=== PATIENT | female | born 1980 | race Caucasian/White ===

== ENCOUNTER → 2020-07-07 15:32 | Outpatient (BNVA) | payer OTHER, SELFPAY | PROVIDERS: PCP Internal Medicine; Referring Provider Internal Medicine; Visit Provider Internal Medicine Gastroenterology | DX: K21.9 Gastro-esophageal reflux disease without esophagitis (principal); K59.09 Other constipation; R11.2 Nausea with vomiting, unspecified; R10.32 Left lower quadrant pain | CPT/HCPCS: 99213 ==

== ENCOUNTER 2020-09-14 15:01 | Emergency (ER) | payer OTHER, SELFPAY ==
[2020-09-14 16:33] VITALS: BP 153/94; PULSE 99; RESP 16; O2SAT 99; BMI 37.8
--- NOTE | 2020-09-14 16:58 | ED.GENADULT ---
HPI - General Adult General Chief complaint: Extremity Injury, Lower Stated complaint: Bilateral leg pain Time Seen by Provider: 09/14/20 16:44 Source: patient Mode of arrival: ambulatory Limitations: no limitations History of Present Illness HPI narrative: 40-year-old female with a past medical history of allergic rhinitis, chronic constipation, diabetes, GERD, high cholesterol, diabetes here with bilateral lower extremity pain. The patient only for the last 2 days she has had lower extremity pain with no swelling, redness, fevers, chills. Denies any injury or trauma. She tells me she works on her feet for long hours. She is very active. She normally wears a flat slip-on shoe at work. Sometime she wears sneakers. Pain is worsened with walking. Onset (ago): day(s) Location: lower extremity Radiation: non-radiation Severity: mild Quality: aching Pain Consistency: intermittent Relieving factors: none Exacerbating factors: none Associated symptoms: denies other symptoms Treatments prior to arrival: none Related Data Home Medications Medication Instructions Recorded Confirmed dicyclomine 20 mg tablet 20 mg PO BID 07/07/20 07/07/20 metformin 500 mg tablet 500 mg PO BID 07/07/20 07/07/20 ondansetron 4 mg disintegrating 4 mg PO Q8H 07/07/20 07/07/20 tablet polyethylene glycol 3350 17 17 g PO DAILY 07/07/20 07/07/20 gram/dose oral powder Previous Rx's Medication Instructions Recorded alogliptin 25 mg tablet 25 mg PO DAILY 90 Days #90 tab 07/05/20 Allergies Allergy/AdvReac Type Severity Reaction Status Date / Time No Known Allergies Allergy Verified 09/02/20 13:31 [No Known Allergies*] Review of Systems Review of Systems: Yes all other systems are reviewed and are negative Constitutional: Constitutional: Reports no additional constitutional complaints, Denies body ache(s), Denies chills, Denies fever(s), Denies headache(s) and Denies weakness Eyes: Eyes: Reports no additional eye complaints and Denies change in vision ENT: Reports system reviewed and no additional complaints, except as documented, Denies dizziness, Denies headache(s), Denies nasal congestion, Denies nasal discharge and Denies neck pain Cardiovascular: Cardiovascular: Reports no additional cardiovascular complaints, Denies chest pain, Denies leg edema and Denies dyspnea Respiratory: Respiratory: Reports no additional respiratory complaints, Denies cough and Denies dyspnea Gastrointestinal: Gastrointestinal: Reports no additional gastrointestinal complaints, Denies abdominal pain, Denies diarrhea, Denies nausea and Denies vomiting Genitourinary: Genitourinary: Reports no additional female genitourinary complaints and Denies urinary incontinence Musculoskeletal: Musculoskeletal: Reports no additional musculoskeletal complaints, Denies back pain, Denies arthralgias, Denies joint swelling, Denies neck pain, Denies numbness and Denies tingling Comments: +LE pain Integumentary/Breasts: Skin/Breast: Reports system reviewed and no additional complaints, except as docu and Denies rash Neurologic: Reports system reviewed and no additional complaints, except as documented, Denies Abnormal speech present, Denies dizziness, Denies headache(s), Denies numbness, Denies tingling and Denies weakness PMFSH Past Medical History Attestation statement: The following information was validated with the patient. Source: old records reviewed and nursing notes reviewed Medical History Allergic rhinitis Calcaneal spur of left foot Chest pain, atypical Chronic constipation Diabetes GERD (gastroesophageal reflux disease) Hirsutism Hypercholesterolemia Left lower quadrant abdominal pain Nausea and vomiting Obesity (BMI 35.0-39.9 without comorbidity) Plantar fasciitis of left foot Type 2 diabetes mellitus Surgical History H/O section H/O endoscopy History of esophagogastroduodenoscopy (EGD) (~10/2019) [place] teeth removed Family History Family History Father No problems noted. Mother Hypertension Sister No problems noted. 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 [employer] Physical Exam Vital Signs: Vital Signs: Last Vital Signs Pulse 99 09/14/20 16:33 Resp 16 09/14/20 16:33 BP 153/94 H 09/14/20 16:33 Pulse Ox 99 09/14/20 16:33 Body Mass Index 37.8 Const: General: cooperative, healthy appearing, comfortable and no acute distress Orientation/consciousness: patient oriented x3 Limitations: no limitations HENMT: Head: Yes normal to inspection Ears: hearing grossly normal bilaterally General nose exam: Normal external nose present Face and sinus: Yes normal facial exam Mouth: Normal oral and palatal mucosa present Throat: Yes posterior oropharynx normal Eyes: General: appearance normal, both eyes and all related structures Pupils: Equal, round and reactive pupils present Neck: Neck: Yes normal visual inspection Chest: Chest palpation & inspection: normal inspection of the chest Resp: Effort & Inspection: normal respiratory effort Auscultation: clear to auscultation bilaterally Cardio: Rate: regular rate Rhythm: regular rhythm Peripheral pulses: Peripheral pulses 2+ throughout GI: Inspection: Yes normal to inspection Palpation (GI): Soft to palpation and nontender Auscultation: normal bowel sounds Back/Spine/Pelvis: Thoracic/Lumbar Spine: thoracic and lumbar spine normal to inspection Skin: General skin exam: no rashes or lesions noted Neuro: General: patient oriented x3, no focal motor deficits and normal sensation to monofilament Cranial nerves: Yes Equal, round and reactive pupils present Cognition (Neuro): normal cognition Speech: No Abnormal speech present Gait exam (Neuro): Normal gait present Motor exam (neuro): 5/5 motor strength present throughout Extrem: Other: Bilateral lower extremity tenderness more over the anterior shins with no swelling, ecchymosis, erythema, warmth. There is some mild posterior right and left calf pain. Neurovascular intact distally. Normal cap refill and pulses. General: Yes normal to inspection Course Course Course Narrative: 40 yo female here with bilateral LE pain x several days with no injury or trauma. No erythema, swelling, warmth or fevers or chills. Will check US, provide analgesia and re-assess. 1829-US negative for DVT. Exam more c/w with sprague splints. Reviewed supportive care at home. Reviewed worrisome signs and symptoms of when to return to the emergency department. Comfortable discharge home. Medical Decision Making Imaging Data Venous US: Attestation: I personally reviewed and interpreted this imaging study as follows: Radiologist's impression: EXAMINATION: US VENOUS ULTRASOUND WITH DOPPLER LOWER EXTREMITY, BILATERAL CLINICAL INFORMATION: Lower extremity pain. Calf tenderness. COMPARISON: None TECHNIQUE: Ultrasound of the deep veins is performed from the hip to the calf with compression sonography and color and pulse Doppler assessment. Spectral analysis with color-flow imaging is performed. FINDINGS: RIGHT: There is normal venous compression and respiratory variation and augmented flow. The visualized common femoral vein, superficial femoral vein, profunda femoral vein, popliteal vein, and the trifurcation region shows no evidence of deep venous thrombosis. There is no significant popliteal fossa cyst. LEFT: There is normal venous compression and respiratory variation and augmented flow. The visualized common femoral vein, superficial femoral vein, profunda femoral vein, popliteal vein, and the trifurcation region shows no evidence of deep venous thrombosis. There is no significant popliteal fossa cyst. If the patient's symptoms persist, followup ultrasound in 5 days 7 days might be of value to exclude proximal propagation from a non-visualized calf vein. US/US venous duplex LE BI IMPRESSION: No DVT demonstrated in the bilateral lower extremity. Discharge Plan Discharge Clinical Impression: Anterior sprague splints Patient Disposition: Home, Self-Care Instructions: Sprague Splints (ED) Additional Instructions: Ice your legs, elevate the legs Take motrin or tylenol for pain as needed Consider buying new sneakers as sometimes when sneakers get old the support wears out and you need new ones Prescriptions: No Action alogliptin 25 mg tablet 25 mg PO DAILY 90 Days Qty: 90 RF: 0 metformin 500 mg tablet 500 mg PO BID RF: 0 dicyclomine 20 mg tablet 20 mg PO BID RF: 0 ondansetron 4 mg tablet,disintegrating 4 mg PO Q8H RF: 0 polyethylene glycol 3350 [Miralax] 17 gram/dose powder 17 g PO DAILY RF: 0 Referrals: Tate Daniel MD [Primary Care Provider] - 2 days Stand Alone Forms: Work/School Release Interventions: ED Discharge Assessment Last Done: 09/14/20 19:07 Discharge Date/Time: 09/14/20 19:10
[2020-09-14] MEDS: Ibuprofen 600 MG TABLET PO (17:23)
== END 2020-09-14 19:10 | disposition home or self-care (01) ==
PROVIDERS: Emergency Provider Emergency Medicine Emergency Medical Services; PCP Internal Medicine
DX: S86.892A Other injury of other muscle(s) and tendon(s) at lower leg level, left leg, initial encounter (principal); S86.891A Other injury of other muscle(s) and tendon(s) at lower leg level, right leg, initial encounter; X50.1XXA Overexertion from prolonged static or awkward postures, initial encounter; M79.662 Pain in left lower leg; M79.661 Pain in right lower leg; E11.9 Type 2 diabetes mellitus without complications; Y93.9 Activity, unspecified; Y92.9 Unspecified place or not applicable; Y99.0 Civilian activity done for income or pay; Z79.84 Long term (current) use of oral hypoglycemic drugs; Z79.899 Other long term (current) drug therapy
CPT/HCPCS: 93970; 99283; 99284

== ENCOUNTER 2020-09-20 14:34 | Outpatient (REF) | payer OTHER, SELFPAY | END 2020-09-20 14:35 | disposition home or self-care (01) | LOC: HO.LAB 14:34 | PROVIDERS: PCP Internal Medicine; Visit Provider Internal Medicine | DX: Z20.828 Contact with and (suspected) exposure to other viral communicable diseases (principal) | CPT/HCPCS: 36415; C9803; U0003 ==

== ENCOUNTER 2020-09-20 15:03 | Outpatient (REF) | payer OTHER, SELFPAY ==
[2020-09-20 16:12] LABS: Estimated Average Glucose 206 mg/dL; Hemoglobin A1c % 8.8 %
[2020-09-20 16:21] LABS: Glucose Urine UA 500 MG/DL (NEG); Leukocyte Esterase Urine NEG (NEG); Nitrite Urine NEG (NEG); Specific Gravity - Urine >= 1.030 (1.005-1.025); Urine Blood NEG (NEG); Urine Ketones 40 MG/DL (NEG); Urine Protein NEG (NEG-TRACE)
[2020-09-20 16:24] LABS: Appearance Urine CLEAR; Color Urine YELLOW
[2020-09-20 16:27] LABS: Alanine Aminotransferase 22 U/L (0-31); Alkaline Phosphatase 43 U/L (39-117); Anion Gap 17 (12-20); Aspartate Amino Transferase 22 U/L (5-31); Bilirubin Total 0.3 mg/dL (0.0-1.0); Blood Urea Nitrogen 17 mg/dL (9-16); Calcium 8.6 mg/dL (8.4-10.2); Carbon Dioxide 22 mmol/L (22-29); Chloride 103 mmol/L (96-108); Cholesterol 200 mg/dL; Estimated Glomerular Filt Rate > 60; Glucose Random 239 mg/dL (60-115); HDL Cholesterol 62 mg/dL; LDL Cholesterol Calculated 99 mg/dl; Potassium 4.3 mmol/l (3.3-5.1); Sodium 138 mmol/L (135-145); Total Protein 6.9 g/dL (6.5-8.0); Triglycerides 195 mg/dL
[2020-09-20 16:30] LABS: Bacteria Urine 1+ /LPF; Mucus Urine 2+ /LPF; Squamous Epithelial Cell Urine 2+ /LPF
[2020-09-20 16:42] LABS: Creatinine Urine 278.66 mg/dL; Microalbum/Creatinine Ratio Ur 7.5 ug/mg cr
== END 2020-09-20 15:04 | disposition home or self-care (01) ==
LOC: HO.LAB 15:03
PROVIDERS: PCP Internal Medicine; Visit Provider Internal Medicine
DX: E11.9 Type 2 diabetes mellitus without complications (principal); E78.00 Pure hypercholesterolemia, unspecified
CPT/HCPCS: 36415; 80053; 80061; 81001; 82043; 83036

== ENCOUNTER 2020-10-13 15:28 | Outpatient (REF) | payer OTHER, SELFPAY ==
[2020-10-19 06:02] LABS: HPV mRNA E6/E7 rflx Not Detected (Not Detected)
== END 2020-10-13 15:29 | disposition home or self-care (01) ==
LOC: HO.LAB 15:28
PROVIDERS: PCP Internal Medicine; Visit Provider Obstetrics & Gynecology
DX: Z01.419 Encounter for gynecological examination (general) (routine) without abnormal findings (principal); Z11.51 Encounter for screening for human papillomavirus (HPV)
CPT/HCPCS: 36415; 87624; 88142

== ENCOUNTER → 2020-11-10 14:11 | Outpatient (BNVA) | payer OTHER, SELFPAY | PROVIDERS: PCP Internal Medicine; Visit Provider Internal Medicine Gastroenterology | DX: K21.9 Gastro-esophageal reflux disease without esophagitis (principal); K59.09 Other constipation; R07.89 Other chest pain | CPT/HCPCS: 99212 ==

== ENCOUNTER 2021-01-02 14:39 | Outpatient (REF) | payer OTHER, SELFPAY ==
[2021-01-02 15:15] LABS: COVID-19 Test Negative (Negative)
== END 2021-01-02 14:40 | disposition home or self-care (01) ==
LOC: HO.LAB 14:39
PROVIDERS: Visit Provider Internal Medicine
DX: Z20.822 Contact with and (suspected) exposure to COVID-19 (principal)
CPT/HCPCS: 36415; 87635; C9803

== ENCOUNTER → 2021-01-06 08:01 | Outpatient (REF) | payer OTHER, SELFPAY ==
--- NOTE | ~2021-01-06 | NM_ITS ---
EXAMINATION: RADIONUCLIDE SOLID FOOD GASTRIC EMPTYING 4-HOUR STUDY CLINICAL INFORMATION: Nausea with vomiting. COMPARISON: No previous gastric emptying study is available for comparison. TECHNIQUE: A standard meal consisting of 4 oz of Egg Beaters brand tagged with 1 mCi Tc-99m Sulfur Colloid, 8 oz water and 2 slices of toast with jelly was administered orally to the patient. Images were obtained using a dual head gamma camera in the anterior and posterior projections over of the stomach immediately post ingestion and at hourly intervals up to 3 hours post ingestion. Images were not obtained at 4 hours due to the minimal retention at 3 hours. The anterior and posterior counts at each time interval were averaged using the geometric mean and expressed as percentage of the immediate post ingestion counts. FINDINGS: There is good visualization of activity in the stomach immediately post ingestion. As the study progresses, there is good clearance of activity from the stomach and visualization of progressively increasing small bowel activity. By the end of the study, there is almost no retention noted in the stomach. Retention in the stomach at each time interval was: 1 hour 91% (normal 37%-90%) 2 hours 34% (normal 30%-60%) 3 hours 5% 4 hours (Not Obtained) (normal 0%-10%) NM/NM gastric emptying study IMPRESSION: Normal solid food gastric emptying study.
== END ==
LOC: HO.NUCMED 08:01
PROVIDERS: PCP Internal Medicine; Visit Provider Internal Medicine Gastroenterology
DX: R11.2 Nausea with vomiting, unspecified (principal); R68.81 Early satiety
CPT/HCPCS: 78264; A9541

== ENCOUNTER → 2021-01-12 08:26 | Outpatient (BNVA) | payer OTHER, SELFPAY | PROVIDERS: PCP Internal Medicine; Visit Provider Internal Medicine Gastroenterology ==

== ENCOUNTER 2021-01-31 09:59 | Outpatient (REF) | payer OTHER, SELFPAY ==
--- NOTE | ~2021-01-31 | MM_ITS ---
EXAMINATION: MM SCREENING DIGITAL BREAST TOMOSYNTHESIS, BILATERAL CLINICAL INFORMATION: Screening. Asymptomatic. The lifetime risk of breast cancer based on the Tyrer-Cuzick Model is 9%. COMPARISON: Mammography: 11/17/2019 (baseline). TECHNIQUE: Digital breast tomosynthesis is performed in both the craniocaudal and mediolateral oblique views along with computer-aided detection (CAD). Synthesized 2D images are generated from the tomosynthesis. FINDINGS: There are scattered areas of fibroglandular density (ACR BI-RADS breast composition Category b). There are no significant masses, abnormal calcifications, or other abnormalities. Parenchymal pattern is similar to baseline exam. Low right axillary tail node stable. Skin contours are smooth. MM/MM tomosynthesis screening BI IMPRESSION: No mammographic evidence of malignancy. ASSESSMENT: BI-RADS 2: Benign RECOMMENDATION: Routine annual mammography screening. This patient's information was entered into a reminder system with a target due date for their next mammogram.
== END 2021-01-31 10:00 | disposition home or self-care (01) ==
LOC: HO.MAMMO 09:59
PROVIDERS: Visit Provider Obstetrics & Gynecology
DX: Z12.31 Encounter for screening mammogram for malignant neoplasm of breast (principal)
CPT/HCPCS: 77063; 77067

== ENCOUNTER 2021-04-01 12:06 | Emergency (ER) | payer OTHER, SELFPAY ==
[2021-04-01] VITALS (8 sets, daily range): BP systolic 140–152; BP diastolic 88–99; PULSE 92–110; RESP 16; TEMP 36.5; O2SAT 99–100; BMI 30.6
--- NOTE | 2021-04-01 13:00 | ED.GENADULT ---
HPI - General Adult General Chief complaint: General Medical Stated complaint: Glucose level over 200/General Medical Time Seen by Provider: 04/01/21 12:18 Source: patient Mode of arrival: ambulatory History of Present Illness HPI narrative: 40-year-old female with a past medical history of DM, GERD, hyperlipidemia, presenting to the ED complaining of nausea, vomiting, chills, abdominal discomfort x today. Admits checked POC at work and was 274. Denies missing any doses of her Metformin or Trulicity. Denies fever, CP/SOB, diarrhea/constipation, recent travel, suspicious food intake Related Data Home Medications Medication Instructions Recorded Confirmed ondansetron 4 mg disintegrating 4 mg PO Q8H 07/07/20 01/12/21 tablet polyethylene glycol 3350 17 17 g PO DAILY 07/07/20 01/12/21 gram/dose oral powder famotidine 20 mg tablet 40 mg PO BEDTIME 09/27/20 01/12/21 Previous Rx's Medication Instructions Recorded omeprazole 40 mg capsule,delayed 40 mg PO DAILY #30 cap 09/17/20 release desogestrel 0.15 mg-ethinyl 1 tab PO DAILY 84 Days #84 cap 11/08/20 estradiol 0.03 mg tablet dulaglutide 0.75 mg/0.5 mL 0.75 mg SUBCUT QWEEK 28 Days #2 ml 01/03/21 subcutaneous pen injector ibuprofen 600 mg tablet 600 mg PO TID PRN 30 Days #90 tab 01/03/21 metformin 500 mg tablet 500 mg PO BID 30 Days #60 cap 01/03/21 tizanidine 4 mg tablet 4 mg PO TID PRN 30 Days #90 tab 01/03/21 dicyclomine 20 mg tablet 20 mg PO TID #90 tab 03/24/21 Allergies Allergy/AdvReac Type Severity Reaction Status Date / Time Seasonal Allergies Allergy Mild runny nose Verified 04/01/21 12:14 Review of Systems Review of Systems: Constitutional: No Fever, + Chills, No Fatigue, No Malaise ENT/Mouth: No Ear Pain, No Nasal Congestion, No sore throat, No Rhinorrhea Eyes: No Eye Pain, No Swelling, No Redness, No Vision Changes Cardiovascular: No Chest Pain, No SOB, No Edema Respiratory: No Cough, No Dyspnea Gastrointestinal: + Nausea, + Vomiting, No Diarrhea, No Constipation, + Abdominal pain Genitourinary: No Dysuria, No Urinary Frequency, No Hematuria Musculoskeletal: No joint pain, No Joint Swelling Skin: No Skin Lesions, No rash Neuro: No Weakness, No Numbness Endocrine: No Polyuria, No Polydipsia Yes all other systems are reviewed and are negative [facility] Past Medical History Attestation statement: The following information was validated with the patient. Medical History Allergic rhinitis Calcaneal spur of left foot Chest pain, atypical Chronic constipation Diabetes Elevated blood pressure reading GERD (gastroesophageal reflux disease) GERD without esophagitis Hirsutism HPV (human papilloma virus) infection Hypercholesterolemia Knee pain, bilateral Left lower quadrant abdominal pain Nausea and vomiting Obesity (BMI 30-39.9) Obesity (BMI 35.0-39.9 without comorbidity) Plantar fasciitis of left foot Pure hypercholesterolemia Type 2 diabetes mellitus Type 2 diabetes mellitus without complications Surgical History H/O section H/O endoscopy History of esophagogastroduodenoscopy (EGD) (~10/2019) [place] teeth removed Family History Family History Father No problems noted. 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 Physical Exam Vital Signs: Vital Signs: Last Vital Signs Temp 97.7 F 04/01/21 12:14 Pulse 96 04/01/21 14:14 Resp 16 04/01/21 14:00 BP 146/91 H 04/01/21 15:58 Pulse Ox 100 04/01/21 14:00 Body Mass Index 30.6 Const: General: cooperative, healthy appearing, no acute distress, well developed, alert, awake and anxious Orientation/consciousness: patient oriented x3 Limitations: no limitations HENMT: Head: Yes normal to inspection Ears: hearing grossly normal bilaterally General nose exam: Normal external nose present Face and sinus: Yes normal facial exam Throat: Yes posterior oropharynx normal Eyes: General: appearance normal, both eyes and all related structures EOM: EOMs intact bilaterally Neck: Neck: Yes normal visual inspection and Yes no meningeal signs Resp: Effort & Inspection: normal respiratory effort Auscultation: clear to auscultation bilaterally, no rales, no rhonchi and no wheezes Cardio: Rate: regular rate Heart sounds: S1 normal heart sound present and S2 normal heart sound present GI: Inspection: Yes normal to inspection Palpation (GI): Soft to palpation, nontender, no guarding and not rigid Skin: Rashes: no rashes Wounds: no wounds Neuro: General: patient oriented x3 and no meningeal signs Gait exam (Neuro): Normal gait present Extrem: General: Yes normal to inspection Course Course Course Narrative: -no leukocytosis, H&H stable, lactic acid elevated at 6 >patient is currently on Metformin likely also element of dehydration will give IVF. Low concern for severe sepsis -1437--VBG WNL, bicarb low at 19 likely from nausea/decreased PO intake, anion gap elevated at 23 likely from lactic acidosis. Glucose 291, acetone negative. Magnesium 1.3 > will give 2 g IV repletion -1622- BMP normalized after IVF. Glucose improved to 181, lactic improved to 2.7. UA not infected Medical Decision Making MDM Narrative Medical decision making narrative: 40-year-old female with a past medical history of DM, GERD, hyperlipidemia, presenting to the ED complaining of nausea, vomiting, chills, abdominal discomfort x today. On exam tachycardic, anxious, nontoxic appearing, lungs CTA, abdomen soft/nontender. Concern for hyperglycemia vs DKA vs gastroenteritis vs food poisoning. Rule out metabolic/infectious etiology. Low concern for ACS/UTI Plan: EKG, labs, UA, IVF, reassess Lab Data Result diagrams: 04/01/21 13:10 04/01/21 15:40 Labs: Lab Results 04/01/21 04/01/21 04/01/21 Range/Units 13:05 13:05 13:10 WBC 7.3 (4.8-10.8) X10*3/uL RBC 4.11 L (4.20-5.50) X10*6/uL Hgb 13.0 (12.0-16.0) g/dl Hct 37.5 (37-47) % MCV 91.2 (80-98) fL MCH 31.6 (27.0-33.0) pg MCHC 34.7 (31.0-35.0) g/dl RDW 12.6 (11.0-16.0) % Plt Count 184 (160-400) X10*3/uL MPV 10.4 (9.4-12.3) fL Immature Gran % (Auto) 0.3 (0.0-0.4) % Neut % (Auto) 58.2 (45-73) % Lymph % (Auto) 31.4 (20-40) % [place] % (Auto) 8.6 (2-11) % Eos % (Auto) 1.0 (0-4) % Baso % (Auto) 0.5 (0-2) % Lymph # (Auto) 2.3 (1.2-4.9) X10*3/uL [place] # (Auto) 0.6 (0.1-1.2) X10*3/uL Eos # (Auto) 0.1 (0.0-0.4) X10*3/uL Baso # (Auto) 0.0 (0.0-0.2) X10*3/uL Abs Immat Gran (auto) 0.02 (0.00-0.03) X10*3/uL Absolute Neuts (auto) 4.3 (2.0-8.3) X10*3/uL Absolute Nucleated RBC 0.000 (0.0-0.012) X10*3/uL Nucleated RBC % (auto) 0.0 (0.0-0.2) /100WBC VBG pH (7.32-7.43) VBG pCO2 mmHg VBG pO2 mmHg VBG HCO3 (22-26) mmol/L VBG O2 Saturation % VBG Base Excess mmol/L Sodium 139 (135-145) mmol/L Potassium 4.1 (3.3-5.1) mmol/L Chloride 101 (96-108) mmol/L Carbon Dioxide 19 L (22-29) mmol/L Anion Gap 23 H (12-20) BUN 19 H (9-16) mg/dL Creatinine 1.02 (0.5-1.4) mg/dL Estim Creat Clear Calc 66.5 Estimated GFR 60 POC Glucose (60-115) mg/dL Random Glucose 291 H (60-115) mg/dL Lactic Acid (0.5-2.0) mmol/L Lactic Acid Fup @ 2Hr (0.5-2.0) mmol/L Calcium 9.7 D (8.4-10.2) mg/dL Magnesium 1.3 L* (1.6-2.6) mg/dL Total Bilirubin 0.4 (0.0-1.0) mg/dL Direct Bilirubin 0.2 (0.0-0.5) mg/dL AST 24 (5-31) U/L ALT 19 (0-31) U/L Alkaline Phosphatase 46 (39-117) U/L Total Protein 6.7 (6.5-8.0) g/dL Albumin 3.7 (3.5-5.0) g/dL Lipase 28 Cancelled (8-78) U/L Urine Color Urine Appearance Urine pH (5.0-8.0) Ur Specific [place] (1.005-1.025) Urine Protein (NEG-TRACE) MG/DL Urine Glucose (UA) (NEG) MG/DL Urine Ketones (NEG) MG/DL Urine Blood (NEG) Urine Nitrite (NEG) Ur Leukocyte Esterase (NEG) Urine RBC (0) /HPF Urine WBC (0-4) /HPF Ur Squamous Epith Cells /LPF Urine Bacteria /LPF Hyaline Casts /LPF Urine Mucus /LPF Acetone, Qual Negative (Negative) 04/01/21 04/01/21 04/01/21 Range/Units 13:10 14:06 14:21 WBC (4.8-10.8) X10*3/uL RBC (4.20-5.50) X10*6/uL Hgb (12.0-16.0) g/dl Hct (37-47) % MCV (80-98) fL MCH (27.0-33.0) pg MCHC (31.0-35.0) g/dl RDW (11.0-16.0) % Plt Count (160-400) X10*3/uL MPV (9.4-12.3) fL Immature Gran % (Auto) (0.0-0.4) % Neut % (Auto) (45-73) % Lymph % (Auto) (20-40) % [place] % (Auto) (2-11) % Eos % (Auto) (0-4) % Baso % (Auto) (0-2) % Lymph # (Auto) (1.2-4.9) X10*3/uL [place] # (Auto) (0.1-1.2) X10*3/uL Eos # (Auto) (0.0-0.4) X10*3/uL Baso # (Auto) (0.0-0.2) X10*3/uL Abs Immat Gran (auto) (0.00-0.03) X10*3/uL Absolute Neuts (auto) (2.0-8.3) X10*3/uL Absolute Nucleated RBC (0.0-0.012) X10*3/uL Nucleated RBC % (auto) (0.0-0.2) /100WBC VBG pH 7.41 (7.32-7.43) VBG pCO2 36 mmHg VBG pO2 70 mmHg VBG HCO3 23 (22-26) mmol/L VBG O2 Saturation 91.0 % VBG Base Excess -0.6 mmol/L Sodium (135-145) mmol/L Potassium (3.3-5.1) mmol/L Chloride (96-108) mmol/L Carbon Dioxide (22-29) mmol/L Anion Gap (12-20) BUN (9-16) mg/dL Creatinine (0.5-1.4) mg/dL Estim Creat Clear Calc Estimated GFR POC Glucose (60-115) mg/dL Random Glucose (60-115) mg/dL Lactic Acid 6.0 H* (0.5-2.0) mmol/L Lactic Acid Fup @ 2Hr (0.5-2.0) mmol/L Calcium (8.4-10.2) mg/dL Magnesium (1.6-2.6) mg/dL Total Bilirubin (0.0-1.0) mg/dL Direct Bilirubin (0.0-0.5) mg/dL AST (5-31) U/L ALT (0-31) U/L Alkaline Phosphatase (39-117) U/L Total Protein (6.5-8.0) g/dL Albumin (3.5-5.0) g/dL Lipase (8-78) U/L Urine Color YELLOW Urine Appearance HAZY Urine pH 6.0 (5.0-8.0) Ur Specific [place] >= 1.030 H (1.005-1.025) Urine Protein NEG (NEG-TRACE) MG/DL Urine Glucose (UA) >=1000 H (NEG) MG/DL Urine Ketones >=80 (NEG) MG/DL Urine Blood NEG (NEG) Urine Nitrite NEG (NEG) Ur Leukocyte Esterase NEG (NEG) Urine RBC 0 (0) /HPF Urine WBC 1-4 (0-4) /HPF Ur Squamous Epith Cells 2+ /LPF Urine Bacteria NONE /LPF Hyaline Casts 0-2 /LPF Urine Mucus 1+ /LPF Acetone, Qual (Negative) 04/01/21 04/01/21 04/01/21 Range/Units 15:40 15:40 16:02 WBC (4.8-10.8) X10*3/uL RBC (4.20-5.50) X10*6/uL Hgb (12.0-16.0) g/dl Hct (37-47) % MCV (80-98) fL MCH (27.0-33.0) pg MCHC (31.0-35.0) g/dl RDW (11.0-16.0) % Plt Count (160-400) X10*3/uL MPV (9.4-12.3) fL Immature Gran % (Auto) (0.0-0.4) % Neut % (Auto) (45-73) % Lymph % (Auto) (20-40) % [place] % (Auto) (2-11) % Eos % (Auto) (0-4) % Baso % (Auto) (0-2) % Lymph # (Auto) (1.2-4.9) X10*3/uL [place] # (Auto) (0.1-1.2) X10*3/uL Eos # (Auto) (0.0-0.4) X10*3/uL Baso # (Auto) (0.0-0.2) X10*3/uL Abs Immat Gran (auto) (0.00-0.03) X10*3/uL Absolute Neuts (auto) (2.0-8.3) X10*3/uL Absolute Nucleated RBC (0.0-0.012) X10*3/uL Nucleated RBC % (auto) (0.0-0.2) /100WBC VBG pH (7.32-7.43) VBG pCO2 mmHg VBG pO2 mmHg VBG HCO3 (22-26) mmol/L VBG O2 Saturation % VBG Base Excess mmol/L Sodium 139 (135-145) mmol/L Potassium 3.5 (3.3-5.1) mmol/L Chloride 107 (96-108) mmol/L Carbon Dioxide 22 (22-29) mmol/L Anion Gap 14 (12-20) BUN 15 (9-16) mg/dL Creatinine 0.79 (0.5-1.4) mg/dL Estim Creat Clear Calc 85.9 Estimated GFR > 60 POC Glucose 181 H (60-115) mg/dL Random Glucose 207 H (60-115) mg/dL Lactic Acid (0.5-2.0) mmol/L Lactic Acid Fup @ 2Hr 2.7 H* (0.5-2.0) mmol/L Calcium 8.4 D (8.4-10.2) mg/dL Magnesium (1.6-2.6) mg/dL Total Bilirubin (0.0-1.0) mg/dL Direct Bilirubin (0.0-0.5) mg/dL AST (5-31) U/L ALT (0-31) U/L Alkaline Phosphatase (39-117) U/L Total Protein (6.5-8.0) g/dL Albumin (3.5-5.0) g/dL Lipase (8-78) U/L Urine Color Urine Appearance Urine pH (5.0-8.0) Ur Specific [place] (1.005-1.025) Urine Protein (NEG-TRACE) MG/DL Urine Glucose (UA) (NEG) MG/DL Urine Ketones (NEG) MG/DL Urine Blood (NEG) Urine Nitrite (NEG) Ur Leukocyte Esterase (NEG) Urine RBC (0) /HPF Urine WBC (0-4) /HPF Ur Squamous Epith Cells /LPF Urine Bacteria /LPF Hyaline Casts /LPF Urine Mucus /LPF Acetone, Qual (Negative) Discharge Plan Discharge Clinical Impression: Acute hyperglycemia Patient Disposition: Home, Self-Care Instructions: Diabetic Hyperglycemia (ED) Additional Instructions: Make sure you are staying hydrated at home, monitor your blood glucose Do not miss any doses of her metformin or you Trulicity Please drink plenty of fluids Follow-up with her primary care doctor If her symptoms persist or worsen, you are unable to eat or drink, your blood glucose is continuously high, or lobe please return to the ED Prescriptions: No Action omeprazole 40 mg capsule,delayed release(DR/EC) 40 mg PO DAILY Qty: 30 RF: 5 desogestrel-ethinyl estradiol [Apri] 0.15-0.03 mg tablet 1 tab PO DAILY 84 Days Qty: 84 RF: 2 dicyclomine 20 mg tablet 20 mg PO TID Qty: 90 RF: 1 famotidine 20 mg tablet 40 mg PO BEDTIME RF: 0 metformin 500 mg tablet 500 mg PO BID 30 Days Qty: 60 RF: 3 Trulicity 0.75 mg/0.5 mL pen injector 0.75 mg subcut QWEEK 28 Days Qty: 2 RF: 3 tizanidine 4 mg tablet 4 mg PO TID PRN (Reason: muscle spasticity) 30 Days Qty: 90 RF: 2 ibuprofen 600 mg tablet 600 mg PO TID PRN (Reason: pain) 30 Days Qty: 90 RF: 3 ondansetron 4 mg tablet,disintegrating 4 mg PO Q8H RF: 0 polyethylene glycol 3350 [Miralax] 17 gram/dose powder 17 g PO DAILY RF: 0 Referrals: Tate Daniel MD [Primary Care Provider] - 2 days
--- NOTE | 2021-04-01 13:06 | ECG_ITS ---
Test Reason : WEAKNESS Blood Pressure : / mmHG Vent. Rate : 092 BPM Atrial Rate : 092 BPM P-R Int : 136 ms QRS Dur : 072 ms QT Int : 368 ms P-R-T Axes : 045 018 -03 degrees QTc Int : 455 ms Normal sinus rhythm Septal infarct , age undetermined Abnormal ECG When compared with ECG of 13-JUN-2019 23:41, Septal infarct is now Present Referred By: Eunice Arora Electronically Signed By:Wilmer Mcghee
[2021-04-01] MEDS: 0.9 % Sodium Chloride 1,000 ML 999 ML IVCONT ×2 (13:13→14:17)
[2021-04-01] MEDS: ondansetron HCL 4 MG/2 ML VIAL IVPUSH (13:15)
[2021-04-01 13:16] LABS: Basophils Percent Auto 0.5 % (0-2); Eosinophils Absolute Auto 0.1 X10*3/uL (0.0-0.4); Hematocrit 37.5 % (37-47); Imm Gran Abs Auto 0.02 X10*3/uL (0.00-0.03); Imm Gran Pct Auto 0.3 % (0.0-0.4); Lymphocytes Absolute Auto 2.3 X10*3/uL (1.2-4.9); Lymphocytes Percent Auto 31.4 % (20-40); Mean Corpuscular HGB Conc 34.7 g/dl (31.0-35.0); Mean Corpuscular Hemoglobin 31.6 pg (27.0-33.0); Mean Corpuscular Volume 91.2 fL (80-98); Mean Platelet Volume 10.4 fL (9.4-12.3); Monocytes Absolute Auto 0.6 X10*3/uL (0.1-1.2); Monocytes Percent Auto 8.6 % (2-11); Neutrophils Absolute Auto 4.3 X10*3/uL (2.0-8.3); Neutrophils Percent Auto 58.2 % (45-73); Platelet Count 184 X10*3/uL (160-400); Red Blood Count 4.11 X10*6/uL (4.20-5.50); Red Cell Distribution Width 12.6 % (11.0-16.0); White Blood Count 7.3 X10*3/uL (4.8-10.8)
[2021-04-01 13:17] LABS: MANUAL DIFF FLAG NO
[2021-04-01 14:14] LABS: VBG Base Excess -0.6 mmol/L; VBG HCO3 23 mmol/L (22-26); VBG pCO2 36 mmHg; VBG pH 7.41 (7.32-7.43); VBG pO2 70 mmHg
[2021-04-01 14:15] LABS: Venous Blood Gas Refer to POC result
[2021-04-01 14:22] LABS: Acetone, serum QL Negative (Negative)
[2021-04-01 14:30] LABS: Alanine Aminotransferase 19 U/L (0-31); Albumin Level 3.7 g/dL (3.5-5.0); Alkaline Phosphatase 46 U/L (39-117); Anion Gap 23 (12-20); Aspartate Amino Transferase 24 U/L (5-31); Bilirubin Direct 0.2 mg/dL (0.0-0.5); Bilirubin Total 0.4 mg/dL (0.0-1.0); Blood Urea Nitrogen 19 mg/dL (9-16); Calcium 9.7 mg/dL (8.4-10.2); Carbon Dioxide 19 mmol/L (22-29); Chloride 101 mmol/L (96-108); Creatinine Clr Calc Pharmacy 66.5; Estimated Glomerular Filt Rate 60; Glucose Random 291 mg/dL (60-115); Lipase 28 U/L (8-78); Magnesium 1.3 mg/dL (1.6-2.6); Potassium 4.1 mmol/L (3.3-5.1); Sodium 139 mmol/L (135-145); Total Protein 6.7 g/dL (6.5-8.0)
[2021-04-01 14:32] LABS: Glucose Urine UA >=1000 MG/DL (NEG); Leukocyte Esterase Urine NEG (NEG); Nitrite Urine NEG (NEG); Specific Gravity - Urine >= 1.030 (1.005-1.025); Urine Blood NEG (NEG); Urine Ketones >=80 MG/DL (NEG); Urine Protein NEG (NEG-TRACE)
[2021-04-01 14:47] LABS: Appearance Urine HAZY; Color Urine YELLOW; Mucus Urine 1+ /LPF; RBC Urine 0 /HPF (0)
[2021-04-01 14:48] LABS: Hyaline Casts Urine 0-2 /LPF; Squamous Epithelial Cell Urine 2+ /LPF
[2021-04-01] MEDS: Insulin Regular, Human 100 UNIT/ML 3 ML VIAL SUBCUT (14:58)
[2021-04-01] MEDS: Magnesium Sulfate/H2O 2 GM/50 ML PIGGYBACK IV (14:58)
[2021-04-01 15:15] LABS: Reflex Lactate? Lactic Acid Added
[2021-04-01 16:06] LABS: Glucose, Whole Blood 181 mg/dL (60-115)
[2021-04-01 16:12] LABS: ~Lactic Acid-LAB USE ONLY 2.7 mmol/L (0.5-2.0)
[2021-04-01 16:17] LABS: Anion Gap 14 (12-20); Blood Urea Nitrogen 15 mg/dL (9-16); Calcium 8.4 mg/dL (8.4-10.2); Carbon Dioxide 22 mmol/L (22-29); Chloride 107 mmol/L (96-108); Creatinine Clr Calc Pharmacy 85.9; Estimated Glomerular Filt Rate > 60; Glucose Random 207 mg/dL (60-115); Potassium 3.5 mmol/L (3.3-5.1); Sodium 139 mmol/L (135-145)
--- NOTE | 2021-04-01 16:25 | PC.NURSE ---
Pt A&Ox3. she is resting comfortably in bed, reports her pain is tolerable at a 5/10 in the LLQ. Initial lactic high at 6.0 she was given 2L of fluids repeat lactic was 2.7.
[2021-04-01 17:44] LABS: Reflex Lactate? 2 Y
== END 2021-04-01 17:03 | disposition home or self-care (01) ==
PROVIDERS: Physician Assistant; Emergency Provider Emergency Medicine; PCP Internal Medicine
DX: E11.65 Type 2 diabetes mellitus with hyperglycemia (principal); Z79.84 Long term (current) use of oral hypoglycemic drugs
CPT/HCPCS: 36415; 80048; 80076; 81001; 82009; 82803; 82947; 83605; 83690; 83735; 85025; 93005; 96361; 96365; 96366; 96375; 99284; J2405; J3475

== ENCOUNTER 2021-08-21 16:47 | Emergency (ER) | payer OTHER, SELFPAY ==
[2021-08-21 17:56] VITALS: BP 155/105; PULSE 110; RESP 20; TEMP 36.1; O2SAT 98; BMI 30.2
[2021-08-21 18:56] LABS: COVID-19 Test Negative (Negative)
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
== END 2021-08-21 20:29 | disposition home or self-care (01) ==
PROVIDERS: Emergency Provider Emergency Medicine Emergency Medical Services; PCP Internal Medicine
DX: S39.012A Strain of muscle, fascia and tendon of lower back, initial encounter (principal); V47.5XXA Car driver injured in collision with fixed or stationary object in traffic accident, initial encounter; Y93.89 Activity, other specified; Y92.415 Exit ramp or entrance ramp of street or highway as the place of occurrence of the external cause; Y99.9 Unspecified external cause status; Z20.822 Contact with and (suspected) exposure to COVID-19
CPT/HCPCS: 36415; 87635; 99283

== ENCOUNTER 2021-11-29 09:05 | Outpatient (REF) | payer OTHER, SELFPAY ==
[2021-11-29 10:33] LABS: MANUAL DIFF FLAG NO
[2021-11-29 10:43] LABS: Basophils Absolute Auto 0.1 X10*3/uL (0.0-0.2); Basophils Percent Auto 0.7 % (0-2); Eosinophils Absolute Auto 0.4 X10*3/uL (0.0-0.4); Eosinophils Percent Auto 3.3 % (0-4); Hematocrit 41.3 % (37.0-47.0); Hemoglobin 13.7 g/dl (12.0-16.0); Imm Gran Abs Auto 0.07 X10*3/uL (0.00-0.03); Imm Gran Pct Auto 0.6 % (0.0-0.4); Lymphocytes Absolute Auto 3.6 X10*3/uL (1.2-4.9); Lymphocytes Percent Auto 32.9 % (20-40); Mean Corpuscular HGB Conc 33.2 g/dl (31.0-35.0); Mean Corpuscular Volume 93.4 fL (80.0-98.0); Mean Platelet Volume 10.2 fL (9.4-12.3); Monocytes Absolute Auto 0.6 X10*3/uL (0.1-1.2); Monocytes Percent Auto 5.7 % (2-11); Neutrophils Absolute Auto 6.2 x10*3/uL (2.0-8.3); Neutrophils Percent Auto 56.8 % (45-73); Platelet Count 271 X10*3/uL (160-400); Red Blood Count 4.42 X10*6/uL (4.20-5.50); Red Cell Distribution Width 12.5 % (11.0-16.0); White Blood Count 10.9 X10*3/uL (4.8-10.8)
[2021-11-29 11:22] LABS: Erythrocyte Sedimentation Rate 4 MM/HR (0-20)
[2021-11-29 11:24] LABS: TSH reflex Free T4 0.53 uIU/mL (0.32-4.0)
[2021-11-29 11:51] LABS: Alanine Aminotransferase 19 U/L (0-31); Alkaline Phosphatase 61 U/L (39-117); Anion Gap 14 (12-20); Aspartate Amino Transferase 15 U/L (5-31); Bilirubin Total 0.4 mg/dL (0.0-1.0); Blood Urea Nitrogen 14 mg/dL (9-16); Carbon Dioxide 28 mmol/L (22-29); Chloride 102 mmol/L (96-108); Cholesterol 205 mg/dL; Estimated Glomerular Filt Rate > 60; Glucose Fasting 195 mg/dL (60-99); HDL Cholesterol 64 mg/dL; LDL Cholesterol Calculated 116 mg/dl; Magnesium 1.3 mg/dL (1.6-2.6); Potassium 4.2 mmol/L (3.3-5.1); Sodium 140 mmol/L (135-145); Total Protein 7.1 g/dL (6.5-8.0); Triglycerides 125 mg/dL
[2021-11-29 12:03] LABS: Appearance Urine HAZY; Color Urine YELLOW; Glucose Urine UA NEG (NEG); Leukocyte Esterase Urine NEG (NEG); Nitrite Urine NEG (NEG); Specific Gravity - Urine >= 1.030 (1.005-1.025); Urine Blood NEG (NEG); Urine Ketones 5 MG/DL (NEG); Urine Protein TRACE MG/DL (NEG-TRACE)
[2021-11-29 12:07] LABS: Estimated Average Glucose 200 mg/dL; Hemoglobin A1c % 8.6 %
== END 2021-11-29 09:06 | disposition home or self-care (01) ==
LOC: HO.LAB 09:05
PROVIDERS: Absent Provider Internal Medicine; PCP Internal Medicine; Visit Provider Obstetrics & Gynecology
DX: Z30.9 Encounter for contraceptive management, unspecified (principal); E83.42 Hypomagnesemia; I10 Essential (primary) hypertension; K21.9 Gastro-esophageal reflux disease without esophagitis; E66.9 Obesity, unspecified; E78.00 Pure hypercholesterolemia, unspecified; M25.561 Pain in right knee; M25.562 Pain in left knee; E11.9 Type 2 diabetes mellitus without complications
CPT/HCPCS: 36415; 80053; 80061; 81003; 83036; 83735; 84443; 85025; 85652

== ENCOUNTER 2021-12-25 16:32 | Emergency (ER) | payer OTHER, SELFPAY ==
[2021-12-25 18:00] VITALS: BP 145/93; PULSE 102; RESP 16; TEMP 36.8; O2SAT 99; BMI 29.5
--- NOTE | 2021-12-25 18:51 | ED_ITS ---
HPI - Back Pain/Injury General Chief Complaint: Neck Pain/Injury Stated Complaint: neck and back pain Time Seen by Provider: 12/25/21 18:32 Source: patient Mode of arrival: ambulatory Limitations: no limitations History of Present Illness HPI Narrative: Patient presents emergency department for evaluation left upper back pain with onset 2 days ago, without obvious injury or fall. 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 She states that the pain radiates down the left side of her back and into her left buttock and leg. Pain is progressively worsening. Is made worse with prolonged standing or movement. He does report feeling similar pain like this in the past when her magnesium levels were low. Denies headache, neck pain, dizziness or lightheadedness, chest pain, palpitations, shortness of breath, dyspnea on exertion, nausea vomiting, abdominal pain, generalized weakness. Denies , fevers, chills, burning with micturition, urinary frequency, urgency, hesitancy, bladder or bowel dysfunction, numbness or tingling of the perineum or bilateral legs. Denies any recent surgical procedures, personal history of cancer, or IV drug usage. Related Data Home Medications Medication Instructions Recorded Confirmed ondansetron 4 mg disintegrating 4 mg PO Q8H 07/07/20 12/13/21 tablet polyethylene glycol 3350 17 17 g PO DAILY 07/07/20 12/13/21 gram/dose oral powder (Miralax) albuterol sulfate 2.5 mg INHALATION QID PRN ml 10/23/21 12/13/21 Previous Rx's Medication Instructions Recorded ibuprofen 600 mg tablet 600 mg PO TID PRN 30 Days #90 tab 01/03/21 blood sugar diagnostic (FreeStyle #100 ea 04/18/21 Lite Strips) lancets 28 gauge (FreeStyle #100 ea 04/18/21 Lancets) famotidine 20 mg tablet 40 mg PO BEDTIME #60 tab 06/23/21 dulaglutide 1.5 mg/0.5 mL 1.5 mg (0.5 mL) SUBCUT QWEEK 28 08/22/21 subcutaneous pen injector Days #2 ml omeprazole 40 mg capsule,delayed 40 mg PO DAILY #30 cap 10/02/21 release dicyclomine 20 mg tablet 20 mg PO TID #90 tab 10/10/21 albuterol sulfate 90 mcg/actuation 2 puff INHALATION Q6H PRN 30 Days 10/23/21 aerosol inhaler (ProAir HFA) #18 g desogestrel 0.15 mg-ethinyl 1 tab PO DAILY 84 Days #84 cap 11/29/21 estradiol 0.03 mg tablet (Apri) magnesium oxide 400 mg PO BID 90 Days #180 tab 12/13/21 metformin 1,000 mg tablet 1,000 mg PO BID 30 Days #60 cap 12/13/21 diclofenac sodium 1 % topical gel 2 g TOPICAL QID #100 g 12/25/21 Allergies Allergy/AdvReac Type Severity Reaction Status Date / Time Seasonal Allergies Allergy Mild runny nose Verified 12/13/21 09:38 Review of Systems Review of Systems: Constitutional: No weight loss, fever, chills, weakness or fatigue. HEENT: No visual loss, blurred vision, double vision. No hearing loss, sneezing, congestion, runny nose or sore throat. Skin: No rash or itching. Cardiovascular: No chest pain, chest pressure or chest discomfort. No palpitations or pedal edema. Respiratory: No shortness of breath, cough or sputum production. Gastrointestinal: No anorexia, nausea, vomiting or diarrhea. No abdominal pain or blood in stool. Genitourinary: No burning micturition. No urinary frequency or incontinence. Neurologic: No headache, dizziness, syncope, unilateral weakness, ataxia, numbness or tingling in the extremities. No change in bowel or bladder control. Musculoskeletal: + Back pain as noted in HPI. No joint pain or stiffness. Hematologic: No bleeding or bruising. Lymphatics: No enlarged lymph nodes. Psychiatric:No depression or anxiety. Endocrine: No polyuria or polydipsia. Yes all other systems are reviewed and are negative PMFSH Past Medical History Attestation statement: The following information was validated with the patient. 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 Blood pressure mildly elevated 145/93. Heart rate mildly elevated.? Respiration rate normal. Tem perature normal.? Oxygen saturation normal. Appearance: Alert.?Oriented to person, place and time. No acute distress.?Normal affect. Eyes: Pupils equal, round and reactive to light.? ENT: Pharynx normal.?? Neck: Normal inspection.? Neck supple.?? CVS: Heart sounds normal. Normal heart rate and rhythm.? Pulses normal; bilateral radial pulses 2+, bilateral posterior tibial/dorsalis pedis pulses 2+.? Respiratory: No respiratory distress.? Lung sounds clear to auscultation bilaterally?? Abdomen: Soft and non-tender. Normoactive bowel sounds. No pulsatile mass.?? Skin: Skin warm and dry.? Normal skin color.? Normal skin turgor.?? Extremities: No lower extremity edema.? No calf ttp? Back: + paraspinal muscular tenderness from scapular region to lumbar region.. No midline spinal tenderness, step-off's, or deformity. Full ROM intact in bilateral lower extremities. Straight leg test negative on right; Straight leg test positive on left. No rashes, lesions, areas of induration or fluctuance, or signs of infection noted., Neuro: Moves all extremities spontaneously. 5/5 strength in hip extension/flexion, abduction, adduction. Sensation to light touch intact bilaterally. Patellar and Achilles reflex 2+ bilaterally. No ataxia, gait normal and steady.. No focal neuro deficits. Course Course Course Narrative: Patient is a 41-year-old female with a past medical history of obesity, GERD, hyperlipidemia, hypomagnesemia, type 2 diabetes. Obtain basic labs including CBC, CMP done, magnesium, and urinalysis to exclude infection. Toradol IM for pain image his driving and therefore we will avoid any sedating medications. On neurological exam there are no deficits. Not consistent with spinal fracture, spinal infection, epidural abscess, AAA, epidural abscess, or dissection. No high risk past medical history including incontinence, fever, immunosuppression, recent surgery or lumbar puncture, coagulopathy, significant trauma, recent unintentional weight loss, pulsatile mass, history of cancer, history of TB, history of IV drug use that would warrant MRI or CT. Reevaluation(s) Reevaluation #1: Patient with hypo magnesemia, 1.4 patient received Mag 1 g IV, she reports recent increase to oral supplement dose from primary care provider. Urinalysis without sign of infection, positive blood but she is currently menstruating. Pain has significantly improved with Toradol. Pain is most consistent with muscular pain, although cannot completely exclude herniated disc. Not consistent with ectopic , pyelonephritis, urinary tract infection, renal calculi, pelvic infection, appendicitis, diverticulitis. On exam no con cern for cauda equina syndrome. No imaging is currently indicated at this time. Plan for discharge home with diclofenac cream to, and follow-up with primary care provider, discussed reasons to return back to the emergency department, and patient agreed with plan. Time: 21:49 MDM - Back Pain/Injury Lab Data Result diagrams: 12/25/21 19:20 12/25/21 19:20 Labs: Lab Results 12/25/21 12/25/21 12/25/21 Range/Units 19:13 19:20 19:20 WBC 10.0 (4.8-10.8) X10*3/uL RBC 4.23 (4.20-5.50) X10*6/uL Hgb 13.2 (12.0-16.0) g/dl Hct 39.0 (37.0-47.0) % MCV 92.2 (80.0-98.0) fL MCH 31.2 (27.0-33.0) pg MCHC 33.8 (31.0-35.0) g/dl RDW 12.5 (11.0-16.0) % Plt Count 265 (160-400) X10*3/uL MPV 10.4 (9.4-12.3) fL Immature Gran % (Auto) 0.3 (0.0-0.4) % Neut % (Auto) 49.8 (45-73) % Lymph % (Auto) 41.3 H (20-40) % [place] % (Auto) 4.8 (2-11) % Eos % (Auto) 3.1 (0-4) % Baso % (Auto) 0.7 (0-2) % Lymph # (Auto) 4.1 (1.2-4.9) X10*3/uL [place] # (Auto) 0.5 (0.1-1.2) X10*3/uL Eos # (Auto) 0.3 (0.0-0.4) X10*3/uL Baso # (Auto) 0.1 (0.0-0.2) X10*3/uL Abs Immat Gran (auto) 0.03 (0.00-0.03) X10*3/uL Absolute Neuts (auto) 5.0 (2.0-8.3) x10*3/uL Absolute Nucleated RBC 0.000 (0.0-0.012) X10*3/uL Nucleated RBC % (auto) 0.0 (0.0-0.2) /100WBC Sodium 139 (135-145) mmol/L Potassium 4.5 (3.3-5.1) mmol/L Chloride 103 (96-108) mmol/L Carbon Dioxide 24 (22-29) mmol/L Anion Gap 17 (12-20) BUN 22 H D (9-16) mg/dL Creatinine 0.85 (0.5-1.4) mg/dL Estim Creat Clear Calc 77.5 Estimated GFR > 60 Random Glucose 134 H (60-115) mg/dL Calcium 9.7 (8.4-10.2) mg/dL Magnesium 1.4 L* (1.6-2.6) mg/dL Total Bilirubin 0.2 (0.0-1.0) mg/dL AST 14 (5-31) U/L ALT 13 (0-31) U/L Alkaline Phosphatase 47 D (39-117) U/L Total Protein 7.1 (6.5-8.0) g/dL Albumin 4.0 (3.5-5.0) g/dL Urine Color YELLOW Urine Appearance HAZY Urine pH 5.5 (5.0-8.0) Ur Specific [place] >= 1.030 H (1.005-1.025) Urine Protein TRACE (NEG-TRACE) MG/DL Urine Glucose (UA) 250 H (NEG) MG/DL Urine Ketones 15 (NEG) MG/DL Urine Blood 3+ H (NEG) Urine Nitrite NEG (NEG) Ur Leukocyte Esterase NEG (NEG) Urine RBC 1-4 (0) /HPF Urine WBC 0 (0-4) /HPF Ur Squamous Epith Cells 1+ /LPF Urine Bacteria 1+ /LPF Discharge Plan Discharge Clinical Impression: Acute lumbar radiculopathy, Hypomagnesemia, Back pain Patient Disposition: Home, Self-Care Instructions: Acute Low Back Pain (ED), Hypomagnesemia (ED), Lower Back Exercises (ED) Additional Instructions: Continue taking your magnesium supplement as prescribed by your primary care provider, please contact them to schedule a follow-up visit within 1-3 days. For your back pain, rest use heating pads, topical diclofenac cream, and ibuprofen as prescribed. Return to the emergency department and a worsening symptoms concerns. Prescriptions: New diclofenac sodium 1 % gel 2 g topical QID Qty: 100 0RF Rx Instructions: apply to single elbow, wrist or hand; for hand includes palm/fingers/back of hand No Action famotidine 20 mg tablet 40 mg PO BEDTIME Qty: 60 3RF omeprazole 40 mg capsule,delayed release(DR/EC) 40 mg PO DAILY Qty: 30 5RF dicyclomine 20 mg tablet 20 mg PO TID Qty: 90 3RF albuterol sulfate 2.5 mg /3 mL (0.083 %) solution for nebulization 2.5 mg inhalation QID PRN0RF Rx Instructions: 3 ml Inhalation four times a day as needed albuterol sulfate [ProAir HFA] 90 mcg/actuation HFA aerosol inhaler 2 puff inhalation Q6H PRN (Reason: shortness of breath or wheezing) 30 Days Qty: 18 1RF ibuprofen 600 mg tablet 600 mg PO TID PRN (Reason: pain) 30 Days Qty: 90 3RF Rx Instructions: take with food (DME) FreeStyle Lite Strips Strip See Rx Instructions .Route Qty: 100 3RF Rx Instructions: As directed (DME) lancets [FreeStyle Lancets] 28 gauge misc See Rx Instructions .Route Qty: 100 3RF Rx Instructions: As directed Trulicity 1.5 mg/0.5 mL pen injector 1.5 mg subcut QWEEK 28 Days Qty: 2 3RF magnesium oxide 400 mg magnesium tablet 400 mg PO BID 90 Days Qty: 180 3RF metformin 1,000 mg tablet 1,000 mg PO BID 30 Days Qty: 60 3RF ondansetron 4 mg tablet,disintegrating 4 mg PO Q8H 0RF polyethylene glycol 3350 [Miralax] 17 gram/dose powder 17 g PO DAILY 0RF desogestrel-ethinyl estradiol [Apri] 0.15-0.03 mg tablet 1 tab PO DAILY 84 Days Qty: 84 2RF
[2021-12-25] MEDS: Ketorolac Tromethamine 60 MG/2 ML VIAL IM (19:03)
[2021-12-25 19:26] LABS: Appearance Urine HAZY; Color Urine YELLOW; Glucose Urine UA 250 MG/DL (NEG); Leukocyte Esterase Urine NEG (NEG); Nitrite Urine NEG (NEG); PH 5.5 (5.0-8.0); Specific Gravity - Urine >= 1.030 (1.005-1.025); UACC Culture Trigger NO; Urine Blood 3+ (NEG); Urine Ketones 15 MG/DL (NEG); Urine Protein TRACE MG/DL (NEG-TRACE)
[2021-12-25 19:26] LABS: Basophils Absolute Auto 0.1 X10*3/uL (0.0-0.2); Basophils Percent Auto 0.7 % (0-2); Eosinophils Absolute Auto 0.3 X10*3/uL (0.0-0.4); Eosinophils Percent Auto 3.1 % (0-4); Hemoglobin 13.2 g/dl (12.0-16.0); Imm Gran Abs Auto 0.03 X10*3/uL (0.00-0.03); Imm Gran Pct Auto 0.3 % (0.0-0.4); Lymphocytes Absolute Auto 4.1 X10*3/uL (1.2-4.9); Lymphocytes Percent Auto 41.3 % (20-40); MANUAL DIFF FLAG NO; Mean Corpuscular HGB Conc 33.8 g/dl (31.0-35.0); Mean Corpuscular Hemoglobin 31.2 pg (27.0-33.0); Mean Corpuscular Volume 92.2 fL (80.0-98.0); Mean Platelet Volume 10.4 fL (9.4-12.3); Monocytes Absolute Auto 0.5 X10*3/uL (0.1-1.2); Monocytes Percent Auto 4.8 % (2-11); Neutrophils Percent Auto 49.8 % (45-73); Platelet Count 265 X10*3/uL (160-400); Red Blood Count 4.23 X10*6/uL (4.20-5.50); Red Cell Distribution Width 12.5 % (11.0-16.0)
[2021-12-25 19:32] LABS: Bacteria Urine 1+ /LPF; Squamous Epithelial Cell Urine 1+ /LPF; WBC Urine 0 /HPF (0-4)
[2021-12-25 19:55] LABS: Alanine Aminotransferase 13 U/L (0-31); Alkaline Phosphatase 47 U/L (39-117); Anion Gap 17 (12-20); Aspartate Amino Transferase 14 U/L (5-31); Bilirubin Total 0.2 mg/dL (0.0-1.0); Blood Urea Nitrogen 22 mg/dL (9-16); Calcium 9.7 mg/dL (8.4-10.2); Carbon Dioxide 24 mmol/L (22-29); Chloride 103 mmol/L (96-108); Creatinine Clr Calc Pharmacy 77.5; Estimated Glomerular Filt Rate > 60; Glucose Random 134 mg/dL (60-115); Magnesium 1.4 mg/dL (1.6-2.6); Potassium 4.5 mmol/L (3.3-5.1); Sodium 139 mmol/L (135-145); Total Protein 7.1 g/dL (6.5-8.0)
[2021-12-25 20:02] VITALS: BP 156/87; PULSE 89; RESP 14; O2SAT 100
[2021-12-25] MEDS: Magnesium Sulfate/D5W 1 GM/100 ML PIGGYBACK IV (21:00)
[2021-12-25 22:08] VITALS: BP 156/90; PULSE 89; RESP 20; O2SAT 99
== END 2021-12-25 22:17 | disposition home or self-care (01) ==
PROVIDERS: Nurse Practitioner Family; Emergency Provider Emergency Medicine; PCP Internal Medicine
DX: M54.16 Radiculopathy, lumbar region (principal); E83.42 Hypomagnesemia; M54.9 Dorsalgia, unspecified; E78.5 Hyperlipidemia, unspecified; E11.9 Type 2 diabetes mellitus without complications; Z79.899 Other long term (current) drug therapy
CPT/HCPCS: 36415; 80053; 81001; 83735; 85025; 96365; 96372; 99283; 99284; J1885; J3475

== ENCOUNTER → 2022-04-26 12:16 | Outpatient (BNVA) | payer OTHER, SELFPAY | PROVIDERS: PCP Internal Medicine; Referring Provider Internal Medicine; Visit Provider Internal Medicine Gastroenterology | DX: R68.81 Early satiety (principal); K21.9 Gastro-esophageal reflux disease without esophagitis; R07.89 Other chest pain; R11.2 Nausea with vomiting, unspecified; R10.32 Left lower quadrant pain; K59.09 Other constipation | CPT/HCPCS: 99212 ==

== ENCOUNTER → 2022-05-16 13:01 | Outpatient (BNVA) | payer OTHER, SELFPAY | PROVIDERS: PCP Internal Medicine; Visit Provider Obstetrics & Gynecology | DX: Z30.9 Encounter for contraceptive management, unspecified (principal); N92.0 Excessive and frequent menstruation with regular cycle | CPT/HCPCS: 99212 ==

== ENCOUNTER 2022-06-04 09:38 | Day surgery (SDC) | payer OTHER, SELFPAY ==
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
--- NOTE | 2022-06-04 10:01 | P.HPSUR_ITS ---
Pre-Procedural Eval Section A Date of Service: 06/04/22 The patient is an INPATIENT: No The History & Physical has been completed within 30 days and I have reviewed it.: No Section B Chief Complaint: Left lower quadrant pain, Other constipation Details of Present Illness: Left lower quadrant pain, Other constipation Relevant Family History (Specify if Yes): Yes Relevant Social History: None Present Medications: see Short Stay Collaborative assessment Medical History: Significant History (OBESITY, ALLERGIC RHINITIS, CALCANEAL SPUR OF LEFT FOOT, PLANTAR FACIITIS OF LEFT FOOT, HIRSUTISM, PURE HYPERCHOLESTEROLEMIA, TYPE 2 DIABETES, GERD) History of Previous Operations: Relevant previous surgery/procedure and date(s) (H/O section H/O endoscopy History of esophagogastroduodenoscopy (EGD) (~10/2019) [place] teeth removed) Allergies: Allergies Allergy/AdvReac Type Severity Reaction Status Date / Time Seasonal Allergies Allergy Mild runny nose Verified 05/16/22 13:13 Review of Systems Sugical H&P ROS: Negative: Constitution, Cardiovascular and Respiratory and Yes, Specify: Gastrointestinal (abdominal pain, constipation) Exam Surgical H&P Exam: Normal: Heart, Normal: Lungs, Normal: Extremities and Normal: Abdomen Plan Diagnosis/Plan: Change (proceed with colonoscopy) I have reviewed the history and physical and performed a pertinent physical examination on my patient. No changes have occurred unless specified.
[2022-06-04 10:28] LABS: UPreg QC Valid YES; Urine Pregnancy NEGATIVE (NEGATIVE)
[2022-06-04 10:30] VITALS: BMI 28.3
[2022-06-04 10:36] VITALS: BP 124/82; PULSE 92; RESP 18; TEMP 36.8; O2SAT 96
[2022-06-04 10:41] VITALS: BMI 28.3
[2022-06-04] MEDS: Lactated Ringers 1,000 ML 100 ML IVCONT (10:53)
[2022-06-04] MEDS: Sodium Phosphate,Mono-Dibasic 133 ML ENEMA PR (11:01)
--- NOTE | 2022-06-04 11:03 | W.PM.OPN ---
Operative Note Operative Note Date of Service: 06/04/22 Narrative: Pre-op diagnosis: colon cancer screen, left lower quadrant pain, chronic constipation Post-op diagnosis:?other ( diverticulosis, hemorrhoids) Procedure: COLONOSCOPY TILL CECUM WITH BIOPSIES Consent: Indications for the procedure and potential complications of bleeding, perforation, reaction to medications and missed diagnosis were discussed with the patient and informed consent was obtained. Instrument: Olympus PCF H 190 L variable stiffness pediatric colonoscope Monitoring: Vital signs and clinical assessment, intermittent blood pressure monitoring, continuous EKG monitoring, Pulse oximetry and Carbon Dioxide monitoring were done throughout the procedure. Colon withdrawl time was 22 minutes. Procedure: The patient was placed in the left lateral decubitis position and pre-procedure medications were administered. After a digital rectal examination of the ano-rectum, the video colonoscope was inserted into the rectum and advanced through the colon to the cecum. The colonoscope was slowly withdrawn in a retrograde panoramic fashion and the colon mucosa was carefully examined including a retroflexed view of the rectum. Findings and interventions are described below. Procedure Difficulty: Without difficulty. ? Colon was long and tortuous and there was some spasm and loop formation.? No maneuvers were required Findings: Terminal Ileum: Distal 10 cms was examined and scattered 2-3 mm benign appearing nodules (likely normal lymphoid tissue) - biopsied Cecum:? Normal Ascending Colon:? Normal Transverse Colon:? Normal Descending Colon:? Normal Sigmoid Colon:? Moderate diverticulosis Rectum:? Normal Ano-rectum:? Small internal hemorrhoids Colon preparation:? Good after some irrigation Impression and Post Procedure Diagnosis: Colonoscopy Findings: No polyps were detected. Scattered 2-3 mm benign appearing nodules in the TI (likely normal lymphoid tissue) - biopsied Random biopsies were obtained from the right and left colon. Moderate diverticulosis seen in the sigmoid colon Small hemorrhoids on retroflexed exam. LLQ pain possibly IBS versus painful diverticular disease (pt denies any change in abdominal pain after taking bowel prep) Plan: A letter will be sent with pathology results Patient has an appointment on 10/08/22 in the GI [facility] with Sindi Bull M.D. Repeat Colonoscopy interval based on path results - in 8 years if colon biopsies are normal. Above findings were reviewed with the patient and diverticulosis handouts was given in the discharge area Surgeon: Sindi Bull MD Anesthesia:?MAC (Dr Subramanian) Was an Felt Hat Mellowing Machine Operator used for this Procedure?:?Yes Felt Hat Mellowing Machine Operator:?Arminda Miranda Estimated blood loss (mL):?0 Pathology:?other (A. T I bxs, R/O Crohn's disease? B. right colon bxs, R/O IBD? C. left colon bxs, R/O IBD) Condition:?stable Disposition:?PACU
[2022-06-04 11:09] LABS: Glucose, Whole Blood 127 mg/dL (60-115)
[2022-06-04 11:43] VITALS: BP 121/79; PULSE 92; RESP 16; TEMP 36.8; O2SAT 97
[2022-06-04 11:58] VITALS: BP 120/78; PULSE 82; RESP 16; TEMP 36.8; O2SAT 98
== END 2022-06-04 12:54 | disposition home or self-care (01) ==
PROVIDERS: Nurse Practitioner; PCP Internal Medicine; Visit Provider Internal Medicine Gastroenterology
PROC: 0DJD8ZZ Inspection of Lower Intestinal Tract, Via Natural or Artificial Opening Endoscopic (ICD-10-PCS; CPT 45378; principal; 2022-06-04 11:00)
DX: R10.32 Left lower quadrant pain (principal); K59.09 Other constipation; K57.30 Diverticulosis of large intestine without perforation or abscess without bleeding; K64.8 Other hemorrhoids; K21.9 Gastro-esophageal reflux disease without esophagitis; J30.9 Allergic rhinitis, unspecified; L68.0 Hirsutism; R07.89 Other chest pain; R68.81 Early satiety; R11.2 Nausea with vomiting, unspecified; E78.00 Pure hypercholesterolemia, unspecified; E11.9 Type 2 diabetes mellitus without complications; Z79.84 Long term (current) use of oral hypoglycemic drugs; Z79.899 Other long term (current) drug therapy
CPT/HCPCS: 45380; 81025; 82947; 88305

== ENCOUNTER 2022-07-02 10:34 | Outpatient (REF) | payer OTHER, SELFPAY ==
--- NOTE | ~2022-07-02 | MM_ITS ---
EXAMINATION: MM SCREENING DIGITAL BREAST TOMOSYNTHESIS, BILATERAL CLINICAL INFORMATION: Screening. Asymptomatic. The lifetime risk of breast cancer based on the Tyrer-Cuzick Model is 10%. COMPARISON: Mammography: 01/31/2021, 11/17/2019 (baseline) TECHNIQUE: Digital breast tomosynthesis is performed in both the craniocaudal and mediolateral oblique views along with computer-aided detection (CAD). Synthesized 2D images are generated from the tomosynthesis. FINDINGS: There are scattered areas of fibroglandular density (ACR BI-RADS breast composition Category b). There are no significant masses, abnormal calcifications, or other abnormalities. There are scattered shifting fibroglandular parenchymal densities from prior studies related to variation in positioning. No developing density or architectural abnormality. The axilla are unremarkable. No posterior upper outer right breast is stable. The skin contours are smooth. MM/MM tomosynthesis screening BI IMPRESSION: No mammographic evidence of malignancy. ASSESSMENT: BI-RADS 2: Benign RECOMMENDATION: Routine annual mammography screening. This patient's information was entered into a reminder system with a target due date for their next mammogram.
== END 2022-07-02 10:35 | disposition home or self-care (01) ==
LOC: HO.MAMMO 10:34
PROVIDERS: PCP Internal Medicine; Visit Provider Obstetrics & Gynecology
DX: Z12.31 Encounter for screening mammogram for malignant neoplasm of breast (principal)
CPT/HCPCS: 77063; 77067

== ENCOUNTER 2022-12-31 09:04 | Outpatient (REF) | payer OTHER, SELFPAY ==
[2022-12-31 09:17] LABS: MANUAL DIFF FLAG NO
[2022-12-31 10:37] LABS: Basophils Absolute Auto 0.1 X10*3/uL (0.0-0.2); Basophils Percent Auto 0.7 % (0-2); Eosinophils Absolute Auto 0.2 X10*3/uL (0.0-0.4); Eosinophils Percent Auto 2.1 % (0-4); Hematocrit 40.6 % (37.0-47.0); Hemoglobin 13.6 g/dl (12.0-16.0); Imm Gran Abs Auto 0.03 X10*3/uL (0.00-0.03); Imm Gran Pct Auto 0.3 % (0.0-0.4); Lymphocytes Absolute Auto 3.1 X10*3/uL (1.2-4.9); Lymphocytes Percent Auto 32.4 % (20-40); Mean Corpuscular HGB Conc 33.5 g/dl (31.0-35.0); Mean Corpuscular Hemoglobin 30.7 pg (27.0-33.0); Mean Corpuscular Volume 91.6 fL (80.0-98.0); Mean Platelet Volume 10.5 fL (9.4-12.3); Monocytes Absolute Auto 0.6 X10*3/uL (0.1-1.2); Monocytes Percent Auto 6.1 % (2-11); Neutrophils Absolute Auto 5.6 x10*3/uL (2.0-8.3); Neutrophils Percent Auto 58.4 % (45-73); Platelet Count 336 X10*3/uL (160-400); Red Blood Count 4.43 X10*6/uL (4.20-5.50); Red Cell Distribution Width 12.9 % (11.0-16.0); White Blood Count 9.6 X10*3/uL (4.8-10.8)
[2022-12-31 10:44] LABS: Appearance Urine Cloudy; Color Urine Dark Yellow; Glucose Urine UA Negative (Negative); Leukocyte Esterase Urine Trace (Negative); Nitrite Urine Negative (Negative); PH 5.5 (5.0-9.0); Specific Gravity - Urine >= 1.030 (1.005-1.025); UMIC TRIGGER UACC YES; Urine Blood Large (3+) (Negative); Urine Ketones 15 mg/dL (Negative); Urine Protein 100 (2+) mg/dL (Neg-Trace)
[2022-12-31 10:46] LABS: Estimated Average Glucose 143 mg/dL; Hemoglobin A1c % 6.6 %
[2022-12-31 10:47] LABS: Bacteria Urine 1+ (None Seen); Hyaline Casts Urine 0-2 /LPF (0-2); RBC Urine >20 /HPF (0-2); Squamous Epithelial Cell Urine 0-2 /HPF (0-2); UACC Culture Trigger YES
[2022-12-31 11:10] LABS: Alanine Aminotransferase 12 U/L (0-31); Albumin Level 4.4 g/dL (3.5-5.0); Alkaline Phosphatase 74 U/L (39-117); Anion Gap 15 (12-20); Aspartate Amino Transferase 12 U/L (5-31); Bilirubin Total 0.5 mg/dL (0.0-1.0); Blood Urea Nitrogen 22 mg/dL (9-16); Calcium 9.3 mg/dL (8.4-10.2); Carbon Dioxide 24 mmol/L (22-29); Chloride 104 mmol/L (96-108); Cholesterol 227 mg/dL; Estimated Glomerular Filt Rate 58; Glucose Fasting 138 mg/dL (60-99); HDL Cholesterol 56 mg/dL; LDL Cholesterol Calculated 144 mg/dl; Magnesium 1.6 mg/dL (1.6-2.6); Potassium 4.4 mmol/L (3.3-5.1); Sodium 139 mmol/L (135-145); Total Protein 7.1 g/dL (6.5-8.0); Triglycerides 137 mg/dL
[2022-12-31 11:27] LABS: TSH reflex Free T4 0.77 uIU/mL (0.32-4.0); Vitamin D 25-OH Total 14.9 ng/mL (>30)
[2022-12-31 11:32] LABS: Microalbum/Creatinine Ratio Ur 22.2 ug/mg cr
== END 2022-12-31 09:05 | disposition home or self-care (01) ==
LOC: HO.LAB 09:04
PROVIDERS: PCP Internal Medicine; Visit Provider Internal Medicine
DX: I10 Essential (primary) hypertension (principal); E78.00 Pure hypercholesterolemia, unspecified; E11.9 Type 2 diabetes mellitus without complications; E83.42 Hypomagnesemia; E55.9 Vitamin D deficiency, unspecified; R30.0 Dysuria
CPT/HCPCS: 36415; 80053; 80061; 81001; 82043; 82306; 83036; 83735; 84443; 85025; 87086

== ENCOUNTER → 2023-02-08 09:19 | Outpatient (BNVA) | payer OTHER, SELFPAY | PROVIDERS: PCP Internal Medicine; Visit Provider Obstetrics & Gynecology ==

== ENCOUNTER 2023-04-04 12:58 | Outpatient (AMB) | payer OTHER, SELFPAY ==
--- NOTE | 2023-04-04 13:01 | A.OFFVIS_ITS ---
Intake Vital Signs 04/04/23 13:02 Height 5 ft 1 in Weight 158 lb 11.725 oz BMI 30.0 BP 141/80 H Blood Pressure Location Lt brachial Position Sitting Pulse 92 Intake Visit Reasons: follow up Intake Note: aRe presents in the office as a follow up. CC: A few months ago she was having severe pains in the left side of her abdomen. Ibuprofen was not doing anything for her. She did not go to the ER. She has a BM every 2 days but states that she has issues trying to have the bowel movement. Denies blood. 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 Allergies Seasonal Allergies Allergy (Mild, Verified 02/08/23 09:33) runny nose Medication List - Last Reconciled 04/04/23 by Sindi Bull MD albuterol sulfate 90 mcg/actuation (ProAir HFA) 2 puffs inhalation Q6H PRN 30 days albuterol sulfate 2.5 mg inhalation QID PRN blood sugar diagnostic (FreeStyle Lite Strips) As directed cholecalciferol (vitamin D3) 50 mcg PO DAILY 90 days dicyclomine 20 mg PO TID 30 days dulaglutide (Trulicity) 1.5 mg (0.5 mL) subcut QWEEK famotidine 40 mg (2 x 20 mg) PO BEDTIME ibuprofen 600 mg PO TID PRN 30 days lancets (FreeStyle Lancets) As directed magnesium oxide 400 mg PO BID metformin 1,000 mg PO BID 30 days omeprazole 40 mg PO DAILY polyethylene glycol 3350 (Miralax) 17 grams PO DAILY HPI follow up HPI Details GI CLINIC VISIT FOR THIS 42-YEAR-OLD FEMALE FOR FOLLOW-UP OF ATYPICAL CHEST PAIN AND GERD: CHRONIC ILLNESSES:?GESTATIONAL DIABETES MELITUS, OBESITY, ALLERGIC RHINITIS, CALCANEAL SPUR OF LEFT FOOT, PLANTAR FACIITIS OF LEFT FOOT, HIRSUTISM, PURE HYPERCHOLESTEROLEMIA, TYPE 2 DIABETES, GERD ? LABS IN [facility]: 11/17/19 NORMAL CBC, CHEM PANEL AND LFTS. ?IMAGING STUDIES: 01/06/21 GASTRIC EMPTYING STUDY SHOWED: ? FINDINGS: There is good visualization of activity in the stomach immediately post ingestion. As the study progresses, there is good clearance of activity from the stomach and visualization of progressively increasing small bowel activity. By the end of the study, there is almost no retention noted in the stomach. ? Retention in the stomach at each time interval was: 1 hour 91% (normal 37%-90%) 2 hours 34% (normal 30%-60%) 3 hours 5% 4 hours (Not Obtained) (normal 0%-10%) ?02/16/[address] SCAN SHOWED: ? Mild fatty infiltration of the liver. Stool throughout the colon ? questionable for constipation. ?03/27/19 UGI SHOWED:?Moderate gastroesophageal reflux without hiatal hernia. ?06/04/22 COLONOSCOPY SHOWED: No polyps were detected. Scattered 2-3 mm benign appearing nodules in the TI (likely normal lymphoid tissue) - biopsied Random biopsies were obtained from the right and left colon. Moderate diverticulosis seen in the sigmoid colon Small hemorrhoids on retroflexed exam. LLQ pain possibly IBS versus painful diverticular disease (pt denies any change in abdominal pain after taking bowel prep) Plan: Repeat Colonoscopy interval based on path results - in 8 years if colon biopsies are normal. 09/22/19 EGD SHOWED: ? LARYNX: Changes suggestive of LPRD ? ESOPHAGUS: Minimal esophagitis. Dysphagia likey due to esophageal motility ? disorder versus EOE. ? STOMACH: Diffuse gastritis ? DUODENUM: Normal ? Plan: ? Patient has an appointment on 10/05/18 in the GI Clinic with Sindi Bull M.D ? Above findings were reviewed with the patient and handout on GERD was provided ? in the discharge area. ? Biopsies showed: ? A. Small bowel, biopsy: Small intestinal mucosa within normal limits. ? B. Stomach, antrum, biopsy: Antral-type mucosa with moderate chronic inactive ? inflammation and regenerative changes; no Helicobacter organisms seen. ? C. Stomach, body, biopsy: Oxyntic mucosa with moderate chronic inactive ? inflammation; no Helicobacter organisms seen. ?? ? D. Esophagus, proximal, biopsy: Squamous epithelium within normal limits; no inflammation seen. ? TODAY'S VISIT: A few months ago she had bad LLQ pain - lasted 2-3 days Had to call out from work for 1 day. Had trouble sleeping on the left side. Pain was initially constant and was worse than cramping. Took ibuprofen and tylenol without change. Thinks she was constipated before the pain started. Pain slowly improved and then resolved. Has a BM every 3 days with passage of hard stools associated with straining, Last BM was watery. PAST VISITS: Has lost 35 lbs over the past 2-3 yrs. Still throwing up from time to time [place] [facility] [place] to nausea, v and 05/26 constant, cramping LLQ abdominal pain Pain became sharp later Had a CT scan and treated with IV medications She was told everything was OK and advised rest and prescribed anti nausea medications. Pain comes and goes. Unable to sleep on the left side due to pressure - has to move to the back or right side. Denies fever, chills or sweating. She was not able to go and GF suggested an enema Tried drinking coffee and greasy cheese burger and nothing was working. Ate chedder with a hot dog and was able to go - had a watery dark brown diarrhea. Has not had a solid BM yet. Usually has a BM every other day. Just diarrhea for the past month. Pt states I just started the trulicity and after i did the injection it was making me sick, maybe i just have to get used to it. I was taking something to settle my stomach and I was taking antacid and I got my stomach to settle down. I have never had the trulicity injection before and it might just be because I need to get used to getting it. Takes a stomach relaxer medication (EMETROL to calm stomach muscles) with Miralax and symptoms have started to improve. Takes Miralax daily and has a BM every other days - stools are intermittently hard. Intermittent regurgitation of food associated with excessive coughing. Takes Ibuprofen 1-2 times a week for muscular ?? ? Chest pains come and go and are less consistent ? ? ? Starts coughing and gagging. ? ? ? Tries to throw up and there is nothing in her system to throw up. ? ? ? Usually starts in the morning after she has woken up AND before eating. ?? ? Also notes early satiety. ?? ? Diagnosed with DM during her and on diabetic medications since . PAST VISIT: Chest pains once every few weeks (instead of every few days) ?Having less nausea and chest pains than before. Notes heartburn with certain foods. ? Still has some LLQ pain. ? Had a minor chest pain the other day which resolved. ? Takes Pedialyte when she feels she needs to. ? Has been taking water, iced tea and crystal light. ? Takes Miralax every other day and has a BM the day after she takes it. ? Abd CT scan results were reviewed. ? Had nausea a few days ago associated with chest pain. ? Took S/L nausea medication and it came back out. ? She was able to keep the Pedialyte down. ? Intermittent episodes of nausea and vomiting - every 2-3 days ? Continues to have intermittent chest pains which improved with dicyclomine. ? Patient advised to avoid drinking very hot or ice cold liquids. ? woke up yesterday and threw up liquids. ? Had some noodles, spaghetti sauce with a little bit of Hamburger. ? Took anti-nausea medications and was able to eat a banana and fruit after she got to work ? Was feeling hot and sweaty which improved after she ate. ? Chest pains come and go - last episode was 3 days ago - takes Dicyclomine three times a day and Omeprazole twice a day. ? Notes 25% improvement since she started taking the above medications. ? Intermittent LLQ pain without clear precipitating factors. ? Has a BM daily - stools are loose - attributes to Metformin (taking for the past 2-3 yrs). ? Denies change in abd pain with BM or after passing gas. ? Denies abdominal bloating or gas, black stools or rectal bleeding. ? Status post C sections x 2. ? Is taking Omeprazole for 4-5 months and denies heartburn. ? Increased Omeprazole to twice daily without improvement in abd pain. ? Complains of intermittent dysphagia, nausea and vomiting for the past year. ? Feels solids going down - some of it goes down and some just sits there. ? Intermittent hoarseness. ? Denies nocturnal regurgitation or choking. Denies change in appetite. ? Pt denies major heart or lung problems, past issues with anesthesia or loud snoring or sleep apnea. ? Family History - severe Crohn's disease in an older sister. ? Sister has asthma and gallstones ? 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 Cognitive needs: No Hearing needs: No Vision needs: Yes Female Reproductive History Menstrual Age of Menarche: 9 Review of Systems Const All systems reviewed & are unremarkable except as noted in HPI and below Physical Exam Vital Signs: Last Vital Signs Pulse 92 04/04/23 13:02 BP 141/80 H 04/04/23 13:02 BMI result Body Mass Index 30.0 Const General: healthy appearing and no acute distress Nutritional Appearance: obese Orientation/consciousness: patient oriented x3 Limitations: no limitations HEENT Head: Yes normal to inspection Ears: hearing grossly normal bilaterally Eyes Sclerae: sclerae normal Pupils: Equal, round and reactive pupils present Neck Neck: Yes normal visual inspection Chest Chest palpation & inspection: normal inspection of the chest Resp Effort & Inspection: normal respiratory effort Auscultation: clear to auscultation bilaterally Cardio Palpation: normal PMI Rate: regular rate Rhythm: regular rhythm Heart sounds: S1 normal heart sound present, S2 normal heart sound present and no murmurs GI Palpation (GI): Soft to palpation, nontender and No hepatosplenomegaly present Auscultation: normal bowel sounds Rectal Exam - Female: deferred Skin General skin exam: no rashes or lesions noted Neuro General: patient oriented x3, gait normal and moves all extremities Cranial nerves: Yes Equal, round and reactive pupils present Psych Appearance: grossly normal Mental Status: mental status grossly normal Assessment & Plan Assessment & Plan (1) Early satiety: Code(s): R68.81 - Early satiety (2) GERD without esophagitis: Code(s): K21.9 - Gastro-esophageal reflux disease without esophagitis (3) Chronic constipation: Code(s): K59.09 - Other constipation (4) Left lower quadrant abdominal pain: Code(s): R10.32 - Left lower quadrant pain (5) Nausea and vomiting: Code(s): R11.2 - Nausea with vomiting, unspecified (6) GERD (gastroesophageal reflux disease): Code(s): K21.9 - Gastro-esophageal reflux disease without esophagitis (7) Chest pain, atypical: Code(s): R07.89 - Other chest pain Plan 42 YF with ? Obesity, allergic rhinitis, calcaneal spur of left foot, plantar fasciitis of left foot, hirsutism, hypercholesterolemia and type 2 diabetes mellitus? followed in GI for? GERD, atypical chest pain and intermittent d ysphagia. EGD showed Minimal esophagitis and esophageal biopsies were negative for EOE. Dysphagia is likely related to esophageal spasm due to GERD. No evidence of achalasia on UGI in 03/2019. Symptoms have improved with the omeprazole, dicyclomine, ondansetron and famotidine at bedtime and patient was advised to continue taking these medications 02/[address] scan for workup of her left lower quadrant pain showed? mild fatty infiltration of the liver and stool throughout the colon questionable constipation Pt denies recurrent chest pain and is having less nausea and chest pains than b marta. Patient complains heartburn with certain foods and early satiety.? A gastric emptying study was normal. Patient was advised to increase MiraLax to twice daily for a week to see if nausea improves (to decrease to once a day after review if no change in symptoms). Pt was advised to schedule a colonoscopy in 2-4 weeks for evaluation of left- sided abdominal pain.? [place] [facility] [place] - reviewed 04/04/23 Pt was advised to start Senna 1-2 cap at bedtime for constipation ?Follow-up clinic appointment in 4 weeks Medications: New sennosides-docusate sodium 8.6-50 mg (Senna Plus) 2 tab-caps (2 x 8.6-50 mg) PO BEDTIME 120 caps 1RF 60 days K59.09 - Other constipation Coding Level of Care Code Est Pt Level 4 (65478) Diagnoses Early satiety R68.81 GERD without esophagitis K21.9 Chronic constipation K59.09 Left lower quadrant abdominal pain R10.32 Nausea and vomiting R11.2 GERD (gastroesophageal reflux disease) K21.9 Chest pain, atypical R07.89 Time Spent (min) 23
[2023-04-04 13:02] VITALS: BP 141/80; PULSE 92
== END 2023-04-04 14:31 | disposition home or self-care (01) ==
PROVIDERS: PCP Internal Medicine; Visit Provider Internal Medicine Gastroenterology
DX: R68.81 Early satiety (principal); K21.9 Gastro-esophageal reflux disease without esophagitis; K59.09 Other constipation; R10.32 Left lower quadrant pain; R11.2 Nausea with vomiting, unspecified; R07.89 Other chest pain
CPT/HCPCS: 99214

== ENCOUNTER → 2023-04-04 12:58 | Outpatient (BNVA) | payer OTHER, SELFPAY | PROVIDERS: PCP Internal Medicine; Visit Provider Internal Medicine Gastroenterology | DX: R68.81 Early satiety (principal); K21.9 Gastro-esophageal reflux disease without esophagitis; K59.09 Other constipation; R10.32 Left lower quadrant pain; R11.2 Nausea with vomiting, unspecified; R07.89 Other chest pain | CPT/HCPCS: 99212 ==

== ENCOUNTER 2023-05-09 09:16 | Outpatient (REF) | payer OTHER, SELFPAY ==
[2023-05-09 10:11] LABS: MANUAL DIFF FLAG NO
[2023-05-09 10:46] LABS: Basophils Absolute Auto 0.1 X10*3/uL (0.0-0.2); Basophils Percent Auto 0.6 % (0-2); Eosinophils Absolute Auto 0.2 X10*3/uL (0.0-0.4); Eosinophils Percent Auto 2.2 % (0-4); Hematocrit 38.3 % (37.0-47.0); Hemoglobin 12.5 g/dl (12.0-16.0); Imm Gran Abs Auto 0.03 X10*3/uL (0.00-0.03); Imm Gran Pct Auto 0.3 % (0.0-0.4); Lymphocytes Absolute Auto 2.6 X10*3/uL (1.2-4.9); Lymphocytes Percent Auto 29.3 % (20-40); Mean Corpuscular HGB Conc 32.6 g/dl (31.0-35.0); Mean Corpuscular Hemoglobin 28.3 pg (27.0-33.0); Mean Corpuscular Volume 86.8 fL (80.0-98.0); Mean Platelet Volume 10.2 fL (9.4-12.3); Monocytes Absolute Auto 0.4 X10*3/uL (0.1-1.2); Monocytes Percent Auto 4.7 % (2-11); Neutrophils Absolute Auto 5.6 x10*3/uL (2.0-8.3); Neutrophils Percent Auto 62.9 % (45-73); Platelet Count 264 X10*3/uL (160-400); Red Blood Count 4.41 X10*6/uL (4.20-5.50); Red Cell Distribution Width 13.1 % (11.0-16.0)
[2023-05-09 10:58] LABS: Estimated Average Glucose 160 mg/dL; Hemoglobin A1c % 7.2 % (<6.0)
[2023-05-09 11:39] LABS: Alanine Aminotransferase 11 U/L (0-31); Alkaline Phosphatase 66 U/L (39-117); Anion Gap 13 (12-20); Aspartate Amino Transferase 14 U/L (5-31); Bilirubin Total 0.3 mg/dL (0.0-1.0); Blood Urea Nitrogen 16 mg/dL (9-16); Calcium 9.6 mg/dL (8.4-10.2); Carbon Dioxide 22 mmol/L (22-29); Chloride 106 mmol/L (96-108); Cholesterol 233 mg/dL (<200); Estimated Glomerular Filt Rate > 60; Glucose Fasting 135 mg/dL (60-99); HDL Cholesterol 60 mg/dL (>40); LDL Cholesterol Calculated 133 mg/dL (<100); Potassium 4.6 mmol/L (3.3-5.1); Sodium 136 mmol/L (135-145); Total Protein 7.1 g/dL (6.5-8.0); Triglycerides 201 mg/dL (<150)
[2023-05-09 11:56] LABS: TSH reflex Free T4 1.26 uIU/mL (0.32-4.0); Vitamin D 25-OH Total 30.7 ng/mL (>30)
[2023-05-09 13:06] LABS: Creatinine Urine 172.94 mg/dL; Microalbum/Creatinine Ratio Ur 5.2 ug/mg cr (<30)
[2023-05-09 13:39] LABS: Appearance Urine Clear; Color Urine Yellow; Glucose Urine UA Negative (Negative); Leukocyte Esterase Urine Small (1+) (Negative); Nitrite Urine Negative (Negative); PH 5.5 (5.0-9.0); UMIC TRIGGER UACC YES; Urine Blood Negative (Negative); Urine Ketones Trace mg/dL (Negative); Urine Protein Negative (Neg-Trace)
[2023-05-09 14:06] LABS: Bacteria Urine 1+ (None Seen); Hyaline Casts Urine 0-2 /LPF (0-2); RBC Urine 0-2 /HPF (0-2); UACC Culture Trigger YES; WBC Urine 0-5 /HPF (0-5)
== END 2023-05-09 09:17 | disposition home or self-care (01) ==
LOC: HO.LAB 09:16
PROVIDERS: Absent Provider Internal Medicine; PCP Internal Medicine; Visit Provider Internal Medicine Gastroenterology
DX: R68.81 Early satiety (principal); K21.9 Gastro-esophageal reflux disease without esophagitis; K59.09 Other constipation; R10.32 Left lower quadrant pain; R07.89 Other chest pain; R11.2 Nausea with vomiting, unspecified; E55.9 Vitamin D deficiency, unspecified; I10 Essential (primary) hypertension; E11.9 Type 2 diabetes mellitus without complications; E78.00 Pure hypercholesterolemia, unspecified
CPT/HCPCS: 36415; 80053; 80061; 81001; 81003; 82043; 82306; 83036; 84443; 85025; 87086; 99212

== ENCOUNTER 2023-05-09 09:16 | Outpatient (AMB) | payer OTHER, SELFPAY ==
--- NOTE | 2023-05-09 09:22 | A.OFFVIS_ITS ---
Intake Vital Signs 05/09/23 09:29 05/09/23 09:53 Height 5 ft 1 in Weight 161 lb BMI 30.4 BP 163/94 H 142/82 H Blood Pressure Location Lt brachial Lt brachial Position Sitting Sitting Pulse 92 88 Intake Visit Reasons: follow up Intake Note: Patient follow up for abdominal pain ad GERD. Patient denies any GI issues for today. 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 Accompanied by: Self / Same As Patient Allergies Seasonal Allergies Allergy (Mild, Verified 05/09/23 09:21) runny nose Medication List - Last Reconciled 05/09/23 by Sindi Bull MD albuterol sulfate 90 mcg/actuation (ProAir HFA) 2 puffs inhalation Q6H PRN 30 days albuterol sulfate 2.5 mg inhalation QID PRN blood sugar diagnostic (FreeStyle Lite Strips) As directed cholecalciferol (vitamin D3) 50 mcg PO DAILY 90 days dicyclomine 20 mg PO TID 30 days dulaglutide (Trulicity) 1.5 mg (0.5 mL) subcut QWEEK famotidine 40 mg (2 x 20 mg) PO BEDTIME ibuprofen 600 mg PO TID PRN 30 days lancets (FreeStyle Lancets) As directed magnesium oxide 400 mg PO BID metformin 1,000 mg PO BID 30 days omeprazole 40 mg PO DAILY polyethylene glycol 3350 (Miralax) 17 grams PO DAILY sennosides-docusate sodium 8.6-50 mg (Senna Plus) 2 tab-caps (2 x 8.6-50 mg) PO BEDTIME 60 days HPI follow up HPI Details GI CLINIC VISIT FOR THIS 42-YEAR-OLD FEMALE FOR FOLLOW-UP OF ATYPICAL CHEST PAIN AND GERD: CHRONIC ILLNESSES:?GESTATIONAL DIABETES MELITUS, OBESITY, ALLERGIC RHINITIS, CALCANEAL SPUR OF LEFT FOOT, PLANTAR FACIITIS OF LEFT FOOT, HIRSUTISM, PURE HYPERCHOLESTEROLEMIA, TYPE 2 DIABETES, GERD ? LABS IN [facility]: 11/17/19 NORMAL CBC, CHEM PANEL AND LFTS. ?IMAGING STUDIES: 01/06/21 GASTRIC EMPTYING STUDY SHOWED: ? FINDINGS: There is good visualization of activity in the stomach immediately post ingestion. As the study progresses, there is good clearance of activity from the stomach and visualization of progressively increasing small bowel activity. By the end of the study, there is almost no retention noted in the stomach. ? Retention in the stomach at each time interval was: 1 hour 91% (normal 37%-90%) 2 hours 34% (normal 30%-60%) 3 hours 5% 4 hours (Not Obtained) (normal 0%-10%) ?02/16/[address] SCAN SHOWED: ? Mild fatty infiltration of the liver. Stool throughout the colon ? questionable for constipation. ?03/27/19 UGI SHOWED:?Moderate gastroesophageal reflux without hiatal hernia. ?06/04/22 COLONOSCOPY SHOWED: No polyps were detected. Scattered 2-3 mm benign appearing nodules in the TI (likely normal lymphoid tissue) - biopsied Random biopsies were obtained from the right and left colon. Moderate diverticulosis seen in the sigmoid colon Small hemorrhoids on retroflexed exam. LLQ pain possibly IBS versus painful diverticular disease (pt denies any change in abdominal pain after taking bowel prep) Plan:? Repeat Colonoscopy interval based on path results - in 8 years if colon biopsies are normal. 09/22/19 EGD SHOWED: ? LARYNX: Changes suggestive of LPRD ? ESOPHAGUS: Minimal esophagitis. Dysphagia likey due to esophageal motility ? disorder versus EOE. ? STOMACH: Diffuse gastritis ? DUODENUM: Normal ? Plan: ? Patient has an appointment on 10/05/18 in the GI Clinic with Sindi Bull M.D ? Above findings were reviewed with the patient and handout on GERD was provided ? in the discharge area. ? Biopsies showed: ? A. Small bowel, biopsy: Small intestinal mucosa within normal limits. ? B. Stomach, antrum, biopsy: Antral-type mucosa with moderate chronic inactive ? inflammation and regenerative changes; no Helicobacter organisms seen. ? C. Stomach, body, biopsy: Oxyntic mucosa with moderate chronic inactive ? inflammation; no Helicobacter organisms seen. ?? ? D. ? Esophagus, proximal, biopsy: Squamous epithelium within normal limits; no inflammation seen. ? TODAY'S VISIT: Took Senna 1 tab daily - stopped working after a few days Taking 2 tab of Senna and having a BM at least once a day with incomplete evacuation and has to go a 2nd time. Tries not to push too hard. Abd pain has improved from 10/10 to 2-3/10 in intensity and notes pain when she lies down on the left side. Turns to her back or right side when she feels the pain. PAST VISITS: A few months ago she had bad LLQ pain - lasted 2-3 days Had to call out from work for 1 day. Had trouble sleeping on the left side. Pain was initially constant and was worse than cramping. Took ibuprofen and tylenol without change. Thinks she was constipated before the pain started. Pain slowly improved and then resolved. Has a BM every 3 days with passage of hard stools associated with straining, Last BM was watery. Has lost 35 lbs over the past 2-3 yrs. Still throwing up from time to time Seen at [facility] [place] on 04/20/22 due to nausea, v and 9/10 constant, cramping LLQ abdominal pain Pain became sharp later Had a CT scan and treated with IV medications She was told everything was OK and advised rest and prescribed anti nausea medications. Pain comes and goes. Unable to sleep on the left side due to pressure - has to move to the back or right side. Denies fever, chills or sweating. She was not able to go and GF suggested an enema Tried drinking coffee and greasy cheese burger and nothing was working. Ate chedder with a hot dog and was able to go - had a watery dark brown diarrhea. Has not had a solid BM yet. Usually has a BM every other day. Just diarrhea for the past month. Pt states I just started the trulicity and after i did the injection it was making me sick, maybe i just have to get used to it. I was taking something to settle my stomach and I was taking antacid and I got my stomach to settle down. I have never had the trulicity injection before and it might just be because I need to get used to getting it. Takes a stomach relaxer medication (EMETROL to calm stomach muscles) with Young alax and symptoms have started to improve. Takes Miralax daily and has a BM every other days - stools are intermittently hard. Intermittent regurgitation of food associated with excessive coughing. Takes Ibuprofen 1-2 times a week for muscular ?? ? Chest pains come and go and are less consistent ? ? ? Starts coughing and gagging. ? ? ? Tries to throw up and there is nothing in her system to throw up. ? ? ? Usually starts in the morning after she has woken up AND before eating. ?? ? Also notes early satiety. ?? ? Diagnosed with DM during her and on diabetic medications since . PAST VISIT: Chest pains once every few weeks (instead of every few days) ?Having less nausea and chest pains than before. Notes heartburn with certain foods. ? Still has some LLQ pain. ? Had a minor chest pain the other day which resolved. ? Takes Pedialyte when she feels she needs to. ? Has been taking water, iced tea and crystal light. ? Takes Miralax every other day and has a BM the day after she takes it. ? Abd CT scan results were reviewed. ? Had nausea a few days ago associated with chest pain. ? Took S/L nausea medication and it came back out. ? She was able to keep the Pedialyte down. ? Intermittent episodes of nausea and vomiting - every 2-3 days ? Continues to have intermittent chest pains which improved with dicyclomine. ? Patient advised to avoid drinking very hot or ice cold liquids. ? woke up yesterday and threw up liquids. ? Had some noodles, spaghetti sauce with a little bit of Hamburger. ? Took anti-nausea medications and was able to eat a banana and fruit after she got to work ? Was feeling hot and sweaty which improved after she ate. ? Chest pains come and go - last episode was 3 days ago - takes Dicyclomine three times a day and Omeprazole twice a day. ? Notes 25% improvement since she started taking the above medications. ? Intermittent LLQ pain without clear precipitating factors. ? Has a BM daily - stools are loose - attributes to Metformin (taking for the past 2-3 yrs). ? Denies change in abd pain with BM or after passing gas. ? Denies abdominal bloating or gas, black stools or rectal bleeding. ? Status post C sections x 2. ? Is taking Omeprazole for 4-5 months and denies heartburn. ? Increased Omeprazole to twice daily without improvement in abd pain. ? Complains of intermittent dysphagia, nausea and vomiting for the past year. ? Feels solids going down - some of it goes down and some just sits there. ? Intermittent hoarseness. ? Denies nocturnal regurgitation or choking. Denies change in appetite. ? Pt denies major heart or lung problems, past issues with anesthesia or loud snoring or sleep apnea. ? Family History - severe Crohn's disease in an older sister. ? Sister has asthma and gallstones ? 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 Mother Hypertension Edema Lymphedema Sister Crohn's disease Maternal Grandfather Alzheimers disease Parkinson disease Social History Household Members: Family and Children Both parents involved: Yes Housing: House Alcohol intake: current Alcohol intake frequency: holidays/special occasions only Patient Tobacco Use Status: Never used Tobacco e-Cigarette/Vaping Use: Never Used Second Hand Smoke Exposure: Yes service: No Current occupational status: employed Current occupation: [employer] Cognitive needs: No Hearing needs: No Vision needs: Yes Female Reproductive History Menstrual Age of Menarche: 9 Review of Systems Const All systems reviewed & are unremarkable except as noted in HPI and below Physical Exam Vital Signs: Last Vital Signs Pulse 88 05/09/23 09:53 BP 142/82 H 05/09/23 09:53 BMI result Body Mass Index 30.4 Const General: healthy appearing and no acute distress Nutritional Appearance: obese Orientation/consciousness: patient oriented x3 Limitations: no limitations HEENT Head: Yes normal to inspection Ears: hearing grossly normal bilaterally Eyes Sclerae: sclerae normal Pupils: Equal, round and reactive pupils present Neck Neck: Yes normal visual inspection Chest Chest palpation & inspection: normal inspection of the chest Resp Effort & Inspection: normal respiratory effort Auscultation: clear to auscultation bilaterally Cardio Palpation: normal PMI Rate: regular rate Rhythm: regular rhythm Heart sounds: S1 normal heart sound present, S2 normal heart sound present and no murmurs GI Palpation (GI): Soft to palpation, nontender and No hepatosplenomegaly present Auscultation: normal bowel sounds Rectal Exam - Female: deferred Skin General skin exam: no rashes or lesions noted Neuro General: patient oriented x3, gait normal and moves all extremities Cranial nerves: Yes Equal, round and reactive pupils present Psych Appearance: grossly normal Mental Status: mental status grossly normal Assessment & Plan Assessment & Plan (1) Early satiety: Code(s): R68.81 - Early satiety (2) GERD without esophagitis: Code(s): K21.9 - Gastro-esophageal reflux disease without esophagitis (3) Chronic constipation: Code(s): K59.09 - Other constipation (4) Left lower quadrant abdominal pain: Code(s): R10.32 - Left lower quadrant pain (5) Chest pain, atypical: Code(s): R07.89 - Other chest pain (6) Nausea and vomiting: Code(s): R11.2 - Nausea with vomiting, unspecified (7) GERD (gastroesophageal reflux disease): Code(s): K21.9 - Gastro-esophageal reflux disease without esophagitis Plan 42 YF with ? Obesity, allergic rhinitis, calcaneal spur of left foot, plantar fasciitis of left foot, hirsutism, hypercholesterolemia and type 2 diabetes mellitus? followed in GI for? GERD, atypical chest pain and intermittent dysphagia. EGD showed Minimal esophagitis and esophageal biopsies were negative for EOE. Dysphagia is likely related to esophageal spasm due to GERD. No evidence of achalasia on UGI in 03/2019. Symptoms have improved with the omeprazole, dicyclomine, ondansetron and famotidine at bedtime and patient was advised to continue taking these medications 02/[address] scan for workup of her left lower quadrant pain showed? mild fatty infiltration of the liver and stool throughout the colon questionable constipation Pt denies recurrent chest pain and is having less nausea and chest pains than before. Patient complains heartburn with certain foods and early satiety.? A gastric emptying study was normal. Patient was advised to increase MiraLax to twice daily for a week to see if nausea improves (to decrease to once a day after review if no change in symptoms). Pt was advised to schedule a colonoscopy in 2-4 weeks for evaluation of left- sided abdominal pain.? Records were requested from [facility] [place] regarding recent ED visit - reviewed 04/04/23 Pt was advised to start Senna 1-2 cap at bedtime for constipation 05/09/23 Taking 2 tab of Senna and having a BM at least once a day with incomplete evacuation and has to go a 2nd time. Tries not to push too hard. Abd pain has improved from 10/10 to 2-3/10 in intensity and notes pain when she lies down on the left side. Patient advised to continue with senna 2 tablets daily and use dicyclomine p.r.n. for abdominal pain ?Follow-up in 4 months Coding Level of Care Code Est Pt Level 4 (03665) Diagnoses Early satiety R68.81 GERD without esophagitis K21.9 Chronic constipation K59.09 Left lower quadrant abdominal pain R10.32 Chest pain, atypical R07.89 Nausea and vomiting R11.2 GERD (gastroesophageal reflux disease) K21.9 Time Spent (min) 24
[2023-05-09 09:29] VITALS: BP 163/94; PULSE 92; BMI 30.4
[2023-05-09 09:53] VITALS: BP 142/82; PULSE 88
== END 2023-05-09 10:19 | disposition home or self-care (01) ==
PROVIDERS: PCP Internal Medicine; Visit Provider Internal Medicine Gastroenterology
DX: R68.81 Early satiety (principal); K21.9 Gastro-esophageal reflux disease without esophagitis; K59.09 Other constipation; R10.32 Left lower quadrant pain; R07.89 Other chest pain; R11.2 Nausea with vomiting, unspecified
CPT/HCPCS: 99214

== ENCOUNTER 2023-06-10 12:53 | Outpatient (AMB) | payer OTHER, SELFPAY ==
[2023-06-10 12:53] VITALS: BP 142/82; PULSE 92; O2SAT 99; BMI 31.1
--- NOTE | 2023-06-10 12:53 | MHC.PC.OV ---
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: No Accompanied by: Self / Same As Patient Allergies Seasonal Allergies Allergy (Mild, Verified 06/10/23 13:32) runny nose Medication List - Last Reconciled 06/10/23 by Tate Daniel MD albuterol sulfate 90 mcg/actuation (ProAir HFA) 2 puffs inhalation Q6H PRN 30 days albuterol sulfate 2.5 mg inhalation QID PRN blood sugar diagnostic (FreeStyle Lite Strips) As directed blood-glucose meter (FreeStyle Lite Meter kit) test once daily cholecalciferol (vitamin D3) 50 mcg PO DAILY 90 days dicyclomine 20 mg PO TID 30 days dulaglutide (Trulicity) 1.5 mg (0.5 mL) subcut QWEEK famotidine 40 mg (2 x 20 mg) PO BEDTIME ibuprofen 600 mg PO TID PRN 30 days lancets (FreeStyle Lancets) As directed magnesium oxide 400 mg PO BID metformin 1,000 mg PO BID 30 days omeprazole 40 mg PO DAILY polyethylene glycol 3350 (Miralax) 17 grams PO DAILY sennosides-docusate sodium 8.6-50 mg (Senna Plus) 2 tab-caps (2 x 8.6-50 mg) PO BEDTIME 60 days Tobacco use date assessed: 06/10/23 Dental Screening Dental Screen Date: 06/10/23 Did you have a dental visit in the last 12 months?: Yes Did you have a dental problem in the last 6 months where you did not have access to dental care?: No Was dental information given to patient?: Patient has dentist HPI DM, hyperlipidemia, IBS HPI Details Patient comes in today for her follow up visit States that she feels okay She denies any headaches or dizziness Denies any chest pains, no SOB No nausea/vomiting, no abdominal pain - states that her epigastric and left lower quadrant abdominal pains seem to have both resolved/improved on her current Rx States that she is now moving her bowels more regularly with her Senna Rx and this has helped a lot with her previous recurrent left lower abdominal pain Had her follow up labs done last month - to discuss her results [facility] Medical History HPV in female Hypomagnesemia HPV (human papilloma virus) infection Knee pain, bilateral Elevated blood pressure reading Obesity (BMI 30-39.9) GERD without esophagitis Pure hypercholesterolemia Type 2 diabetes mellitus without complications Diabetes Obesity (BMI 35.0-39.9 without comorbidity) Allergic rhinitis Calcaneal spur of left foot Hirsutism Plantar fasciitis of left foot Hypercholesterolemia Type 2 diabetes mellitus Chronic constipation Left lower quadrant abdominal pain Nausea and vomiting Chest pain, atypical GERD (gastroesophageal reflux disease) Surgical History Hx of colonoscopy H/O endoscopy [place] teeth removed History of esophagogastroduodenoscopy (EGD) (~10/2019) H/O section Family History Father No problems noted. 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 1. Little interest or pleasure in doing things: not at all 2. Feeling down, depressed, or hopeless: not at all 3. Trouble falling or staying asleep, or sleeping too much: not at all 4. Feeling tired or having little energy: not at all 5. Poor appetite or overeating: not at all 6. Feeling bad about yourself - or that you are a failure or have let yourself or your family down: not at all 7. Trouble concentrating on things, such as reading the newspaper or watching television: not at all 8. Moving or speaking so slowly that other people could have noticed. Or the opposite - being so fidgety or restless that you have been moving around a lot more than usual: not at all 9. Thoughts that you would be better off or of hurting yourself in some way: not at all Total score: 0 Depression Screening Interpretation: Negative 93938 - PHQ-9 Billing: Yes Source: Developed by Drs. Armaan Bloom, Hodan Mercado, Walter Mantilla and colleagues, with an educational papa from [employer]. Thrive Questionnaire Date Thrive assessed: 06/10/23 I am a: Patient What is your living situation today?: I have a steady place to live Within the past 12 months, did the food you bought not last and you didn't have the money to get more?: Never true Within the past 12 months, did you worry whether your food would run out before you got money to buy more?: Never true Do you have trouble paying for medicines?: No Do you have trouble getting transportation to medical appointments?: No Do you have trouble paying your heating and electricity bill?: No Do you have trouble taking care of your child, family member or friend?: No Do you have trouble with day-to-day activities such as bathing, preparing meals, shopping, managing finances, etc.?: No Are you currently unemployed and looking for a job?: No Are you interested in more education?: No Please select the resources that you would like help with: None Currently or been in a relationship where the following occur: no concerns reported AUDIT C Alcohol Use Questionnaire (AUDIT-C) 1. How often do you have a drink containing alcohol?: Monthly or less 2. How many drinks containing alcohol do you have on a typical day when you are drinking?: 1 or 2 3. How often do you have six or more drinks on one occasion?: Never Total Score: 1 Score Reviewed/Action Taken: Yes ELADIO-7 AMB Questionnaire ELADIO-7 Date ELADIO - 7 assessed: 06/10/23 Feeling nervous, anxious, or on edge: 0 = Not at all Not being able to stop or control worryin = Not at all Worrying too much about different things: 0 = Not at all Trouble relaxin = Not at all Being so restless that it is hard to sit still: 0 = Not at all Becoming easily annoyed or irritable: 0 = Not at all Feeling afraid as if something awful might happen: 0 = Not at all Total ELADIO-7 score (0-4 normal; 5-9 mild; 10-14 moderate; 15-21 severe): 0 Source: Developed by Drs. Armaan Bloom, Hodan Mercado, Walter Mantilla and colleagues, with an educational papa from [employer]. Review of Systems Const Denies chills, Reports fatigue, Denies fever(s) and Denies headache(s) ENT Denies dysphagia, Denies dizziness, Denies otalgia, Denies headache(s), Denies neck pain, Denies odynophagia and Denies sore throat Card Denies chest pain, Denies palpitations and Denies dyspnea Resp Denies cough and Denies dyspnea GI Denies abdominal pain, Denies hematochezia, Denies constipation (bowel movements have improved a lot with Senna), Denies dysphagia, Denies heartburn, Denies diarrhea, Denies nausea, Denies odynophagia and Denies vomiting Denies difficulty voiding, Denies nocturia and Denies dysuria Musc Denies back pain, Denies arthralgias and Denies neck pain Neuro Denies dizziness and Denies headache(s) Endo Reports fatigue and Denies palpitations Physical exam (Primary Care) Vital Signs: Last Vital Signs Pulse 92 06/10/23 12:53 BP 142/82 H 06/10/23 12:53 Pulse Ox 99 06/10/23 12:53 Oxygen Delivery Method Room Air 06/10/23 12:53 BMI result Body Mass Index 31.1 Tobacco/Smoking Status: Tobacco use Status Tobacco use date assessed 06/10/23 06/10/23 13:00 Patient Tobacco Use Status Never used Tobacco 06/10/23 13:00 e-Cigarette/Vaping Use Never Used 06/10/23 13:00 PHQ-9: PHQ-9 Score PHQ-9: Total score 0 06/10/23 13:00 Depression Screening Interpretation: Negative Thrive Assessment: Date of Thrive Assessment Date Thrive assessed 06/10/23 06/10/23 13:00 Currently or been in a relationship where the following occur: no concerns reported Const General: no acute distress and alert HENMT Ears: TM's normal bilaterally and EAC's normal Throat: Yes posterior oropharynx normal and Yes tonsils normal Neck Neck: Yes no lymphadenopathy and Yes supple Resp Auscultation: clear to auscultation bilaterally, no rales and no wheezes Cardio Rate: regular rate Rhythm: regular rhythm Heart sounds: no murmurs GI Palpation (GI): Soft to palpation and nontender Auscultation: normal bowel sounds Skin Rashes: no rashes Extrem General: Yes no clubbing, cyanosis or edema Results Reviewed Results Reviewed: Laboratory Tests 05/09/23 10:10 WBC 9.0 Hgb 12.5 Hct 38.3 Plt Count 264 Sodium 136 Potassium 4.6 Chloride 106 Creatinine 0.90 Estimated GFR > 60 Fasting Glucose 135 H Hemoglobin A1c % 7.2 H Calcium 9.6 AST 14 ALT 11 Triglycerides 201 H Cholesterol 233 H LDL Cholesterol, Calc 133 H HDL Cholesterol 60 25-OH Vitamin D Total 30.7 TSH 1.26 Urine pH 5.5 Ur Specific [place] 1.020 Urine Protein Negative Urine Glucose (UA) Negative Urine Blood Negative Assessment and Plan Assessment & Plan (1) Type 2 diabetes mellitus without complications: Code(s): E11.9 - Type 2 diabetes mellitus without complications Qualifiers: 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 insulin use: without longterm use Qualified Code(s): E11.9 - Type 2 diabetes mellitus without complications Plan: Patient is cautioned that her HgbA1c has increased to 7.2% on her labs done last month (was at 6.6% a few months ago) - goal is < 7.0% Reinforced diabetic diet Continue Trulicity 1.5 mg SQ once a week and Metformin 1000 mg BID for now (2) Pure hypercholesterolemia: Code(s): E78.00 - Pure hypercholesterolemia, unspecified Plan: Results of her labs done last month reviewed and discussed with patient - cautioned that her cholesterol levels have increased again from previous Reinforced low cholesterol diet Patient still declines offer to start her on cholesterol-lowering Rx at this time; would like to continue with diet modification for now Will recheck her labs and fasting lipids in 4 months for follow-up (3) Hypomagnesemia: Code(s): E83.42 - Hypomagnesemia Plan: Corrected - continue MagOx 400 mg BID (4) Chronic constipation: Code(s): K59.09 - Other constipation Plan: Improved - reinforced increased oral fluids and dietary fiber Continue Polyethylene Glycol 17 gm QD Colonoscopy done by Dr. Bull last year came normal - (+) diverticulosis and small hemorrhoids States that her recurrent left lower abdominal pains have improved with Senna and when she started moving her bowels more regularly Follow up with GI as scheduled (5) Left lower quadrant abdominal pain: Code(s): R10.32 - Left lower quadrant pain Plan: Most likely due to IBS but her recurrent left lower abdominal pains have improved with Senna and when she started moving her bowels more regularly Colonoscopy done in April 2022 came out okay - (+) diverticulosis and small hemorrhoids; random biopsies done came out negative Continue Dicyclomine 20 mg TID PRN Follow up with GI as scheduled (6) GERD without esophagitis: Code(s): K21.9 - Gastro-esophageal reflux disease without esophagitis Plan: Reinforced dietary restrictions Continue Omeprazole 40 mg QD Follow up with GI as scheduled (7) Elevated blood pressure reading: Code(s): R03.0 - Elevated blood-pressure reading, without diagnosis of hypertension Plan: Reinforced low sodium diet - BP has improved significantly lately Instructed to continue monitoring her BP regularly (8) Obesity (BMI 30-39.9): Code(s): E66.9 - Obesity, unspecified Plan: Reinforced diet/exercise as tolerated/lose weight Plan Follow up in 4 months Orders: Orders Complete Blood Count Auto Diff 4 Months I10 - Essential (primary) hypertension Comprehensive [place]. Panel Fast 4 Months E78.00 - Pure hypercholesterolemia, unspecified TSH reflex Free T4 4 Months E78.00 - Pure hypercholesterolemia, unspecified Lipid Panel 4 Months E78.00 - Pure hypercholesterolemia, unspecified Microalbumin, Random (w Creat) 4 Months E11.9 - Type 2 diabetes mellitus without complications Hemoglobin A1c 4 Months E11.9 - Type 2 diabetes mellitus without complications UA CC w/rflx Micro + Cult 4 Months R30.0 - Dysuria Vitamin D 25-OH Total 4 Months E55.9 - Vitamin D deficiency, unspecified Coding Level of Care Code Est Pt Level 4 (39482) Diagnoses Type 2 diabetes mellitus without complication, without long-term current use of insulin E11.9 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
== END 2023-06-10 13:40 | disposition home or self-care (01) ==
PROVIDERS: Visit Provider Internal Medicine
DX: E11.9 Type 2 diabetes mellitus without complications (principal); E83.42 Hypomagnesemia; K21.9 Gastro-esophageal reflux disease without esophagitis; E78.00 Pure hypercholesterolemia, unspecified; K59.09 Other constipation; R10.32 Left lower quadrant pain; R03.0 Elevated blood-pressure reading, without diagnosis of hypertension; E66.9 Obesity, unspecified
CPT/HCPCS: 99214

== ENCOUNTER → 2023-07-29 09:00 | Outpatient (BNV) | payer OTHER, SELFPAY | PROVIDERS: PCP Internal Medicine; Visit Provider Radiology Diagnostic Radiology | DX: Z12.31 Encounter for screening mammogram for malignant neoplasm of breast (principal) | CPT/HCPCS: 77063; 77067 ==

== ENCOUNTER 2023-07-29 09:01 | Outpatient (REF) | payer OTHER, SELFPAY | END 2023-07-29 09:02 | disposition home or self-care (01) | LOC: HO.MAMMO 09:01 | PROVIDERS: PCP Internal Medicine; Visit Provider Internal Medicine | DX: Z12.31 Encounter for screening mammogram for malignant neoplasm of breast (principal) | CPT/HCPCS: 77063; 77067 ==

== ENCOUNTER 2024-01-17 10:52 | Outpatient (REF) | payer OTHER, SELFPAY ==
[2024-01-17 11:02] LABS: MANUAL DIFF FLAG NO
[2024-01-17 11:49] LABS: Basophils Absolute Auto 0.1 X10*3/uL (0.0-0.2); Basophils Percent Auto 0.8 % (0-2); Eosinophils Absolute Auto 0.2 X10*3/uL (0.0-0.4); Hematocrit 37.3 % (37.0-47.0); Hemoglobin 11.9 g/dl (12.0-16.0); Imm Gran Abs Auto 0.03 X10*3/uL (0.00-0.03); Imm Gran Pct Auto 0.3 % (0.0-0.4); Lymphocytes Absolute Auto 2.9 X10*3/uL (1.2-4.9); Mean Corpuscular HGB Conc 31.9 g/dl (31.0-35.0); Mean Corpuscular Hemoglobin 26.1 pg (27.0-33.0); Mean Corpuscular Volume 81.8 fL (80.0-98.0); Mean Platelet Volume 10.7 fL (9.4-12.3); Monocytes Absolute Auto 0.5 X10*3/uL (0.1-1.2); Monocytes Percent Auto 5.8 % (2-11); Neutrophils Absolute Auto 5.3 x10*3/uL (2.0-8.3); Neutrophils Percent Auto 59.1 % (45-73); Platelet Count 297 X10*3/uL (160-400); Red Blood Count 4.56 X10*6/uL (4.20-5.50); Red Cell Distribution Width 14.9 % (11.0-16.0); White Blood Count 8.9 X10*3/uL (4.8-10.8)
[2024-01-17 11:57] LABS: Estimated Average Glucose 229 mg/dL; Hemoglobin A1c % 9.6 % (<6.0)
[2024-01-17 12:53] LABS: Alanine Aminotransferase 16 U/L (0-31); Alkaline Phosphatase 78 U/L (39-117); Anion Gap 16 (12-20); Aspartate Amino Transferase 14 U/L (5-31); Bilirubin Total 0.3 mg/dL (0.0-1.0); Blood Urea Nitrogen 12 mg/dL (9-16); Calcium 9.1 mg/dL (8.4-10.2); Carbon Dioxide 22 mmol/L (22-29); Chloride 102 mmol/L (96-108); Cholesterol 212 mg/dL (<200); Estimated Glomerular Filt Rate > 60; Glucose Fasting 234 mg/dL (60-99); HDL Cholesterol 66 mg/dL (>40); LDL Cholesterol Calculated 116 mg/dL (<100); Potassium 3.9 mmol/L (3.3-5.1); Sodium 136 mmol/L (135-145); TSH reflex Free T4 1.12 uIU/mL (0.32-4.0); Total Protein 7.3 g/dL (6.5-8.0); Triglycerides 150 mg/dL (<150); Vitamin D 25-OH Total 34.5 ng/mL (>30)
[2024-01-17 13:43] LABS: Appearance Urine Cloudy; Color Urine Yellow; Glucose Urine UA >=1000 mg/dL (Negative); Leukocyte Esterase Urine Negative (Negative); Nitrite Urine Negative (Negative); PH 5.5 (5.0-9.0); Specific Gravity - Urine >= 1.030 (1.005-1.025); UMIC TRIGGER UACC YES; Urine Blood Negative (Negative); Urine Ketones 15 mg/dL (Negative); Urine Protein Trace mg/dL (Neg-Trace)
[2024-01-17 14:09] LABS: Bacteria Urine 2+ (None Seen); Hyaline Casts Urine 0-2 /LPF (0-2); RBC Urine 0-2 /HPF (0-2); WBC Urine 0-5 /HPF (0-5)
[2024-01-17 14:26] LABS: Creatinine Urine 195.13 mg/dL; Microalbum/Creatinine Ratio Ur 7.6 ug/mg cr (<30)
== END 2024-01-17 10:53 | disposition home or self-care (01) ==
LOC: HO.LAB 10:52
PROVIDERS: PCP Internal Medicine; Visit Provider Internal Medicine
DX: E11.9 Type 2 diabetes mellitus without complications (principal); R30.0 Dysuria; I10 Essential (primary) hypertension; E78.00 Pure hypercholesterolemia, unspecified; E55.9 Vitamin D deficiency, unspecified
CPT/HCPCS: 36415; 80053; 80061; 81001; 82043; 82306; 82570; 83036; 84443; 85025

== ENCOUNTER 2024-01-20 12:54 | Outpatient (AMB) | payer OTHER, SELFPAY ==
--- NOTE | 2024-01-20 12:58 | MHC.PC.OV ---
Vital Signs 01/20/24 13:03 Height 5 ft 1 in Weight 174 lb 6 oz BMI 32.9 BP 120/76 Blood Pressure Location Lt brachial Position Sitting Pulse 93 Pulse Source Pulse Oximeter Pulse Oximetry (%) 99 Oxygen Delivery Method Room Air Intake Visit Reasons: 4 month f/u Intake Note: Patient is here to follow up on DM, GERD, Hypercholesterolemia. Denier Control Operator Required: No General Doc: Not Required per policy Accompanied by: Self / Same As Patient Allergies Seasonal Allergies Allergy (Mild, Verified 06/09/24 11:13) runny nose Medication List - Last Reconciled 01/20/24 by Tate Daniel MD albuterol sulfate 90 mcg/actuation (ProAir HFA) 2 puffs inhalation Q6H PRN 30 days albuterol sulfate 2.5 mg inhalation QID PRN blood sugar diagnostic (FreeStyle Lite Strips) As directed blood-glucose meter (FreeStyle Lite Meter kit) test once daily cholecalciferol (vitamin D3) 50 mcg PO DAILY 90 days dicyclomine 20 mg PO TID 30 days dulaglutide (Trulicity) 1.5 mg (0.5 mL) subcut QWEEK exenatide microspheres ER 2 mg (0.85 mL) subcut QWEEK 4 weeks famotidine 40 mg (2 x 20 mg) PO BEDTIME ibuprofen 600 mg PO TID PRN 30 days lancets (FreeStyle Lancets) As directed magnesium oxide 400 mg PO BID metformin 1,000 mg PO BID 30 days omeprazole 40 mg PO DAILY polyethylene glycol 3350 (Miralax) 17 grams PO DAILY semaglutide (Ozempic) 1 mg (0.75 mL) subcut QWEEK 4 weeks sennosides-docusate sodium 8.6-50 mg (Senna Plus) 2 tab-caps (2 x 8.6-50 mg) PO BEDTIME 60 days Tobacco use date assessed: 01/20/24 Dental Screening Dental Screen Date: 01/20/24 Did you have a dental visit in the last 12 months?: Yes Did you have a dental problem in the last 6 months where you did not have access to dental care?: No Was dental information given to patient?: Patient has dentist HPI 4 month f/u HPI Details Patient comes in today for her follow up visit - was last seen in May 2023 States that she has been experiencing increased right knee pain for the past couple of days Notes that her knee pain feels worse when she is kneeling down on her knee States that she's had no problems with her knee in the past and she's had no recent injury to her knee but she does a lot of kneeling down at work often Notes that her right knee would now also hurt and bother her when she is going up and down stairs States that she feels okay otherwise She denies any headaches or dizziness Denies any chest pains, no SOB No nausea/vomiting, no abdominal pain but she still has occasional cramping pains related to her IBS No change in bowel habits noted She had her follow up labs done a few days ago - to discuss her results [facility] Medical History HPV in female Hypomagnesemia HPV (human papilloma virus) infection Knee pain, bilateral Elevated blood pressure reading Obesity (BMI 30-39.9) GERD without esophagitis Pure hypercholesterolemia Type 2 diabetes mellitus without complications Diabetes Obesity (BMI 35.0-39.9 without comorbidity) Allergic rhinitis Calcaneal spur of left foot Hirsutism Plantar fasciitis of left foot Hypercholesterolemia Type 2 diabetes mellitus Chronic constipation Left lower quadrant abdominal pain Nausea and vomiting Chest pain, atypical GERD (gastroesophageal reflux disease) Surgical History Hx of colonoscopy H/O endoscopy [place] teeth removed History of esophagogastroduodenoscopy (EGD) (~10/2019) H/O section Family History Father No problems noted. 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 1. Little interest or pleasure in doing things: not at all 2. Feeling down, depressed, or hopeless: more than half the days 3. Trouble falling or staying asleep, or sleeping too much: not at all 4. Feeling tired or having little energy: not at all 5. Poor appetite or overeating: more than half the days 6. Feeling bad about yourself - or that you are a failure or have let yourself or your family down: not at all 7. Trouble concentrating on things, such as reading the newspaper or watching television: not at all 8. Moving or speaking so slowly that other people could have noticed. Or the opposite - being so fidgety or restless that you have been moving around a lot more than usual: not at all 9. Thoughts that you would be better off or of hurting yourself in some way: not at all Total score: 4 Depression Screening Interpretation: Positive Depression Screening Follow-up: Existing condition and Follow-up Visit Requested Depression Screening Done: Yes 34429 - PHQ-9 Billing: Yes Source: Developed by Drs. Armaan Bloom, Hodan Mercado, Walter Mantilla and colleagues, with an educational papa from [employer] Thrive Questionnaire Date Thrive assessed: 01/20/24 I am a: Patient What is your living situation today?: I have a steady place to live Within the past 12 months, did the food you bought not last and you didn't have the money to get more?: Never true Within the past 12 months, did you worry whether your food would run out before you got money to buy more?: Never true Do you have trouble paying for medicines?: No Do you have trouble getting transportation to medical appointments?: No Do you have trouble paying your heating and electricity bill?: No Do you have trouble taking care of your child, family member or friend?: No Do you have trouble with day-to-day activities such as bathing, preparing meals, shopping, managing finances, etc.?: No Are you currently unemployed and looking for a job?: No Are you interested in more education?: No Currently or been in a relationship where the following occur: no concerns reported THRIVE Score: 0 AUDIT C Alcohol Use Questionnaire (AUDIT-C) 1. How often do you have a drink containing alcohol?: Monthly or less 2. How many drinks containing alcohol do you have on a typical day when you are drinking?: 1 or 2 Total Score: 1 Score Reviewed/Action Taken: Yes ELADIO-7 AMB Questionnaire ELADIO-7 Date ELADIO - 7 assessed: 01/20/24 Feeling nervous, anxious, or on edge: 0 = Not at all Not being able to stop or control worryin = Not at all Worrying too much about different things: 0 = Not at all Trouble relaxin = Not at all Being so restless that it is hard to sit still: 0 = Not at all Becoming easily annoyed or irritable: 0 = Not at all Feeling afraid as if something awful might happen: 0 = Not at all Total ELADIO-7 score (0-4 normal; 5-9 mild; 10-14 moderate; 15-21 severe): 0 Source: Developed by Drs. Armaan Bloom, Hodan Mercado, Walter Mantilla and colleagues, with an educational papa from [employer]. Review of Systems Const Denies chills, Denies fatigue, Denies fever(s) and Denies headache(s) ENT Denies dysphagia, Denies dizziness, Denies otalgia, Denies headache(s), Denies neck pain, Denies odynophagia and Denies sore throat Card Denies chest pain, Denies palpitations and Denies dyspnea Resp Denies cough and Denies dyspnea GI Denies abdominal pain, Denies hematochezia, Denies constipation (bowel movements have improved a lot with Senna), Denies dysphagia, Denies heartburn, Denies diarrhea, Denies nausea, Denies odynophagia and Denies vomiting Denies difficulty voiding, Denies nocturia, Denies dysuria and Denies urinary urgency Musc Denies back pain, Reports arthralgias (right knee - see HPI), Denies joint swelling and Denies neck pain Skin/Breast Denies rash Neuro Denies dizziness and Denies headache(s) Psych Reports anxiety Endo Denies fatigue and Denies palpitations Physical exam (Primary Care) Vital Signs: Last Vital Signs Pulse 93 01/20/24 13:03 BP 120/76 05/06/24 13:03 Pulse Ox 99 01/20/24 13:03 Oxygen Delivery Method Room Air 01/20/24 13:03 BMI result Body Mass Index 32.9 Tobacco/Smoking Status: Tobacco use Status Tobacco use date assessed 01/20/24 01/20/24 13:10 Patient Tobacco Use Status Never used Tobacco 01/20/24 13:00 e-Cigarette/Vaping Use Never Used 01/20/24 13:00 PHQ-9: PHQ-9 Score PHQ-9: Total score 4 06/09/24 12:40 Depression Screening Interpretation: Positive Depression Screening Follow-up: Existing condition and Follow-up Visit Requested Thrive Assessment: Date of Thrive Assessment Date Thrive assessed 01/20/24 01/20/24 13:00 Currently or been in a relationship where the following occur: no concerns reported Const General: no acute distress and alert HENMT Ears: TM's normal bilaterally and EAC's normal Throat: Yes posterior oropharynx normal and Yes tonsils normal Neck Neck: Yes no lymphadenopathy and Yes supple Thyroid: Thyroid normal Resp Auscultation: clear to auscultation bilaterally, no rales and no wheezes Cardio Rate: regular rate Rhythm: regular rhythm Heart sounds: no murmurs GI Palpation (GI): Soft to palpation and nontender Auscultation: normal bowel sounds General: Yes no CVA tenderness Back/Spine/Pelvis Back: no CVA tenderness Thoracic/Lumbar Spine: No lumbar spinal tenderness Skin Rashes: no rashes Extrem General: Yes no clubbing, cyanosis or edema Right lower extremity: knee Details: tenderness Results Reviewed Results Reviewed: Laboratory Tests 01/17/24 01/17/24 11:00 11:01 WBC 8.9 Hgb 11.9 L Hct 37.3 Plt Count 297 Sodium 136 Potassium 3.9 Estimated GFR > 60 Fasting Glucose 234 H Hemoglobin A1c % 9.6 H Calcium 9.1 AST 14 ALT 16 Triglycerides 150 H Cholesterol 212 H LDL Cholesterol, Calc 116 H HDL Cholesterol 66 25-OH Vitamin D Total 34.5 TSH 1.12 Urine pH 5.5 Ur Specific [place] >= 1.030 H Urine Protein Trace Urine Glucose (UA) >=1000 H Urine Blood Negative Urine Nitrite Negative Ur Leukocyte Esterase Negative Microalb/Creat Ratio 7.6 Assessment and Plan Assessment & Plan (1) Type 2 diabetes mellitus without complications: Code(s): E11.9 - Type 2 diabetes mellitus without complications Qualifiers: Diabetes mellitus half-way insulin use: without extermination supervisor use Qualified Code(s): E11.9 - Type 2 diabetes mellitus without complications Plan: Patient is cautioned that her HgbA1c has now increased to 9.6% on her labs done a few days ago (was at 7.2% when previously checked in April 2023) - goal is < 7.0% Reinforced diabetic diet Continue Metformin 1000 mg BID; she was also on Trulicity 1.5 mg SQ once a week previously but states that she has been out of her Trulicity for a couple of weeks now as she could not get it from her pharmacy due to its unavailability anywhere recently Her insurance recommended Byetta (will not cover Ozempic) and she is now on [place] 2 mg SQ once a week (2) Pure hypercholesterolemia: Code(s): E78.00 - Pure hypercholesterolemia, unspecified Plan: Results of her labs done a few days ago reviewed and discussed with patient - her cholesterol levels have improved slightly from previous Reinforced low cholesterol diet Patient still declines offer to start her on cholesterol-lowering Rx at this time; would like to continue with diet modification for now Will recheck her labs and fasting lipids in 4 months for follow-up (3) Hypomagnesemia: Code(s): E83.42 - Hypomagnesemia Plan: Corrected - continue MagOx 400 mg BID (4) Chronic constipation: Code(s): K59.09 - Other constipation Plan: Improved - reinforced increased oral fluids and dietary fiber Continue Polyethylene Glycol 17 gm QD Colonoscopy done by Dr. Bull last year came normal - (+) diverticulosis and small hemorrhoids States that her recurrent left lower abdominal pains have improved with Senna and when she started moving her bowels more regularly Follow up with GI as scheduled (5) Left lower quadrant abdominal pain: Code(s): R10.32 - Left lower quadrant pain Plan: Most likely due to IBS but her recurrent left lower abdominal pains have improved with Senna and when she started moving her bowels more regularly Colonoscopy done in April 2022 came out okay - (+) diverticulosis and small hemorrhoids; random biopsies done came out negative Continue Dicyclomine 20 mg TID PRN Follow up with GI as scheduled (6) Right knee pain: Code(s): M25.561 - Pain in right knee Qualifiers: Chronicity: acute Qualified Code(s): M25.561 - Pain in right knee Plan: She is advised that she most likely has bursitis or OA of the knee Will send her for right knee x-rays for further evaluation (7) GERD without esophagitis: Code(s): K21.9 - Gastro-esophageal reflux disease without esophagitis Plan: Reinforced dietary restrictions Continue Omeprazole 40 mg QD Follow up with GI as scheduled (8) Elevated blood pressure reading: Code(s): R03.0 - Elevated blood-pressure reading, without diagnosis of hypertension Plan: Reinforced low sodium diet - BP has improved significantly lately Instructed to continue monitoring her BP regularly (9) Obesity (BMI 30-39.9): Code(s): E66.9 - Obesity, unspecified Plan: Reinforced diet/exercise as tolerated/lose weight Plan Follow up in 4 months Orders: Orders Hemoglobin A1c 4 Months E11.9 - Type 2 diabetes mellitus without complications Complete Blood Count Auto Diff 4 Months D64.9 - Anemia, unspecified Lipid Panel 4 Months E78.00 - Pure hypercholesterolemia, unspecified Microalbumin, Random (w Creat) 4 Months E11.9 - Type 2 diabetes mellitus without complications TSH reflex Free T4 4 Months E78.00 - Pure hypercholesterolemia, unspecified Vitamin D 25-OH Total 4 Months E55.9 - Vitamin D deficiency, unspecified XR knee RT 4V 24 M25.561 - Pain in right knee Comprehensive [place]. Panel Fast 4 Months E78.00 - Pure hypercholesterolemia, unspecified UA CC w/rflx Micro + Cult 4 Months R30.0 - Dysuria Coding Level of Care Code Est Pt Level 4 (27318) Diagnoses Type 2 diabetes mellitus without complication, without long-term current use of insulin E11.9 Diabetes mellitus extermination supervisor insulin use: without half-way use Pure hypercholesterolemia E78.00 Hypomagnesemia E83.42 Chronic constipation K59.09 Left lower quadrant abdominal pain R10.32 Acute pain of right knee M25.561 Chronicity: acute GERD without esophagitis K21.9 Elevated blood pressure reading R03.0 Obesity (BMI 30-39.9) E66.9
[2024-01-20 13:03] VITALS: BP 120/76; PULSE 93; O2SAT 99; BMI 32.9
== END 2024-01-20 14:15 | disposition home or self-care (01) ==
PROVIDERS: PCP Internal Medicine; Visit Provider Internal Medicine
DX: E11.9 Type 2 diabetes mellitus without complications (principal); E78.00 Pure hypercholesterolemia, unspecified; E66.9 Obesity, unspecified; Z68.33 Body mass index [BMI] 33.0-33.9, adult; E83.42 Hypomagnesemia; K59.09 Other constipation; R10.32 Left lower quadrant pain; M25.561 Pain in right knee; K21.9 Gastro-esophageal reflux disease without esophagitis; R03.0 Elevated blood-pressure reading, without diagnosis of hypertension
CPT/HCPCS: 99214

== ENCOUNTER 2024-01-24 13:42 | Outpatient (REF) | payer OTHER, SELFPAY ==
--- NOTE | ~2024-01-24 | XR_ITS ---
EXAMINATION: XR KNEE, RIGHT CLINICAL INFORMATION: Pain in right knee. COMPARISON: 08/17/2016. TECHNIQUE: Four views of the right knee. FINDINGS: Trace joint effusion. Tiny tricompartmental osteophytes. Joint spaces are preserved. Alignment maintained. XR/XR knee RT 4V IMPRESSION: Mild degenerative changes.
== END 2024-01-24 13:43 | disposition home or self-care (01) ==
LOC: HO.XRAY 13:42
PROVIDERS: PCP Internal Medicine; Visit Provider Internal Medicine
DX: M25.561 Pain in right knee (principal)
CPT/HCPCS: 73564

== ENCOUNTER 2024-02-12 08:59 | Outpatient (AMB) | payer OTHER, SELFPAY ==
--- NOTE | 2024-02-12 09:20 | A.OFFVIS_ITS ---
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 No complaints. Last Pap/HPV was negative in 10/06 Last Mammogram was BI-RADS 1 in 08/08 [facility] Medical History HPV in female Hypomagnesemia HPV (human papilloma virus) infection Knee pain, bilateral Elevated blood pressure reading Obesity (BMI 30-39.9) GERD without esophagitis Pure hypercholesterolemia Type 2 diabetes mellitus without complications Diabetes Obesity (BMI 35.0-39.9 without comorbidity) Allergic rhinitis Calcaneal spur of left foot Hirsutism Plantar fasciitis of left foot Hypercholesterolemia Type 2 diabetes mellitus Chronic constipation Left lower quadrant abdominal pain Nausea and vomiting Chest pain, atypical GERD (gastroesophageal reflux disease) Surgical History Hx of colonoscopy H/O endoscopy [place] teeth removed History of esophagogastroduodenoscopy (EGD) (~10/2019) H/O section Family History Father No problems noted. 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 Cognitive needs: No Hearing needs: No Vision needs: Yes Female Reproductive History Menstrual Age of Menarche: 9 Date of last menstrual period: 01/26/24 control method: none Total pregnancies: 2 Full term: 2 Number of Living Children: 2 Date of last pap smear: 10/14/20 Date of Mammogram: 08/08/23 Review of Systems Const All systems reviewed & are unremarkable except as noted in HPI and below Card Reports as per HPI Resp Reports as per HPI GI Reports as per HPI and Reports no additional complaints Reports as per HPI Physical Exam Vital Signs: Last Vital Signs BP 122/74 02/12/24 09:28 BMI result Body Mass Index 32.9 Const General: cooperative, healthy appearing and comfortable Chest Chest palpation & inspection: normal inspection of the chest and normal palpation of entire chest wall Breast/axilla inspection: normal inspection of the breasts and normal inspection of the axillae Breast/axilla palpation: normal palpation of the breasts, normal palpation of the axillae and no axillary lymphadenopathy Resp Effort & Inspection: normal respiratory effort Auscultation: clear to auscultation bilaterally Percussion: percussion normal Cardio Palpation: normal PMI Rate: regular rate Rhythm: regular rhythm Heart sounds: no murmurs and no rubs Peripheral pulses: Peripheral pulses 2+ throughout GI Inspection: Yes normal to inspection Palpation (GI): Soft to palpation, nontender, no guarding, not rigid and No hepatosplenomegaly present Percussion: Yes normal to percussion Auscultation: normal bowel sounds Rectal Exam - Female: deferred General: Yes bladder normal to palpation External Female Exam: No lesion Speculum Exam - Vagina: normal appearance of the vagina, normal palpation, normal vaginal discharge and not erythematous Speculum Exam - Cervix: normal appearance of the cervix and normal palpation Bimanual exam- vagina & uterus: normal bimanual exam, normal palpation, uterine size normal, bladder normal to palpation, consistency normal and normal palpation Bimanual Exam- Adnexa, other: normal adnexae, no masses and no tenderness Assessment & Plan Assessment & Plan (1) Well woman exam: Code(s): Z01.419 - Encounter for gynecological examination (general) (routine) without abnormal findings Category: Medical Plan: Cotesting not indicated this year. Instructions given the patient to schedule next screening Mammogram in 08/08. Counseled the patient about the recommended dietary allowance of 1000 mg of Calcium & 600 IU of vitamin D. The patient was instructed to perform monthly self-breast exams and to schedule an annual exam in a year; All questions answered and the patient verbalized understanding. Instructed the patient to schedule annual exam in a year Coding Level of Care Code Est Pt Prev Care 40-64y(27845) Diagnoses Well woman exam Z01.419
[2024-02-12 09:28] VITALS: BP 122/74; BMI 32.9
== END 2024-02-12 09:59 | disposition home or self-care (01) ==
PROVIDERS: PCP Internal Medicine; Visit Provider Obstetrics & Gynecology
DX: Z01.419 Encounter for gynecological examination (general) (routine) without abnormal findings (principal)
CPT/HCPCS: 99396

== ENCOUNTER → 2024-02-12 08:59 | Outpatient (BNVA) | payer OTHER, SELFPAY | PROVIDERS: Visit Provider Obstetrics & Gynecology | DX: Z01.419 Encounter for gynecological examination (general) (routine) without abnormal findings (principal) | CPT/HCPCS: 99396 ==

== ENCOUNTER 2024-05-12 15:46 | Emergency (ER) | payer OTHER, SELFPAY ==
--- NOTE | ~2024-05-12 | XR_ITS ---
EXAMINATION: XR KNEE, RIGHT CLINICAL INFORMATION: Knee pain COMPARISON: X-ray 01/24/2024 TECHNIQUE: Four views of the right knee. FINDINGS: Small joint effusion. Bony alignment is anatomic. Tiny tricompartment osteoarthritis. No visible acute fracture or dislocation. No abnormal soft tissue calcification. XR/XR knee RT 4V IMPRESSION: Small joint effusion. Mild degenerative changes. Electronically signed by: Anirudh Fitzgerald MD 05/12/2024 06:33 PM EDT
--- NOTE | 2024-05-12 16:07 | ED.GENADULT ---
HPI - General Adult General Chief complaint: Extremity Injury, Lower Stated complaint: R knee pain Time Seen by Provider: 05/12/24 16:53 Source: patient Limitations: no limitations History of Present Illness ED Provider: Umesh Hinojosa PA-C HPI narrative: 43 yo female with history of diabetes, GERD, HLD who presents to the ER for evaluation of right knee pain for the last 6 weeks. Patient reports a mechanical fall 6 weeks ago and has had intermittent knee pain since. She has been wearing a knee brace which has been helping. 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 She reports there was some swelling in the right knee as well. No new injury since the initial fall. She reports the pain is along the inside and the outside of the knee. Pain is worse with going up and down stairs. No sensation of the knee giving out. No calf pain. She has not taken any medications for the pain MD complaint: Right knee pain Onset (ago): week(s) (6) Location: right and lower extremity Radiation: non-radiation Severity: severe Quality: aching Pain Consistency: intermittent Relieving factors: rest Exacerbating factors: movement Associated symptoms: denies other symptoms Treatments prior to arrival: none Related Data Home Medications ?Medication ?Instructions ?Recorded ?Confirmed polyethylene glycol 3350 17 17 g PO DAILY 07/07/20 01/20/24 gram/dose oral powder (Miralax) albuterol sulfate 2.5 mg/3 mL 2.5 mg inhalation QID PRN 10/23/21 01/20/24 (0.083 %) solution for nebulization magnesium oxide 400 mg (241.3 mg 400 mg PO BID 04/04/23 01/20/24 magnesium) tablet Previous Rx's ?Medication ?Instructions ?Recorded famotidine 20 mg tablet 40 mg (2 x 20 mg) PO BEDTIME #60 06/23/21 tabs omeprazole 40 mg capsule,delayed 40 mg PO DAILY #30 caps 10/02/21 release albuterol sulfate 90 mcg/actuation 2 puff inhalation Q6H PRN 10/23/21 aerosol inhaler (ProAir HFA) shortness of breath or wheezing 30 days #18 grams ibuprofen 600 mg tablet 600 mg PO TID PRN pain 30 days #90 06/19/22 tabs blood sugar diagnostic (FreeStyle #100 ea 02/04/23 Lite Strips) lancets 28 gauge (FreeStyle #100 ea 02/04/23 Lancets) sennosides 8.6 mg-docusate sodium 2 tab-cap (2 x 8.6-50 mg) PO 04/04/23 50 mg capsule (Senna Plus) BEDTIME 60 days #120 caps blood-glucose meter (FreeStyle #1 ea 05/13/23 Lite Meter kit) metformin 1,000 mg tablet 1,000 mg PO BID 30 days #60 caps 07/12/23 dicyclomine 20 mg tablet 20 mg PO TID 30 days #90 tabs 01/31/24 exenatide microspheres 2 mg/0.85 2 mg (0.85 mL) subcut QWEEK 4 03/01/24 mL subcutaneous auto-injector weeks #3.4 mL cholecalciferol (vitamin D3) 50 50 mcg PO DAILY 90 days #90 caps 03/18/24 mcg (2,000 unit) capsule ibuprofen 600 mg tablet 600 mg PO Q8H PRN pain #14 tabs 05/12/24 Allergies Allergy/AdvReac Type Severity Reaction Status Date / Time Seasonal Allergies Allergy Mild runny nose Verified 05/12/24 16:09 Review of Systems Review of Systems: Yes all other systems are reviewed and are negative [facility] Past Medical History Medical History HPV in female Hypomagnesemia HPV (human papilloma virus) infection Knee pain, bilateral Elevated blood pressure reading Obesity (BMI 30-39.9) GERD without esophagitis Pure hypercholesterolemia Type 2 diabetes mellitus without complications Diabetes Obesity (BMI 35.0-39.9 without comorbidity) Allergic rhinitis Calcaneal spur of left foot Hirsutism Plantar fasciitis of left foot Hypercholesterolemia Type 2 diabetes mellitus Chronic constipation Left lower quadrant abdominal pain Nausea and vomiting Chest pain, atypical GERD (gastroesophageal reflux disease) Surgical History Hx of colonoscopy H/O endoscopy [place] teeth removed History of esophagogastroduodenoscopy (EGD) (~10/2019) H/O section Family History Family History Father No problems noted. 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 Oriented X3. No acute distress. HEENT: normal inspection CVS: Normal heart rate and rhythm. Pulses normal. Respiratory: No respiratory distress. Skin: Skin warm and dry. Normal skin color. Normal skin turgor. No rashes. Extremities: Mild generalized swelling of the right knee. Tenderness along the medial joint line in the lateral joint line. Full passive range of motion. No pain with varus or valgus stress. Negative anterior drawer test Neuro: Oriented X 3. No motor deficit. No sensory deficit. Steady gait Course Course Course Narrative: This is an RME done by OLIVER Choudhary: Additional HPI, ROS, PE not included below will be deferred to primary provider. 43 year old female with concerns of R knee pain (610) following a fall 6 weeks ago after tripping on an object at home. Pt states she has difficulty getting up from a kneeled position and walking up stairs. Plan - imaging Appearance: Alert.? Oriented X3.? No acute cardiopulmonary distress distress.? Head: Normocephalic, atraumatic, no step-offs or deformities Neck: Normal inspection.? Neck supple.? CVS: Pulses normal.? Respiratory: No respiratory distress.? Abdomen: Soft and nontender.? Skin: ? Normal skin color. Extremities: 5/5 strength to bilateral upper and lower extremities; full ROM R. knee Neuro: Oriented X 3.? No motor deficit.? No sensory deficit. Medical Decision Making Medical Decision Making MDM Narrative: 43-year-old female presents to the ER for evaluation of intermittent knee pain for the last 6 weeks after she tripped and fell. Pain was worse today so she came to the ER. Exam today did not show any obvious ligamentous laxity. X-ray was unremarkable. Will start NSAIDs, rest, ice, compression and refer to orthopedics for further evaluation treatment. Differential Diagnosis Differential Diagnoses: The differential diagnosis associated with the presentation includes Knee sprain, knee strain, knee effusion, meniscus or ligamentous injury Independent Interpretation I performed an independent interpretation of an: Plain X-Ray Interpretation: No acute fracture, no large effusion, agree with radiology read Radiology Impression Discussion of test interpretation with radiology: I have reviewed the radiologist's reading. Radiologist Impression: EXAMINATION: XR KNEE, RIGHT CLINICAL INFORMATION: Knee pain COMPARISON: X-ray 01/24/2024 TECHNIQUE: Four views of the right knee. FINDINGS: Small joint effusion. Bony alignment is anatomic. Tiny tricompartment osteoarthritis. No visible acute fracture or dislocation. No abnormal soft tissue calcification. XR/XR knee RT 4V IMPRESSION: Small joint effusion. Mild degenerative changes. External Record Review External record reviewed: Prior outpatient labs Prescription Management I considered prescription management with: Pain Medication Critical Care Time Critical Care Time Critical Care Time: No Discharge Plan Discharge Clinical Impression: Knee pain Qualifiers: Chronicity: chronic Laterality: right Qualified Code(s): M25.561 - Pain in right knee Effusion of knee Qualifiers: Laterality: right Qualified Code(s): M25.461 - Effusion, right knee Patient Disposition: Home, Self-Care Instructions: Swollen Knee Joint (ED), Knee Pain (ED) Additional Instructions: Your x-ray today showed a small amount of fluid in the joint. Recommend wearing an Blu wrap for compression, this will help your body reabsorbed the fluid. Recommend following up with orthopedics for further evaluation and treatment. Call for an appointment, name and number for Orthopedics as below. Recommend rest, ice, compression with Blu wrap and elevation when possible. Take the prescribed anti-inflammatory as needed for pain and swelling. EXAMINATION: XR KNEE, RIGHT CLINICAL INFORMATION: Knee pain COMPARISON: X-ray 01/24/2024 TECHNIQUE: Four views of the right knee. FINDINGS: Small joint effusion. Bony alignment is anatomic. Tiny tricompartment osteoarthritis. No visible acute fracture or dislocation. No abnormal soft tissue calcification. XR/XR knee RT 4V IMPRESSION: Small joint effusion. Mild degenerative changes. Prescriptions: New ibuprofen 600 mg tablet 600 mg PO Q8H PRN (Reason: pain) Qty: 14 0RF No Action famotidine 20 mg tablet 40 mg PO BEDTIME Qty: 60 3RF omeprazole 40 mg capsule,delayed release(DR/EC) 40 mg PO DAILY Qty: 30 5RF albuterol sulfate 2.5 mg /3 mL (0.083 %) solution for nebulization 2.5 mg inhalation QID PRN Rx Instructions: 3 ml Inhalation four times a day as needed albuterol sulfate [ProAir HFA] 90 mcg/actuation HFA aerosol inhaler 2 puff inhalation Q6H PRN (Reason: shortness of breath or wheezing) 30 Days Qty: 18 1RF ibuprofen 600 mg tablet 600 mg PO TID PRN (Reason: pain) 30 Days Qty: 90 3RF Rx Instructions: take with food (DME) blood-glucose meter [FreeStyle Lite Meter] Kit See Rx Instructions .Route Qty: 1 0RF Rx Instructions: test once daily metformin 1,000 mg tablet 1,000 mg PO BID 30 Days Qty: 60 3RF dicyclomine 20 mg tablet 20 mg PO TID 30 Days Qty: 90 2RF exenatide microspheres 2 mg/0.85 mL auto-injector 2 mg subcut QWEEK 28 Days Qty: 3.4 2RF cholecalciferol (vitamin D3) 50 mcg (2,000 unit) capsule 50 mcg PO DAILY 90 Days Qty: 90 3RF (DME) FreeStyle Lite Strips Strip See Rx Instructions .Route Qty: 100 5RF Rx Instructions: As directed (DME) lancets [FreeStyle Lancets] [facility] See Rx Instructions .Route Qty: 100 5RF Rx Instructions: As directed polyethylene glycol 3350 [Miralax] 17 gram/dose powder 17 g PO DAILY magnesium oxide 400 mg (241.3 mg magnesium) tablet 400 mg PO BID Senna Plus 8.6-50 mg capsule 2 tab-cap PO BEDTIME 60 Days Qty: 120 1RF Referrals: [facility] [place] [facility] [Provider Group] Tate Daniel MD [Primary Care Provider] - Stand Alone Forms: Work/School Release Print Language: [place]
[2024-05-12 16:08] VITALS: BP 167/95; PULSE 88; RESP 18; TEMP 36.5; O2SAT 98; BMI 35.3
[2024-05-12 18:59] VITALS: BP 167/95; PULSE 88; RESP 18; TEMP 36.5; O2SAT 98
== END 2024-05-12 19:00 | disposition home or self-care (01) ==
PROVIDERS: Emergency Provider Emergency Medicine; PCP Internal Medicine
DX: M25.561 Pain in right knee (principal); M25.461 Effusion, right knee
CPT/HCPCS: 73564; 99282; 99283

== ENCOUNTER 2024-06-02 11:38 | Outpatient (AMB) | payer OTHER, SELFPAY ==
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
[2024-06-02 11:42] VITALS: BP 136/84; PULSE 100; BMI 34.6
== END 2024-06-02 13:12 | disposition home or self-care (01) ==
PROVIDERS: PCP Internal Medicine; Visit Provider Internal Medicine Gastroenterology
DX: K21.9 Gastro-esophageal reflux disease without esophagitis (principal); R07.89 Other chest pain; R11.2 Nausea with vomiting, unspecified; R10.32 Left lower quadrant pain; K59.09 Other constipation; R68.81 Early satiety
CPT/HCPCS: 99214

== ENCOUNTER → 2024-06-02 11:38 | Outpatient (BNVA) | payer OTHER, SELFPAY | PROVIDERS: PCP Internal Medicine; Visit Provider Internal Medicine Gastroenterology | DX: K21.9 Gastro-esophageal reflux disease without esophagitis (principal); K59.09 Other constipation; R07.89 Other chest pain; R11.2 Nausea with vomiting, unspecified; R10.32 Left lower quadrant pain; R68.81 Early satiety | CPT/HCPCS: 99212 ==

== ENCOUNTER 2024-06-03 08:27 | Outpatient (REF) | payer OTHER, SELFPAY ==
[2024-06-03 10:00] LABS: MANUAL DIFF FLAG NO
[2024-06-03 11:12] LABS: Basophils Absolute Auto 0.1 X10*3/uL (0.0-0.2); Basophils Percent Auto 0.9 % (0-2); Eosinophils Absolute Auto 0.2 X10*3/uL (0.0-0.4); Eosinophils Percent Auto 2.2 % (0-4); Hematocrit 42.6 % (37.0-47.0); Hemoglobin 13.9 g/dl (12.0-16.0); Imm Gran Abs Auto 0.04 X10*3/uL (0.00-0.03); Imm Gran Pct Auto 0.4 % (0.0-0.4); Lymphocytes Absolute Auto 2.2 X10*3/uL (1.2-4.9); Lymphocytes Percent Auto 24.9 % (20-40); Mean Corpuscular HGB Conc 32.6 g/dl (31.0-35.0); Mean Corpuscular Hemoglobin 29.2 pg (27.0-33.0); Mean Corpuscular Volume 89.5 fL (80.0-98.0); Mean Platelet Volume 11.6 fL (9.4-12.3); Monocytes Absolute Auto 0.5 X10*3/uL (0.1-1.2); Monocytes Percent Auto 5.5 % (2-11); Neutrophils Absolute Auto 5.9 x10*3/uL (2.0-8.3); Neutrophils Percent Auto 66.1 % (45-73); Platelet Count 237 X10*3/uL (160-400); Red Blood Count 4.76 X10*6/uL (4.20-5.50); Red Cell Distribution Width 13.8 % (11.0-16.0); White Blood Count 8.9 X10*3/uL (4.8-10.8)
[2024-06-03 11:24] LABS: Estimated Average Glucose 240 mg/dL; Total Hemoglobin (HGBA1C) 3467.3088 umol/L
[2024-06-03 12:08] LABS: Appearance Urine Clear; Color Urine Yellow; Glucose Urine UA >=1000 mg/dL (Negative); Leukocyte Esterase Urine Negative (Negative); Nitrite Urine Negative (Negative); PH 5.5 (5.0-9.0); Specific Gravity - Urine >= 1.030 (1.005-1.025); UMIC TRIGGER UACC YES; Urine Blood Small (1+) (Negative); Urine Ketones 40 mg/dL (Negative); Urine Protein 30 (1+) mg/dL (Neg-Trace)
[2024-06-03 12:12] LABS: Bacteria Urine None Seen (None Seen); Hyaline Casts Urine 0-2 /LPF (0-2); Squamous Epithelial Cell Urine 0-2 /HPF (0-2); WBC Urine 0-5 /HPF (0-5)
[2024-06-03 12:13] LABS: Alanine Aminotransferase 17 U/L (0-31); Albumin Level 3.7 g/dL (3.5-5.0); Alkaline Phosphatase 75 U/L (39-117); Anion Gap 12 (12-20); Aspartate Amino Transferase 22 U/L (5-31); Bilirubin Total 0.4 mg/dL (0.0-1.0); Blood Urea Nitrogen 21 mg/dL (9-16); Calcium 8.8 mg/dL (8.4-10.2); Carbon Dioxide 20 mmol/L (22-29); Chloride 108 mmol/L (96-108); Cholesterol 214 mg/dL (<200); Estimated Glomerular Filt Rate > 60; Glucose Fasting 271 mg/dL (60-99); HDL Cholesterol 55 mg/dL (>40); LDL Cholesterol Calculated 125 mg/dL (<100); Potassium 4.4 mmol/L (3.3-5.1); Sodium 136 mmol/L (135-145); Total Protein 7.2 g/dL (6.5-8.0); Triglycerides 170 mg/dL (<150)
[2024-06-03 12:25] LABS: TSH reflex Free T4 0.78 uIU/mL (0.32-4.0); Vitamin D 25-OH Total 36.3 ng/mL (>30)
[2024-06-03 12:47] LABS: Creatinine Urine 140.98 mg/dL; Microalbum/Creatinine Ratio Ur 55.3 ug/mg cr (<30)
== END 2024-06-03 08:28 | disposition home or self-care (01) ==
LOC: HO.LAB 08:27
PROVIDERS: Absent Provider Internal Medicine; PCP Internal Medicine; Visit Provider Physician Assistant
DX: M17.11 Unilateral primary osteoarthritis, right knee (principal); M23.91 Unspecified internal derangement of right knee; E11.9 Type 2 diabetes mellitus without complications; E78.00 Pure hypercholesterolemia, unspecified; E55.9 Vitamin D deficiency, unspecified; D64.9 Anemia, unspecified
CPT/HCPCS: 36415; 80053; 80061; 81001; 82043; 82306; 82570; 83036; 84443; 85025; 99202

== ENCOUNTER 2024-06-03 08:27 | Outpatient (AMB) | payer OTHER, SELFPAY ==
--- NOTE | 2024-06-03 08:33 | MHC.OFFVIS ---
Vital Signs 06/03/24 08:34 Height 5 ft Weight 177 lb BMI 34.6 Intake Visit Reasons: [employer]S, R Knee effusion Intake Note: Rae is a 43 year old female who presents today as a new patient for an ED follow up of her right knee effusion. Patient reports that she was carrying a laundry basket when she fell forward about a 1 month ago. She felt a sharp pain while at work which prompted her to go to the ER. She presented to [facility] [place] where x-rays were taken and referred to orthopedics. Her pain is located at the medial aspect of knee. She has difficulty with stair use and kneeling. No previous tx. Denies numbness or tingling. Finds little relief with ibuprofen. Allergies Seasonal Allergies Allergy (Mild, Verified 06/03/24 08:35) runny nose Medication List - Last Reconciled 06/03/24 by Willa Soto PA-C albuterol sulfate 90 mcg/actuation (ProAir HFA) 2 puffs inhalation Q6H PRN 30 days albuterol sulfate 2.5 mg inhalation QID PRN blood sugar diagnostic (FreeStyle Lite Strips) As directed blood-glucose meter (FreeStyle Lite Meter kit) test once daily cholecalciferol (vitamin D3) 50 mcg PO DAILY 90 days dicyclomine 20 mg PO TID 30 days exenatide microspheres ER 2 mg (0.85 mL) subcut QWEEK 4 weeks famotidine 40 mg (2 x 20 mg) PO BEDTIME ibuprofen 600 mg PO Q8H PRN lancets (FreeStyle Lancets) As directed magnesium oxide 400 mg PO BID metformin 1,000 mg PO BID 30 days omeprazole 40 mg PO DAILY polyethylene glycol 3350 (Miralax) 17 grams PO DAILY sennosides-docusate sodium 8.6-50 mg (Senna Plus) 2 tab-caps (2 x 8.6-50 mg) PO BEDTIME 60 days HPI HPI [employer], R Knee effusion: Details: The patient is a 43-year-old female who presents to the office today as a new patient for an ED follow up of her right knee effusion. She reports while loading a laundry basket, she fell forward on the gravel and injured the knee. She now has difficulty getting up from a kneeling position and has issues going up and down the stairs. She gets a sharp pain in the middle of the knee, which has got severe while at work. She went to the emergency room because of the pain severity. She is currently taking ibuprofen once a day, which was given to her in the emergency room. She is using Blu wrap around the knee. [facility] Medical History HPV in female Hypomagnesemia HPV (human papilloma virus) infection Knee pain, bilateral Elevated blood pressure reading Obesity (BMI 30-39.9) GERD without esophagitis Pure hypercholesterolemia Type 2 diabetes mellitus without complications Diabetes Obesity (BMI 35.0-39.9 without comorbidity) Allergic rhinitis Calcaneal spur of left foot Hirsutism Plantar fasciitis of left foot Hypercholesterolemia Type 2 diabetes mellitus Chronic constipation Left lower quadrant abdominal pain Nausea and vomiting Chest pain, atypical GERD (gastroesophageal reflux disease) Surgical History Hx of colonoscopy H/O endoscopy [place] teeth removed History of esophagogastroduodenoscopy (EGD) (~10/2019) H/O section Family History Father No problems noted. 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 Cognitive needs: No Hearing needs: No Vision needs: Yes Female Reproductive History Menstrual Age of Menarche: 9 Review of Systems Const All systems reviewed & are unremarkable except as noted in HPI and below Physical Exam Vital Signs: BMI result Body Mass Index 34.6 Const General: cooperative and no acute distress Orientation/consciousness: patient oriented x3 Resp Effort & Inspection: normal respiratory effort and able to speak in complete sentences Cardio Peripheral pulses: Peripheral pulses 2+ throughout Neuro General: patient oriented x3 Extrem Other: Right knee skin intact, no erythema or joint effusion. Tenderness along the medial joint line. ROM full with crepitus. Positive steinmans. No ligamentous laxity. NVI. Results Reviewed Results Reviewed: xrays of the right knee obtained on 05/12/24 are negative for acute fracture or dislocations. Mild PF OA Assessment & Plan Assessment & Plan (1) Internal derangement of right knee: Code(s): M23.91 - Unspecified internal derangement of right knee Category: Medical (2) Patellofemoral arthritis of right knee: Code(s): M17.11 - Unilateral primary osteoarthritis, right knee Category: Medical Plan An MRI of the right knee has been ordered to further evaluate the extent of her injury. I also recommend a course of physical therapy to work on range of motion and strengthening. She was fit for a Genumedi knee brace to help with stability. She will remain out of work until I see her back to discuss the results. She was also given a prescription for Celebrex to take twice a day for two weeks. She is content with this plan. All questions answered. Scribed for Willa Soto PA-C, by Tigre Cheney biomedical service engineer, on 06/03/2024 at 8:30 AM EST. I, Willa Soto PA-C, have personally reviewed and agree with the information entered by the scribe. Orders: Orders MR knee RT wo con Today M17.11 - Unilateral primary osteoarthritis, right knee, M23.91 - Unspecified internal derangement of right knee PT Evaluation and Treatment Today M17.11 - Unilateral primary osteoarthritis, right knee, M23.91 - Unspecified internal derangement of right knee Medications: New celecoxib (Celebrex) 200 mg PO BID 60 caps 3RF 30 days Coding Level of Care Code New Pt Level 3 (98675) Complex EM visit Add On G2211 Diagnoses Internal derangement of right knee M23.91 Patellofemoral arthritis of right knee M17.11
[2024-06-03 08:34] VITALS: BMI 34.6
== END 2024-06-03 09:14 | disposition home or self-care (01) ==
PROVIDERS: PCP Internal Medicine; Visit Provider Physician Assistant
DX: M23.91 Unspecified internal derangement of right knee (principal); M17.11 Unilateral primary osteoarthritis, right knee
CPT/HCPCS: 99204; G2211

== ENCOUNTER 2024-06-09 10:44 | Outpatient (AMB) | payer OTHER, SELFPAY ==
[2024-06-09 10:51] VITALS: BP 128/70; PULSE 88; O2SAT 98; BMI 35.4
--- NOTE | 2024-06-09 10:51 | MHC.PC.OV ---
Vital Signs 06/09/24 10:51 Height 5 ft Weight 181 lb 0.8 oz BMI 35.4 BP 128/70 Blood Pressure Location Lt brachial Position Sitting Pulse 88 Pulse Source Pulse Oximeter Pulse Oximetry (%) 98 Oxygen Delivery Method Room Air Intake Visit Reasons: DM, IBS- REPEAT PHQ9 + A1C Implementation Services Analyst Required: No Accompanied by: Self / Same As Patient Allergies Seasonal Allergies Allergy (Mild, Verified 06/09/24 11:13) runny nose Medication List - Last Reconciled 06/09/24 by Tate Daniel MD albuterol sulfate 90 mcg/actuation (ProAir HFA) 2 puffs inhalation Q6H PRN 30 days albuterol sulfate 2.5 mg inhalation QID PRN blood sugar diagnostic (FreeStyle Lite Strips) As directed blood-glucose meter (FreeStyle Lite Meter kit) test once daily celecoxib (Celebrex) 200 mg PO BID 30 days cholecalciferol (vitamin D3) 50 mcg PO DAILY 90 days dicyclomine 20 mg PO TID 30 days exenatide microspheres ER 2 mg (0.85 mL) subcut QWEEK 4 weeks famotidine 40 mg (2 x 20 mg) PO BEDTIME ibuprofen 600 mg PO Q8H PRN lancets (FreeStyle Lancets) As directed magnesium oxide 400 mg PO BID metformin 1,000 mg PO BID 30 days omeprazole 40 mg PO DAILY polyethylene glycol 3350 (Miralax) 17 grams PO DAILY sennosides-docusate sodium 8.6-50 mg (Senna Plus) 2 tab-caps (2 x 8.6-50 mg) PO BEDTIME 60 days Tobacco use date assessed: 06/09/24 Dental Screening Dental Screen Date: 06/09/24 HPI DM, IBS- REPEAT PHQ9 + A1C HPI Details Patient comes in today for her follow up visit States that she fell and hurt her right knee about a month ago and her right knee is currently still hurting and swollen She was seen by orthopedics last week and is currently awaiting scheduling for an MRI of the knee for further evaluation She has also been referred to PT and is also awaiting appointment for this States that she feels okay otherwise She denies any headaches or dizziness Denies any chest pains, no SOB No nausea/vomiting, no abdominal pain No change in bowel habits noted She had her follow up labs done last week - to discuss her results She has an appointment scheduled with endocrinology later this afternoon for consultation regarding her diabetes [facility] Medical History HPV in female Hypomagnesemia HPV (human papilloma virus) infection Knee pain, bilateral Elevated blood pressure reading Obesity (BMI 30-39.9) GERD without esophagitis Pure hypercholesterolemia Type 2 diabetes mellitus without complications Diabetes Obesity (BMI 35.0-39.9 without comorbidity) Allergic rhinitis Calcaneal spur of left foot Hirsutism Plantar fasciitis of left foot Hypercholesterolemia Type 2 diabetes mellitus Chronic constipation Left lower quadrant abdominal pain Nausea and vomiting Chest pain, atypical GERD (gastroesophageal reflux disease) Surgical History Hx of colonoscopy H/O endoscopy [place] teeth removed History of esophagogastroduodenoscopy (EGD) (~10/2019) H/O section Family History Father No problems noted. 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 1. Little interest or pleasure in doing things: not at all 2. Feeling down, depressed, or hopeless: more than half the days 3. Trouble falling or staying asleep, or sleeping too much: not at all 4. Feeling tired or having little energy: not at all 5. Poor appetite or overeating: more than half the days 6. Feeling bad about yourself - or that you are a failure or have let yourself or your family down: not at all 7. Trouble concentrating on things, such as reading the newspaper or watching television: not at all 8. Moving or speaking so slowly that other people could have noticed. Or the opposite - being so fidgety or restless that you have been moving around a lot more than usual: not at all 9. Thoughts that you would be better off or of hurting yourself in some way: not at all Total score: 4 Depression Screening Interpretation: Positive Depression Screening Follow-up: Existing condition and Community Mental Health Worker F/U Depression Screening Done: Yes 62441 - PHQ-9 Billing: Yes Source: Developed by Drs. Armaan Bloom, Hodan Mercado, Walter Mantilla and colleagues, with an educational papa from [employer].. Thrive Questionnaire Date Thrive assessed: 06/09/24 I am a: Patient What is your living situation today?: I have a steady place to live Within the past 12 months, did the food you bought not last and you didn't have the money to get more?: Never true Within the past 12 months, did you worry whether your food would run out before you got money to buy more?: Never true Do you have trouble paying for medicines?: No Do you have trouble getting transportation to medical appointments?: No Do you have trouble paying your heating and electricity bill?: No Do you have trouble taking care of your child, family member or friend?: No Do you have trouble with day-to-day activities such as bathing, preparing meals, shopping, managing finances, etc.?: No Are you currently unemployed and looking for a job?: No Are you interested in more education?: No Please select the resources that you would like help with: None Currently or been in a relationship where the following occur: No concerns reported THRIVE Score: 0 AUDIT C Alcohol Use Questionnaire (AUDIT-C) 1. How often do you have a drink containing alcohol?: Monthly or less 2. How many drinks containing alcohol do you have on a typical day when you are drinking?: 1 or 2 Total Score: 1 Score Reviewed/Action Taken: Yes ELADIO-7 AMB Questionnaire ELADIO-7 Date ELADIO - 7 assessed: 06/09/24 Feeling nervous, anxious, or on edge: 0 = Not at all Not being able to stop or control worryin = Not at all Worrying too much about different things: 0 = Not at all Trouble relaxin = Not at all Being so restless that it is hard to sit still: 0 = Not at all Becoming easily annoyed or irritable: 0 = Not at all Feeling afraid as if something awful might happen: 0 = Not at all Total ELADIO-7 score (0-4 normal; 5-9 mild; 10-14 moderate; 15-21 severe): 0 Source: Developed by Drs. Armaan Bloom, Hodan Mercado, Walter Mantilla and colleagues, with an educational papa from [employer].. Review of Systems Const Denies chills, Denies fatigue, Denies fever(s) and Denies headache(s) ENT Denies dysphagia, Denies dizziness, Denies otalgia, Denies headache(s), Denies neck pain, Denies odynophagia and Denies sore throat Card Denies chest pain, Denies palpitations and Denies dyspnea Resp Denies cough and Denies dyspnea GI Denies abdominal pain, Denies hematochezia, Denies constipation (bowel movements have improved a lot with Senna), Denies dysphagia, Denies heartburn, Denies diarrhea, Denies nausea, Denies odynophagia and Denies vomiting Denies difficulty voiding, Denies nocturia, Denies dysuria and Denies urinary urgency Musc Denies back pain, Reports arthralgias (right knee), Reports joint swelling (right knee) and Denies neck pain Skin/Breast Denies rash Neuro Denies dizziness and Denies headache(s) Psych Reports anxiety Endo Denies fatigue and Denies palpitations Physical exam (Primary Care) Vital Signs: Last Vital Signs Pulse 88 06/09/24 10:51 BP 128/70 06/09/24 10:51 Pulse Ox 98 06/09/24 10:51 Oxygen Delivery Method Room Air 06/09/24 10:51 BMI result Body Mass Index 35.4 Tobacco/Smoking Status: Tobacco use Status Tobacco use date assessed 06/09/24 06/09/24 10:54 Patient Tobacco Use Status Never used Tobacco 06/09/24 10:54 e-Cigarette/Vaping Use Never Used 06/09/24 10:54 PHQ-9: PHQ-9 Score PHQ-9: Total score 4 06/09/24 10:54 Depression Screening Interpretation: Positive Depression Screening Follow-up: Existing condition and Community Mental Health Worker F/U Thrive Assessment: Date of Thrive Assessment Date Thrive assessed 06/09/24 06/09/24 10:54 Currently or been in a relationship where the following occur: No concerns reported Const General: no acute distress and alert HENMT Ears: TM's normal bilaterally and EAC's normal Throat: Yes posterior oropharynx normal and Yes tonsils normal Neck Neck: Yes no lymphadenopathy and Yes supple Thyroid: Thyroid normal Resp Auscultation: clear to auscultation bilaterally, no rales and no wheezes Cardio Rate: regular rate Rhythm: regular rhythm Heart sounds: no murmurs GI Palpation (GI): Soft to palpation and nontender Auscultation: normal bowel sounds General: Yes no CVA tenderness Back/Spine/Pelvis Back: no CVA tenderness Thoracic/Lumbar Spine: No lumbar spinal tenderness Skin Rashes: no rashes Extrem Other: patient currently has a knee brace on her right knee/leg General: Yes no clubbing, cyanosis or edema Right lower extremity: knee Details: tenderness Results Reviewed Results Reviewed: Laboratory Tests 06/03/24 06/03/24 09:58 10:00 WBC 8.9 Hgb 13.9 Hct 42.6 Plt Count 237 Sodium 136 Potassium 4.4 Creatinine 0.94 Estimated GFR > 60 Fasting Glucose 271 H Hemoglobin A1c % 10.0 H Calcium 8.8 AST 22 ALT 17 Triglycerides 170 H Cholesterol 214 H LDL Cholesterol, Calc 125 H HDL Cholesterol 55 25-OH Vitamin D Total 36.3 TSH 0.78 Ur Specific [place] >= 1.030 H Urine Protein 30 (1+) H Urine Glucose (UA) >=1000 H Urine Nitrite Negative Ur Leukocyte Esterase Negative Microalb/Creat Ratio 55.3 H Assessment and Plan Assessment & Plan (1) Type 2 diabetes mellitus without complications: Code(s): E11.9 - Type 2 diabetes mellitus without complications Qualifiers: Diabetes mellitus superintendent marine oil terminal insulin use: without superintendent marine oil terminal use Qualified Code(s): E11.9 - Type 2 diabetes mellitus without complications Plan: Patient's HgbA1c is now at 10.0% on her labs done last week (was at 9.6% back in January 2024) - goal is < 7.0% Reinforced diabetic diet Continue Metformin 1000 mg BID She was on weekly Trulicity 1.5 mg in the past but could not get her Rx for a while earlier this year due to unavailability of the Rx Her insurance then recommended switching to Byetta 2 mg SQ weekly and patient has been on this for the past 5 to 6 months now She admits to poor compliance with her diet over the past few months - states that she has been under a lot of stress lately As she is scheduled to see endocrinology later this afternoon, I will hold off on making any changes to her meds and discussed that I will leave it up to endocrinology now to manage her diabetes for better continuity of care (2) Pure hypercholesterolemia: Code(s): E78.00 - Pure hypercholesterolemia, unspecified Plan: Results of her labs done last week reviewed and discussed with patient - have cautioned her that her cholesterol levels have increased again from previous Reinforced low cholesterol diet Patient has declined offer to start her on cholesterol-lowering Rx in the past but now agrees to taking Rx to help lower her cholesterol Will start her on Atorvastatin 10 mg QD Will recheck her labs and fasting lipids in 4 months for follow-up (3) Hypomagnesemia: Code(s): E83.42 - Hypomagnesemia Plan: Corrected - continue MagOx 400 mg BID (4) Chronic constipation: Code(s): K59.09 - Other constipation Plan: Improved - reinforced increased oral fluids and dietary fiber Continue Polyethylene Glycol 17 gm QD Colonoscopy done by Dr. Bull last year came normal - (+) diverticulosis and small hemorrhoids States that her recurrent left lower abdominal pains have improved with Senna and when she started moving her bowels more regularly Follow up with GI as scheduled (5) Left lower quadrant abdominal pain: Code(s): R10.32 - Left lower quadrant pain Plan: This was most likely due to IBS - states that her symptoms improved with Dicyclomine Continue Dicyclomine 20 mg TID PRN Colonoscopy done in April 2022 came out okay - (+) diverticulosis and small hemorrhoids; random biopsies done came out negative Follow up with GI as scheduled (6) GERD without esophagitis: Code(s): K21.9 - Gastro-esophageal reflux disease without esophagitis Plan: Dietary restrictions reinforced Continue Omeprazole 40 mg QD Follow up with GI as scheduled (7) Obesity (BMI 30-39.9): Code(s): E66.9 - Obesity, unspecified Plan: Reinforced diet; patient is currently unable to do any physical activity due to her knee injury Plan Follow up in 4 months Orders: Orders Lipid Panel 4 Months E78.00 - Pure hypercholesterolemia, unspecified Hemoglobin A1c 4 Months E11.9 - Type 2 diabetes mellitus without complications UA CC w/rflx Micro + Cult 4 Months R30.0 - Dysuria Complete Blood Count Auto Diff 4 Months D64.9 - Anemia, unspecified Comprehensive [place]. Panel Fast 4 Months E78.00 - Pure hypercholesterolemia, unspecified Microalbumin, Random (w Creat) 4 Months E11.9 - Type 2 diabetes mellitus without complications TSH reflex Free T4 4 Months E78.00 - Pure hypercholesterolemia, unspecified Vitamin D 25-OH Total 4 Months E55.9 - Vitamin D deficiency, unspecified Medications: New atorvastatin 10 mg PO BEDTIME 90 days 90 tabs 1RF Coding Level of Care Code Est Pt Level 4 (89080) Complex EM visit Add On G2211 Diagnoses Type 2 diabetes mellitus without complication, without long-term current use of insulin E11.9 Diabetes mellitus correction insulin use: without superintendent marine oil terminal use Pure hypercholesterolemia E78.00 Hypomagnesemia E83.42 Chronic constipation K59.09 Left lower quadrant abdominal pain R10.32 GERD without esophagitis K21.9 Obesity (BMI 30-39.9) E66.9
== END 2024-06-09 11:22 | disposition home or self-care (01) ==
PROVIDERS: PCP Internal Medicine; Visit Provider Internal Medicine
DX: E11.9 Type 2 diabetes mellitus without complications (principal); E78.00 Pure hypercholesterolemia, unspecified; E66.9 Obesity, unspecified; Z68.35 Body mass index [BMI] 35.0-35.9, adult; E83.42 Hypomagnesemia; K59.09 Other constipation; R10.32 Left lower quadrant pain; K21.9 Gastro-esophageal reflux disease without esophagitis

== ENCOUNTER → 2024-06-09 10:44 | Outpatient (BNVA) | payer OTHER, SELFPAY | PROVIDERS: PCP Internal Medicine; Visit Provider Internal Medicine | DX: E11.9 Type 2 diabetes mellitus without complications (principal); E78.00 Pure hypercholesterolemia, unspecified; E83.42 Hypomagnesemia; K59.09 Other constipation; R10.32 Left lower quadrant pain; K21.9 Gastro-esophageal reflux disease without esophagitis; E66.9 Obesity, unspecified; Z71.3 Dietary counseling and surveillance | CPT/HCPCS: 82947; 99202; 99212 ==

== ENCOUNTER 2024-06-09 13:53 | Outpatient (AMB) | payer OTHER, SELFPAY ==
--- NOTE | 2024-06-09 13:59 | MHC.OFFVIS ---
Vital Signs 06/09/24 14:06 06/09/24 14:48 Height 5 ft Weight 182 lb 15.739 oz BMI 35.7 BP 130/84 130/80 Blood Pressure Location Rt brachial Position Sitting Pulse 86 Pulse Source Pulse Oximeter Intake Visit Reasons: DM/LVM Intake Note: New patient present today for Diabetes Management. Last Diabetic Eye exam: Due, 2 years ago Last Podiatry Visit: Does not see a Clin Nurse Spec Random Glucose: 261 mg/dl HgA1C: 10.0% 06/03/24 Furnace Erector Required: No Furnace Erector Services: Furnace Erector Offered & Declined Accompanied by: Self / Same As Patient Allergies Seasonal Allergies Allergy (Mild, Verified 06/09/24 14:07) runny nose HPI Comments Details: This is a 43-year-old female with a past medical history of hyperlipidemia, type 2 diabetes, GERD and obesity presenting for an initial endocrine consult for diabetic management. She was diagnosed with gestational diabetes in 2011. She then developed prediabetes and says she was diagnosed with Type II DM about 4 years ago. Hemoglobin a1c 10% 06/03/24. POC 261. Current medication regimen: Metformin 1000 mg twice daily, Bydureon 2 mg once weekly. Patient was previously on Trulicity 1.5 mg. It was discontinued because it was unavailable. This was about 5 months ago. Prior A1cs were near goal. Compliance issues: Insurance says she has to use a special pharmacy near [place] for her Metformin now. She doesn't think this is feasible. She has 2 doses left. She does not check her blood sugars. Her glucometer is at home. Diet: Breakfast-hard boiled eggs, banana, drinks diet flavored water or diet juice, water, occasional coffee with cream and splenda but coffee might be flavored Lunch-salad, grilled chicken Dinner-fish like salmon or chicken, rice or potato (small portion), vegetables like asparagus Snacks/desserts: grapes, strawberries, eats candy or chips if she has PMS Rarely alcohol. Nonsmoker. Hypoglycemia symptoms: none Hyperglycemia symptoms: none Eye exam: [address] Microvascular complications: The patient has mild microalbuminuria x1 on recent labs. Prior urine studies did not demonstrate this. Macrovascular complications: none Hyperlipidemia: treated with atorvastatin 10 mg. This was prescribed today by her PCP. ROS: Constitutional: No unexplained weight loss, fever, chills. Eyes: No vision changes Cardiovascular: No chest pain, chest pressure or chest discomfort. No palpitations or pedal edema. Gastrointestinal: No anorexia, nausea, vomiting or diarrhea. No abdominal pain or blood in stool. Neurologic: No headache, dizziness, syncope Skin: No rash or open wounds. Endocrine: No cold or heat intolerance. No polyuria or polydipsia. Physical exam: Constitutional: Alert, in no distress. Eyes: Pupils are equal, round and reactive to light. Extraocular muscles intact. Neck: Supple, Full range of motion. No lymphadenopathy. No palpable thyroid masses. Respiratory: Clear to auscultation. Cardiovascular: S1 S2 regular. No murmurs. Right foot: Warm and well perfused. No clubbing, cyanosis or edema. DP pulse 3+. Intact vibratory sensation. Intact sensation to monofilament. Left foot: Warm and well perfused. No clubbing, cyanosis or edema. DP pulse 3+. Intact vibratory sensation. Intact sensation to monofilament. [facility] Medical History HPV in female Hypomagnesemia HPV (human papilloma virus) infection Knee pain, bilateral Elevated blood pressure reading Obesity (BMI 30-39.9) GERD without esophagitis Pure hypercholesterolemia Type 2 diabetes mellitus without complications Diabetes Obesity (BMI 35.0-39.9 without comorbidity) Allergic rhinitis Calcaneal spur of left foot Hirsutism Plantar fasciitis of left foot Hypercholesterolemia Type 2 diabetes mellitus Chronic constipation Left lower quadrant abdominal pain Nausea and vomiting Chest pain, atypical GERD (gastroesophageal reflux disease) Surgical History Hx of colonoscopy H/O endoscopy [place] teeth removed History of esophagogastroduodenoscopy (EGD) (~10/2019) H/O section Family History Father No problems noted. 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 Cognitive needs: No Hearing needs: No Vision needs: Yes Female Reproductive History Menstrual Age of Menarche: 9 Physical Exam Vital Signs: BMI result Body Mass Index 35.7 Results Reviewed Results Reviewed: Laboratory Tests 06/03/24 06/03/24 09:58 10:00 Creatinine 0.94 Estimated GFR > 60 Hemoglobin A1c % 10.0 H AST 22 ALT 17 Alkaline Phosphatase 75 Triglycerides 170 H Cholesterol 214 H LDL Cholesterol, Calc 125 H HDL Cholesterol 55 TSH 0.78 Urine Creatinine 140.98 Urine Microalbumin 78.0 Microalb/Creat Ratio 55.3 H Assessment & Plan Assessment & Plan (1) Type 2 diabetes mellitus without complications: Code(s): E11.9 - Type 2 diabetes mellitus without complications Category: Medical Qualifiers: Diabetes mellitus remote sensing surveyor insulin use: without remote sensing surveyor use Qualified Code(s): E11.9 - Type 2 diabetes mellitus without complications Plan In summary this is a 43-year-old female with uncontrolled type 2 diabetes with no known complications. Discussed pathophysiology of Type II Diabetes Mellitus with the patient in detail.? I explained the correction risks and complications associated with uncontrolled diabetes including nephropathy, neuropathy, peripheral vascular disease, retinopathy, increased risk of heart disease and stroke.? Discussed lifestyle modification with the patient. Recommended 30 minutes of moderately vigorous exercise 5 days per week to promote weight loss. We will repeat testing for microalbuminuria in 3 months' time. If this persists despite improved glycemic control I would recommend starting an Blu or an Arb for renal protection. Stop Bydureon and start Trulicity 1.5 mg a week after last dose. She had much better glycemic control on Trulicity. If it is unavailable I we will prescribe Ozempic or Mounjaro. We will re-evaluate glucose readings in 4-6 weeks. Discussed need for dose titration based on tolerability and efficacy. Change metformin formula to extended release 500 mg tablets 2 pills twice daily. This should be available at her local pharmacy and covered by insurance. Reviewed treatment of hypo/hyperglycemia. Glucose tablets sent to pharmacy. Refer to dietitian. Follow up in 4-6 weeks for type 2 diabetes. Orders: Referrals Operations Support Coordinator Nutrition Referral E11.9 - Type 2 diabetes mellitus without complications Medications: New metformin ER 1,000 mg (2 x 500 mg) PO BID 90 days 360 tabs 1RF dulaglutide (Trulicity) 1.5 mg (0.5 mL) subcut QWEEK 2 mL 3RF glucose (Dex4 Glucose Quick Dissolve) until symptoms of low blood sugar are controlled 16 grams (4 x 4 gram) PO Q15M PRN 30 tabs 3RF hypoglycemia Discontinued metformin Discontinued Reason: Doctor's Order 1,000 mg PO BID 30 days 60 caps 3RF E11.9 - Type 2 diabetes mellitus without complications exenatide microspheres ER Discontinued Reason: Doctor's Order 2 mg (0.85 mL) subcut QWEEK 4 weeks 3.4 mL 2RF Patient Instructions: If you experience low blood sugar, treat this by eating a chewable fruit candy like skittles or jelly beans (about 8 pieces), 4 ounces (1/2 cup) of fruit juice (not diet), 1 tablespoon of honey or 4 glucose tablets. If your blood sugar is under 50, take double the amount of one of the above. Recheck your blood sugar in 15 minutes. Start Trulicity 1 week after your last injection of exenatide. They will contact you to schedule the appointment the assisted living home director. Continue Metformin, but I sent a new prescription for Metformin extended release 500 mg tablet, take 2 pills twice daily. Coding Level of Care Code New Pt Level 5 (24448) Complex EM visit Add On G2211 Diagnoses Type 2 diabetes mellitus without complication, without long-term current use of insulin E11.9 Diabetes mellitus correction insulin use: without correction use Time Spent (min) 62 Comment Reviewing the chart, direct patient care, completing documentation
[2024-06-09 14:06] VITALS: BP 130/84; PULSE 86; BMI 35.7
[2024-06-09 14:21] LABS: Glucose, Whole Blood 261 mg/dL (60-115)
[2024-06-09 14:48] VITALS: BP 130/80
== END 2024-06-09 14:54 | disposition home or self-care (01) ==
PROVIDERS: PCP Internal Medicine; Visit Provider Physician Assistant Medical
DX: E11.9 Type 2 diabetes mellitus without complications (principal)

== ENCOUNTER 2024-06-23 10:54 | Outpatient (AMB) | payer OTHER, SELFPAY ==
[2024-06-23 10:58] VITALS: BMI 35.8
--- NOTE | 2024-06-23 10:58 | MHC.AMNUTRGE ---
VS Expanded 06/23/24 10:58 06/23/24 11:03 Height 5 ft 5 ft Weight 183 lb 6.793 oz 183 lb BMI 35.8 35.7 Intake Visit Reasons: T2DM/LVM Allergies Seasonal Allergies Allergy (Mild, Verified 06/09/24 14:07) runny nose Nutrition Presentation Details: Pt presents for initial MNT for T2DM. Pt reports having a variety of foods fish weekly 0-1/wk vex/wk fruits: 2 /d starches > 20 servings milk: 2-3 x/d eoth: 2 smoking: denies BS Monitoring Most Recent Diabetes Results: Microalb/Creat Ratio 55.3 ug/mg cr (<30) H 06/03/24 Cholesterol 214 mg/dL (<200) H 06/03/24 HDL Cholesterol 55 mg/dL (>40) 06/03/24 Triglycerides 170 mg/dL (<150) H 06/03/24 Creatinine 0.94 mg/dL (0.5-1.4) 06/03/24 Blood Urea Nitrogen 21 mg/dL (9-16) H 06/03/24 Sodium 136 mmol/L (135-145) 06/03/24 Potassium 4.4 mmol/L (3.3-5.1) 06/03/24 Chloride 108 mmol/L (96-108) 06/03/24 Carbon Dioxide 20 mmol/L (22-29) L 06/03/24 Calcium 8.8 mg/dL (8.4-10.2) 06/03/24 AST 22 U/L (5-31) 06/03/24 ALT 17 U/L (0-31) 06/03/24 Total Protein 7.2 g/dL (6.5-8.0) 06/03/24 Albumin 3.7 g/dL (3.5-5.0) 06/03/24 RJP-Eorehqv-Jt.Jeor Equation Height: 5 ft Weight: 183 lb Resting Metabolic Rate: 1404.26 Calculated Activity Level: Sedentary Calories Needed to Maintain Weight: 1685.11 Diagnosis Nutrition problem #1: food nutri know defi As related to (etiology) #1: diagnosis As evidenced by (sign/symptom) #1: prior fail - chg behavior and knowledge deficit of diet [facility] Medical History HPV in female Hypomagnesemia HPV (human papilloma virus) infection Knee pain, bilateral Elevated blood pressure reading Obesity (BMI 30-39.9) GERD without esophagitis Pure hypercholesterolemia Type 2 diabetes mellitus without complications Diabetes Obesity (BMI 35.0-39.9 without comorbidity) Allergic rhinitis Calcaneal spur of left foot Hirsutism Plantar fasciitis of left foot Hypercholesterolemia Type 2 diabetes mellitus Chronic constipation Left lower quadrant abdominal pain Nausea and vomiting Chest pain, atypical GERD (gastroesophageal reflux disease) Surgical History Hx of colonoscopy H/O endoscopy [place] teeth removed History of esophagogastroduodenoscopy (EGD) (~10/2019) H/O section Family History Father No problems noted. 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 [employer] Cognitive needs: No Hearing needs: No Vision needs: Yes Female Reproductive History Menstrual Age of Menarche: 9 Assessment & Plan Assessment & Plan (1) Type 2 diabetes mellitus without complications: Code(s): E11.9 - Type 2 diabetes mellitus without complications Category: Medical Qualifiers: Diabetes mellitus terminal operations supervisor insulin use: without terminal operations supervisor use Qualified Code(s): E11.9 - Type 2 diabetes mellitus without complications Plan: Wt: 83 Kg ( 07/09 ) Est kcal needs as per MSJ: 1700 (40% carb, 30% protein/fat) Est fluid needs as per 25-30 ml/d: 2500 Est prot per day as per 1 g/kg bw: 83 Recommend fiber intake : 8-10 g per day and gradually increase to 25-28 g per day for women and 35-38 g for men or as tolerated Recommend sodium intake per day : less than 2000 mg Educated patient on: ( R = reviewed V = verbalizes understanding N/R = needs review N/A = not applicable Food sources of carbohydrate, adequate serving sizes and its role in various health conditions: R Differences between complex carbohydrates a simple carbohydrates, role of fiber in diet: R V N/R Lean protein sources of foods: R V NR Differences between types of fats and role in diet (mono on saturated fat fatty acids, saturated fatty acids, trans fats): R V N/R Food sources of sodium in salt and healthy modifications for heart health in kidney health: R V R/V Vitamins and minerals: R V N/R Healthy plate method concept: R Physical activity: Benefits a precaution: R V N/R Hypoglycemia protocol (rule of 15): R V N/R Dietary prevention of Hyperglycemia: R Patient Instructions: Reduce to toal carb to 60 g or less per meal following healthy plate method Work on having 3 scheduled meals/day, Coding Level of Care Code Nutr Indiv Intake (35756) Diagnoses Type 2 diabetes mellitus without complication, without long-term current use of insulin E11.9 Diabetes mellitus terminal operations supervisor insulin use: without alf use Time Spent (min) 30
[2024-06-25 22:53] VITALS: BMI 35.7
== END 2024-06-23 11:40 | disposition home or self-care (01) ==
PROVIDERS: PCP Internal Medicine; Visit Provider Dietitian, Registered
DX: E11.9 Type 2 diabetes mellitus without complications (principal)

== ENCOUNTER 2024-06-23 18:04 | Outpatient (REF) | payer OTHER, SELFPAY ==
--- NOTE | ~2024-06-23 | MR_ITS ---
EXAMINATION: MR KNEE WITHOUT CONTRAST, RIGHT CLINICAL INFORMATION: Primary osteoarthritis right knee. COMPARISON: X-ray of the right knee April 2024. TECHNIQUE: MRI of the knee without contrast was performed using routine sequences on a high-field scanner. FINDINGS: MENISCI: Medial Meniscus: Intact. Lateral Meniscus: Intact. LIGAMENTS: Cruciate: Intact. Collateral: Intact. EXTENSOR MECHANISM: Intact. ARTICULAR CARTILAGE/BONE: Patellofemoral Compartment: There is a 5 mm focus of cartilage heterogeneity and subchondral cystic change in the distal medial trochlea. Patellar cartilage is normal. Overall mild patellofemoral arthrosis. Medial Compartment: There is scattered cartilage heterogeneity throughout the weightbearing femoral articular cartilage. There is a concomitant focal area of high-grade cartilage loss in the central weightbearing femoral articular surface extending over 11 mm transverse and 12 mm AP. Tibial cartilage is intact. Small marginal osteophytes. Overall qiqx-dz-ikhvoisb medial compartment arthrosis. Lateral Compartment: Normal. JOINT FLUID AND BURSAE: Normal. MR/MR knee RT wo con IMPRESSION: Mild patellofemoral arthrosis. Dkcy-qz-mqpfvjgj medial compartment arthrosis. Electronically signed by: Dorian Kennedy MD 07/01/2024 10:48 AM EDT
== END 2024-06-23 18:05 | disposition home or self-care (01) ==
LOC: HO.MRI 18:04
PROVIDERS: PCP Internal Medicine; Visit Provider Physician Assistant
DX: M17.11 Unilateral primary osteoarthritis, right knee (principal); M23.91 Unspecified internal derangement of right knee
CPT/HCPCS: 73721; 97802

== ENCOUNTER 2024-07-06 14:06 | Outpatient (AMB) | payer OTHER, SELFPAY ==
--- NOTE | 2024-07-06 14:07 | MHC.OFFVIS ---
Intake Visit Reasons: Tel- MRI review of right knee Intake Note: Rae a 43 year old female who is scheduled for a telephone visit to review MRI of right knee. Patient reports ongoing pain that has not changed. Her pain comes applying pressure and stair use. Allergies Seasonal Allergies Allergy (Mild, Verified 07/06/24 14:10) runny nose HPI HPI Tel- MRI review of right knee: Details: MRi f/u right knee telehealth visit [facility], [facility] Medical History HPV in female Hypomagnesemia HPV (human papilloma virus) infection Knee pain, bilateral Elevated blood pressure reading Obesity (BMI 30-39.9) GERD without esophagitis Pure hypercholesterolemia Type 2 diabetes mellitus without complications Diabetes Obesity (BMI 35.0-39.9 without comorbidity) Allergic rhinitis Calcaneal spur of left foot Hirsutism Plantar fasciitis of left foot Hypercholesterolemia Type 2 diabetes mellitus Chronic constipation Left lower quadrant abdominal pain Nausea and vomiting Chest pain, atypical GERD (gastroesophageal reflux disease) Surgical History Hx of colonoscopy H/O endoscopy [place] teeth removed History of esophagogastroduodenoscopy (EGD) (~10/2019) H/O section Family History Father No problems noted. 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 Cognitive needs: No Hearing needs: No Vision needs: Yes Female Reproductive History Menstrual Age of Menarche: 9 Review of Systems Const All systems reviewed & are unremarkable except as noted in HPI and below Physical Exam Resp Effort & Inspection: normal respiratory effort and able to speak in complete sentences Telehealth Telehealth Telehealth Platform: Telephone Location of provider rendering services: practice address Location of patient: address on file Patient Identification confirmed using: Name, : Yes Telehealth method: voice only Patient verbally consented to treatment: Yes Patient verbally consented to billing insurance company: Yes Patient informed of any privacy concerns related to visit: Yes Results Reviewed Results Reviewed: /MR knee RT wo con IMPRESSION: Mild patellofemoral arthrosis. Wstk-ak-vozwxaik medial compartment arthrosis. Assessment & Plan Assessment & Plan (1) Patellofemoral arthritis of right knee: Code(s): M17.11 - Unilateral primary osteoarthritis, right knee Category: Medical Plan: We discussed options which include PT, NSAIDs and injections. She will defer on the injection today and proceed with PT and NSAIDs. If symptoms persist she will contact me for an injection, otherwise, prn. Coding Level of Care Code Tele Est Pt Level 3 (00329) Complex EM visit Add On G2211 Diagnoses Patellofemoral arthritis of right knee M17.11
== END 2024-07-06 15:30 | disposition home or self-care (01) ==
LOC: HO.HOS 14:06
PROVIDERS: PCP Internal Medicine; Visit Provider Physician Assistant
DX: M17.11 Unilateral primary osteoarthritis, right knee (principal)
CPT/HCPCS: 99213; G2211

== ENCOUNTER → 2024-07-06 14:06 | Outpatient (BNVA) | payer OTHER, SELFPAY | PROVIDERS: PCP Internal Medicine; Visit Provider Physician Assistant ==

== ENCOUNTER 2024-07-07 11:29 | Outpatient (AMB) | payer OTHER, SELFPAY ==
--- NOTE | 2024-07-07 11:34 | A.OFFVIS_ITS ---
Vital Signs 07/07/24 11:35 Height 5 ft Weight 174 lb 2.643 oz BMI 34.0 BP 122/78 Blood Pressure Location Rt brachial Position Sitting Pulse 105 H Pulse Source Pulse Oximeter Intake Visit Reasons: T2DM/LVM Intake Note: Patient present today for a follow-up on Diabetes Type 2 Last Diabetic Eye exam: Due, 2 years ago Last Podiatry Visit: Does not see a Electrical Tech/Project Manager Most recent HgA1C: 10.0% 06/03/24 Random Glucose: 241 mg/dL, Today Mat Machine Tender Required: No Accompanied by: Self / Same As Patient Allergies Seasonal Allergies Allergy (Mild, Verified 07/06/24 14:10) runny nose HPI Comments Details: This is a 43-year-old female with a past medical history of hyperlipidemia, type 2 diabetes, GERD and obesity presenting for diabetic management. She was diagnosed with gestational diabetes in 2011. She then developed prediabetes and says she was diagnosed with Type II DM about 4 years ago. She forgot her glucometer today. She restarted Trulicity and stopped Bydureon. She took her first dose of Trulicity 07/04/24. Patient says sugars are between 160-190 for the past 2 days. Hemoglobin a1c 10% 06/03/24. POC 241. Current medication regimen: Metformin ER 1000 mg twice daily, Trulicity 1.5 mg weekly. Compliance issues: none She met with the soaker meat since her last visit. Hypoglycemia symptoms: none Hyperglycemia symptoms: none Eye exam: [place] Microvascular complications: The patient has mild microalbuminuria x1 on recent labs. Prior urine studies did not demonstrate this. Macrovascular complications: none Hyperlipidemia: treated with atorvastatin 10 mg which she started in May. ROS: Constitutional: No unexplained weight loss, fever, chills. Eyes: No vision changes Cardiovascular: No chest pain, chest pressure or chest discomfort. No palpitations or pedal edema. Gastrointestinal: No anorexia, nausea, vomiting or diarrhea. No abdominal pain or blood in stool. Neurologic: No headache, dizziness, syncope Skin: No rash or open wounds. Endocrine: No cold or heat intolerance. No polyuria or polydipsia. Physical exam: Constitutional: Alert, in no distress. Eyes: Pupils are equal, round and reactive to light. Extraocular muscles intact. Neck: Supple, Full range of motion. No lymphadenopathy. No palpable thyroid masses. Respiratory: Clear to auscultation. Cardiovascular: S1 S2 regular. No murmurs. [facility] Medical History HPV in female Hypomagnesemia HPV (human papilloma virus) infection Knee pain, bilateral Elevated blood pressure reading Obesity (BMI 30-39.9) GERD without esophagitis Pure hypercholesterolemia Type 2 diabetes mellitus without complications Diabetes Obesity (BMI 35.0-39.9 without comorbidity) Allergic rhinitis Calcaneal spur of left foot Hirsutism Plantar fasciitis of left foot Hypercholesterolemia Type 2 diabetes mellitus Chronic constipation Left lower quadrant abdominal pain Nausea and vomiting Chest pain, atypical GERD (gastroesophageal reflux disease) Surgical History Hx of colonoscopy H/O endoscopy [place] teeth removed History of esophagogastroduodenoscopy (EGD) (~10/2019) H/O section Family History Father No problems noted. 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 Cognitive needs: No Hearing needs: No Vision needs: Yes Female Reproductive History Menstrual Age of Menarche: 9 Physical Exam Vital Signs: Last Vital Signs Pulse 105 H 07/07/24 11:35 BP 122/78 07/07/24 11:35 BMI result Body Mass Index 34.0 Assessment & Plan Assessment & Plan (1) Type 2 diabetes mellitus without complications: Code(s): E11.9 - Type 2 diabetes mellitus without complications Category: Medical Qualifiers: Diabetes mellitus extermination inspector insulin use: without senior care use Qualified Code(s): E11.9 - Type 2 diabetes mellitus without complications Plan In summary this is a 43-year-old female with uncontrolled type 2 diabetes with no known complications. Discussed pathophysiology of Type II Diabetes Mellitus with the patient in detail.? I explained the extermination inspector risks and complications associated with uncontrolled diabetes including nephropathy, neuropathy, peripheral vascular disease, retinopathy, increased risk of heart disease and stroke.? Discussed lifestyle modification with the patient. Recommended 30 minutes of moderately vigorous exercise 5 days per week to promote weight loss. We will repeat testing for microalbuminuria after 3 months. If this persists despite improved glycemic control I would recommend starting an Blu or an Arb for renal protection. Continue Trulicity 1.5 mg weekly. Conntinue metformin formula to extended release 500 mg tablets 2 pills twice daily. Reviewed treatment of hypo/hyperglycemia. She has glucose tablets. Meat And Poultry Inspector consult appreciated. Follow up in 3 weeks with glucometer. Tentative plan at that visit is to increase Trulicity to 3 mg once weekly. Coding Level of Care Code Est Pt Level 4 (57563) Complex EM visit Add On G2211 Diagnoses Type 2 diabetes mellitus without complication, without long-term current use of insulin E11.9 Diabetes mellitus senior care insulin use: without senior care use
[2024-07-07 11:35] VITALS: BP 122/78; PULSE 105; BMI 34.0
[2024-07-07 11:43] LABS: Glucose, Whole Blood 241 mg/dL (60-115)
== END 2024-07-07 12:10 | disposition home or self-care (01) ==
PROVIDERS: PCP Internal Medicine; Visit Provider Physician Assistant Medical
DX: E11.9 Type 2 diabetes mellitus without complications (principal)

== ENCOUNTER → 2024-07-07 11:29 | Outpatient (BNVA) | payer OTHER, SELFPAY | PROVIDERS: PCP Internal Medicine; Visit Provider Physician Assistant Medical | DX: E11.9 Type 2 diabetes mellitus without complications (principal); E66.9 Obesity, unspecified; E78.5 Hyperlipidemia, unspecified; Z68.34 Body mass index [BMI] 34.0-34.9, adult; Z79.4 Long term (current) use of insulin; Z79.85 Long-term (current) use of injectable non-insulin antidiabetic drugs | CPT/HCPCS: 82947; 99212 ==

== ENCOUNTER 2024-07-15 08:29 | Outpatient (AMB) | payer OTHER, SELFPAY ==
--- NOTE | 2024-07-15 08:37 | MHC.OFFVIS ---
Vital Signs 07/15/24 08:44 Height 5 ft Weight 174 lb BMI 34.0 Intake Visit Reasons: Inj-right knee injection Intake Note: Rae a 43 year old female who presents today for a right knee cortisone injection. Allergies Seasonal Allergies Allergy (Mild, Verified 07/15/24 08:43) runny nose Medication List - Last Reconciled 07/15/24 by Willa Soto PA-C albuterol sulfate 90 mcg/actuation (ProAir HFA) 2 puffs inhalation Q6H PRN 30 days albuterol sulfate 2.5 mg inhalation QID PRN atorvastatin 10 mg PO BEDTIME 90 days blood sugar diagnostic (FreeStyle Lite Strips) As directed blood-glucose meter (FreeStyle Lite Meter kit) test once daily celecoxib (Celebrex) 200 mg PO BID 30 days cholecalciferol (vitamin D3) 50 mcg PO DAILY 90 days dicyclomine 20 mg PO TID dulaglutide (Trulicity) 1.5 mg (0.5 mL) subcut QWEEK famotidine 40 mg (2 x 20 mg) PO BEDTIME glucose (Dex4 Glucose Quick Dissolve) 16 grams (4 x 4 gram) PO Q15M PRN ibuprofen 600 mg PO Q8H PRN lancets (FreeStyle Lancets) As directed magnesium oxide 400 mg PO BID metformin ER 1,000 mg (2 x 500 mg) PO BID 90 days omeprazole 40 mg PO DAILY polyethylene glycol 3350 (Miralax) 17 grams PO DAILY sennosides-docusate sodium 8.6-50 mg (Senna Plus) 2 tab-caps (2 x 8.6-50 mg) PO BEDTIME 60 days HPI HPI Inj-right knee injection: Details: 43-year-old female who returns to the office today for a follow-up of right knee pain. She presents today for a right knee injection. [facility] Medical History HPV in female Hypomagnesemia HPV (human papilloma virus) infection Knee pain, bilateral Elevated blood pressure reading Obesity (BMI 30-39.9) GERD without esophagitis Pure hypercholesterolemia Type 2 diabetes mellitus without complications Diabetes Obesity (BMI 35.0-39.9 without comorbidity) Allergic rhinitis Calcaneal spur of left foot Hirsutism Plantar fasciitis of left foot Hypercholesterolemia Type 2 diabetes mellitus Chronic constipation Left lower quadrant abdominal pain Nausea and vomiting Chest pain, atypical GERD (gastroesophageal reflux disease) Surgical History Hx of colonoscopy H/O endoscopy [place] teeth removed History of esophagogastroduodenoscopy (EGD) (~10/2019) H/O section Family History Father No problems noted. 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 Tenderness along the medial and lateral joint line. Full ROM with crepitus. Negative Terrie?s. No ligamentous laxity. NVI. Office Procedures Joint Injection/Aspiration Joint Injection/Aspiration Primary Site: right knee Prep: site was prepped using aseptic technique, ethochloride spray was applied and injection warnings given Injected: 40 mg of, DepoMedrol, with 8 mL of, 1% plain lidocaine and in the joint Approach Used: anterolateral Procedure: The patient tolerated the procedure well and there was some relief with the local anesthesia Coding 94298 - Glenohumeral/Tronchanteric Bursa/Intraarticular Procedure code (CPT) selection complete Assessment & Plan Assessment & Plan (1) Patellofemoral arthritis of right knee: Code(s): M17.11 - Unilateral primary osteoarthritis, right knee Category: Medical Plan We discussed options today, which include steroid injection. The patient did consent to move forward with the right knee injection, which was tolerated well. I recommended rest, ice, and elevation and OTC anti-inflammatories as needed for discomfort. We also discussed diabetes and the effect the steroid injection can have on their blood glucose levels; therefore, they will continue to monitor these very closely over the next 72 hours. If there are any concerns, they should report to the ED immediately. Patient Instructions: Scribed for Willa Soto PA-C, by Gigi Lovett medical office administrator, on 07/15/2024 at 8:30 AM EST.? I, Willa Soto PA-C, have personally reviewed and agree with the information entered by the scribe. Coding Level of Care Code Est Pt Level 3 (78777) Complex EM visit Add On G2211 Diagnoses Patellofemoral arthritis of right knee M17.11 CPT Codes Coding - Joint 7: 41429 - Glenohumeral/Tronchanteric Bursa/Intraarticular ([id number])
[2024-07-15 08:44] VITALS: BMI 34.0
== END 2024-07-15 09:14 | disposition home or self-care (01) ==
LOC: HO.HOS 08:29
PROVIDERS: PCP Internal Medicine; Visit Provider Physician Assistant
DX: M17.11 Unilateral primary osteoarthritis, right knee (principal)
CPT/HCPCS: 20610; 99213

== ENCOUNTER → 2024-07-15 08:29 | Outpatient (BNVA) | payer OTHER, SELFPAY | PROVIDERS: PCP Internal Medicine; Visit Provider Physician Assistant | DX: M17.11 Unilateral primary osteoarthritis, right knee (principal) | CPT/HCPCS: 20610; 99212; J1010; J2003 ==

== ENCOUNTER 2024-07-28 11:02 | Outpatient (AMB) | payer OTHER, SELFPAY ==
--- NOTE | 2024-07-28 11:04 | MHC.OFFVIS ---
Vital Signs 07/28/24 11:08 Height 5 ft Weight 172 lb 6.424 oz BMI 33.7 BP 124/72 Blood Pressure Location Rt brachial Position Sitting Pulse 94 Pulse Source Pulse Oximeter Intake Visit Reasons: Type II diabetes follow up Intake Note: Patient present today to follow up on Type 2 Diabetes Mellitus. Last Diabetic Eye exam: Due, has an appointment Sep or Oct 2024. Last Podiatry Visit: Does not see a Medical Collector Random Glucose: 194 mg/dl HgA1C: 10.0% 06/03/2024 Gut Dropper Required: No Accompanied by: Self / Same As Patient Allergies Seasonal Allergies Allergy (Mild, Verified 07/28/24 11:09) runny nose HPI Comments Details: This is a 43-year-old female with a past medical history of hyperlipidemia, type 2 diabetes, GERD and obesity presenting for diabetic management. The patient was last seen 07/07/2024. She was diagnosed with gestational diabetes in 2011. She then developed prediabetes and says she was diagnosed with Type II DM about 4 years ago. Reviewed glucometer download: 1.2 readings per day Highest to 62 Lowest 152 Average glucose 219 In range 6% Glucose 181-250 82% of the time Glucose greater than 250 12% of the time 0% hypoglycemia She had a cortisone injection for her right knee 07/15/24. She admits to dietary indiscretion within the past few weeks due to stress. She saw the dietitian recently. Hemoglobin a1c 10% 06/03/24. Current medication regimen: Metformin ER 1000 mg twice daily, Trulicity 1.5 mg weekly. Compliance issues: seeing therapist to help with goal setting. She's had a lot of stress. She's had to move back in with her children's father. The house she was living in is in a probate court. She can't afford to make the necessary updates to it. Her family is trying to sell it. She is in a new relationship. Hypoglycemia symptoms: none Hyperglycemia symptoms: none Eye exam: [address] [place] Microvascular complications: The patient has mild microalbuminuria x1 on recent labs. Prior urine studies did not demonstrate this. Macrovascular complications: none Hyperlipidemia: treated with atorvastatin 10 mg which she started in May. ROS: Constitutional: No unexplained weight loss, fever, chills. Eyes: No vision changes Cardiovascular: No chest pain, chest pressure or chest discomfort. No palpitations or pedal edema. Gastrointestinal: No anorexia, nausea, vomiting or diarrhea. No abdominal pain or blood in stool. Neurologic: No headache, dizziness, syncope Skin: No rash or open wounds. Endocrine: No cold or heat intolerance. No polyuria or polydipsia. Physical exam: Constitutional: Alert, in no distress. Eyes: Pupils are equal, round and reactive to light. Extraocular muscles intact. Neck: Supple, Full range of motion. No lymphadenopathy. No palpable thyroid masses. Respiratory: Clear to auscultation. Cardiovascular: S1 S2 regular. No murmurs. [facility] Medical History HPV in female Hypomagnesemia HPV (human papilloma virus) infection Knee pain, bilateral Elevated blood pressure reading Obesity (BMI 30-39.9) GERD without esophagitis Pure hypercholesterolemia Type 2 diabetes mellitus without complications Diabetes Obesity (BMI 35.0-39.9 without comorbidity) Allergic rhinitis Calcaneal spur of left foot Hirsutism Plantar fasciitis of left foot Hypercholesterolemia Type 2 diabetes mellitus Chronic constipation Left lower quadrant abdominal pain Nausea and vomiting Chest pain, atypical GERD (gastroesophageal reflux disease) Surgical History Hx of colonoscopy H/O endoscopy [place] teeth removed History of esophagogastroduodenoscopy (EGD) (~10/2019) H/O section Family History Father No problems noted. 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 Cognitive needs: No Hearing needs: No Vision needs: Yes Female Reproductive History Menstrual Age of Menarche: 9 Physical Exam Vital Signs: Last Vital Signs Pulse 94 07/28/24 11:08 BP 124/72 11/12/24 11:08 BMI result Body Mass Index 33.7 Results Reviewed Results Reviewed: Laboratory Last Values Glucose (Clinic) 194 mg/dL (60-115) H 07/28/24 11:14 Laboratory Tests 06/03/24 06/03/24 09:58 10:00 Creatinine 0.94 Estimated GFR > 60 Hemoglobin A1c % 10.0 H AST 22 ALT 17 Alkaline Phosphatase 75 Triglycerides 170 H Cholesterol 214 H LDL Cholesterol, Calc 125 H HDL Cholesterol 55 TSH 0.78 Urine Creatinine 140.98 Urine Microalbumin 78.0 Microalb/Creat Ratio 55.3 H Assessment & Plan Assessment & Plan (1) Type 2 diabetes mellitus without complications: Code(s): E11.9 - Type 2 diabetes mellitus without complications Category: Medical Qualifiers: Diabetes mellitus longterm insulin use: without longterm use Qualified Code(s): E11.9 - Type 2 diabetes mellitus without complications (2) Pure hypercholesterolemia: Code(s): E78.00 - Pure hypercholesterolemia, unspecified Category: Medical Plan In summary this is a 43-year-old female with uncontrolled type 2 diabetes with no known complications. Discussed pathophysiology of Type II Diabetes Mellitus with the patient in detail.? 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 Discussed lifestyle modification with the patient. Recommended 30 minutes of moderately vigorous exercise 5 days per week to promote weight loss. We will repeat testing for microalbuminuria prior to her next visit. If this persists I recommend starting Blu or an Arb for renal protection. Increase Trulicity to 3 mg weekly. Her blood sugars recently increased likely due to stress, dietary indiscretion and recent steroid injection for her knee. Conntinue metformin formula to extended release 500 mg tablets 2 pills twice daily. Reviewed treatment of hypo/hyperglycemia. She has glucose tablets. Matrix Supervisor consult appreciated. Follow up in 6 weeks with glucometer. Orders: Orders Lipid Panel 5 Weeks E11.9 - Type 2 diabetes mellitus without complications, E78.5 - Hyperlipidemia, unspecified Microalbumin, Random (w Creat) 5 Weeks E11.9 - Type 2 diabetes mellitus without complications Medications: New dulaglutide (Trulicity) 3 mg (0.5 mL) subcut QWEEK 2 mL 3RF Discontinued dulaglutide (Trulicity) Discontinued Reason: Doctor's Order 1.5 mg (0.5 mL) subcut QWEEK 2 mL 3RF Coding Level of Care Code Est Pt Level 4 (52720) Complex EM visit Add On G2211 Diagnoses Type 2 diabetes mellitus without complication, without long-term current use of insulin E11.9 Diabetes mellitus 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
[2024-07-28 11:08] VITALS: BP 124/72; PULSE 94; BMI 33.7
[2024-07-28 11:18] LABS: Glucose, Whole Blood 194 mg/dL (60-115)
== END 2024-07-28 11:44 | disposition home or self-care (01) ==
PROVIDERS: PCP Internal Medicine; Visit Provider Physician Assistant Medical
DX: E11.9 Type 2 diabetes mellitus without complications (principal); E78.00 Pure hypercholesterolemia, unspecified

== ENCOUNTER → 2024-07-28 11:02 | Outpatient (BNVA) | payer OTHER, SELFPAY | PROVIDERS: PCP Internal Medicine; Visit Provider Physician Assistant Medical | DX: E11.9 Type 2 diabetes mellitus without complications (principal); E78.00 Pure hypercholesterolemia, unspecified | CPT/HCPCS: 82947; 99212 ==

== ENCOUNTER 2024-08-04 10:55 | Outpatient (AMB) | payer OTHER, SELFPAY ==
--- NOTE | 2024-08-04 11:33 | A.OFFVIS_ITS ---
VS Expanded 08/04/24 11:44 Height 5 ft Weight 170 lb 6.677 oz BMI 33.3 Intake Visit Reasons: T2DM/LVM Allergies Seasonal Allergies Allergy (Mild, Verified 07/28/24 11:09) runny nose Nutrition Presentation Details: Pt presents for MNT f/u for T2DM Pt reports working on diet modifications BS Monitoring Most Recent Diabetes Results: No Data to Display PFSH Medical History HPV in female Hypomagnesemia HPV (human papilloma virus) infection Knee pain, bilateral Elevated blood pressure reading Obesity (BMI 30-39.9) GERD without esophagitis Pure hypercholesterolemia Type 2 diabetes mellitus without complications Diabetes Obesity (BMI 35.0-39.9 without comorbidity) Allergic rhinitis Calcaneal spur of left foot Hirsutism Plantar fasciitis of left foot Hypercholesterolemia Type 2 diabetes mellitus Chronic constipation Left lower quadrant abdominal pain Nausea and vomiting Chest pain, atypical GERD (gastroesophageal reflux disease) Surgical History Hx of colonoscopy H/O endoscopy [place] teeth removed History of esophagogastroduodenoscopy (EGD) (~10/2019) H/O section Family History Father No problems noted. 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 Cognitive needs: No Hearing needs: No Vision needs: Yes Female Reproductive History Menstrual Age of Menarche: 9 Assessment & Plan Assessment & Plan (1) Type 2 diabetes mellitus without complications: Code(s): E11.9 - Type 2 diabetes mellitus without complications Category: Medical Qualifiers: Diabetes mellitus halfway insulin use: without terminal gauger supervisor use Qualified Code(s): E11.9 - Type 2 diabetes mellitus without complications Plan: Wt: 83 Kg ( 07/09 ), 77 kg (08/09) Est kcal needs as per MSJ: 1700 (40% carb, 30% protein/fat) Est fluid needs as per 25-30 ml/d: 2500 Est prot per day as per 1 g/kg bw: 83 Recommend fiber intake : 8-10 g per day and gradually increase to 25-28 g per day for women and 35-38 g for men or as tolerated Recommend sodium intake per day : less than 2000 mg Educated patient on: ( R = reviewed V = verbalizes understanding N/R = needs review N/A = not applicable * Food sources of carbohydrate, adequate serving sizes and its role in various health conditions: R * Differences between complex carbohydrates a simple carbohydrates, role of fiber in diet: R V N/R * Lean protein sources of foods: R V NR * Differences between types of fats and role in diet (mono on saturated fat fatty acids, saturated fatty acids, trans fats): R * Food sources of sodium in salt and healthy modifications for heart health in [facility] [employer]: R V R/V * Vitamins and minerals: R V N/R * Healthy plate method concept: R * Physical activity: Benefits a precaution: R * Hypoglycemia protocol (rule of 15): R V N/R * Dietary prevention of Hyperglycemia: R Patient Instructions: Choose fiber rich foods (add carrots , green beans, legumes, fruit as snack) Coding Level of Care Code Nutr Indiv Subseq (44024) Diagnoses Type 2 diabetes mellitus without complication, without long-term current use of insulin E11.9 Diabetes mellitus terminal gauger supervisor insulin use: without terminal gauger supervisor use Time Spent (min) 30
[2024-08-04 11:44] VITALS: BMI 33.3
== END 2024-08-04 11:53 | disposition home or self-care (01) ==
PROVIDERS: PCP Internal Medicine; Visit Provider Dietitian, Registered
DX: E11.9 Type 2 diabetes mellitus without complications (principal)

== ENCOUNTER → 2024-08-04 10:55 | Outpatient (BNVA) | payer OTHER, SELFPAY | PROVIDERS: PCP Internal Medicine; Visit Provider Dietitian, Registered | DX: E11.9 Type 2 diabetes mellitus without complications (principal) | CPT/HCPCS: 97803 ==

== ENCOUNTER 2024-08-18 08:34 | Outpatient (AMB) | payer OTHER, SELFPAY ==
--- NOTE | 2024-08-18 08:37 | A.OFFVIS_ITS ---
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 She was seen in ED in April 2024 after mechanical fall in March with right knee pain and effusion. Patient reports she fell forward on the gravel while loading a laundry basket and injured her right knee. She was evaluated by [facility] and received cortisone injection on 07/15/24 with minimal pain relief. She has difficulty with walking, bending her knee, climbing stairs and cold weather. Pain is mainly localized to anterior aspects and medial joint line with crepitus with ROM but no swelling, redness, erythema, burning, numbness or tingling. Patient is currently active with [facility] and finds this partially helpful. 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 Denies any fever or chills, cough, swelling, rash, numbness or tingling, weakness, knee buckling or locking, foot drop, bladder or bowel dysfunction or saddle anesthesia. Location: Right knee medial joint line Duration: Pain since March 2024 s/p mechanical fall, h/o chronic bilateral knee pain Characteristics of symptom or complaint: Aching, sharp, shooting, jumping, pulsing, throbbing, sore, heavy Aggravating or associated factors: Movements, walking, climbing stairs, cold weather, bending Relieving factors: Knee brace, cyclobenzaprine, Ibuprofen, elevation, ice pack, hayden wrap Treatment: Ortho eval, xray, MRI, cortisone injection 07/15/24, PT [facility] Medical History HPV in female Hypomagnesemia HPV (human papilloma virus) infection Knee pain, bilateral Elevated blood pressure reading Obesity (BMI 30-39.9) GERD without esophagitis Pure hypercholesterolemia Type 2 diabetes mellitus without complications Diabetes Obesity (BMI 35.0-39.9 without comorbidity) Allergic rhinitis Calcaneal spur of left foot Hirsutism Plantar fasciitis of left foot Hypercholesterolemia Type 2 diabetes mellitus Chronic constipation Left lower quadrant abdominal pain Nausea and vomiting Chest pain, atypical GERD (gastroesophageal reflux disease) Surgical History Hx of colonoscopy H/O endoscopy [place] teeth removed History of esophagogastroduodenoscopy (EGD) (~10/2019) H/O section Family History Father No problems noted. 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 Alert and oriented. Mood and affect appropriate. Follows and participates in conversation appropriately. Respiratory effort is unlabored. No cough. Able to transition from sit to stand unassisted. Ambulates with bilaterally normal heel strike and toe off. Extrem General: Yes capillary refill normal, Yes no clubbing, cyanosis or edema and Yes no calf tenderness Right lower extremity: knee (Limited ROM due to pain.) Details: normal to inspection, tenderness Location: of the medial joint line and of the pre- patellar area and crepitus; no swelling, no ecchymosis, no deformity and no unusual warmth Results Reviewed Results Reviewed: MR KNEE WITHOUT CONTRAST, RIGHT 06/23/24 CLINICAL INFORMATION: Primary osteoarthritis right knee. COMPARISON: X-ray of the right knee April 2024. FINDINGS: MENISCI: Medial Meniscus: Intact. Lateral Meniscus: Intact. LIGAMENTS: Cruciate: Intact. Collateral: Intact. EXTENSOR MECHANISM: Intact. ARTICULAR CARTILAGE/BONE: Patellofemoral Compartment: There is a 5 mm focus of cartilage heterogeneity and subchondral cystic change in the distal medial trochlea. Patellar cartilage is normal. Overall mild patellofemoral arthrosis. Medial Compartment: There is scattered cartilage heterogeneity throughout the weightbearing femoral articular cartilage. There is a concomitant focal area of high-grade cartilage loss in the central weightbearing femoral articular surface extending over 11 mm transverse and 12 mm AP. Tibial cartilage is intact. Small marginal osteophytes. Overall [id number] medial compartment arthrosis. Lateral Compartment: Normal. JOINT FLUID AND BURSAE: Normal. IMPRESSION: Mild patellofemoral arthrosis. [id number] medial compartment arthrosis. XR KNEE, RIGHT 05/12/24 CLINICAL INFORMATION: Knee pain COMPARISON: X-ray 01/24/2024 FINDINGS: Small joint effusion. Bony alignment is anatomic. Tiny tricompartment osteoarthritis. No visible acute fracture or dislocation. No abnormal soft tissue calcification. IMPRESSION: Small joint effusion. Mild degenerative changes. Assessment & Plan Assessment & Plan (1) Right knee pain: Code(s): M25.561 - Pain in right knee Category: Medical Qualifiers: Chronicity: acute Qualified Code(s): M25.561 - Pain in right knee (2) Internal derangement of right knee: Code(s): M23.91 - Unspecified internal derangement of right knee Category: Medical (3) Patellofemoral arthritis of right knee: Code(s): M17.11 - Unilateral primary osteoarthritis, right knee Category: Medical (4) Right knee pain: Code(s): M25.561 - Pain in right knee Category: Medical Qualifiers: Chronicity: acute Qualified Code(s): M25.561 - Pain in right knee (5) Internal derangement of right knee: Code(s): M23.91 - Unspecified internal derangement of right knee Category: Medical (6) Patellofemoral arthritis of right knee: Code(s): M17.11 - Unilateral primary osteoarthritis, right knee Category: Medical Plan Discussed interventional treatments for right knee pain, including therapeutic vs diagnostic injections, PNS trial and genicular RFA. Unfortunately, due to uncontrolled DM with most recent A1C=10.0 on 06/03/24, patient is not candidate for therapeutic injections or Sprint PNS trial at this time. Recent cortisone injection done on 07/15/24 with minimal to no pain relief. She will continue with PT as tolerated and encouraged to continue home exercise program at home and weight optimization. Schedule right diagnostic GNB with local and fluoroscopy for potential genicular RFA. Expectations, risks and benefits were reviewed. Patient is aware she will be contacted to schedule this procedure. Scripts provided for gabapentin, lidocaine patch and short script for tramadol for right knee pain. Side effects and precautions were discussed with patient. Patient is aware tramadol and gabapentin can make her drowsy, advised not to drink alcohol or drive after taking it. All questions were answered and the patient is in agreement of plan. Follow-up after injections and sooner as needed. Medications: New gabapentin 300 mg PO BID 30 days 60 caps 0RF pain M17.11 - Unilateral primary osteoarthritis, right knee, M23.91 - Unspecified internal derangement of right knee, M25.561 - Pain in right knee lidocaine 5% leave on most painful area for up to 12 hrs topically daily; 30 days 30 ea 0RF pain M17.11 - Unilateral primary osteoarthritis, right knee, M23.91 - Unspecified internal derangement of right knee, M25.561 - Pain in right knee tramadol 50 mg PO BID 15 days PRN 30 tabs 0RF pain (scale score 7-10) M17.11 - Unilateral primary osteoarthritis, right knee, M23.91 - Unspecified internal derangement of right knee, M25.561 - Pain in right knee Coding Level of Care Code New Pt Level 4 (72036) Complex EM visit Add On G2211 Diagnoses Acute pain of right knee M25.561 Chronicity: acute Internal derangement of right knee M23.91 Patellofemoral arthritis of right knee M17.11
[2024-08-18 08:42] VITALS: BP 138/82; PULSE 96; O2SAT 99; BMI 34.2
== END 2024-08-18 09:09 | disposition home or self-care (01) ==
PROVIDERS: PCP Internal Medicine; Visit Provider Nurse Practitioner Family
DX: M25.561 Pain in right knee (principal); M23.91 Unspecified internal derangement of right knee; M17.11 Unilateral primary osteoarthritis, right knee
CPT/HCPCS: 99204; G2211

== ENCOUNTER → 2024-08-18 08:34 | Outpatient (BNVA) | payer OTHER, SELFPAY | PROVIDERS: PCP Internal Medicine; Visit Provider Nurse Practitioner Family | DX: M17.11 Unilateral primary osteoarthritis, right knee (principal); M23.91 Unspecified internal derangement of right knee; M54.50 Low back pain, unspecified; E66.9 Obesity, unspecified; Z68.34 Body mass index [BMI] 34.0-34.9, adult | CPT/HCPCS: 99202 ==

== ENCOUNTER 2024-08-27 10:30 | Outpatient (AMB) | payer OTHER, SELFPAY ==
--- NOTE | 2024-08-27 10:31 | AM.OFFWIN_ITS ---
Intake Vital Signs 08/27/24 10:33 Weight 170 lb BP 130/80 Blood Pressure Location Rt brachial Position Sitting Pulse 90 Pulse Source Pulse Oximeter Temp 97.4 F Temp Source Oral Pulse Oximetry (%) 98 Oxygen Delivery Method Room Air Intake Visit Reasons: EP cough, sore throat, trouble breathing Intake Note: Patient here for cough, throat hurts from coughing and difficulty breathing which started about 2 days ago. Patient Tobacco Use Status: Never used Tobacco Allergies Seasonal Allergies Allergy (Mild, Verified 08/27/24 10:34) runny nose Do you need a note to return to daycare/school/sports/work: Yes HPI EP cough, sore throat, trouble breathing HPI Details This note is constructed using voice recognition software. While every effort has been made to ensure accuracy, office correspondent errors may have been included. The patient is a 43 year old female who presents to the clinic today with cough, congestion, dyspnea on exertion for the past 2 days. She notes that she had a sick exposure at work with similar symptoms. She has tried mucus relief medication with some good rest relief. She is unable to locate her albuterol inhaler, and has a nebulizer which is not working. She is put in a request with her primary care provider for a new nebulizer and nebulizer solution, and is pending that. She notes that she is diabetic so she does avoid prednisone. [facility] Medical History HPV in female Hypomagnesemia HPV (human papilloma virus) infection Knee pain, bilateral Elevated blood pressure reading Obesity (BMI 30-39.9) GERD without esophagitis Pure hypercholesterolemia Type 2 diabetes mellitus without complications Diabetes Obesity (BMI 35.0-39.9 without comorbidity) Allergic rhinitis Calcaneal spur of left foot Hirsutism Plantar fasciitis of left foot Hypercholesterolemia Type 2 diabetes mellitus Chronic constipation Left lower quadrant abdominal pain Nausea and vomiting Chest pain, atypical GERD (gastroesophageal reflux disease) Surgical History Hx of colonoscopy H/O endoscopy [place] teeth removed History of esophagogastroduodenoscopy (EGD) (~10/2019) H/O section Family History Father No problems noted. 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 Cognitive needs: No Hearing needs: No Vision needs: Yes Female Reproductive History Menstrual Age of Menarche: 9 Review of Systems Const All systems reviewed & are unremarkable except as noted in HPI and below Physical Exam Vital Signs: Last Vital Signs Temp 97.4 F 08/27/24 10:33 Pulse 90 08/27/24 10:33 BP 130/80 08/27/24 10:33 Pulse Ox 98 08/27/24 10:33 Oxygen Delivery Method Room Air 08/27/24 10:33 Const General: cooperative, healthy appearing, comfortable and no acute distress Orientation/consciousness: patient oriented x3 Limitations: no limitations HEENT Head: Yes normal to inspection Ears: hearing grossly normal bilaterally, external ears normal and TM's normal bilaterally General nose exam: Normal external nose present, Normal nares present and No nasal discharge present Face and sinus: Yes normal facial exam and Yes sinuses nontender Mouth: Normal oral and palatal mucosa present and moist mucous membranes Throat: Yes tonsils normal, Yes uvula midline and Yes posterior oropharynx abnormal (Erythema) Eyes General: appearance normal, both eyes and all related structures Neck Neck: Yes normal visual inspection Resp Effort & Inspection: normal respiratory effort, able to speak in complete sentences, Actively coughing, no respiratory distress, not tachypneic, no tripod positioning and no use of accessory muscles Auscultation: clear to auscultation bilaterally (But tight sounding) Cardio Jugular venous distension: no JVD Rate: regular rate Rhythm: regular rhythm Heart sounds: S1 normal heart sound present, S2 normal heart sound present, no click, no gallops, no murmurs and no rubs Skin General skin exam: no rashes or lesions noted, elasticity normal and turgor normal Neuro General: patient oriented x3 Extrem General: Yes normal to inspection and Yes no clubbing, cyanosis or edema Assessment & Plan Assessment & Plan (1) Upper respiratory tract infection: Code(s): J06.9 - Acute upper respiratory infection, unspecified Qualifiers: URI type: unspecified URI Qualified Code(s): J06.9 - Acute upper respiratory infection, unspecified Plan: Viral swab obtained to rule out Covid, Influenza, and RSV based on symptoms. Advised mask wearing while symptomatic and quarantine per current CDC guidelines. Reviewed at home support methods including hydration, humidification, vix vapor rub, sinus rinse, and otc treatment options. Discussed treatment with antiviral therapy for covid with paxlovid and with Tamiflu for influenza, including appropriate use and side effects, and need to start medication within 5 day of symptom onset, preferably within 48 hours of symptom onset. Patient wishes to decline paxlovid. Viral etiology likely impacting her asthma, albuterol inhaler refill sent to requested pharmacy for symptomatic management. Advised follow up with worsening symptoms such as dyspnea at rest, which would require emergent evaluation. Plan See above for full details and plan. Orders: Orders SARS-CoV2/FLU/RSV Today J06.9 - Acute upper respiratory infection, unspecified Medications: Changed From albuterol sulfate 90 mcg/actuation (ProAir HFA) 2 puffs inhalation Q6H 30 days PRN 18 grams 1RF shortness of breath or wheezing To albuterol sulfate 90 mcg/actuation 2 puffs inhalation Q6H 30 days PRN 18 grams 0RF shortness of breath or wheezing Coding Level of Care Code Est Pt Level 3 (51170) Diagnoses Upper respiratory tract infection, unspecified type J06.9 URI type: unspecified URI
[2024-08-27 10:33] VITALS: BP 130/80; PULSE 90; TEMP 36.3; O2SAT 98
== END 2024-08-27 11:22 | disposition home or self-care (01) ==
PROVIDERS: PCP Internal Medicine; Visit Provider Registered Nurse
DX: J06.9 Acute upper respiratory infection, unspecified (principal)

== ENCOUNTER 2024-08-27 10:30 | Outpatient (REF) | payer OTHER, SELFPAY ==
[2024-08-27 15:06] LABS: Influenza A PCR NEGATIVE (Negative); Influenza B PCR NEGATIVE (Negative); Resp Syncy Virus RNA Qual PCR POSITIVE (Negative); SARS COV2 PCR INHOUSE NEGATIVE (Negative)
== END 2024-08-27 10:31 | disposition home or self-care (01) ==
LOC: HO.LAB 10:30
PROVIDERS: PCP Internal Medicine; Visit Provider Registered Nurse
DX: J06.9 Acute upper respiratory infection, unspecified (principal)
CPT/HCPCS: 0241U; 99212

== ENCOUNTER 2024-09-08 09:59 | Outpatient (AMB) | payer OTHER, SELFPAY ==
--- NOTE | 2024-09-08 10:03 | A.OFFVIS_ITS ---
Vital Signs 09/08/24 10:06 Height 4 ft 11 in Weight 161 lb 9.581 oz BMI 32.6 BP 114/74 Blood Pressure Location Rt brachial Position Sitting Pulse 100 Pulse Source Pulse Oximeter Intake Visit Reasons: T2DM Intake Note: Patient present today to follow up on Type 2 Diabetes Mellitus. Last Diabetic Eye exam: Due, has an appointment Sep or Oct 2024. 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 Required: No Accompanied by: Self / Same As Patient Allergies Seasonal Allergies Allergy (Mild, Verified 09/08/24 10:07) runny nose Medication List - Last Reconciled 09/08/24 by Armaan Choudhary MD albuterol sulfate 90 mcg/actuation 2 puffs inhalation Q6H PRN 30 days albuterol sulfate 2.5 mg continuous nebulization QID PRN atorvastatin 10 mg PO BEDTIME 90 days blood sugar diagnostic (FreeStyle Lite Strips) As directed blood-glucose meter (FreeStyle Lite Meter kit) test once daily celecoxib (Celebrex) 200 mg PO BID 30 days cholecalciferol (vitamin D3) 50 mcg PO DAILY 90 days dicyclomine 20 mg PO TID dulaglutide (Trulicity) 3 mg (0.5 mL) subcut QWEEK famotidine 40 mg (2 x 20 mg) PO BEDTIME gabapentin 300 mg PO BID 30 days glucose (Dex4 Glucose Quick Dissolve) 16 grams (4 x 4 gram) PO Q15M PRN ibuprofen 600 mg PO Q8H PRN lancets (FreeStyle Lancets) As directed lidocaine 5% leave on most painful area for up to 12 hrs topically daily; 30 days magnesium oxide 400 mg PO BID metformin ER 1,000 mg (2 x 500 mg) PO BID 90 days nebulizer and compressor As directed omeprazole 40 mg PO DAILY polyethylene glycol 3350 (Miralax) 17 grams PO DAILY sennosides-docusate sodium 8.6-50 mg (Senna Plus) 2 tab-caps (2 x 8.6-50 mg) PO BEDTIME 60 days tramadol 50 mg PO BID PRN 15 days HPI Comments Details: This is a 44-year-old female with a past medical history of hyperlipidemia, type 2 diabetes, GERD and obesity presenting for diabetic management. The patient was last seen by Alexandrea Rashad , PA on She was diagnosed with gestational diabetes in 2011. She then developed prediabetes and says she was diagnosed with Type II DM about 4 years ago. Reviewed glucometer download: 1.2 readings per day Highest to 213 Lowest 158 Average glucose 177 There are 2 blood sugars located in the glucometer She had a cortisone injection for her right knee 07/15/24. She admits to dietary indiscretion within the past few weeks due to stress. She saw the dietitian recently. Hemoglobin a1c 10% 06/03/24. Current medication regimen: Metformin ER 1000 mg twice daily, Trulicity 3 mg weekly. Compliance issues: seeing therapist to help with goal setting. She's had a lot of stress. She's had to move back in with her children's father. The house she was living in is in a probate court. She can't afford to make the necessary updates to it. Her family is trying to sell it. She is in a new relationship. Hypoglycemia symptoms: none Hyperglycemia symptoms: none Eye exam: [address] [place] Microvascular complications: The patient has mild microalbuminuria x1 on recent labs. Prior urine studies did not demonstrate this. Macrovascular complications: none Hyperlipidemia: treated with atorvastatin 10 mg which she started in May. Has optho appt in -10/2024 [facility] Medical History HPV in female Hypomagnesemia HPV (human papilloma virus) infection Knee pain, bilateral Elevated blood pressure reading Obesity (BMI 30-39.9) GERD without esophagitis Pure hypercholesterolemia Type 2 diabetes mellitus without complications Diabetes Obesity (BMI 35.0-39.9 without comorbidity) Allergic rhinitis Calcaneal spur of left foot Hirsutism Plantar fasciitis of left foot Hypercholesterolemia Type 2 diabetes mellitus Chronic constipation Left lower quadrant abdominal pain Nausea and vomiting Chest pain, atypical GERD (gastroesophageal reflux disease) Surgical History Hx of colonoscopy H/O endoscopy [place] teeth removed History of esophagogastroduodenoscopy (EGD) (~10/2019) H/O section Family History Father No problems noted. 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 Absence of acromegalic features. Neck exam reveals nl size thyroid about 15 gms. No thyroid nodules palpable. No carotid bruits present. Lungs CTA. Heart S1 S2, Reg R/R. No M/R/ G. Skin exam reveals absence of vitiligo or acanthosis nigricans. Abdominal exam reveals Soft NT/ND with NA BS. No organomegaly present. Neck Other: . Extrem Other: Visual exam of foot performed. No ulcerations or open lesions. No onchomycosis, no callouses.Pulses 2 + distally Sensation intact to monofilament exam. Vibratory sensation sensed is intact with 128 Hz tuning fork Results AMB Hemoglobin A1c AMB Hemoglobin A1c 8.8 % Last Edit by ANJANA Zacarias on 09/08/24 10:21 Results Reviewed Results Reviewed: Laboratory Last Values Glucose (Clinic) 161 mg/dL (60-115) H 09/08/24 10:12 Assessment & Plan Assessment & Plan (1) Type 2 diabetes mellitus without complications: Code(s): E11.9 - Type 2 diabetes mellitus without complications Category: Medical Qualifiers: Diabetes mellitus water meter mechanic insulin use: without correction use Qualified Code(s): E11.9 - Type 2 diabetes mellitus without complications Plan: This is a 44-year-old white female with a history of type 2 diabetes being treated metformin and Trulicity with poor glycemic control and known microvascular complications namely microalbuminuria. Plan is to have the patient check her point of cares pre and post meals. Although a sensor is not covered by her insurance company, could give her a sample of Dexcom G7 and will offer an appointment to the agricultural research engineer. Explained the correlation of poor glycemic control to development of progression of complications to the patient. We will recheck lipid profile microalbumin to creatinine ratio. Could consider switching from Trulicity to Mounjaro. We will start Mounjaro 2.5 mg Q weekly. Went over side effects of Mounjaro including but not limited to nausea, vomiting rare risk of pancreatitis Patient should follow up with OLIVER Jerry in 1 mos . Orders: Orders AMB Hemoglobin A1c Today E11.9 - Type 2 diabetes mellitus without complications Referrals Diabetes Education Referral E11.9 - Type 2 diabetes mellitus without complications Medications: New tirzepatide (Mounjaro) for 4 weeks 2.5 mg (0.5 mL) subcut QWEEK 2 mL 5RF Discontinued dulaglutide (Trulicity) Discontinued Reason: Doctor's Order 3 mg (0.5 mL) subcut QWEEK 2 mL 3RF Coding Level of Care Code Est Pt Level 4 (88101) Complex EM visit Add On G2211 Diagnoses Type 2 diabetes mellitus without complication, without long-term current use of insulin E11.9 Diabetes mellitus water meter mechanic insulin use: without water meter mechanic use
[2024-09-08 10:06] VITALS: BP 114/74; PULSE 100; BMI 32.6
[2024-09-08 10:17] LABS: Glucose, Whole Blood 161 mg/dL (60-115)
== END 2024-09-08 10:46 | disposition home or self-care (01) ==
PROVIDERS: PCP Internal Medicine; Visit Provider Internal Medicine Endocrinology, Diabetes & Metabolism
DX: E11.9 Type 2 diabetes mellitus without complications (principal)
CPT/HCPCS: 99214; G2211

== ENCOUNTER 2024-09-08 09:59 | Outpatient (REF) | payer OTHER, SELFPAY ==
[2024-09-08 13:46] LABS: Appearance Urine Cloudy; Color Urine Dark Yellow; Glucose Urine UA 250 mg/dL (Negative); Leukocyte Esterase Urine Trace (Negative); Nitrite Urine Negative (Negative); PH 5.5 (5.0-9.0); Specific Gravity - Urine >= 1.030 (1.005-1.025); UMIC TRIGGER UACC YES; Urine Blood Negative (Negative); Urine Ketones 40 mg/dL (Negative); Urine Protein 30 (1+) mg/dL (Neg-Trace)
[2024-09-08 13:51] LABS: Bacteria Urine 4+ (None Seen); RBC Urine 0-2 /HPF (0-2); Squamous Epithelial Cell Urine >20 /HPF (0-2); UACC Culture Trigger YES
[2024-09-08 14:18] LABS: Creatinine Urine 332.21 mg/dL; Microalbum/Creatinine Ratio Ur 21.6 ug/mg cr (<30)
== END 2024-09-08 10:00 | disposition home or self-care (01) ==
LOC: HO.LAB 09:59
PROVIDERS: Physician Assistant Medical; Absent Provider Internal Medicine; PCP Internal Medicine; Visit Provider Internal Medicine Endocrinology, Diabetes & Metabolism
DX: E11.9 Type 2 diabetes mellitus without complications (principal); Z79.84 Long term (current) use of oral hypoglycemic drugs
CPT/HCPCS: 81001; 82043; 82570; 82947; 83036; 87086; 99212

== ENCOUNTER 2024-09-15 08:59 | Outpatient (RCR) | payer OTHER, SELFPAY ==
--- NOTE | 2024-07-09 13:51 | MHC.PT.EP ---
[facility] [place] [facility] [place] [facility] [place] [facility] [address] Margarito Almaguer [address] [phone] F: [phone] F: [phone] F: [phone] F: [phone] Physical Therapy Plan of Care Date of Evaluation: 07/09/24 Date of Surgery: N/A Diagnosis: right knee osteoarthritis (RL) Assessment: pt is a 43 y/o female presenting to physical therapy w/ referring diagnosis of right knee osteoarthritis. Impairments include pain, decreased range of motion, decreased strength, impaired functional mobility, impaired postural awareness, and altered ambulation mechanics. pt is a good candidate for skilled PT due to age, potential remediation of impairments, typical disease/condition progression and prognosis, comorbidities, and motivation. pt would benefit from skilled PT intervention to provide a tailored strengthening and stretching exercise program, functional training, gait training, postural re-training, neuromuscular re-education, modalities as needed for pain, equipment safety demonstration. Frequency and Duration: The patient will be seen 2x/wk for 4 wks Short Term Goals: pt will be I w/ HEP to promote self-management of condition. pt will improve R knee flexion by 10 degrees to promote ease in sit<>stand transfers. Fci Goals: pt will ambulate x1000' w/o brace to promote ease in community navigation. pt will improve B knee flexion and extension strength to 5/5 to promote ease in stair navigation. Treatment Plan: Modalities to reduce pain, spasms and effusion. Manual therapy to restore motion and function. Therapeutic exercise to improve strength and flexibility. Neuromuscular re-education for posture and balance. Therapeutic activities to return to functional activities of daily living. Electronically signed by: Kaycee Lnidsey PT, DPT Please sign and return to therapist. Thank you for your referral.
--- NOTE | 2024-09-17 09:54 | MHC.PT.DC ---
[facility] [place] Office [place] [facility] [place] Office [address] Margarito Almaguer [address] [facility] [phone] F: [phone] F: [phone] F: [phone] F: [phone] Physical Therapy Discharge Report Diagnosis: right knee osteoarthritis (RL) Date of Surgery: N/A Date of Evaluation: 07/09/24 Date of Discharge: 09/17/24 Treatments to Date: 11 Cancellations to Date: 6 No Shows to Date: 0 Discharge Status: Recommend MD Follow-up Discharge Summary: The patient overall reported minimal to no change in her pain levels with physical therapy. Her function, strength, and range of motion have all improved as noted by short and chcf goals achieved. Unfortunately, these did not translate to improved knee pain. She is independent with her home exercise program and I encouraged her to continue with these going forward. At this time, I do not feel additional PT visits are indicated as she has achieved all goals established by this therapist at the initial evaluation, is independent with her program, and is not gaining additional benefit from the visits she has already used. She would benefit from follow-up with referring provider and pain management providers to determine next course of action for pain. Electronically signed by: Kaycee Lindsey PT, DPT Please sign and return to therapist. Thank you for your referral.
== END 2024-09-17 09:54 | disposition home or self-care (01) ==
LOC: HO.PT 08:59
PROVIDERS: PCP Internal Medicine; Visit Provider Physician Assistant
DX: M17.11 Unilateral primary osteoarthritis, right knee (principal); M23.91 Unspecified internal derangement of right knee
CPT/HCPCS: 97110; 97112; 97162; 97164

== ENCOUNTER 2024-09-29 10:02 | Outpatient (AMB) | payer OTHER, SELFPAY ==
--- NOTE | 2024-09-29 10:42 | A.OFFVIS_ITS ---
Intake Intake Visit Reasons: DM Glass Block Installer Required: No Accompanied by: Self / Same As Patient Allergies Seasonal Allergies Allergy (Mild, Verified 09/08/24 10:07) runny nose HPI Comprehensive Diabetes Asmnt Most Recent Diabetes Results: Microalb/Creat Ratio 21.6 ug/mg cr (<30) 09/08/24 Cholesterol 214 mg/dL (<200) H 06/03/24 HDL Cholesterol 55 mg/dL (>40) 06/03/24 Triglycerides 170 mg/dL (<150) H 06/03/24 Creatinine 0.94 mg/dL (0.5-1.4) 06/03/24 Blood Urea Nitrogen 21 mg/dL (9-16) H 06/03/24 Sodium 136 mmol/L (135-145) 06/03/24 Potassium 4.4 mmol/L (3.3-5.1) 06/03/24 Chloride 108 mmol/L (96-108) 06/03/24 Carbon Dioxide 20 mmol/L (22-29) L 06/03/24 Calcium 8.8 mg/dL (8.4-10.2) 06/03/24 AST 22 U/L (5-31) 06/03/24 ALT 17 U/L (0-31) 06/03/24 Total Protein 7.2 g/dL (6.5-8.0) 06/03/24 Albumin 3.7 g/dL (3.5-5.0) 06/03/24 [facility] Medical History HPV in female Hypomagnesemia HPV (human papilloma virus) infection Knee pain, bilateral Elevated blood pressure reading Obesity (BMI 30-39.9) GERD without esophagitis Pure hypercholesterolemia Type 2 diabetes mellitus without complications Diabetes Obesity (BMI 35.0-39.9 without comorbidity) Allergic rhinitis Calcaneal spur of left foot Hirsutism Plantar fasciitis of left foot Hypercholesterolemia Type 2 diabetes mellitus Chronic constipation Left lower quadrant abdominal pain Nausea and vomiting Chest pain, atypical GERD (gastroesophageal reflux disease) Surgical History Hx of colonoscopy H/O endoscopy [place] teeth removed History of esophagogastroduodenoscopy (EGD) (~10/2019) H/O section Family History Father No problems noted. 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 Cognitive needs: No Hearing needs: No Vision needs: Yes Female Reproductive History Menstrual Age of Menarche: 9 Assessment & Plan Assessment & Plan (1) Type 2 diabetes mellitus without complications: Code(s): E11.9 - Type 2 diabetes mellitus without complications Qualifiers: Diabetes mellitus mcc insulin use: without computer terminal operator use Qualified Code(s): E11.9 - Type 2 diabetes mellitus without complications Plan: Patient at visit to set up an insert Dexcom G7, with smartphone cathy Instructed patient sensors water proof you can shower, or swim do not submerge sensor in water for over 30 minutes Is sensor falls off cannot put back in you need to replace sensor, customer service number given to patient for sensor replacement Sensor placed on the back of right arm Patient left visit with sensor in warmup Reviewed how to interpret trend arrows Reminded patient that to check finger sticks if symptoms do not match sensor reading. Discussed lag time between finger stick and sensor data.? Instructed patient she should always keep blood glucometer for backup testing if needed Reviewed delay of CGM from fingersticks Reminded pt that if symptoms do not match sensor still needs to check fingersticks. Portions of this note were created using voice recognition software, please excuse any words or phrases that may have been misinterpreted. Patient Instructions: Patient instruction: CGM provides information on blood glucose control throughout the day, including hyperglycemia and hypoglycemia. ? Continue to monitor blood glucose as instructed. Follow nutrition guidelines provided. Repo rt any discomfort promptly to health care provider. ?Stay well-hydrated. You can bathe ,shower, swim and exercise while wearing the glucose sensor. Do not submerge glucose sensor in water for more than 30 minutes. Coding Level of Care Code Est Pt Level 1 (72487) Diagnoses Type 2 diabetes mellitus without complication, without long-term current use of insulin E11.9 Diabetes mellitus mcc insulin use: without computer terminal operator use
== END 2024-09-29 10:48 | disposition home or self-care (01) ==
PROVIDERS: PCP Internal Medicine; Visit Provider Registered Nurse Diabetes Educator
DX: E11.9 Type 2 diabetes mellitus without complications (principal)

== ENCOUNTER → 2024-09-29 10:02 | Outpatient (BNVA) | payer OTHER, SELFPAY | PROVIDERS: PCP Internal Medicine; Visit Provider Registered Nurse Diabetes Educator | DX: E11.9 Type 2 diabetes mellitus without complications (principal) | CPT/HCPCS: 99211 ==

== ENCOUNTER 2024-10-08 11:48 | Outpatient (REF) | payer OTHER, SELFPAY ==
[2024-10-08 12:27] LABS: MANUAL DIFF FLAG NO
[2024-10-08 12:43] LABS: Basophils Absolute Auto 0.1 X10*3/uL (0.0-0.2); Basophils Percent Auto 0.7 % (0-2); Eosinophils Absolute Auto 0.1 X10*3/uL (0.0-0.4); Eosinophils Percent Auto 1.1 % (0-4); Hematocrit 43.3 % (37.0-47.0); Hemoglobin 14.3 g/dl (12.0-16.0); Imm Gran Abs Auto 0.04 X10*3/uL (0.00-0.03); Imm Gran Pct Auto 0.4 % (0.0-0.4); Lymphocytes Absolute Auto 3.7 X10*3/uL (1.2-4.9); Lymphocytes Percent Auto 35.9 % (20-40); Mean Corpuscular Hemoglobin 30.5 pg (27.0-33.0); Mean Corpuscular Volume 92.3 fL (80.0-98.0); Mean Platelet Volume 10.2 fL (9.4-12.3); Monocytes Absolute Auto 0.6 X10*3/uL (0.1-1.2); Monocytes Percent Auto 5.4 % (2-11); Neutrophils Absolute Auto 5.8 x10*3/uL (2.0-8.3); Neutrophils Percent Auto 56.5 % (45-73); Platelet Count 266 X10*3/uL (160-400); Red Blood Count 4.69 X10*6/uL (4.20-5.50); Red Cell Distribution Width 12.9 % (11.0-16.0); White Blood Count 10.3 X10*3/uL (4.8-10.8)
[2024-10-08 12:51] LABS: Estimated Average Glucose 171 mg/dL; Hemoglobin A1C 212.2967 umol/L; Hemoglobin A1c % 7.6 % (<6.0); Total Hemoglobin (HGBA1C) 3568.0483 umol/L
[2024-10-08 13:14] LABS: Cholesterol 131 mg/dL (<200); HDL Cholesterol 48 mg/dL (>40); LDL Cholesterol Calculated 61 mg/dL (<100); Triglycerides 113 mg/dL (<150)
[2024-10-08 13:20] LABS: Alanine Aminotransferase 23 U/L (0-31); Albumin Level 4.3 g/dL (3.5-5.0); Alkaline Phosphatase 70 U/L (39-117); Anion Gap 12 (12-20); Aspartate Amino Transferase 23 U/L (5-31); Bilirubin Total 0.4 mg/dL (0.0-1.0); Blood Urea Nitrogen 14 mg/dL (9-16); Calcium 9.7 mg/dL (8.4-10.2); Carbon Dioxide 24 mmol/L (22-29); Chloride 109 mmol/L (96-108); Cholesterol 132 mg/dL (<200); Estimated Glomerular Filt Rate > 60; Glucose Fasting 152 mg/dL (60-99); HDL Cholesterol 49 mg/dL (>40); LDL Cholesterol Calculated 62 mg/dL (<100); Potassium 4.4 mmol/L (3.3-5.1); Sodium 141 mmol/L (135-145); Total Protein 7.7 g/dL (6.5-8.0); Triglycerides 109 mg/dL (<150)
[2024-10-08 13:39] LABS: TSH reflex Free T4 0.74 uIU/mL (0.32-4.0); Vitamin D 25-OH Total 39.4 ng/mL (>30)
== END 2024-10-08 11:49 | disposition home or self-care (01) ==
LOC: HO.LAB 11:48
PROVIDERS: Physician Assistant Medical; PCP Internal Medicine; Visit Provider Internal Medicine
DX: E78.00 Pure hypercholesterolemia, unspecified (principal); E11.9 Type 2 diabetes mellitus without complications; D64.9 Anemia, unspecified; E55.9 Vitamin D deficiency, unspecified
CPT/HCPCS: 36415; 80053; 80061; 82306; 83036; 84443; 85025

== ENCOUNTER 2024-10-09 09:29 | Outpatient (AMB) | payer OTHER, SELFPAY ==
[2024-10-09 09:51] VITALS: BP 120/72; PULSE 103; O2SAT 98; BMI 31.5
--- NOTE | 2024-10-09 09:51 | A.OFFPC_ITS ---
Vital Signs 10/09/24 09:51 Height 4 ft 11 in Weight 156 lb 2 oz BMI 31.5 BP 120/72 Blood Pressure Location Lt brachial Position Sitting Pulse 103 H Pulse Source Pulse Oximeter Pulse Oximetry (%) 98 Oxygen Delivery Method Room Air Intake Visit Reasons: hyperlipidemia, DM, IBS Community Assistant Required: No Accompanied by: Self / Same As Patient Allergies Seasonal Allergies Allergy (Mild, Verified 10/09/24 10:23) runny nose Medication List - Last Reconciled 10/09/24 by Tate Daniel MD albuterol sulfate 90 mcg/actuation 2 puffs inhalation Q6H PRN 30 days albuterol sulfate 2.5 mg continuous nebulization QID PRN atorvastatin 10 mg PO BEDTIME 90 days blood sugar diagnostic (FreeStyle Lite Strips) As directed blood-glucose meter (FreeStyle Lite Meter kit) test once daily celecoxib (Celebrex) 200 mg PO BID 30 days cholecalciferol (vitamin D3) 50 mcg PO DAILY 90 days dicyclomine 20 mg PO TID famotidine 40 mg (2 x 20 mg) PO BEDTIME gabapentin 300 mg PO BID 30 days glucose (Dex4 Glucose Quick Dissolve) 16 grams (4 x 4 gram) PO Q15M PRN ibuprofen 600 mg PO Q8H PRN lancets (FreeStyle Lancets) As directed lidocaine 5% leave on most painful area for up to 12 hrs topically daily; 30 days magnesium oxide 400 mg PO BID metformin ER 1,000 mg (2 x 500 mg) PO BID 90 days nebulizer and compressor As directed omeprazole 40 mg PO DAILY polyethylene glycol 3350 (Miralax) 17 grams PO DAILY sennosides-docusate sodium 8.6-50 mg (Senna Plus) 2 tab-caps (2 x 8.6-50 mg) PO BEDTIME 60 days tirzepatide (Mounjaro) 2.5 mg (0.5 mL) subcut QWEEK tramadol 50 mg PO BID PRN 15 days Tobacco use date assessed: 10/09/24 Dental Screening Dental Screen Date: 10/09/24 Did you have a dental visit in the last 12 months?: Yes Did you have a dental problem in the last 6 months where you did not have access to dental care?: No Was dental information given to patient?: Patient has dentist HPI hyperlipidemia, DM, IBS HPI0 Details Patient comes in today for her follow up visit States that she was sick last month and tested positive for RSV States that she currently still has some lingering cough but most of her other symptoms have all cleared up since She has been experiencing some on and off nausea, occasional vomiting and some loose stools over the past few days - thinks that she may have now contracted some stomach virus but feels that her symptoms are now starting to get better since this morning as she does not feel as nauseous as she did over the past couple of days She currently denies any headaches or dizziness Denies any chest pains, no increased shortness of breath She had her follow up labs done yesterday - to discuss her results [facility] Medical History (Updated 10/11/24 @ 20:47 by Tate Daniel MD) Irritable bowel syndrome (IBS) HPV in female Hypomagnesemia HPV (human papilloma virus) infection Knee pain, bilateral Elevated blood pressure reading Obesity (BMI 30-39.9) GERD without esophagitis Pure hypercholesterolemia Type 2 diabetes mellitus without complications Diabetes Obesity (BMI 35.0-39.9 without comorbidity) Allergic rhinitis Calcaneal spur of left foot Hirsutism Plantar fasciitis of left foot Hypercholesterolemia Type 2 diabetes mellitus Chronic constipation Left lower quadrant abdominal pain Nausea and vomiting Chest pain, atypical GERD (gastroesophageal reflux disease) Surgical History Hx of colonoscopy H/O endoscopy Diamond teeth removed History of esophagogastroduodenoscopy (EGD) (~10/2019) H/O section Family History Father No problems noted. 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 1. Little interest or pleasure in doing things: not at all 2. Feeling down, depressed, or hopeless: more than half the days 3. Trouble falling or staying asleep, or sleeping too much: not at all 4. Feeling tired or having little energy: not at all 5. Poor appetite or overeating: more than half the days 6. Feeling bad about yourself - or that you are a failure or have let yourself or your family down: not at all 7. Trouble concentrating on things, such as reading the newspaper or watching television: not at all 8. Moving or speaking so slowly that other people could have noticed. Or the opposite - being so fidgety or restless that you have been moving around a lot more than usual: not at all 9. Thoughts that you would be better off or of hurting yourself in some way: not at all Total score: 4 Depression Screening Interpretation: Positive Depression Screening Follow-up: Existing condition and Community Mental Health Worker F/U Depression Screening Done: Yes 93946 - PHQ-9 Billing: Yes Source: Developed by Drs. Armaan Bloom, Hodan Mercado, Walter Mantilla and colleagues, with an educational papa from [employer]. Thrive Questionnaire Date Thrive assessed: 10/09/24 I am a: Patient What is your living situation today?: I have a steady place to live Within the past 12 months, did the food you bought not last and you didn't have the money to get more?: Never true Within the past 12 months, did you worry whether your food would run out before you got money to buy more?: Never true Do you have trouble paying for medicines?: No Do you have trouble getting transportation to medical appointments?: No Do you have trouble paying your heating and electricity bill?: No Do you have trouble taking care of your child, family member or friend?: No Do you have trouble with day-to-day activities such as bathing, preparing meals, shopping, managing finances, etc.?: No Are you currently unemployed and looking for a job?: No Are you interested in more education?: No Please select the resources that you would like help with: None Currently or been in a relationship where the following occur: No concerns reported THRIVE Score: 0 AUDIT C Alcohol Use Questionnaire (AUDIT-C) 1. How often do you have a drink containing alcohol?: Monthly or less 2. How many drinks containing alcohol do you have on a typical day when you are drinking?: 1 or 2 Total Score: 1 Score Reviewed/Action Taken: Yes ELADIO-7 AMB Questionnaire ELADIO-7 Date ELADIO - 7 assessed: 10/09/24 Feeling nervous, anxious, or on edge: 0 = Not at all Not being able to stop or control worryin = Not at all Worrying too much about different things: 0 = Not at all Trouble relaxin = Not at all Being so restless that it is hard to sit still: 0 = Not at all Becoming easily annoyed or irritable: 0 = Not at all Feeling afraid as if something awful might happen: 0 = Not at all Total ELADIO-7 score (0-4 normal; 5-9 mild; 10-14 moderate; 15-21 severe): 0 Source: Developed by Drs. rAmaan Bloom, Hodan Mercado, Walter Mantilla and colleagues, with an educational papa from [employer]. Review of Systems Const Denies chills, Reports fatigue (mild), Denies fever(s) and Denies headache(s) ENT Denies dysphagia, Denies dizziness, Denies otalgia, Denies headache(s), Denies neck pain, Denies odynophagia and Denies sore throat Card Denies chest pain, Denies palpitations and Denies dyspnea Resp Denies chest congestion, Reports cough (on and off lingering cough from her bout with RSV last month), Denies dyspnea and Denies wheezing GI Denies abdominal pain, Denies hematochezia, Denies constipation (bowel movements have improved a lot with Senna), Denies dysphagia, Denies heartburn, Reports loose stools (x few days; appears to be slowing down now), Reports nausea, Denies odynophagia and Denies vomiting Denies difficulty voiding, Denies nocturia, Denies dysuria and Denies urinary urgency Musc Denies back pain, Reports arthralgias (right knee - mild), Denies joint swelling and Denies neck pain Skin/Breast Denies rash Neuro Denies dizziness and Denies headache(s) Psych Reports anxiety Endo Reports fatigue (mild) and Denies palpitations Aller/Immun Denies wheezing Physical exam (Primary Care) Vital Signs: Last Vital Signs Pulse 103 H 10/09/24 09:51 BP 120/72 10/09/24 09:51 Pulse Ox 98 10/09/24 09:51 Oxygen Delivery Method Room Air 10/09/24 09:51 BMI result Body Mass Index 31.5 Tobacco/Smoking Status: Tobacco use Status Tobacco use date assessed 10/09/24 10/09/24 09:58 Patient Tobacco Use Status Never used Tobacco 10/09/24 09:51 e-Cigarette/Vaping Use Never Used 10/09/24 09:51 PHQ-9: PHQ-9 Score PHQ-9: Total score 4 10/09/24 10:24 Depression Screening Interpretation: Positive Depression Screening Follow-up: Existing condition and Community Mental Health Worker F/U Thrive Assessment: Date of Thrive Assessment Date Thrive assessed 10/09/24 10/09/24 09:58 Currently or been in a relationship where the following occur: No concerns reported Const General: no acute distress and alert HENMT Ears: TM's normal bilaterally and EAC's normal Throat: Yes posterior oropharynx normal and Yes tonsils normal Neck Neck: Yes supple and No lymphadenopathy Thyroid: Thyroid normal Resp Auscultation: clear to auscultation bilaterally, no rales and no wheezes Cardio Rate: regular rate Rhythm: regular rhythm Heart sounds: no murmurs GI Palpation (GI): Soft to palpation and nontender Auscultation: normal bowel sounds General: Yes no CVA tenderness Back/Spine/Pelvis Back: no CVA tenderness Thoracic/Lumbar Spine: No lumbar spinal tenderness Skin Rashes: no rashes Extrem General: Yes no clubbing, cyanosis or edema Right lower extremity: knee Details: tenderness (mild); no swelling Results Reviewed Results Reviewed: Laboratory Tests 09/08/24 10/08/24 11:00 12:25 WBC 10.3 Hgb 14.3 Hct 43.3 Plt Count 266 Sodium 141 Potassium 4.4 Creatinine 0.90 Estimated GFR > 60 Fasting Glucose 152 H Hemoglobin A1c % 7.6 H Calcium 9.7 D AST 23 ALT 23 Triglycerides 109 Cholesterol 132 LDL Cholesterol, Calc 62 HDL Cholesterol 49 25-OH Vitamin D Total 39.4 TSH 0.74 Ur Specific [place] >= 1.030 H Urine Protein 30 (1+) H Urine Glucose (UA) 250 H Urine Blood Negative Urine Nitrite Negative Ur Leukocyte Esterase Trace H Microalb/Creat Ratio 21.6 Coding Level of Care Code Est Pt Level 4 (83593) Diagnoses Gastroenteritis K52.9 Type 2 diabetes mellitus without complication, without long-term current use of insulin E11.9 Diabetes mellitus nursing home insulin use: without intermediate accountant use Pure hypercholesterolemia E78.00 Hypomagnesemia E83.42 Chronic constipation K59.09 Irritable bowel syndrome with constipation K58.1 Irritable bowel syndrome type: with constipation GERD without esophagitis K21.9 Obesity (BMI 30-39.9) E66.9 Additional Codes PHQ-9 - 18353 - PHQ-9 Billing: Yes ([id number]) Assessment & Plan Assessment & Plan (1) Gastroenteritis: Code(s): K52.9 - Noninfective gastroenteritis and colitis, unspecified Category: Medical Plan: Likely viral Will start patient on symptomatic Tx with Ondansetron 4 mg Q 8 hours PRN for nausea/vomiting and Imodium A-D 2 mg Q 6 hours PRN for diarrhea/loose stools She is encouraged to continue to increase her oral fluids and to stay hydrated (2) Type 2 diabetes mellitus without complications: Code(s): E11.9 - Type 2 diabetes mellitus without complications Category: Medical Qualifiers: Diabetes mellitus intermediate accountant insulin use: without intermediate accountant use Qualified Code(s): E11.9 - Type 2 diabetes mellitus without complications Plan: Patient's HgbA1c was at 7.6% on her labs done yesterday (her HgbA1c was at 10% back in May 2024) - goal is at least < 7.0% Reinforced diabetic diet Continue Metformin ER 1000 mg BID and Mounjaro 2.5 mg SQ once a week She was on Trulicity 1.5 mg in the past but could not get her Rx refilled regularly due to the nationwide unavailability of the Rx She was then switched to Byetta 2 mg SQ weekly at the suggestion of her insurance company - patient was on Byetta for about 5 to 6 months but it did not help improve her diabetes control significantly and she was eventually switched over to Mounjaro by endocrinology Follow-up with endocrinology as scheduled (3) Pure hypercholesterolemia: Code(s): E78.00 - Pure hypercholesterolemia, unspecified Category: Medical Plan: Results of her labs done yesterday reviewed and discussed with patient Reinforced low-cholesterol diet Continue Atorvastatin 10 mg QD Will recheck her labs and fasting lipids in 4 months for follow-up (4) Hypomagnesemia: Code(s): E83.42 - Hypomagnesemia Category: Medical Plan: Corrected - continue MagOx 400 mg BID (5) Chronic constipation: Code(s): K59.09 - Other constipation Category: Medical Plan: Improved - reinforced increased oral fluids and dietary fiber Continue Polyethylene Glycol 17 gm QD Colonoscopy done by Dr. Bull a couple of years ago came out normal, with only (+) diverticulosis and small hemorrhoids Patient states that her recurrent left lower abdominal pains have improved with Senna and when she started moving her bowels more regularly Follow up with GI as scheduled (6) Irritable bowel syndrome (IBS): Code(s): K58.9 - Irritable bowel syndrome, unspecified Category: Medical Qualifiers: Irritable bowel syndrome type: with constipation Qualified Code(s): K58.1 - Irritable bowel syndrome with constipation Plan: This was most likely due to a combination of IBS and constipation - states that her symptoms have improved with Dicyclomine Continue Dicyclomine 20 mg TID PRN Colonoscopy done in April 2022 came out okay - (+) diverticulosis and small hemorrhoids; random biopsies done came out negative Follow up with GI as scheduled (7) GERD without esophagitis: Code(s): K21.9 - Gastro-esophageal reflux disease without esophagitis Category: Medical Plan: Dietary restrictions reinforced Continue Omeprazole 40 mg QD Follow up with GI as scheduled (8) Obesity (BMI 30-39.9): Code(s): E66.9 - Obesity, unspecified Category: Medical Plan: Reinforced diet/exercise as tolerated/lose weight Plan Follow up in 4 months Orders: Orders Magnesium 4 Months E83.42 - Hypomagnesemia Microalbumin, Random (w Creat) 4 Months E11.9 - Type 2 diabetes mellitus without complications TSH reflex Free T4 4 Months E78.00 - Pure hypercholesterolemia, unspecified UA CC w/rflx Micro + Cult 4 Months R30.0 - Dysuria Vitamin D 25-OH Total 4 Months E55.9 - Vitamin D deficiency, unspecified Vitamin B12 and Folate 4 Months E53.8 - Deficiency of other specified B group vitamins Hemoglobin A1c 4 Months E11.9 - Type 2 diabetes mellitus without complications Lipid Panel 4 Months E78.00 - Pure hypercholesterolemia, unspecified Complete Blood Count Auto Diff 4 Months D64.9 - Anemia, unspecified Comprehensive [place]. Panel Fast 4 Months E78.00 - Pure hypercholesterolemia, unspecified Medications: New ondansetron 4 mg PO Q8H 10 days PRN 30 tabs 1RF nausea and vomiting loperamide (Imodium A-D) 2 mg PO Q6H PRN 30 tabs 0RF loose stool/diarrhea
== END 2024-10-09 10:34 | disposition home or self-care (01) ==
PROVIDERS: PCP Internal Medicine; Visit Provider Internal Medicine
DX: K52.9 Noninfective gastroenteritis and colitis, unspecified (principal); E11.9 Type 2 diabetes mellitus without complications; E78.00 Pure hypercholesterolemia, unspecified; E83.42 Hypomagnesemia; K59.09 Other constipation; K58.1 Irritable bowel syndrome with constipation; K21.9 Gastro-esophageal reflux disease without esophagitis; E66.9 Obesity, unspecified

== ENCOUNTER → 2024-10-09 09:29 | Outpatient (BNVA) | payer OTHER, SELFPAY | PROVIDERS: PCP Internal Medicine; Visit Provider Internal Medicine | DX: K52.9 Noninfective gastroenteritis and colitis, unspecified (principal); E11.9 Type 2 diabetes mellitus without complications; E78.00 Pure hypercholesterolemia, unspecified; E83.42 Hypomagnesemia; K59.09 Other constipation; K21.9 Gastro-esophageal reflux disease without esophagitis; E66.9 Obesity, unspecified | CPT/HCPCS: 96127; 99212 ==

== ENCOUNTER 2024-10-13 11:35 | Outpatient (AMB) | payer OTHER, SELFPAY ==
--- NOTE | 2024-10-13 11:36 | A.OFFVIS_ITS ---
Vital Signs 10/13/24 11:39 Height 4 ft 11 in Weight 157 lb 10.088 oz BMI 31.8 BP 110/68 Blood Pressure Location Lt brachial Position Sitting Pulse 96 Pulse Source Pulse Oximeter Intake Visit Reasons: Type 2 DM Intake Note: Patient present today to follow up on Type 2 Diabetes Mellitus. Last Diabetic Eye exam: Due 2 years ago, has an appointment in Oct 2024 Last Podiatry Visit: Does not see a Mess Cook Random Glucose: 152 mg/dl HgA1C: 7.6% 10/08/2024 Tack Driller Required: No Accompanied by: Self / Same As Patient Allergies Seasonal Allergies Allergy (Mild, Verified 10/13/24 11:40) runny nose HPI Comments Details: This is a 44-year-old female with a past medical history of hyperlipidemia, type 2 diabetes, GERD and obesity presenting for diabetic management. She was diagnosed with gestational diabetes in 2011. She then developed prediabetes and says she was diagnosed with Type II DM about 4 years ago. Reviewed CGM download September 30 to 10/13/2024: [place] 7.4% Glucose variability 22.1% 3% very high 31% high 66% in range 0% hypoglycemia. There is a pattern of hyperglycemia postprandially. She saw the hematology nurse educator, and she is doing well using her CGM. She is also followed by the dietitian. Hemoglobin a1c 7.6% 10/08/2024 down from 10% 06/03/24. Current medication regimen: Metformin ER 1000 mg twice daily, Mounjaro 2.5 mg weekly. Trulicity discontinued due to it being unavailable and GI side effects on the increased dosage. Compliance issues: seeing therapist to help with goal setting. History of PTSD. She was able to move into her own apartment after connecting with way Finders. Hypoglycemia symptoms: none Hyperglycemia symptoms: none Eye exam: [address] [place] Microvascular complications: The patient has mild microalbuminuria x1 on recent labs. Prior urine studies did not demonstrate this. Macrovascular complications: none Hyperlipidemia: treated with atorvastatin 10 mg. ROS: Constitutional: No unexplained weight loss, fever, chills, fatigue or night sweats. Eyes: No vision changes Respiratory: No shortness of breath Cardiovascular: No chest pain Neurologic: No numbness, tingling, dizziness, headache or weakness Endocrine: No cold or heat intolerance. No polyuria or polydipsia. Physical exam: Constitutional: Alert, in no distress. Neck: Supple, Full range of motion. No lymphadenopathy. No palpable thyroid masses. Respiratory: Clear to auscultation. Cardiovascular: S1 S2 regular. No murmurs Psychiatric: Normal mood and affect [facility] Medical History (Updated 10/11/24 @ 20:47 by Tate Daniel MD) Irritable bowel syndrome (IBS) HPV in female Hypomagnesemia HPV (human papilloma virus) infection Knee pain, bilateral Elevated blood pressure reading Obesity (BMI 30-39.9) GERD without esophagitis Pure hypercholesterolemia Type 2 diabetes mellitus without complications Diabetes Obesity (BMI 35.0-39.9 without comorbidity) Allergic rhinitis Calcaneal spur of left foot Hirsutism Plantar fasciitis of left foot Hypercholesterolemia Type 2 diabetes mellitus Chronic constipation Left lower quadrant abdominal pain Nausea and vomiting Chest pain, atypical GERD (gastroesophageal reflux disease) Surgical History Hx of colonoscopy H/O endoscopy [place] teeth removed History of esophagogastroduodenoscopy (EGD) (~10/2019) H/O section Family History Father No problems noted. 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 Cognitive needs: No Hearing needs: No Vision needs: Yes Female Reproductive History Menstrual Age of Menarche: 9 Physical Exam Vital Signs: Last Vital Signs Pulse 96 10/13/24 11:39 BP 110/68 10/13/24 11:39 BMI result Body Mass Index 31.8 Office Procedures Glucose Monitoring Details Details: see HPI 71152 - Glucose monitoring, continuous-physician I&R Procedure code (CPT) selection complete Results Reviewed Results Reviewed: Laboratory Tests 09/08/24 10/08/24 11:00 12:25 WBC 10.3 Hgb 14.3 Hct 43.3 Plt Count 266 Sodium 141 Potassium 4.4 Creatinine 0.90 Estimated GFR > 60 Fasting Glucose 152 H Hemoglobin A1c % 7.6 H Calcium 9.7 D AST 23 ALT 23 Triglycerides 109 Cholesterol 132 LDL Cholesterol, Calc 62 HDL Cholesterol 49 25-OH Vitamin D Total 39.4 TSH 0.74 Ur Specific [place] >= 1.030 H Urine Protein 30 (1+) H Urine Glucose (UA) 250 H Urine Blood Negative Urine Nitrite Negative Ur Leukocyte Esterase Trace H Microalb/Creat Ratio 21.6 Assessment & Plan Assessment & Plan (1) Type 2 diabetes mellitus without complications: Code(s): E11.9 - Type 2 diabetes mellitus without complications Category: Medical Qualifiers: Diabetes mellitus director long term care insulin use: without director long term care use Qualified Code(s): E11.9 - Type 2 diabetes mellitus without complications Plan: In summary this is a 44-year-old female with suboptimally controlled type 2 diabetes on metformin and Mounjaro. The patient and I discussed increasing Mounjaro to 5 mg. She had some GI upset with the 2nd to last injection. She thinks it is because she took her pain pill the same day. She took her Mounjaro injection yesterday, and so far she feels okay. She has had a little bit of nausea today. We discussed trying to separate meals from liquids by 30 minutes for a day or 2 after injection to decrease GI irritation. We ultimately decided to keep her on this dosage for another 4 weeks and then re-evaluate. Continue Metformin ER 1000 mg BID. If you experience low blood sugar, treat this by eating a chewable fruit candy like skittles or jelly beans (about 8 pieces), 4 ounces (1/2 cup) of fruit juice (not diet), 1 tablespoon of honey or 4 glucose tablets. If your blood sugar is under 50, take double the amount of one of the above. Recheck your blood sugar in 15 minutes. Follow up in 4 weeks for type 2 diabetes. Orders: Orders AMB Glucose Monitoring Today E11.9 - Type 2 diabetes mellitus without complications Coding Level of Care Code Est Pt Level 4 (05847) Diagnoses Type 2 diabetes mellitus without complication, without long-term current use of insulin E11.9 Diabetes mellitus director long term care insulin use: without director long term care use CPT Codes Details - CPT: 52626 - Glucose monitoring, continuous-physician I&R ([id number])
[2024-10-13 11:39] VITALS: BP 110/68; PULSE 96; BMI 31.8
[2024-10-13 11:50] LABS: Glucose, Whole Blood 152 mg/dL (60-115)
== END 2024-10-13 12:22 | disposition home or self-care (01) ==
PROVIDERS: PCP Internal Medicine; Visit Provider Physician Assistant Medical
DX: E11.9 Type 2 diabetes mellitus without complications (principal)

== ENCOUNTER → 2024-10-13 11:35 | Outpatient (BNVA) | payer OTHER, SELFPAY | PROVIDERS: PCP Internal Medicine; Visit Provider Registered Nurse Diabetes Educator | DX: E11.9 Type 2 diabetes mellitus without complications (principal) | CPT/HCPCS: 82947; 99211; 99212 ==

== ENCOUNTER 2024-10-29 15:49 | Outpatient (AMB) | payer OTHER, SELFPAY ==
[2024-10-29 15:50] VITALS: BP 110/74; PULSE 90; TEMP 36.6; O2SAT 97; BMI 31.7
--- NOTE | 2024-10-29 15:50 | MHC.OFFWIV ---
Intake Vital Signs 10/29/24 15:50 Height 4 ft 11 in Weight 157 lb BMI 31.7 BP 110/74 Blood Pressure Location Rt brachial Position Sitting Pulse 90 Pulse Source Pulse Oximeter Temp 97.9 F Temp Source Oral Pulse Oximetry (%) 97 Intake Visit Reasons: EP rt arm pain from dexcom? Patient Tobacco Use Status: Never used Tobacco Allergies Seasonal Allergies Allergy (Mild, Verified 10/29/24 15:55) runny nose Do you need a note to return to daycare/school/sports/work: No HPI HPI Comments History of Present Illness Details 44 y/o female patient who presents to the [facility] in clinic with c/o right elbow pain with ROM. Pt wears Dexcom sensor on that Arm, believes maybe that is the cause of her pain. She has been wearing Sensor for over a month now. She also has h/o OA on her joints. [facility] Medical History (Updated 10/29/24 @ 16:42 by Nicolasa Ohara NP) Right elbow tendonitis Irritable bowel syndrome (IBS) HPV in female Hypomagnesemia HPV (human papilloma virus) infection Knee pain, bilateral Elevated blood pressure reading Obesity (BMI 30-39.9) GERD without esophagitis Pure hypercholesterolemia Type 2 diabetes mellitus without complications Diabetes Obesity (BMI 35.0-39.9 without comorbidity) Allergic rhinitis Calcaneal spur of left foot Hirsutism Plantar fasciitis of left foot Hypercholesterolemia Type 2 diabetes mellitus Chronic constipation Left lower quadrant abdominal pain Nausea and vomiting Chest pain, atypical GERD (gastroesophageal reflux disease) Surgical History Hx of colonoscopy H/O endoscopy [place] teeth removed History of esophagogastroduodenoscopy (EGD) (~10/2019) H/O section Family History Father No problems noted. 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 [employer] Cognitive needs: No Hearing needs: No Vision needs: Yes Female Reproductive History Menstrual Age of Menarche: 9 Review of Systems Const All systems reviewed & are unremarkable except as noted in HPI and below Physical Exam Vital Signs: Last Vital Signs Temp 97.9 F 10/29/24 15:50 Pulse 90 10/29/24 15:50 BP 110/74 10/29/24 15:50 Pulse Ox 97 10/29/24 15:50 BMI result Body Mass Index 31.7 Const General: cooperative and no acute distress Nutritional Appearance: obese Orientation/consciousness: patient oriented x3 Neuro General: patient oriented x3, gait normal and moves all extremities Extrem Right upper extremity: elbow/forearm Details: tenderness Location: of the distal humerus and of the medial epicondyle and normal ROM; no swelling, no crepitus and no deformity Left upper extremity: normal to inspection and full ROM Shoulder/upper arm images: 1. Right Elbow normal ROM, TTP distal humerus. Dexcom Sensor intact, clean no skin irritation, no redness. Normal ROM with fingers and normal skin color. Psych Speech and movement: Normal speech and movement present Assessment & Plan Assessment & Plan (1) Right elbow tendonitis: Code(s): M77.8 - Other enthesopathies, not elsewhere classified Plan: Ordered NSAIDs for pain relief Advised patient that her Dexcom sensor was intact and no signs skin irritation. Etiology probably OA. Medications: New diclofenac sodium 1% (Voltaren Arthritis Pain) Apply to the affected Joint as directed. 2 grams topical BID 100 grams 0RF M77.8 - Other enthesopathies, not elsewhere classified Refilled ibuprofen 600 mg PO Q8H PRN 30 tabs 0RF pain M77.8 - Other enthesopathies, not elsewhere classified Discontinued celecoxib (Celebrex) Discontinued Reason: Patient Completed Course 200 mg PO BID 30 days 60 caps 3RF Coding Level of Care Code Est Pt Level 4 (26536) Diagnoses Right elbow tendonitis M77.8 Time Spent (min) 20
== END 2024-10-29 16:19 | disposition home or self-care (01) ==
PROVIDERS: PCP Internal Medicine; Visit Provider Nurse Practitioner Family
DX: M77.8 Other enthesopathies, not elsewhere classified (principal)

== ENCOUNTER → 2024-10-29 15:49 | Outpatient (BNVA) | payer OTHER, SELFPAY | PROVIDERS: PCP Internal Medicine | DX: M77.8 Other enthesopathies, not elsewhere classified (principal) | CPT/HCPCS: 99212 ==

== ENCOUNTER 2024-11-12 12:59 | Outpatient (AMB) | payer OTHER, SELFPAY ==
[2024-11-12 13:08] VITALS: BP 110/78; PULSE 114; O2SAT 98; BMI 30.2
--- NOTE | 2024-11-12 13:08 | A.OFFPC_ITS ---
Vital Signs 11/12/24 13:08 Height 4 ft 11 in Weight 149 lb 8 oz BMI 30.2 BP 110/78 Blood Pressure Location Lt brachial Position Sitting Pulse 114 H Pulse Source Pulse Oximeter Pulse Oximetry (%) 98 Oxygen Delivery Method Room Air Intake Visit Reasons: follow up Crime Laboratory Analyst Required: No Accompanied by: Self / Same As Patient Allergies Seasonal Allergies Allergy (Mild, Verified 11/12/24 14:19) runny nose Medication List - Last Reconciled 11/12/24 by EZE Villatoro albuterol sulfate 90 mcg/actuation 2 puffs inhalation Q6H PRN 30 days albuterol sulfate 2.5 mg continuous nebulization QID PRN atorvastatin 10 mg PO BEDTIME 90 days blood sugar diagnostic (FreeStyle Lite Strips) As directed blood-glucose meter (FreeStyle Lite Meter kit) test once daily cholecalciferol (vitamin D3) 50 mcg PO DAILY 90 days diclofenac sodium 1% (Voltaren Arthritis Pain) 2 grams topical BID dicyclomine 20 mg PO TID famotidine 40 mg (2 x 20 mg) PO BEDTIME gabapentin 300 mg PO BID 30 days glucose (Dex4 Glucose Quick Dissolve) 16 grams (4 x 4 gram) PO Q15M PRN ibuprofen 600 mg PO Q8H PRN lancets (FreeStyle Lancets) As directed lidocaine 5% leave on most painful area for up to 12 hrs topically daily; 30 days loperamide (Imodium A-D) 2 mg PO Q6H PRN magnesium oxide 400 mg PO BID metformin ER 1,000 mg (2 x 500 mg) PO BID 90 days nebulizer and compressor As directed omeprazole 40 mg PO DAILY ondansetron 4 mg PO Q8H PRN 10 days polyethylene glycol 3350 (Miralax) 17 grams PO DAILY sennosides-docusate sodium 8.6-50 mg (Senna Plus) 2 tab-caps (2 x 8.6-50 mg) PO BEDTIME 60 days tirzepatide (Mounjaro) 2.5 mg (0.5 mL) subcut QWEEK tramadol 50 mg PO BID PRN 15 days Tobacco use date assessed: 11/12/24 Dental Screening Dental Screen Date: 11/12/24 Did you have a dental visit in the last 12 months?: No Did you have a dental problem in the last 6 months where you did not have access to dental care?: No Was dental information given to patient?: Patient has dentist HPI follow up HPI Details Patient is a 44-year-old female was significant past medical history of GERD, obesity, diverticulitis, constipation, type 2 diabetes mellitus The patient is presenting today due to abdominal pain Patient reports that since Saturday she has been having severe left lower abdominal pain The patient denies fever or chills Reports nausea and vomiting x2 on Saturday of clear liquid Patient reports that she has not have a bowel movement in 6 days Reports that she took 2 senna tabs on Saturday Reports that she did not take her MiraLax On exam: Pain to light palpation in left lower quadrant and mild epigastric pain. Abdomen was soft to palpation Patient reports that she is moving a small amount of gas The patient is currently on Mounjaro 2.5 mg Q weekly Discussed with patient about the concerns of her having a blockage Reports that she needs to go to emergency room. The patient reports that she could walk over to the [facility] ER She declines going be ambulance. Emergency room staff was called and updated on concerns and the patient pending arrival [facility] Medical History Right elbow tendonitis Irritable bowel syndrome (IBS) HPV in female Hypomagnesemia HPV (human papilloma virus) infection Knee pain, bilateral Elevated blood pressure reading Obesity (BMI 30-39.9) GERD without esophagitis Pure hypercholesterolemia Type 2 diabetes mellitus without complications Diabetes Obesity (BMI 35.0-39.9 without comorbidity) Allergic rhinitis Calcaneal spur of left foot Hirsutism Plantar fasciitis of left foot Hypercholesterolemia Type 2 diabetes mellitus Chronic constipation Left lower quadrant abdominal pain Nausea and vomiting Chest pain, atypical GERD (gastroesophageal reflux disease) Surgical History Hx of colonoscopy H/O endoscopy [place] teeth removed History of esophagogastroduodenoscopy (EGD) (~10/2019) H/O section Family History Father No problems noted. 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 1. Little interest or pleasure in doing things: not at all 2. Feeling down, depressed, or hopeless: more than half the days 3. Trouble falling or staying asleep, or sleeping too much: not at all 4. Feeling tired or having little energy: not at all 5. Poor appetite or overeating: more than half the days 6. Feeling bad about yourself - or that you are a failure or have let yourself or your family down: not at all 7. Trouble concentrating on things, such as reading the newspaper or watching television: not at all 8. Moving or speaking so slowly that other people could have noticed. Or the opposite - being so fidgety or restless that you have been moving around a lot more than usual: not at all 9. Thoughts that you would be better off or of hurting yourself in some way: not at all Total score: 4 Depression Screening Interpretation: Positive Depression Screening Follow-up: Existing condition and Community Mental Health Worker F/U Depression Screening Done: Yes 73960 - PHQ-9 Billing: Yes Source: Developed by Drs. Armaan Bloom, Hodan Mercado, Walter Mantilla and colleagues, with an educational papa from [employer]. Thrive Questionnaire Date Thrive assessed: 11/12/24 I am a: Patient What is your living situation today?: I have a steady place to live Within the past 12 months, did the food you bought not last and you didn't have the money to get more?: Never true Within the past 12 months, did you worry whether your food would run out before you got money to buy more?: Never true Do you have trouble paying for medicines?: No Do you have trouble getting transportation to medical appointments?: No Do you have trouble paying your heating and electricity bill?: No Do you have trouble taking care of your child, family member or friend?: No Do you have trouble with day-to-day activities such as bathing, preparing meals, shopping, managing finances, etc.?: No Are you currently unemployed and looking for a job?: No Are you interested in more education?: No Please select the resources that you would like help with: None Currently or been in a relationship where the following occur: No concerns reported THRIVE Score: 0 AUDIT C Alcohol Use Questionnaire (AUDIT-C) 1. How often do you have a drink containing alcohol?: Monthly or less 2. How many drinks containing alcohol do you have on a typical day when you are drinking?: 1 or 2 Total Score: 1 Score Reviewed/Action Taken: Yes ELADIO-7 AMB Questionnaire ELADIO-7 Date ELADIO - 7 assessed: 11/12/24 Feeling nervous, anxious, or on edge: 0 = Not at all Not being able to stop or control worryin = Not at all Worrying too much about different things: 0 = Not at all Trouble relaxin = Not at all Being so restless that it is hard to sit still: 0 = Not at all Becoming easily annoyed or irritable: 0 = Not at all Feeling afraid as if something awful might happen: 0 = Not at all Total ELADIO-7 score (0-4 normal; 5-9 mild; 10-14 moderate; 15-21 severe): 0 Source: Developed by Drs. Armaan Bloom, Hodan Mercado, Walter Mantilla and colleagues, with an educational papa from [employer]. ELADIO-7 Assessment Billing ELADIO-7 Assessment Tool: ELADIO-7 Assessment 56984 Review of Systems Const Details: Denies chills, Denies fatigue, Denies fever(s), Denies headache(s) and Denies weakness HEENT Denies change in vision, Denies dizziness, Denies headache(s), Denies hearing loss, Denies nasal congestion, Denies sinus pain, Denies sinus pressure and Denies sore throat Card Denies chest pain, Denies lightheadedness, Denies dyspnea and Denies other (palpitations) Resp Denies cough, Denies dyspnea and Denies wheezing GI +abdominal pain, Denies melena, Denies hematochezia, +change in bowel habits, + dyspepsia and + nausea Denies hematuria and Denies dysuria Physical exam (Primary Care) Vital Signs: Last Vital Signs Pulse 114 H 11/12/24 13:08 BP 110/78 11/12/24 13:08 Pulse Ox 98 11/12/24 13:08 Oxygen Delivery Method Room Air 11/12/24 13:08 BMI result Body Mass Index 30.2 Tobacco/Smoking Status: Tobacco use Status Tobacco use date assessed 11/12/24 11/12/24 13:10 Patient Tobacco Use Status Never used Tobacco 11/12/24 13:10 e-Cigarette/Vaping Use Never Used 11/12/24 13:10 PHQ-9: PHQ-9 Score PHQ-9: Total score 4 11/12/24 13:52 Depression Screening Interpretation: Positive Depression Screening Follow-up: Existing condition and Community Mental Health Worker F/U Thrive Assessment: Date of Thrive Assessment Date Thrive assessed 11/12/24 11/12/24 13:10 Currently or been in a relationship where the following occur: No concerns reported Const Other: General: no acute distress, well developed, alert and awake Nutritional Appearance: well nourished Orientation/consciousness: patient oriented x3 HENMT Head: Yes normocephalic and Yes atraumatic Eyes Pupils: Equal, round and reactive pupils present and Pupil accommodation reflex normal EOM: EOMs intact bilaterally Neck Neck: Yes normal visual inspection, Yes no lymphadenopathy Thyroid: Thyroid normal Resp Effort & Inspection: normal respiratory effort Auscultation: clear to auscultation bilaterally Cardio Rate: regular rate Rhythm: regular rhythm Heart sounds: S1 normal heart sound present, S2 normal heart sound present, no gallops, no murmurs and no rubs GI Palpation (GI): No Abdominal aortic bruit present, Soft to palpation, +tender LLE and epigastric areas, No Rebound tenderness present Auscultation: normal bowel sounds General: Yes no CVA tenderness Back/Spine/Pelvis Back: no CVA tenderness Extrem General: Yes normal to inspection, No edema and No calf tenderness Psych Appearance: grossly normal Affect: normal affect Attitude: cooperative Thought process: Normal thought process present Results AMB Hemoglobin A1c AMB Hemoglobin A1c 7 % Last Edit by ANJANA Grossman on 11/12/24 13:5 2 Results Reviewed Results Reviewed: Laboratory Last Values Hgb A1c (Clinic) 7 % (4.0-6.0) H 11/12/24 13:31 Coding Level of Care Code Est Pt Level 4 (24115) Diagnoses Left lower quadrant abdominal pain R10.32 Abdominal location: left lower quadrant Constipation, unspecified constipation type K59.00 Constipation type: unspecified constipation type Nausea and vomiting, unspecified vomiting type R11.2 Vomiting type: unspecified Additional Codes ELADIO-7 Assessment Billing - ELADIO-7 Assessment Tool: ELADIO-7 Assessment 80869 ([id number]) PHQ-9 - 66196 - PHQ-9 Billing: Yes ([id number]) Time Spent (min) 33 Assessment & Plan Assessment & Plan (1) Abdominal pain: Code(s): R10.9 - Unspecified abdominal pain Category: Medical Qualifiers: Abdominal location: left lower quadrant Qualified Code(s): R10.32 - Left lower quadrant pain Plan: The patient reports severe pain in the LLQ, but has some tenderness in the epigastric region as well. The patient has not had a bowel movement for 6 days. The patient has a hx of diverticulosis and constipation and the patient is also on a GLP-1. Discussed with the patient about the concerns of her having a blockage. The patient was encouraged to go the ER. The patient reports that she is ok to walk over the the [facility] ER and reports that she does not need to go by ambulance (2) Constipation: Code(s): K59.00 - Constipation, unspecified Category: Medical Qualifiers: Constipation type: unspecified constipation type Qualified Code(s): K59.00 - Constipation, unspecified Plan: The patient has a hx of constipation and she is on a GLP-1. The patient reports that she took 2 senna tabs on Saturday but no more laxatives since. Discussed with patient that she need to take her miralax every day due to her high risk of her being constipated (3) Nausea and vomiting: Code(s): R11.2 - Nausea with vomiting, unspecified Category: Medical Qualifiers: Vomiting type: unspecified Qualified Code(s): R11.2 - Nausea with vomiting, unspecified Plan: The patient reports nausea and that she vomited x2 on Saturday. The patient reports that she has nausea medication and she was still able to eat even with moving her bowels for 6 days Orders: Orders AMB Hemoglobin A1c Today Z13.9 - Encounter for screening, unspecified
== END 2024-11-12 14:02 | disposition home or self-care (01) ==
PROVIDERS: PCP Internal Medicine
DX: R10.32 Left lower quadrant pain (principal); K59.00 Constipation, unspecified; R11.2 Nausea with vomiting, unspecified; Z13.9 Encounter for screening, unspecified

== ENCOUNTER → 2024-11-12 12:59 | Outpatient (BNVA) | payer OTHER, SELFPAY | PROVIDERS: PCP Internal Medicine ==

== ENCOUNTER 2024-11-12 13:48 | Emergency (ER) | payer OTHER, SELFPAY ==
--- NOTE | ~2024-11-12 | CT_ITS ---
EXAMINATION: CT ABDOMEN AND PELVIS WITHOUT CONTRAST CLINICAL INFORMATION: Left lower quadrant abdominal pain. COMPARISON: CT abdomen and pelvis 02/16/2020. TECHNIQUE: Multidetector volumetric imaging was performed from the superior aspect of the liver through the pubic symphysis. Sagittal and coronal reformatted images were obtained on the technologist's workstation. This CT examination was performed using dose optimization techniques as appropriate, variously including the following: *Automated exposure control *Adjustment of mA and/or kV according to patient size (this includes techniques or standardized protocols for targeted exams where dose is matched to indication/reason for exam; i.e. extremities or head) *Use of iterative reconstruction technique FINDINGS: Study is limited without the benefit of IV contrast, limiting evaluation of solid organs and bowel structures. LUNG BASES: The visualized lung bases are unremarkable. LIVER, GALLBLADDER, AND BILIARY TREE: The unenhanced liver is normal in size, shape, and attenuation. No focal hepatic lesion or biliary ductal dilatation is present. The gallbladder is unremarkable with no evidence of radiopaque gallstones, gallbladder wall thickening, or obvious pericholecystic inflammatory changes. PANCREAS: Unremarkable. SPLEEN: Unremarkable. ADRENAL GLANDS: Mild bilateral hyperplasia. KIDNEYS AND URETERS: The kidneys are normal in size, shape, and attenuation. No hydronephrosis, hydroureter, or calculi seen. No perinephric stranding. BLADDER: Unremarkable. GASTROINTESTINAL TRACT: The large bowel is normal in appearance. There is a normal appendix. Small bowel has a grossly normal appearance given noncontrast exam. Cannot evaluate for mucosal thickening or enhancement. No obstruction or dilatation. The GE junction, stomach, and duodenum have a normal appearance. ABDOMINAL WALL: There are sequela of subcutaneous injections. There is no significant hernia. LYMPH NODES: None enlarged by size criteria. VASCULAR: Normal Appearance. PELVIC VISCERA: The uterus and adnexa are unremarkable. OSSEOUS STRUCTURES: No lytic or blastic bone lesions. Mild degenerative spinal and hip joint changes. Normal SI joints. CT/CT abdomen pelvis wo IV con IMPRESSION: 1. No definite acute findings in the abdomen or pelvis allowing for noncontrast examination. Electronically signed by: Jr Galdamez MD 11/12/2024 04:46 PM [facility] [place]
[2024-11-12 14:17] VITALS: BP 136/92; PULSE 104; RESP 18; TEMP 36.6; O2SAT 98; BMI 28.1
--- NOTE | 2024-11-12 14:23 | ED_ITS ---
HPI - General Adult General Chief complaint: Abdominal Pain Stated complaint: L thigh pain Time Seen by Provider: 11/12/24 17:32 Source: patient Limitations: no limitations History of Present Illness ED Provider: Michaela Ko PA-C HPI narrative: 44-year-old female with a history of obesity, chronic constipation, prior diverticulitis, IBS, GERD, diabetes, hyperlipidemia, arthritis presents with left lower abdominal discomfort x5 days. Pain is focal to the left lower quadrant, she was unable to describe the nature of her discomfort it is nonradiating. Associated nausea. Patient has not had a bowel movement in 5 days. Denies distention, or inability to pass flatus, no fever no active vomiting. Related Data Home Medications ?Medication ?Instructions ?Recorded ?Confirmed polyethylene glycol 3350 17 17 g PO DAILY 07/07/20 11/12/24 gram/dose oral powder (Miralax) albuterol sulfate 2.5 mg/3 mL 2.5 mg continuous nebulization QID 08/27/24 11/12/24 (0.083 %) solution for nebulization PRN Previous Rx's ?Medication ?Instructions ?Recorded famotidine 20 mg tablet 40 mg (2 x 20 mg) PO BEDTIME #60 06/23/21 tabs omeprazole 40 mg capsule,delayed 40 mg PO DAILY #30 caps 10/02/21 release lancets 28 gauge (FreeStyle #100 ea 02/04/23 Lancets) sennosides 8.6 mg-docusate sodium 2 tab-cap (2 x 8.6-50 mg) PO 04/04/23 50 mg capsule (Senna Plus) BEDTIME 60 days #120 caps blood-glucose meter (FreeStyle #1 ea 05/13/23 Lite Meter kit) cholecalciferol (vitamin D3) 50 50 mcg PO DAILY 90 days #90 caps 03/18/24 mcg (2,000 unit) capsule atorvastatin 10 mg tablet 10 mg PO BEDTIME 90 days #90 tabs 06/09/24 glucose 4 gram chewable tablet 16 g (4 x 4 gram) PO Q15M PRN 06/09/24 (Dex4 Glucose Quick Dissolve) hypoglycemia #30 tabs metformin 500 mg tablet,extended 1,000 mg (2 x 500 mg) PO BID 90 06/09/24 release 24 hr days #360 tabs magnesium oxide 400 mg (241.3 mg 400 mg PO BID #180 tabs 06/23/24 magnesium) tablet blood sugar diagnostic (FreeStyle #100 ea 08/16/24 Lite Strips) gabapentin 300 mg capsule 300 mg PO BID pain 30 days #60 caps 08/18/24 tramadol 50 mg tablet 50 mg PO BID PRN pain (scale score 08/18/24 7-10) 15 days #30 tabs albuterol sulfate 90 mcg/actuation 2 puff inhalation Q6H PRN 08/27/24 aerosol inhaler shortness of breath or wheezing 30 days #18 grams nebulizer and compressor #1 ea 08/31/24 tirzepatide 2.5 mg/0.5 mL 2.5 mg (0.5 mL) subcut QWEEK #2 mL 09/08/24 subcutaneous pen injector (Rosita) loperamide 2 mg tablet (Imodium 2 mg PO Q6H PRN loose 10/09/24 A-D) stool/diarrhea #30 tabs ondansetron 4 mg disintegrating 4 mg PO Q8H PRN nausea and 10/09/24 tablet vomiting 10 days #30 tabs diclofenac sodium 1 % topical gel 2 g topical BID #100 grams 10/29/24 (Voltaren Arthritis Pain) ibuprofen 600 mg tablet 600 mg PO Q8H PRN pain #30 tabs 10/29/24 lidocaine 5 % topical patch See Rx Instructions topical DAILY 11/06/24 pain 30 days #30 ea dicyclomine 20 mg tablet 20 mg PO TID #90 tabs 11/10/24 metoclopramide HCl 10 mg tablet 10 mg PO Q6H PRN nausea and 11/12/24 (Reglan) vomiting #10 tabs Allergies Allergy/AdvReac Type Severity Reaction Status Date / Time Seasonal Allergies Allergy Mild runny nose Verified 11/12/24 14:19 Review of Systems 2 Review of Systems: Yes all other systems are reviewed and are negative Constitutional: Constitutional: Denies fatigue, Denies fever(s) and Denies headache(s) ENT: Denies headache(s) Cardiovascular: Cardiovascular: Denies chest pain and Denies dyspnea Respiratory: Respiratory: Denies cough and Denies dyspnea Gastrointestinal: Gastrointestinal: Reports abdominal pain, Denies bloating, Reports constipation, Reports nausea and Denies vomiting Neurologic: Denies headache(s) Endocrine: Endocrine: Denies fatigue [facility] Past Medical History Attestation statement: The following information was validated with the patient. Medical History Right elbow tendonitis Irritable bowel syndrome (IBS) HPV in female Hypomagnesemia HPV (human papilloma virus) infection Knee pain, bilateral Elevated blood pressure reading Obesity (BMI 30-39.9) GERD without esophagitis Pure hypercholesterolemia Type 2 diabetes mellitus without complications Diabetes Obesity (BMI 35.0-39.9 without comorbidity) Allergic rhinitis Calcaneal spur of left foot Hirsutism Plantar fasciitis of left foot Hypercholesterolemia Type 2 diabetes mellitus Chronic constipation Left lower quadrant abdominal pain Nausea and vomiting Chest pain, atypical GERD (gastroesophageal reflux disease) Surgical History Hx of colonoscopy H/O endoscopy [place] teeth removed History of esophagogastroduodenoscopy (EGD) (~10/2019) H/O section Family History Family History Father No problems noted. Mother Hypertension Edema Lymphedema Sister Crohn's disease Maternal Grandfather Alzheimers disease Parkinson disease Social History Social History Household Members: Family and Children Housing: House Alcohol intake: current Alcohol intake frequency: holidays/special occasions only Patient Tobacco Use Status: Never used Tobacco Smoked in Last 30 Days: No e-Cigarette/Vaping Use: Never Used Second Hand Smoke Exposure: Yes Use of substances other than those prescribed or required for medical reasons: No Advance Directives: No Advance Directives Information Provided: Yes Do you have a plan to hurt others: No Plan service: No Current occupational status: employed 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 Cognitive needs: No Hearing needs: No Vision needs: Yes Physical Exam ED Vital Signs: Vital Signs - 24 hr 11/12/24 14:17 11/12/24 19:16 Temperature 97.8 F 97.6 F Pulse Rate 104 H 82 Respiratory Rate 18 18 Blood Pressure 136/92 H 130/82 Pulse Oximetry 98 98 Oxygen Delivery Method Room Air Room Air BMI result Body Mass Index 28.1 Const Other: Alert Orientation/consciousness: patient oriented x3 Resp Effort & Inspection: normal respiratory effort Cardio Other: Normal peripheral perfusion GI Other: Abdomen is soft, obese, nondistended, mild generalized tenderness to palpation without guarding Skin Other: Warm dry no rash Neuro General: patient oriented x3, gait normal, no focal motor deficits and CN's II- XI intact bilaterally Psych Other: Cooperative, appears anxious Course Course Course Narrative: RME: 44-year-old female presents to ED for left lower quadrant abdominal pain. Patient states history of diverticulitis. Patient states no bowel movement for the past 6 days. Labs ordered Medications Administered Discontinued Medications Generic Name Dose Route Start Last Admin Trade Name Freq PRN Reason Stop Dose Admin Ketorolac Tromethamine 15 mg 11/12/24 17:58 11/12/24 18:16 Ketorolac Tromethamine 15 Mg/Ml Vial IVPUSH 11/12/24 17:59 15 mg ONCE ONE Administration Medical Decision Making Medical Decision Making MDM Narrative: 44-year-old female with a history of obesity, chronic constipation, prior diverticulitis, IBS, GERD, diabetes, hyperlipidemia, arthritis presents with left lower abdominal discomfort x5 days. Pain is focal to the left lower quadrant, she was unable to describe the nature of her discomfort it is nonradiating. Associated nausea. Patient has not had a bowel movement in 5 days. Denies distention, or inability to pass flatus, no fever no active vomiting. Problem: Constipation, IBS History: Per patient I have considered the following differential diagnoses: Constipation, bowel obstruction, diverticulitis, fecal impaction , gastroparesis Plan: Screening labs and a CT of the abdomen pelvis were obtained from triage, the patient does not have diverticulitis, they did not make a comment about her stool burden, and review of the CT scan, she is constipated. The remainder of her labs are unremarkable. We will send with home care instructions. Given she has diabetes, there could be an underlying element of gastroparesis, we will be sending her with Reglan. I have independently reviewed the following tests: Labs: No leukocytosis, not anemic, no electrolyte abnormality, not , CT abdomen and pelvis, CT/CT abdomen pelvis wo IV con IMPRESSION: 1. No definite acute findings in the abdomen or pelvis allowing for noncontrast examination. Electronically signed by: Jr Galdamez MD 11/12/2024 04:46 PM [facility] [place] Data 11/12/24 15:42 11/12/24 15:42 Labs: Lab Results 11/12/24 Range/Units 15:42 WBC 9.9 (4.8-10.8) X10*3/uL RBC 4.57 (4.20-5.50) X10*6/uL Hgb 13.9 (12.0-16.0) g/dl Hct 41.1 (37.0-47.0) % MCV 89.9 (80.0-98.0) fL MCH 30.4 (27.0-33.0) pg MCHC 33.8 (31.0-35.0) g/dl RDW 12.2 (11.0-16.0) % Plt Count 253 (160-400) X10*3/uL MPV 10.0 (9.4-12.3) fL Immature Gran % (Auto) 0.1 (0.0-0.4) % Neut % (Auto) 53.0 (45-73) % Lymph % (Auto) 40.2 H (20-40) % [place] % (Auto) 4.8 (2-11) % Eos % (Auto) 1.3 (0-4) % Baso % (Auto) 0.6 (0-2) % Lymph # (Auto) 4.0 (1.2-4.9) X10*3/uL [place] # (Auto) 0.5 (0.1-1.2) X10*3/uL Eos # (Auto) 0.1 (0.0-0.4) X10*3/uL Baso # (Auto) 0.1 (0.0-0.2) X10*3/uL Abs Immat Gran (auto) 0.01 (0.00-0.03) X10*3/uL Absolute Neuts (auto) 5.2 (2.0-8.3) x10*3/uL Absolute Nucleated RBC 0.000 (0.0-0.012) X10*3/uL Nucleated RBC % (auto) 0.0 (0.0-0.2) /100WBC Sodium 140 (135-145) mmol/L Potassium 4.1 (3.3-5.1) mmol/L Chloride 105 (96-108) mmol/L Carbon Dioxide 26 (22-29) mmol/L Anion Gap 13 (12-20) BUN 21 H (9-16) mg/dL Creatinine 0.93 (0.5-1.4) mg/dL Estim Creat Clear Calc 67.1 Estimated GFR > 60 Random Glucose 121 H (60-115) mg/dL Calcium 9.6 (8.4-10.2) mg/dL Total Bilirubin 0.3 (0.0-1.0) mg/dL AST 17 (5-31) U/L ALT 18 (0-31) U/L Alkaline Phosphatase 61 (39-117) U/L Total Protein 7.8 (6.5-8.0) g/dL Albumin 4.5 (3.5-5.0) g/dL Lipase 22 (8-78) U/L Beta HCG, Quant < 2 mIU/mL Discharge Plan Discharge Clinical Impression: Constipation Qualifiers: Constipation type: unspecified constipation type Qualified Code(s): K59.00 - Constipation, unspecified Patient Disposition: Home, Self-Care Instructions: Constipation (ED) Additional Instructions: All of your screening labs were normal, there was no infection noted on the CT scan. You are constipated. See home care instructions. You need to stay on a bowel regimen indefinitely, to prevent episodes of constipation. Use Colace 1 to 2 times a day this is a stool softener it can be purchased [id number]. Use MiraLax 2 to 3 times a day, until you regulate your bowel habits, this can be purchased [id number]. Use the Reglan as needed for nausea, this will help your gut motility. Continue to follow up with your primary care provider. Prescriptions: New metoclopramide HCl [Reglan] 10 mg tablet 10 mg PO Q6H PRN (Reason: nausea and vomiting) Qty: 10 0RF No Action famotidine 20 mg tablet 40 mg PO BEDTIME Qty: 60 3RF omeprazole 40 mg capsule,delayed release(DR/EC) 40 mg PO DAILY Qty: 30 5RF (DME) blood-glucose meter [FreeStyle Lite Meter] Kit See Rx Instructions .Route Qty: 1 0RF Rx Instructions: test once daily cholecalciferol (vitamin D3) 50 mcg (2,000 unit) capsule 50 mcg PO DAILY 90 Days Qty: 90 3RF magnesium oxide 400 mg (241.3 mg magnesium) tablet 400 mg PO BID Qty: 180 3RF (DME) FreeStyle Lite Strips Strip See Rx Instructions .Route Qty: 100 5RF Rx Instructions: As directed albuterol sulfate 2.5 mg /3 mL (0.083 %) solution for nebulization 2.5 mg continuous nebulization QID PRN Rx Instructions: 3 ml Inhalation four times a day as needed (DME) nebulizer and compressor Device See Rx Instructions .Route Qty: 1 0RF Rx Instructions: As directed lidocaine 5 % adhesive patch,medicated See Rx Instructions topical DAILY 30 Days Qty: 30 3RF Rx Instructions: leave on most painful area for up to 12 hrs topically daily; dicyclomine 20 mg tablet 20 mg PO TID Qty: 90 2RF (DME) lancets [FreeStyle Lancets] 28 gauge misc See Rx Instructions .Route Qty: 100 5RF Rx Instructions: As directed polyethylene glycol 3350 [Miralax] 17 gram/dose powder 17 g PO DAILY Senna Plus 8.6-50 mg capsule 2 tab-cap PO BEDTIME 60 Days Qty: 120 1RF ibuprofen 600 mg tablet 600 mg PO Q8H PRN (Reason: pain) Qty: 30 0RF diclofenac sodium [Voltaren Arthritis Pain] 1 % gel 2 g topical BID Qty: 100 0RF Rx Instructions: Apply to the affected Joint as directed. metformin 500 mg tablet extended release 24 hr 1,000 mg PO BID 90 Days Qty: 360 1RF glucose [Dex4 Glucose Quick Dissolve] 4 gram tablet,chewable 16 g PO Q15M PRN (Reason: hypoglycemia) Qty: 30 3RF Rx Instructions: until symptoms of low blood sugar are controlled atorvastatin 10 mg tablet 10 mg PO BEDTIME 90 Days Qty: 90 1RF ondansetron 4 mg tablet,disintegrating 4 mg PO Q8H PRN (Reason: nausea and vomiting) 10 Days Qty: 30 1RF loperamide [Imodium A-D] 2 mg tablet 2 mg PO Q6H PRN (Reason: loose stool/diarrhea) Qty: 30 0RF gabapentin 300 mg capsule 300 mg PO BID 30 Days Qty: 60 0RF tramadol 50 mg tablet 50 mg PO BID PRN (Reason: pain (scale score 7-10)) 15 Days Qty: 30 0RF albuterol sulfate 90 mcg/actuation HFA aerosol inhaler 2 puff inhalation Q6H PRN (Reason: shortness of breath or wheezing) 30 Days Qty: 18 0RF Mounjaro 2.5 mg/0.5 mL pen injector 2.5 mg subcut QWEEK Qty: 2 5RF Rx Instructions: for 4 weeks Stand Alone Forms: Work/School Release Interventions: ED Discharge Assessment Last Done: 11/12/24 19:16 Discharge Date/Time: 11/12/24 19:17 Print Language: Slovak
[2024-11-12 15:47] LABS: MANUAL DIFF FLAG NO
[2024-11-12 15:49] LABS: Basophils Absolute Auto 0.1 X10*3/uL (0.0-0.2); Basophils Percent Auto 0.6 % (0-2); Eosinophils Absolute Auto 0.1 X10*3/uL (0.0-0.4); Eosinophils Percent Auto 1.3 % (0-4); Hematocrit 41.1 % (37.0-47.0); Hemoglobin 13.9 g/dl (12.0-16.0); Imm Gran Abs Auto 0.01 X10*3/uL (0.00-0.03); Imm Gran Pct Auto 0.1 % (0.0-0.4); Lymphocytes Percent Auto 40.2 % (20-40); Mean Corpuscular HGB Conc 33.8 g/dl (31.0-35.0); Mean Corpuscular Hemoglobin 30.4 pg (27.0-33.0); Mean Corpuscular Volume 89.9 fL (80.0-98.0); Monocytes Absolute Auto 0.5 X10*3/uL (0.1-1.2); Monocytes Percent Auto 4.8 % (2-11); Neutrophils Absolute Auto 5.2 x10*3/uL (2.0-8.3); Platelet Count 253 X10*3/uL (160-400); Red Blood Count 4.57 X10*6/uL (4.20-5.50); Red Cell Distribution Width 12.2 % (11.0-16.0); White Blood Count 9.9 X10*3/uL (4.8-10.8)
[2024-11-12 16:10] LABS: Alanine Aminotransferase 18 U/L (0-31); Albumin Level 4.5 g/dL (3.5-5.0); Anion Gap 13 (12-20); Aspartate Amino Transferase 17 U/L (5-31); Bilirubin Total 0.3 mg/dL (0.0-1.0); Blood Urea Nitrogen 21 mg/dL (9-16); Calcium 9.6 mg/dL (8.4-10.2); Carbon Dioxide 26 mmol/L (22-29); Chloride 105 mmol/L (96-108); Creatinine Clr Calc Pharmacy 67.1; Estimated Glomerular Filt Rate > 60; Glucose Random 121 mg/dL (60-115); Lipase 22 U/L (8-78); Potassium 4.1 mmol/L (3.3-5.1); Sodium 140 mmol/L (135-145); Total Protein 7.8 g/dL (6.5-8.0)
[2024-11-12 16:11] LABS: HCG Quantitative < 2 mIU/mL
[2024-11-12 16:26] LABS: Alkaline Phosphatase 61 U/L (39-117)
[2024-11-12] MEDS: Ketorolac Tromethamine 15 MG/ML VIAL IVPUSH (18:16)
--- NOTE | 2024-11-12 19:14 | PC.NURSE ---
This nurse reviewed discharge instructions with pt, pt verbalized understanding, Notified Primary nurse, Tomasz. no sign of distress.
[2024-11-12 19:16] VITALS: BP 130/82; PULSE 82; RESP 18; TEMP 36.4; O2SAT 98
== END 2024-11-12 19:17 | disposition home or self-care (01) ==
PROVIDERS: Physician Assistant; Emergency Provider Emergency Medicine; PCP Internal Medicine
DX: K59.00 Constipation, unspecified (principal); R10.32 Left lower quadrant pain; E78.00 Pure hypercholesterolemia, unspecified; E11.9 Type 2 diabetes mellitus without complications; Z79.84 Long term (current) use of oral hypoglycemic drugs; Z79.899 Other long term (current) drug therapy
CPT/HCPCS: 36415; 74176; 80053; 83036; 83690; 84702; 85025; 96127; 96374; 99212; 99284; J1885

== ENCOUNTER → 2024-11-12 16:07 | Outpatient (BNV) | payer OTHER, SELFPAY | PROVIDERS: PCP Internal Medicine; Visit Provider Radiology Diagnostic Radiology | DX: R10.32 Left lower quadrant pain (principal) | CPT/HCPCS: 74176 ==

== ENCOUNTER 2024-11-23 10:56 | Outpatient (AMB) | payer OTHER, SELFPAY ==
--- NOTE | 2024-11-23 10:56 | MHC.OFFWIV ---
Intake Vital Signs 11/23/24 11:02 Weight 154 lb BP 122/80 Blood Pressure Location Rt brachial Position Sitting Pulse 88 Pulse Source Pulse Oximeter Pulse Oximetry (%) 97 Oxygen Delivery Method Room Air Intake Visit Reasons: EP Pain in rt knee down to calf Intake Note: Patient here for right knee pain, she does have an upcoming procedure next week. Patient Tobacco Use Status: Never used Tobacco Allergies Seasonal Allergies Allergy (Mild, Verified 11/23/24 11:03) runny nose Do you need a note to return to daycare/school/sports/work: Yes HPI HPI Comments History of Present Illness Details 44 y/o female patient who presents to the walk in clinic with c/o Severe right knee pain. H/o Patello-Femoral Arthritis right knee and currently under the care with Pain management. She is prescribed Tramadol for pain relief, but has not taken it because she is scared of getting dependent on Narcotics. She has an appointment with Pain management next week for a Steroid injection to the right knee. [facility] Medical History Right elbow tendonitis Irritable bowel syndrome (IBS) HPV in female Hypomagnesemia HPV (human papilloma virus) infection Knee pain, bilateral Elevated blood pressure reading Obesity (BMI 30-39.9) GERD without esophagitis Pure hypercholesterolemia Type 2 diabetes mellitus without complications Diabetes Obesity (BMI 35.0-39.9 without comorbidity) Allergic rhinitis Calcaneal spur of left foot Hirsutism Plantar fasciitis of left foot Hypercholesterolemia Type 2 diabetes mellitus Chronic constipation Left lower quadrant abdominal pain Nausea and vomiting Chest pain, atypical GERD (gastroesophageal reflux disease) Surgical History Hx of colonoscopy H/O endoscopy [place] teeth removed History of esophagogastroduodenoscopy (EGD) (~10/2019) H/O section Family History Father No problems noted. 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 Cognitive needs: No Hearing needs: No Vision needs: Yes Female Reproductive History Menstrual Age of Menarche: 9 Review of Systems Const All systems reviewed & are unremarkable except as noted in HPI and below Physical Exam Vital Signs: Last Vital Signs Pulse 88 11/23/24 11:02 BP 122/80 11/23/24 11:02 Pulse Ox 97 11/23/24 11:02 Oxygen Delivery Method Room Air 11/23/24 11:02 Const General: no acute distress Nutritional Appearance: overweight Orientation/consciousness: patient oriented x3 Neuro General: patient oriented x3 Extrem Right lower extremity: knee Details: normal to inspection, tenderness Location: of the patella, of the medial joint line and of the lateral joint line, abnormal ROM Details: pain with active ROM during and pain with passive ROM during and crepitus Location: at the kneww and at the patella Psych Speech and movement: Normal speech and movement present Assessment & Plan Assessment & Plan (1) Patellofemoral arthritis of right knee: Code(s): M17.11 - Unilateral primary osteoarthritis, right knee Plan: Rest the joint. Take Tramadol for pain relief Ice/Hot F/U with Pain management. Coding Level of Care Code Est Pt Level 4 (98850) Diagnoses Patellofemoral arthritis of right knee M17.11 Time Spent (min) 20
[2024-11-23 11:02] VITALS: BP 122/80; PULSE 88; O2SAT 97
== END 2024-11-23 11:33 | disposition home or self-care (01) ==
PROVIDERS: PCP Internal Medicine; Visit Provider Nurse Practitioner Family
DX: M17.11 Unilateral primary osteoarthritis, right knee (principal)

== ENCOUNTER → 2024-11-23 10:56 | Outpatient (BNVA) | payer OTHER, SELFPAY | PROVIDERS: PCP Internal Medicine; Visit Provider Nurse Practitioner Family | DX: M17.11 Unilateral primary osteoarthritis, right knee (principal) | CPT/HCPCS: 99212 ==

== ENCOUNTER 2024-12-01 06:22 | Outpatient (REF) | payer OTHER, SELFPAY ==
--- NOTE | ~2024-12-01 | FL_ITS ---
EXAMINATION: XR FLUOROSCOPY WITH IMAGES CLINICAL INFORMATION: Unilateral primary osteoarthritis, right knee. COMPARISON: MRI right knee 06/23/2024. TECHNIQUE: Fluoroscopy provided to: Dr. aMrte Fluoroscopy time: 0.0 minutes DAP: [id number] [id number] Images: 0 FINDINGS: No images obtained. Procedure was canceled. Refer to full procedural report to follow. FL/FL guidance in treatment room IMPRESSION: Fluoroscopic guidance. Electronically signed by: Jr Galdamez MD 12/07/2024 08:40 AM EDT
== END 2024-12-01 06:23 | disposition home or self-care (01) ==
LOC: CF 06:22
PROVIDERS: Visit Provider Anesthesiology
DX: M17.11 Unilateral primary osteoarthritis, right knee (principal); M23.91 Unspecified internal derangement of right knee; M25.561 Pain in right knee
CPT/HCPCS: 64454; J2003; J2795; Q9967

== ENCOUNTER 2024-12-03 08:36 | Outpatient (AMB) | payer OTHER, SELFPAY ==
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
[2024-12-03 08:38] VITALS: BP 137/78; PULSE 83; O2SAT 99; BMI 29.5
== END 2024-12-03 09:11 | disposition home or self-care (01) ==
LOC: HO.HGI 08:37
PROVIDERS: PCP Internal Medicine; Visit Provider Internal Medicine Gastroenterology
DX: R07.89 Other chest pain (principal); K59.09 Other constipation; K21.9 Gastro-esophageal reflux disease without esophagitis; R68.81 Early satiety; K58.1 Irritable bowel syndrome with constipation; R10.32 Left lower quadrant pain
CPT/HCPCS: 99214

== ENCOUNTER → 2024-12-03 08:36 | Outpatient (BNVA) | payer OTHER, SELFPAY | PROVIDERS: PCP Internal Medicine; Visit Provider Internal Medicine Gastroenterology | DX: K21.9 Gastro-esophageal reflux disease without esophagitis (principal); K59.09 Other constipation; K25.1 Acute gastric ulcer with perforation; R07.89 Other chest pain; R10.32 Left lower quadrant pain; R68.81 Early satiety | CPT/HCPCS: 99212 ==

== ENCOUNTER 2024-12-18 06:50 | Day surgery (SDC) | payer OTHER, SELFPAY ==
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
--- NOTE | ~2024-12-18 | FL_ITS ---
EXAMINATION: FL GUIDANCE ONLY HISTORY: right genicular nerve block COMPARISON: None available. TECHNIQUE: Fluoroscopy time: 18.8 seconds. Cumulative Dose: 1.7776 mGy. DAP: 0.6874 mGym2 Images: 2. FINDINGS: AP and lateral fluoroscopic spot films of the right knee demonstrate multiple needles in the soft tissues. FL/FL guidance in OR IMPRESSION: Fluoroscopy during procedure. Please see procedure report for additional information. Electronically signed by: Armaan Hdz MD 12/18/2024 08:18 AM EDT
--- NOTE | 2024-12-18 07:04 | MHC.SHP ---
Pre-Procedural Eval Section A - 24 Hr Update-Section A only Date of Service: 12/18/24 The patient is an INPATIENT: No Changes since office visit: Yes Patient answered all questions The patient has been examined within 24 hours of the surgical procedure. The History & Physical has been completed within 30 days and I have reviewed it.: No Section B - Complete if H&P > 30 days Chief Complaint: Unilateral primary osteoarthritis, right knee Details of Present Illness: as above Relevant Family History (Specify if Yes): No Relevant Social History: None Present Medications: see Short Stay Collaborative assessment Medical History: No relevant PMH History of Previous Operations: No relevant previous surgery Allergies: Allergies Allergy/AdvReac Type Severity Reaction Status Date / Time Seasonal Allergies Allergy Mild runny nose Verified 12/18/24 06:58 Review of Systems Sugical H&P ROS: Negative: Constitution, Respiratory, Neurological, Psychiatric, Hem-Onc, Allergic/Immunologic, Genitourinary, Integumentary and Eyes/Ears/Nose/Throat and Yes, Specify: Cardiovascular (HTN), Gastrointestinal (IBS, GERD), Musculoskeletal (as above) and Endocrine (DM II) Exam Surgical H&P Exam: Normal: HEENT, Normal: Heart, Normal: Lungs, Normal: Extremities, Normal: Abdomen, Normal: Skin and Normal: Neurological Plan Diagnosis/Plan: Unchanged I have reviewed the history and physical and performed a pertinent physical examination on my patient. No changes have occurred unless specified. Time Spent With Patient Time: Total time managing care of this patient today __5__ minutes . I am going to perform diagnose genicular nerve block right knee.
[2024-12-18] MEDS: Lactated Ringers 1,000 ML 100 ML IVCONT (07:12)
[2024-12-18 07:19] LABS: UPreg QC Valid YES; Urine Pregnancy NEGATIVE (NEGATIVE)
[2024-12-18 07:24] VITALS: BMI 26.6
[2024-12-18 07:25] VITALS: BP 128/81; PULSE 93; RESP 18; TEMP 36.6; O2SAT 99
[2024-12-18 07:31] LABS: Glucose, Whole Blood 198 mg/dL (60-115)
--- NOTE | 2024-12-18 07:55 | PM.OP ---
Brief Operative Note Date of Service: 12/18/24 Pre-op diagnosis: Right knee pain, right knee OA Post-op diagnosis: same Procedure: diagnostic genicular nerve block Implants: no Surgeon: Emmanuel Marte MD Anesthesia: MAC Was an Rail Maintenance Worker used for this Procedure?: No Estimated blood loss (mL): 0 Disposition: PACU
--- NOTE | 2024-12-18 07:56 | P.OP_ITS ---
Operative Note Operative Note Date of Service: 12/18/24 Narrative: Right knee diagnostic genicular nerve block. Sugar is very pleasant 44 years old female who is here in the operating room for diagnostic genicular nerve block, she unfortunately was not able to tolerate this procedure without sedation. The very moment I inserted 25 gauge needle into the subcutaneous tissues of this patient she freaked out and ask me to stop the procedure. The patient was brought to the operating room after informed consent was thoroughly explained to the patient. Risks and benefits were explained including risks of bleeding and infection. Need for postoperative pain monitoring was carefully explained to the patient. The patient was brought to the operating room where she was positioned supine on operating table with the Gel roll under her right knee. ASA monitors were ap plied and patient was deeply sedated. The right knee anterior lateral and medial surfaces were prepped with ChloraPrep and draped with sterile self adhesive utility towels. Time-out was performed delineating name and date of of the patient, allergies of the patient, she is not allergic to anything,side and site of the procedure, nature of the procedure, needs for antibiotic (non require ), risk of fire. C-arm was brought over the knee of the patient and anterior posterior image of the right knee was obtained on the screen. The point of interest were delineated as: 1. Canadian of the medial metaphysis of the tibia with medial epiphysis of the tibia bone. 2. Canadian of the metaphysis of the medial femur with the medial epiphysis of the femur. 3. Canadian of the metaphysis of the lateral femur with the lateral and epiphysis of the femur The projection of the point of interest to the skin was injected with small amount of lidocaine 2% mixed with ropivacaine 0.5% one-to-one forming a skin wheal. After that three 22 gauge 3-1/2 in spinal needles were inserted through the skin wheal and advanced to the point of interest under x-ray guidance. When tips of the needles gently contacted the bone surface the position of the C-arm was changed to the lateral, the care was taken to superimpose the condyles of the right knee, the all the needles were adjusted to make sure that the tip of the needle was positioned in the center of the shaft of the both tibial and femur bones, after that injection of the ropivacaine 0.5% 1 mL was performed into each needle. Upon completion of the injection needles were withdrawn and sterile Band-Aids were applied. The patient tolerated procedure well, she was transferred to PACU for recovery.
[2024-12-18 07:57] VITALS: BP 120/80; PULSE 84; RESP 20; TEMP 36.6; O2SAT 97
[2024-12-18 08:12] VITALS: BP 134/78; PULSE 82; RESP 16; O2SAT 98
[2024-12-18 08:27] VITALS: BP 131/90; PULSE 84; RESP 16; TEMP 36.3; O2SAT 98
== END 2024-12-18 08:57 | disposition home or self-care (01) ==
PROVIDERS: Nurse Practitioner; PCP Internal Medicine; Visit Provider Anesthesiology
PROC: (CPT 64454; principal; 2024-12-18 09:10)
DX: M25.561 Pain in right knee (principal); M17.11 Unilateral primary osteoarthritis, right knee; M23.91 Unspecified internal derangement of right knee; E11.9 Type 2 diabetes mellitus without complications; E78.00 Pure hypercholesterolemia, unspecified; R03.0 Elevated blood-pressure reading, without diagnosis of hypertension; R07.89 Other chest pain; J30.2 Other seasonal allergic rhinitis; E66.9 Obesity, unspecified; Z79.1 Long term (current) use of non-steroidal anti-inflammatories (NSAID); Z79.84 Long term (current) use of oral hypoglycemic drugs; Z79.85 Long-term (current) use of injectable non-insulin antidiabetic drugs; Z79.899 Other long term (current) drug therapy; Z98.890 Other specified postprocedural states
CPT/HCPCS: 64454; 81025; 82947; J2003; J2250; J2704; J2795; J3010

== ENCOUNTER → 2024-12-18 06:50 | Outpatient (BNV) | payer OTHER, SELFPAY | PROVIDERS: PCP Internal Medicine; Visit Provider Anesthesiology | DX: M25.561 Pain in right knee (principal); M17.11 Unilateral primary osteoarthritis, right knee | CPT/HCPCS: 64454 ==

== ENCOUNTER 2024-12-29 10:08 | Outpatient (AMB) | payer OTHER, SELFPAY ==
--- NOTE | 2024-12-29 10:09 | A.OFFVIS_ITS ---
Vital Signs 12/29/24 10:13 Height 5 ft 4 in Weight 164 lb 0.383 oz BMI 28.2 BP 114/82 Blood Pressure Location Rt brachial Position Sitting Pulse 86 Pulse Source Pulse Oximeter Pulse Oximetry (%) 98 Oxygen Delivery Method Room Air Intake Visit Reasons: T2DM Intake Note: Patient present today to follow up on Type 2 Diabetes Mellitus. Last Diabetic Eye exam: December 2024 Last Podiatry Visit: Does not see a Church Administrator Random Glucose: 264 mg/dl HgA1C: 7% 11/12/2024 done at PCP office. Portable Machine Cutter Required: No Accompanied by: Self / Same As Patient Allergies Seasonal Allergies Allergy (Mild, Verified 12/29/24 10:14) runny nose HPI Comments Details: This is a 44-year-old female with a past medical history of hyperlipidemia, type 2 diabetes, GERD and obesity presenting for diabetic management. She was diagnosed with gestational diabetes in 2011. She then developed prediabetes and says she was diagnosed with Type II DM about 4 years ago. Her blood sugar is high today, but she ran out of metformin a few days ago, and she had a bowl of cereal 30 minutes before this visit. Denies symptoms of hyperglycemia. The refill for metformin is at the pharmacy. No glucometer data today. She purchased to Dex[employer]logix G7 sensors [id number], but she wants to see if her insurance will cover this. Patient reports that Dexcom alerted her to hyperglycemia after meals frequently with the alert set for blood sugar over 250. She saw the clinical document improvement educator. Hemoglobin A1c 7% 11/12/2024 down from Hemoglobin a1c 7.6% 10/08/2024 down from 10% 06/03/24. Current medication regimen: Metformin ER 1000 mg twice daily, Mounjaro 2.5 mg weekly. Nausea on Mounjaro resolved. Past medication: Trulicity discontinued due to it being unavailable and GI side effects on the increased dosage. Compliance issues: seeing therapist to help with goal setting. History of PTSD. Hypoglycemia symptoms: none Hyperglycemia symptoms: none Eye exam: Up-to-date and no retinopathy or macular edema per patient. Microvascular complications: She had microalbuminuria x1 which resolved on repeat labs. Macrovascular complications: none Hyperlipidemia: treated with atorvastatin 10 mg. ROS: Constitutional: No unexplained weight loss, fever, chills, fatigue or night sweats. Eyes: No vision changes Respiratory: No shortness of breath Cardiovascular: No chest pain Neurologic: No numbness, tingling, dizziness, headache or weakness Endocrine: No cold or heat intolerance. No polyuria or polydipsia. Physical exam: Constitutional: Alert, in no distress. Neck: Supple, Full range of motion. No lymphadenopathy. No palpable thyroid masses. Respiratory: Clear to auscultation. Cardiovascular: S1 S2 regular. No murmurs Psychiatric: Normal mood and affect [facility] Medical History Right elbow tendonitis Irritable bowel syndrome (IBS) HPV in female Hypomagnesemia HPV (human papilloma virus) infection Knee pain, bilateral Elevated blood pressure reading Obesity (BMI 30-39.9) GERD without esophagitis Pure hypercholesterolemia Type 2 diabetes mellitus without complications Diabetes Obesity (BMI 35.0-39.9 without comorbidity) Allergic rhinitis Calcaneal spur of left foot Hirsutism Plantar fasciitis of left foot Hypercholesterolemia Type 2 diabetes mellitus Chronic constipation Left lower quadrant abdominal pain Nausea and vomiting Chest pain, atypical GERD (gastroesophageal reflux disease) Surgical History Hx of knee surgery Hx of colonoscopy H/O endoscopy Vestal teeth removed History of esophagogastroduodenoscopy (EGD) (~10/2019) H/O section Family History Father No problems noted. Mother Hypertension Edema Lymphedema Sister Crohn's disease Maternal Grandfather Alzheimers disease Parkinson disease Social History Household Members: Family and Children Both parents involved: Yes Housing: House Are you a primary home day care provider to a significant other at home: No Do you presently have visiting nurse or other home services: No Alcohol intake: current Alcohol intake frequency: holidays/special occasions only Patient Tobacco Use Status: Never used Tobacco e-Cigarette/Vaping Use: Never Used Second Hand Smoke Exposure: Yes service: No Current occupational status: employed 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 Cognitive needs: No Hearing needs: No Vision needs: Yes Female Reproductive History Menstrual Age of Menarche: 9 Physical Exam Vital Signs: Last Vital Signs Pulse 86 12/29/24 10:13 BP 114/82 12/29/24 10:13 Pulse Ox 98 12/29/24 10:13 Oxygen Delivery Method Room Air 12/29/24 10:13 BMI result Body Mass Index 28.2 Results Reviewed Results Reviewed: Laboratory Last Values Glucose (Clinic) 264 mg/dL (60-115) H 12/29/24 10:20 Laboratory Tests 09/08/24 11/12/24 11/12/24 11:00 13:31 15:42 Plt Count 253 Creatinine 0.93 Estimated GFR > 60 Hgb A1c (Clinic) 7 H AST 17 ALT 18 Urine Creatinine 332.21 Urine Microalbumin 72.0 Microalb/Creat Ratio 21.6 Assessment & Plan Assessment & Plan (1) Type 2 diabetes mellitus without complications: Code(s): E11.9 - Type 2 diabetes mellitus without complications Category: Medical Qualifiers: Diabetes mellitus group home insulin use: without terminal system operator use Qualified Code(s): E11.9 - Type 2 diabetes mellitus without complications Plan: In summary this is a 44-year-old female with type 2 diabetes. Increase Mounjaro to 5 mg weekly. Continue metformin extended release a 1000 mg twice daily. She will machine pecan picker the prescription from the pharmacy. Complications of type 2 diabetes reviewed with the patient. Dexcom G7 submitted to pharmacy. Advised patient this will require a prior authorization. I placed a sample G7 sensor, and she left with this in the warm up period. If you experience low blood sugar, treat this by eating a chewable fruit candy like skittles or jelly beans (about 8 pieces), 4 ounces (1/2 cup) of fruit juice (not diet), 1 tablespoon of honey or 4 glucose tablets. If your blood sugar is under 55, take double the amount of one of the above. Recheck your blood sugar in 15 minutes. She has glucose tablets at home. Follow up in 6 weeks for type 2 diabetes. Medications: New blood-glucose sensor (Dexcom G7 Sensor device) apply new sensor every 10 days as directed 3 ea 11RF blood-glucose,nuclear plant construction worker,cont (Dexcom G7 Addictions Counselor) As directed 1 ea 0RF tirzepatide (Mounjaro) 5 mg (0.5 mL) subcut QWEEK 2 mL 3RF Discontinued tirzepatide (Mounjaro) for 4 weeks Discontinued Reason: Doctor's Order 2.5 mg (0.5 mL) subcut QWEEK 2 mL 5RF Coding Level of Care Code Est Pt Level 4 (79520) Complex EM visit Add On G2211 Diagnoses Type 2 diabetes mellitus without complication, without long-term current use of insulin E11.9 Diabetes mellitus terminal system operator insulin use: without group home use
[2024-12-29 10:13] VITALS: BP 114/82; PULSE 86; O2SAT 98; BMI 28.2
[2024-12-29 10:25] LABS: Glucose, Whole Blood 264 mg/dL (60-115)
== END 2024-12-29 10:44 | disposition home or self-care (01) ==
LOC: HO.ENCR 10:08
PROVIDERS: PCP Internal Medicine; Visit Provider Physician Assistant Medical
DX: E11.9 Type 2 diabetes mellitus without complications (principal)

== ENCOUNTER → 2024-12-29 10:08 | Outpatient (BNVA) | payer OTHER, SELFPAY | PROVIDERS: PCP Internal Medicine; Visit Provider Physician Assistant Medical | DX: E11.9 Type 2 diabetes mellitus without complications (principal); E78.5 Hyperlipidemia, unspecified | CPT/HCPCS: 82947; 99212 ==

== ENCOUNTER 2025-01-08 15:34 | Emergency (ER) | payer OTHER, SELFPAY ==
--- NOTE | ~2025-01-08 | XR_ITS ---
CLINICAL HISTORY: pain with existing knee injury 4 view right knee Comparison: CR/CT/SR - XR KNEE RT 4V - 05/12/24 16:34 EDT Findings: No acute fracture. No dislocation. Joint spaces overall maintained. Mild medial and lateral endplate osteophyte formation and patellar osteophyte formation. No erosions. No joint effusion. No radiopaque foreign body. IMPRESSION: 1. No acute findings. This document has been electronically signed by: Cecile Self MD on 01/08/2025 18:00:52
[2025-01-08 16:13] VITALS: BP 153/85; PULSE 98; RESP 16; TEMP 37; O2SAT 100; BMI 31.2
--- NOTE | 2025-01-08 18:30 | PC.NURSE ---
Patient presents with right knee pain which appears to be chronic. Had genicular nerve block on 12/18 with minimal effect with pain 06/25. Knee immobilizer intact. Respirations even and no-labored. Abomen soft, non-tender with positive bowel sounds. No LE edema noted.
--- NOTE | 2025-01-08 18:32 | ED_ITS ---
HPI - General Adult General Chief complaint: Extremity Injury, Lower Stated complaint: R Knee Pain Time Seen by Provider: 01/08/25 18:30 Source: patient Mode of arrival: ambulatory Limitations: no limitations History of Present Illness ED Provider: Jovi Antoine HPI narrative: 44 yold female with pmh IBS, GERD, highcholsterol presents to the ED chronic anterior right knee pain. Patient had injry to right knee 4 months ago and has been manaed by pain clinic. Patient has had steroid injected to the knee and on the 4th she had like a knee block done ever since has had continuous anterior pain still. Patient denies any leg swelling, calf pain, redness, stiffness, or posterior knee pain Related Data Home Medications ?Medication ?Instructions ?Recorded ?Confirmed polyethylene glycol 3350 17 17 g PO DAILY 07/07/20 12/18/24 gram/dose oral powder (Miralax) albuterol sulfate 2.5 mg/3 mL 2.5 mg continuous nebulization QID 08/27/24 12/18/24 (0.083 %) solution for nebulization PRN Bronchospasm Previous Rx's ?Medication ?Instructions ?Recorded famotidine 20 mg tablet 40 mg (2 x 20 mg) PO BEDTIME #60 06/23/21 tabs omeprazole 40 mg capsule,delayed 40 mg PO DAILY #30 caps 10/02/21 release lancets 28 gauge (FreeStyle #100 ea 02/04/23 Lancets) sennosides 8.6 mg-docusate sodium 2 tab-cap (2 x 8.6-50 mg) PO 04/04/23 50 mg capsule (Senna Plus) BEDTIME 60 days #120 caps blood-glucose meter (FreeStyle #1 ea 05/13/23 Lite Meter kit) cholecalciferol (vitamin D3) 50 50 mcg PO DAILY 90 days #90 caps 03/18/24 mcg (2,000 unit) capsule atorvastatin 10 mg tablet 10 mg PO BEDTIME 90 days #90 tabs 06/09/24 glucose 4 gram chewable tablet 16 g (4 x 4 gram) PO Q15M PRN 06/09/24 (Dex4 Glucose Quick Dissolve) hypoglycemia #30 tabs magnesium oxide 400 mg (241.3 mg 400 mg PO BID #180 tabs 06/23/24 magnesium) tablet tramadol 50 mg tablet 50 mg PO BID PRN pain (scale score 12/03/24 7-10) 15 days #30 tabs albuterol sulfate 90 mcg/actuation 2 puff inhalation Q6H PRN 08/27/24 aerosol inhaler shortness of breath or wheezing 30 days #18 grams nebulizer and compressor #1 ea 08/31/24 loperamide 2 mg tablet (Imodium 2 mg PO Q6H PRN loose 10/09/24 A-D) stool/diarrhea #30 tabs ondansetron 4 mg disintegrating 4 mg PO Q8H PRN nausea and 10/09/24 tablet vomiting 10 days #30 tabs diclofenac sodium 1 % topical gel 2 g topical BID #100 grams 10/29/24 (Voltaren Arthritis Pain) ibuprofen 600 mg tablet 600 mg PO Q8H PRN pain #30 tabs 10/29/24 lidocaine 5 % topical patch See Rx Instructions topical DAILY 11/06/24 pain 30 days #30 ea metoclopramide HCl 10 mg tablet 10 mg PO Q6H PRN nausea and 11/12/24 (Reglan) vomiting #10 tabs linaclotide 145 mcg capsule 145 mcg PO QAM 30 days #30 caps 12/03/24 (Linzess) blood sugar diagnostic (FreeStyle #100 ea 12/18/24 Lite Strips) dicyclomine 20 mg tablet 20 mg PO TID 30 days #90 tabs 12/28/24 metformin 500 mg tablet,extended 1,000 mg (2 x 500 mg) PO BID #360 12/28/24 release 24 hr tabs blood-glucose sensor (Dexcom G7 #3 ea 12/29/24 Sensor device) blood-glucose,brake lining driller,cont #1 ea 12/29/24 (Dexcom G7 Stripper Black And White) gabapentin 300 mg capsule 300 mg PO BID pain 30 days #60 caps 12/29/24 tirzepatide 5 mg/0.5 mL 5 mg (0.5 mL) subcut QWEEK #2 mL 12/29/24 subcutaneous pen injector (Rosita) ketorolac 10 mg tablet 10 mg PO Q6H PRN pain #20 tabs 01/08/25 prednisone 20 mg tablet 40 mg (2 x 20 mg) PO DAILY 5 days 01/08/25 #10 tabs Allergies Allergy/AdvReac Type Severity Reaction Status Date / Time Seasonal Allergies Allergy Mild runny nose Verified 01/08/25 16:16 Review of Systems 2 Review of Systems: Right knee pain Yes all other systems are reviewed and are negative [facility] Past Medical History Medical History (Updated 01/09/25 @ 00:00 by Vinny Watt) Right elbow tendonitis Irritable bowel syndrome (IBS) HPV in female Hypomagnesemia HPV (human papilloma virus) infection Knee pain, bilateral Elevated blood pressure reading Obesity (BMI 30-39.9) GERD without esophagitis Pure hypercholesterolemia Type 2 diabetes mellitus without complications Diabetes Obesity (BMI 35.0-39.9 without comorbidity) Allergic rhinitis Calcaneal spur of left foot Hirsutism Plantar fasciitis of left foot Hypercholesterolemia Type 2 diabetes mellitus Chronic constipation Left lower quadrant abdominal pain Nausea and vomiting Chest pain, atypical GERD (gastroesophageal reflux disease) Surgical History Hx of knee surgery Hx of colonoscopy H/O endoscopy [place] teeth removed History of esophagogastroduodenoscopy (EGD) (~10/2019) H/O section Family History Family History Father No problems noted. Mother Hypertension Edema Lymphedema Sister Crohn's disease Maternal Grandfather Alzheimers disease Parkinson disease Social History Social History Household Members: Family and Children Housing: House Are you a primary healthcare administrative assistant to a significant other at home: No Do you presently have visiting nurse or other home services: No Alcohol intake: current Alcohol intake frequency: holidays/special occasions only Patient Tobacco Use Status: Never used Tobacco e-Cigarette/Vaping Use: Never Used Second Hand Smoke Exposure: Yes Advance Directives: No Advance Directives Information Provided: No service: No Current occupational status: employed 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 [employer] Cognitive needs: No Hearing needs: No Vision needs: Yes Physical Exam ED Vital Signs: Vital Signs - 24 hr 01/08/25 16:13 Temperature 98.6 F Pulse Rate 98 Respiratory Rate 16 Blood Pressure 153/85 H Pulse Oximetry 100 Oxygen Delivery Method Room Air BMI result Body Mass Index 31.2 Const General: cooperative, healthy appearing, comfortable, no acute distress, well developed, alert, awake and Physically active Orientation/consciousness: patient oriented x3 HENMT Head: Yes normal to inspection, Yes No palpable skull fracture present, Yes normocephalic and Yes atraumatic Eyes General: appearance normal, both eyes and all related structures Neck Neck: Yes normal visual inspection, Yes full ROM, Yes no lymphadenopathy, Yes no meningeal signs, Yes trachea midline, Yes supple, No anterior neck swelling and No tender Chest Chest palpation & inspection: normal inspection of the chest and normal palpation of entire chest wall Resp Effort & Inspection: normal respiratory effort and able to speak in complete sentences Auscultation: clear to auscultation bilaterally Cardio Jugular venous distension: no JVD Heart sounds: S1 normal heart sound present and S2 normal heart sound present GI Inspection: Yes normal to inspection Palpation (GI): Soft to palpation, not firm, nontender, no guarding and not rigid General: Yes no CVA tenderness Back/Spine/Pelvis Back: no CVA tenderness and No back tenderness Skin General skin exam: no rashes or lesions noted, elasticity normal and turgor normal Neuro General: patient oriented x3, gait normal, tone normal, moves all extremities, Normal light touch and pain sensation, no meningeal signs, no focal motor deficits, CN's II-XI intact bilaterally and normal sensation to monofilament Extrem General: Yes normal to inspection, Yes full ROM and Yes capillary refill normal Knee images: 2 1. Positive for slight tenderness on palpation. Negative for any redness, swelling, crepitus, deformity, red streaks, ecchymosis, hotness, coldness. Negative for any posterior knee pain or calf pain. Rest of extremity normal. Motor/neuro/vascular exam intact Psych Appearance: grossly normal, well kempt and not disheveled Medications Administered Discontinued Medications Generic Name Dose Route Start Last Admin Trade Name Freq PRN Reason Stop Dose Admin Ketorolac Tromethamine 30 mg 01/08/25 18:46 01/08/25 19:03 Ketorolac Tromethamine 30 Mg/Ml Vial IM 01/08/25 18:47 30 mg ONCE ONE Administration Prednisone 40 mg 01/08/25 18:46 01/08/25 19:03 Prednisone 20 Mg Tablet PO 01/08/25 18:47 40 mg ONCE ONE Administration Medical Decision Making Medical Decision Making MDM Narrative: [age] year female presents to ED for chronic right knee pain exacerbation. X-ray negative for any fracture, dislocation, or effusion. Not suspecting septic joint. Not suspecting DVT. No need for any ultrasound. Not suspect a compartment syndrome. 7:57pm: Pain improved with Toradol and steroids. Patient informed to follow up with primary care provider, orthopedic and pain management. Patient already has tramadol. Patient will be discharged with steroids. Presently not suspecting septic joint, gout, DVT, compartment syndrome, arterial occlusion, cellulitis, osteomyelitis, necrotizing fasciitis, or any other life-threatening etiology. Differential Diagnosis Differential Diagnoses: The differential diagnosis associated with the presentation includes (Knee sprain, arthritis, effusion) Admission/Observation Consideration of admission/observation: Escalation of care including admission/observation considered Independent Interpretation I performed an independent interpretation of an: Plain X-Ray Radiology Impression Discussion of test interpretation with radiology: I have reviewed the radiologist's reading. Independent Historian Clinical information obtained from an independent historian. History obtained from or confirmed by: Other (patient) Prescription Management I considered prescription management with: Pain Medication Discharge Plan Discharge Clinical Impression: Osteoarthritis, Knee pain Patient Disposition: Home, Self-Care Instructions: Osteoarthritis (ED), Knee Pain (ED) Additional Instructions: Recommend follow-up with primary care provider, orthopedic surgeon, and pain management clinic. Continue taking your tramadol as prescribed. Return to the ED immediately for any swelling, redness, ecchymosis, fever, chills, posterior knee pain, calf pain, red streaks, hotness, coldness, or any other concerning symptoms. You will be discharged with Toradol/ketorolac. Did not take any other NSAIDs while taking that medication. Do not take diclofenac, Motrin, naproxen, or Aleve. CLINICAL HISTORY: pain with existing knee injury 4 view right knee Comparison: CR/SD/SR - XR KNEE RT 4V - 05/12/24 16:34 EDT Findings: No acute fracture. No dislocation. Joint spaces overall maintained. Mild medial and lateral endplate osteophyte formation and patellar osteophyte formation. No erosions. No joint effusion. No radiopaque foreign body. IMPRESSION: 1. No acute findings. This document has been electronically signed by: Cecile Self MD on 01/08/2025 18:00:52 Prescriptions: New ketorolac 10 mg tablet 10 mg PO Q6H PRN (Reason: pain) Qty: 20 0RF Rx Instructions: Receive 30 mg IV in the ED prednisone 20 mg tablet 40 mg PO DAILY 5 Days Qty: 10 0RF No Action famotidine 20 mg tablet 40 mg PO BEDTIME Qty: 60 3RF omeprazole 40 mg capsule,delayed release(DR/EC) 40 mg PO DAILY Qty: 30 5RF (DME) blood-glucose meter [FreeStyle Lite Meter] Kit See Rx Instructions .Route Qty: 1 0RF Rx Instructions: test once daily cholecalciferol (vitamin D3) 50 mcg (2,000 unit) capsule 50 mcg PO DAILY 90 Days Qty: 90 3RF magnesium oxide 400 mg (241.3 mg magnesium) tablet 400 mg PO BID Qty: 180 3RF albuterol sulfate 2.5 mg /3 mL (0.083 %) solution for nebulization 2.5 mg continuous nebulization QID PRN (Reason: Bronchospasm) Rx Instructions: 3 ml Inhalation four times a day as needed (DME) nebulizer and compressor Device See Rx Instructions .Route Qty: 1 0RF Rx Instructions: As directed lidocaine 5 % adhesive patch,medicated See Rx Instructions topical DAILY 30 Days Qty: 30 3RF Rx Instructions: leave on most painful area for up to 12 hrs topically daily; (DME) FreeStyle Lite Strips Strip See Rx Instructions .Route Qty: 100 5RF Rx Instructions: As directed metformin 500 mg tablet extended release 24 hr 1,000 mg PO BID Qty: 360 1RF dicyclomine 20 mg tablet 20 mg PO TID 30 Days Qty: 90 2RF gabapentin 300 mg capsule 300 mg PO BID 30 Days Qty: 60 1RF metoclopramide HCl [Reglan] 10 mg tablet 10 mg PO Q6H PRN (Reason: nausea and vomiting) Qty: 10 0RF (DME) lancets [FreeStyle Lancets] 28 gauge misc See Rx Instructions .Route Qty: 100 5RF Rx Instructions: As directed polyethylene glycol 3350 [Miralax] 17 gram/dose powder 17 g PO DAILY Senna Plus 8.6-50 mg capsule 2 tab-cap PO BEDTIME 60 Days Qty: 120 1RF Linzess 145 mcg capsule 145 mcg PO QAM 30 Days Qty: 30 4RF ibuprofen 600 mg tablet 600 mg PO Q8H PRN (Reason: pain) Qty: 30 0RF diclofenac sodium [Voltaren Arthritis Pain] 1 % gel 2 g topical BID Qty: 100 0RF Rx Instructions: Apply to the affected Joint as directed. glucose [Dex4 Glucose Quick Dissolve] 4 gram tablet,chewable 16 g PO Q15M PRN (Reason: hypoglycemia) Qty: 30 3RF Rx Instructions: until symptoms of low blood sugar are controlled atorvastatin 10 mg tablet 10 mg PO BEDTIME 90 Days Qty: 90 1RF ondansetron 4 mg tablet,disintegrating 4 mg PO Q8H PRN (Reason: nausea and vomiting) 10 Days Qty: 30 1RF loperamide [Imodium A-D] 2 mg tablet 2 mg PO Q6H PRN (Reason: loose stool/diarrhea) Qty: 30 0RF tramadol 50 mg tablet 50 mg PO BID PRN (Reason: pain (scale score 7-10)) 15 Days Qty: 30 0RF albuterol sulfate 90 mcg/actuation HFA aerosol inhaler 2 puff inhalation Q6H PRN (Reason: shortness of breath or wheezing) 30 Days Qty: 18 0RF (DME) Dexcom G7 Sensor Device See Rx Instructions .ROUTE .MEDSUPPLY Qty: 3 11RF Rx Instructions: apply new sensor every 10 days as directed (DME) Dexcom G7 Stripper Black And White Misc See Rx Instructions .ROUTE .MEDSUPPLY Qty: 1 0RF Rx Instructions: As directed Mounjaro 5 mg/0.5 mL pen injector 5 mg subcut QWEEK Qty: 2 3RF Referrals: Tate Daniel MD [Primary Care Provider] - (Chronic right knee pain) Stand Alone Forms: Work/School Release Interventions: ED Discharge Assessment Last Done: 01/08/25 20:37 Discharge Date/Time: 01/08/25 20:38 Print Language: Portuguese
[2025-01-08] MEDS: predniSONE 20 MG TABLET 40 MG PO (19:03)
[2025-01-08] MEDS: Ketorolac Tromethamine 30 MG/ML VIAL IM (19:03)
[2025-01-08 20:33] VITALS: BP 139/88; PULSE 83; RESP 16; TEMP 36.6; O2SAT 99
[2025-01-08 20:37] VITALS: BP 139/88; PULSE 83; RESP 16; TEMP 36.6; O2SAT 99
== END 2025-01-08 20:38 | disposition home or self-care (01) ==
PROVIDERS: Emergency Provider Emergency Medicine; PCP Internal Medicine
DX: M17.11 Unilateral primary osteoarthritis, right knee (principal); M25.561 Pain in right knee
CPT/HCPCS: 73564; 96372; 99284; J1885

== ENCOUNTER → 2025-01-08 17:30 | Outpatient (BNV) | payer OTHER, SELFPAY | PROVIDERS: Emergency Provider Emergency Medicine; PCP Internal Medicine; Visit Provider Specialist | DX: M25.561 Pain in right knee (principal) | CPT/HCPCS: 73564 ==

== ENCOUNTER 2025-01-19 08:35 | Outpatient (AMB) | payer OTHER, SELFPAY ==
--- NOTE | 2025-01-19 08:37 | A.OFFVIS_ITS ---
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 She attempted right diagnostic genicular nerve block in November under local anesthesia, which was not well-tolerated due to pain felt during needle insertion. A subsequent nerve block procedure was performed under sedation on December 18. The patient's post-procedural experience indicated that the effect of the nerve block lasted for about six hours, with pain levels fluctuating as the day progressed, 3-10/10, worse with activity and climbing stairs. The patient's most intense pain level reached 10 during physical activity, peaking from earlier levels of 3. Additionally, patient reports right knee pain was worsening that she seek ER evaluation and Walk-In clinic and received treatment with prednisone and ketorolac with minimal relief. Updated right knee xdray is noted below. Patient continues to take gabapentin without any side effects with partial relief. She is frustrated with persistent pain as this negatively affects her daily activities, functioning, mobility and job duties which involves prolonged hours of standing and walking. Past Procedures: 12/18/24: Right Diagnostic GNB with sedation-70% pain relief for 1-2 hours, gradually increase to 10/10 with walking/climbing over next 4-6 hours 12/01/24: Attempted Right Diagnostic GNB with local anesthesia-0% block PRIOR: Patient is a 43 years old with history of bilateral knee pain, arthritis, obesity, chronic low back pain and diabetes (A1C=10.0 on 06/03/24), presents today for initial evaluation of right knee pain. She was seen in ED in April 2024 after mechanical fall in March with right knee pain and effusion. Patient reports she fell forward on the gravel while loading a laundry basket and injured her right knee. She was evaluated by [facility] and received cortisone injection on 07/15/24 with minimal pain relief. She has difficulty with walking, bending her knee, climbing stairs and cold weather. Pain is mainly localized to anterior aspects and medial joint line with crepitus with ROM but no swelling, redness, erythema, burning, numbness or tingling. Patient is cu rrently active with [facility] and finds this partially helpful. 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 Denies any fever or chills, cough, swelling, rash, numbness or tingling, weakness, knee buckling or locking, foot drop, bladder or bowel dysfunction or saddle anesthesia. Location: Right knee medial joint line Duration: Pain since March 2024 s/p mechanical fall, h/o chronic bilateral knee pain Characteristics of symptom or complaint: Aching, sharp, shooting, jumping, pulsing, throbbing, sore, heavy Aggravating or associated factors: Movements, walking, climbing stairs, cold weather, bending Relieving factors: Knee brace, cyclobenzaprine, Ibuprofen, elevation, ice pack, hayden wrap Treatment: Ortho eval, xray, MRI, cortisone injection 07/15/24, PT [facility] Medical History Right elbow tendonitis Irritable bowel syndrome (IBS) HPV in female Hypomagnesemia HPV (human papilloma virus) infection Knee pain, bilateral Elevated blood pressure reading Obesity (BMI 30-39.9) GERD without esophagitis Pure hypercholesterolemia Type 2 diabetes mellitus without complications Diabetes Obesity (BMI 35.0-39.9 without comorbidity) Allergic rhinitis Calcaneal spur of left foot Hirsutism Plantar fasciitis of left foot Hypercholesterolemia Type 2 diabetes mellitus Chronic constipation Left lower quadrant abdominal pain Nausea and vomiting Chest pain, atypical GERD (gastroesophageal reflux disease) Surgical History Hx of knee surgery Hx of colonoscopy H/O endoscopy [place] teeth removed History of esophagogastroduodenoscopy (EGD) (~10/2019) H/O section Family History Father No problems noted. Mother Hypertension Edema Lymphedema Sister Crohn's disease Maternal Grandfather Alzheimers disease Parkinson disease Social History Household Members: Family and Children Both parents involved: Yes Housing: House Are you a primary animal care attendant to a significant other at home: No Do you presently have visiting nurse or other home services: No Alcohol intake: current Alcohol intake frequency: holidays/special occasions only Patient Tobacco Use Status: Never used Tobacco e-Cigarette/Vaping Use: Never Used Second Hand Smoke Exposure: Yes service: No Current occupational status: employed 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 Alert and oriented. Mood and affect appropriate. Follows and participates in conversation appropriately. Respiratory effort is unlabored. No cough. Able to transition from sit to stand unassisted. Ambulates with bilaterally normal heel strike and toe off. Right knee brace in place. Extrem General: Yes capillary refill normal, Yes no clubbing, cyanosis or edema and Yes no calf tenderness Right lower extremity: knee (Limited ROM due to pain.) Details: normal to inspection, tenderness Location: of the patella, of the medial joint line, of the lateral joint line and of the pre-patellar area and crepitus; no swelling, no ecchymosis, no deformity and no unusual warmth Results Reviewed Results Reviewed: MR KNEE WITHOUT CONTRAST, RIGHT 06/23/24 CLINICAL INFORMATION: Primary osteoarthritis right knee. COMPARISON: X-ray of the right knee April 2024. FINDINGS: MENISCI: Medial Meniscus: Intact. Lateral Meniscus: Intact. LIGAMENTS: Cruciate: Intact. Collateral: Intact. EXTENSOR MECHANISM: Intact. ARTICULAR CARTILAGE/BONE: Patellofemoral Compartment: There is a 5 mm focus of cartilage heterogeneity and subchondral cystic change in the distal medial trochlea. Patellar cartilage is normal. Overall mild patellofemoral arthrosis. Medial Compartment: There is scattered cartilage heterogeneity throughout the weightbearing femoral articular cartilage. There is a concomitant focal area of high-grade cartilage loss in the central weightbearing femoral articular surface extending over 11 mm transverse and 12 mm AP. Tibial cartilage is intact. Small marginal osteophytes. Overall [id number] medial compartment arthrosis. Lateral Compartment: Normal. JOINT FLUID AND BURSAE: Normal. IMPRESSION: Mild patellofemoral arthrosis. [id number] medial compartment arthrosis. XR KNEE, RIGHT 05/12/24 CLINICAL INFORMATION: Knee pain COMPARISON: X-ray 01/24/2024 FINDINGS: Small joint effusion. Bony alignment is anatomic. Tiny tricompartment osteoarthritis. No visible acute fracture or dislocation. No abnormal soft tissue calcification. IMPRESSION: Small joint effusion. Mild degenerative changes. XR knee RT 4V 01/08/25 Comparison: CR/WA/SR - XR KNEE RT 4V - 05/12/24 16:34 EDT Findings: No acute fracture. No dislocation. Joint spaces overall maintained. Mild medial and lateral endplate osteophyte formation and patellar osteophyte formation. No erosions. No joint effusion. No radiopaque foreign body. IMPRESSION: 1. No acute findings. Assessment & Plan Assessment & Plan (1) Right knee pain: Code(s): M25.561 - Pain in right knee Category: Medical Qualifiers: Chronicity: acute Qualified Code(s): M25.561 - Pain in right knee (2) Internal derangement of right knee: Code(s): M23.91 - Unspecified internal derangement of right knee Category: Medical (3) Patellofemoral arthritis of right knee: Code(s): M17.11 - Unilateral primary osteoarthritis, right knee Category: Medical (4) Right knee pain: Code(s): M25.561 - Pain in right knee Category: Medical Qualifiers: Chronicity: acute Qualified Code(s): M25.561 - Pain in right knee (5) Internal derangement of right knee: Code(s): M23.91 - Unspecified internal derangement of right knee Category: Medical (6) Patellofemoral arthritis of right knee: Code(s): M17.11 - Unilateral primary osteoarthritis, right knee Category: Medical Plan The management plan includes scheduling an additional diagnostic nerve block under local anesthesia with mild oral sedation using Ativan. If unsuccessful, we will consider peripheral nerve stimulation as next treatment options. We discussed temporal and permanent PNS trial vs implants today. Patient's most recent A1C was 7.0 (decrease from 10.0). Consideration for further physical therapy is suggested. Patient will continue to follow up with Orthopedics as needed as well. Schedule right diagnostic femoral nerve block with local, oral Ativan pre- procedure and fluoroscopy. Expectations, risks and benefits were reviewed. Patient is aware she will be contacted to schedule this procedure. Patient is aware to monitor pain and keep pain dairy after injection for 6 hours post injection. Refills provided for gabapentin and short script for tramadol for ongoing right knee pain. Side effects and precautions were discussed with patient. Patient is aware tramadol and gabapentin can make her drowsy, advised not to drink alcohol or drive after taking it. All questions were answered and the patient is in agreement of plan. Follow-up after injection and sooner as needed. Patient was informed and verbally consented to the use of an ambient scribe for clinic note documentation during this visit. Medications: Refilled tramadol 50 mg PO BID 15 days PRN 30 tabs 0RF pain (scale score 7-10) M17.11 - Unilateral primary osteoarthritis, right knee, M23.91 - Unspecified internal derangement of right knee, M25.561 - Pain in right knee Coding Level of Care Code Est Pt Level 4 (95158) Complex EM visit Add On G2211 Diagnoses Acute pain of right knee M25.561 Chronicity: acute Internal derangement of right knee M23.91 Patellofemoral arthritis of right knee M17.11
[2025-01-19 08:42] VITALS: BP 146/88; PULSE 88; O2SAT 97; BMI 30.9
== END 2025-01-19 08:59 | disposition home or self-care (01) ==
LOC: HO.PMC 08:36
PROVIDERS: PCP Internal Medicine; Visit Provider Nurse Practitioner Family
DX: M25.561 Pain in right knee (principal); M23.91 Unspecified internal derangement of right knee; M17.11 Unilateral primary osteoarthritis, right knee
CPT/HCPCS: 99214; G2211

== ENCOUNTER → 2025-01-19 08:35 | Outpatient (BNVA) | payer OTHER, SELFPAY | PROVIDERS: PCP Internal Medicine; Visit Provider Nurse Practitioner Family | DX: M25.561 Pain in right knee (principal); M23.91 Unspecified internal derangement of right knee; M17.11 Unilateral primary osteoarthritis, right knee | CPT/HCPCS: 99212 ==

== ENCOUNTER 2025-02-09 09:30 | Outpatient (AMB) | payer OTHER, SELFPAY ==
[2025-02-09 09:32] VITALS: BP 124/82; PULSE 91; O2SAT 98; BMI 29.3
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
== END 2025-02-09 10:04 | disposition home or self-care (01) ==
LOC: HO.HMCH 09:31
PROVIDERS: PCP Internal Medicine; Visit Provider Internal Medicine
DX: E11.9 Type 2 diabetes mellitus without complications (principal); E78.00 Pure hypercholesterolemia, unspecified; Z68.29 Body mass index [BMI] 29.0-29.9, adult; E66.9 Obesity, unspecified; E83.42 Hypomagnesemia; K59.09 Other constipation; K58.1 Irritable bowel syndrome with constipation; K21.9 Gastro-esophageal reflux disease without esophagitis; M17.11 Unilateral primary osteoarthritis, right knee

== ENCOUNTER → 2025-02-09 09:30 | Outpatient (BNVA) | payer OTHER, SELFPAY | PROVIDERS: PCP Internal Medicine; Visit Provider Internal Medicine | DX: E11.9 Type 2 diabetes mellitus without complications (principal); K21.9 Gastro-esophageal reflux disease without esophagitis; E66.9 Obesity, unspecified; M25.561 Pain in right knee; E78.00 Pure hypercholesterolemia, unspecified; E83.42 Hypomagnesemia; K59.09 Other constipation; K58.1 Irritable bowel syndrome with constipation; M17.11 Unilateral primary osteoarthritis, right knee; Z68.29 Body mass index [BMI] 29.0-29.9, adult | CPT/HCPCS: 82947; 83036; 96127; 99212 ==

== ENCOUNTER 2025-02-09 10:53 | Outpatient (AMB) | payer OTHER, SELFPAY ==
--- NOTE | 2025-02-09 11:21 | A.OFFVIS_ITS ---
Vital Signs 02/09/25 11:24 Height 5 ft Weight 151 lb 14.376 oz BMI 29.7 BP 104/66 Blood Pressure Location Rt brachial Position Sitting Pulse 86 Pulse Source Pulse Oximeter Pulse Oximetry (%) 98 Oxygen Delivery Method Room Air Intake Visit Reasons: Type II diabetes Intake Note: Patient present today to follow up on Type 2 Diabetes Mellitus. Last Diabetic Eye exam: December 2024 Last Podiatry Visit: Does not see a M[employer]ainer [employer] Random Glucose: 120 mg/dl HgA1C: 7.6% 02/09/2025 Done at PCP office Application Developer Manager Required: No Accompanied by: Self / Same As Patient Allergies Seasonal Allergies Allergy (Mild, Verified 02/09/25 11:34) runny nose HPI Comments Details: This is a 44-year-old female with a past medical history of hyperlipidemia, type 2 diabetes, GERD and obesity presenting for diabetic management. She was diagnosed with gestational diabetes in 2011. She then developed prediabetes and says she was diagnosed with Type II DM about 4 years ago. Insurance denied CGM because she does not take insulin. She saw the perioperative educator. Hemoglobin A1c 7.6% 02/09/2025. The date and time on the glucometer was not set, but it says her 14 day average is 151. I set the date and time for her today. Current medication regimen: Metformin ER 1000 mg twice daily, Mounjaro 5 mg weekly. Nausea on Mounjaro resolved. Past medication: Trulicity discontinued due to it being unavailable and GI side effects on the increased dosage. Compliance issues: seeing therapist to help with goal setting. History of PTSD. Hypoglycemia symptoms: none Hyperglycemia symptoms: none Eye exam: Up-to-date and no retinopathy or macular edema per patient. Microvascular complications: She had microalbuminuria x1 which resolved on repeat labs. Macrovascular complications: none Hyperlipidemia: treated with atorvastatin 10 mg. ROS: Constitutional: No unexplained weight loss, fever, chills, fatigue or night sweats. Eyes: No vision changes Respiratory: No shortness of breath Cardiovascular: No chest pain Neurologic: No numbness, tingling, dizziness, headache or weakness Endocrine: No cold or heat intolerance. No polyuria or polydipsia. Physical exam: Constitutional: Alert, in no distress. Neck: Supple, Full range of motion. No lymphadenopathy. No palpable thyroid masses. Respiratory: Clear to auscultation. Cardiovascular: S1 S2 regular. No murmurs Psychiatric: Normal mood and affect [facility] Medical History (Updated 02/09/25 @ 10:08 by Tate Daniel MD) Diabetes mellitus Internal derangement of right knee Patellofemoral arthritis of right knee Right elbow tendonitis Irritable bowel syndrome (IBS) HPV in female Hypomagnesemia HPV (human papilloma virus) infection Elevated blood pressure reading Obesity (BMI 30-39.9) GERD without esophagitis Pure hypercholesterolemia Obesity (BMI 35.0-39.9 without comorbidity) Allergic rhinitis Calcaneal spur of left foot Hirsutism Plantar fasciitis of left foot Chronic constipation Chest pain, atypical GERD (gastroesophageal reflux disease) Surgical History Hx of knee surgery Hx of colonoscopy H/O endoscopy [place] teeth removed History of esophagogastroduodenoscopy (EGD) (~10/2019) H/O section Family History Father No problems noted. Mother Hypertension Edema Lymphedema Sister Crohn's disease Maternal Grandfather Alzheimers disease Parkinson disease Social History Household Members: Family and Children Both parents involved: Yes Housing: House Are you a primary manager intensive care to a significant other at home: No Do you presently have visiting nurse or other home services: No Alcohol intake: current Alcohol intake frequency: holidays/special occasions only Patient Tobacco Use Status: Never used Tobacco e-Cigarette/Vaping Use: Never Used Second Hand Smoke Exposure: Yes service: No Current occupational status: employed 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 Cognitive needs: No Hearing needs: No Vision needs: Yes Female Reproductive History Menstrual Age of Menarche: 9 Physical Exam Vital Signs: BMI result Body Mass Index 29.7 Results AMB Hemoglobin A1c AMB Hemoglobin A1c 7.6 % Last Edit by ANJANA Grossman on 02/09/25 10 :07 Results Reviewed Results Reviewed: Laboratory Last Values Glucose (Clinic) 120 mg/dL (60-115) H 02/09/25 11:31 Laboratory Tests 09/08/24 11/12/24 11/12/24 11:00 13:31 15:42 Plt Count 253 Creatinine 0.93 Estimated GFR > 60 Hgb A1c (Clinic) 7 H AST 17 ALT 18 Urine Creatinine 332.21 Urine Microalbumin 72.0 Microalb/Creat Ratio 21.6 Assessment & Plan Assessment & Plan (1) Type 2 diabetes mellitus without complications: Code(s): E11.9 - Type 2 diabetes mellitus without complications Category: Medical Qualifiers: Diabetes mellitus machine bobbin winder insulin use: without senior living use Qualified Code(s): E11.9 - Type 2 diabetes mellitus without complications Plan: In summary this is a 44-year-old female with suboptimally controlled type 2 diabetes. I recommend increasing Mounjaro to 7.5 mg weekly, but she defers medication changes today. She would like to continue to work on lifestyle modifications and continue the current dose and reassess. Continue metformin extended release a 1000 mg twice daily. Reviewed lifestyle modifications with the patient. She has met with a dietitian and perioperative educator. Complications of type 2 diabetes reviewed with the patient. If you experience low blood sugar, treat this by eating a chewable fruit candy like skittles or jelly beans (about 8 pieces), 4 ounces (1/2 cup) of fruit juice (not diet), 1 tablespoon of honey or 4 glucose tablets. If your blood sugar is under 55, take double the amount of one of the above. Recheck your blood sugar in 15 minutes. She has glucose tablets at home. Follow up in 6 weeks for type 2 diabetes. Coding Level of Care Code Est Pt Level 4 (61547) Complex EM visit Add On G2211 Diagnoses Type 2 diabetes mellitus without complication, without long-term current use of insulin E11.9 Diabetes mellitus senior living insulin use: without senior living use
[2025-02-09 11:24] VITALS: BP 104/66; PULSE 86; O2SAT 98; BMI 29.7
[2025-02-09 11:35] LABS: Glucose, Whole Blood 120 mg/dL (60-115)
== END 2025-02-09 11:58 | disposition home or self-care (01) ==
LOC: HO.ENCR 10:53
PROVIDERS: PCP Internal Medicine; Visit Provider Physician Assistant Medical
DX: E11.9 Type 2 diabetes mellitus without complications (principal)

== ENCOUNTER 2025-02-23 10:24 | Outpatient (REF) | payer OTHER, SELFPAY ==
--- NOTE | ~2025-02-23 | MM_ITS ---
EXAMINATION: MM SCREENING DIGITAL BREAST TOMOSYNTHESIS, BILATERAL CLINICAL INFORMATION: Screening. Asymptomatic. COMPARISON: Mammography: Comparison is made with available priors TECHNIQUE: Digital breast mammography with tomosynthesis is performed in both the craniocaudal and mediolateral oblique views along with computer-aided detection (CAD). FINDINGS: There are scattered areas of fibroglandular density (ACR BI-RADS breast composition Category b). There are no significant masses, abnormal calcifications, or other abnormalities. MM/MM tomosynthesis screening BI IMPRESSION: No mammographic evidence of malignancy. ASSESSMENT: BI-RADS BI-RADS 1 - Negative RECOMMENDATION: Routine annual mammography screening. 1 year F/U This examination should not preclude the clinical evaluation of a suspicious palpable abnormality. This patient's information was entered into a reminder system with a target due date for their next mammogram. Electronically signed by: Herminia Easley DO 03/02/2025 12:56 PM EDT
[2025-02-23 10:58] LABS: MANUAL DIFF FLAG NO
[2025-02-23 11:23] LABS: Appearance Urine Clear; Color Urine Yellow; Glucose Urine UA Negative (Negative); Leukocyte Esterase Urine Trace (Negative); Nitrite Urine Negative (Negative); PH 5.5 (5.0-9.0); Specific Gravity - Urine 1.025 (1.005-1.025); UMIC TRIGGER UACC YES; Urine Blood Negative (Negative); Urine Ketones Trace mg/dL (Negative); Urine Protein Trace mg/dL (Neg-Trace)
[2025-02-23 11:23] LABS: Basophils Absolute Auto 0.1 X10*3/uL (0.0-0.2); Basophils Percent Auto 0.8 % (0-2); Eosinophils Absolute Auto 0.1 X10*3/uL (0.0-0.4); Eosinophils Percent Auto 1.2 % (0-4); Hematocrit 41.9 % (37.0-47.0); Hemoglobin 14.1 g/dl (12.0-16.0); Imm Gran Abs Auto 0.04 X10*3/uL (0.00-0.03); Imm Gran Pct Auto 0.4 % (0.0-0.4); Lymphocytes Absolute Auto 2.7 X10*3/uL (1.2-4.9); Lymphocytes Percent Auto 28.7 % (20-40); Mean Corpuscular HGB Conc 33.7 g/dl (31.0-35.0); Mean Corpuscular Hemoglobin 30.3 pg (27.0-33.0); Mean Corpuscular Volume 90.1 fL (80.0-98.0); Mean Platelet Volume 10.7 fL (9.4-12.3); Monocytes Absolute Auto 0.5 X10*3/uL (0.1-1.2); Monocytes Percent Auto 5.6 % (2-11); Neutrophils Absolute Auto 5.9 x10*3/uL (2.0-8.3); Neutrophils Percent Auto 63.3 % (45-73); Platelet Count 245 X10*3/uL (160-400); Red Blood Count 4.65 X10*6/uL (4.20-5.50); Red Cell Distribution Width 12.5 % (11.0-16.0); White Blood Count 9.3 X10*3/uL (4.8-10.8)
[2025-02-23 11:25] LABS: Bacteria Urine None Seen (None Seen); Hyaline Casts Urine 0-2 /LPF (0-2); RBC Urine 0-2 /HPF (0-2); WBC Urine 0-5 /HPF (0-5)
[2025-02-23 11:32] LABS: Estimated Average Glucose 169 mg/dL; Hemoglobin A1c % 7.5 % (<6.0)
[2025-02-23 11:55] LABS: Alanine Aminotransferase 11 U/L (0-31); Albumin Level 4.5 g/dL (3.5-5.0); Alkaline Phosphatase 66 U/L (39-117); Anion Gap 11 (12-20); Aspartate Amino Transferase 17 U/L (5-31); Bilirubin Total 0.6 mg/dL (0.0-1.0); Blood Urea Nitrogen 14 mg/dL (9-16); Calcium 9.2 mg/dL (8.4-10.2); Carbon Dioxide 27 mmol/L (22-29); Chloride 106 mmol/L (96-108); Cholesterol 153 mg/dL (<200); Estimated Glomerular Filt Rate > 60; Glucose Fasting 146 mg/dL (60-99); HDL Cholesterol 52 mg/dL (>40); LDL Cholesterol Calculated 87 mg/dL (<100); Magnesium 1.4 mg/dL (1.6-2.6); Potassium 3.6 mmol/L (3.3-5.1); Sodium 140 mmol/L (135-145); Total Protein 6.9 g/dL (6.5-8.0); Triglycerides 74 mg/dL (<150)
[2025-02-23 12:04] LABS: Creatinine Urine 241.96 mg/dL; Microalbum/Creatinine Ratio Ur 10.7 ug/mg cr (<30)
[2025-02-23 12:04] LABS: TSH reflex Free T4 0.96 uIU/mL (0.32-4.0); Vitamin D 25-OH Total 31.3 ng/mL (>30)
[2025-02-23 12:16] LABS: Folate 9.9 ng/mL (> or = 4.0); Vitamin B12 439 pg/mL (200-900)
== END 2025-02-23 10:25 | disposition home or self-care (01) ==
LOC: HO.MAMMO 10:24
PROVIDERS: PCP Internal Medicine; Visit Provider Internal Medicine
DX: E78.00 Pure hypercholesterolemia, unspecified (principal); E83.42 Hypomagnesemia; E11.9 Type 2 diabetes mellitus without complications; E53.8 Deficiency of other specified B group vitamins; D64.9 Anemia, unspecified; R30.0 Dysuria; Z12.31 Encounter for screening mammogram for malignant neoplasm of breast
CPT/HCPCS: 36415; 77063; 77067; 80053; 80061; 81001; 82043; 82306; 82570; 82607; 82746; 83036; 83735; 84443; 85025

== ENCOUNTER → 2025-02-23 10:30 | Outpatient (BNV) | payer OTHER, SELFPAY | PROVIDERS: PCP Internal Medicine; Visit Provider Internal Medicine | DX: Z12.31 Encounter for screening mammogram for malignant neoplasm of breast (principal) | CPT/HCPCS: 77063; 77067 ==

== ENCOUNTER 2025-03-23 15:59 | Outpatient (AMB) | payer OTHER, SELFPAY ==
[2025-03-23 16:00] VITALS: BP 122/82; PULSE 99; O2SAT 97; BMI 27.1
--- NOTE | 2025-03-23 16:00 | A.OFFVIS_ITS ---
Vital Signs 03/23/25 16:00 Height 5 ft Weight 138 lb 14.259 oz BMI 27.1 BP 122/82 Blood Pressure Location Rt brachial Position Sitting Pulse 99 Pulse Source Pulse Oximeter Pulse Oximetry (%) 97 Oxygen Delivery Method Room Air Intake Visit Reasons: Type II diabetes Intake Note: Patient present today to follow up on Type 2 Diabetes Mellitus. Last Diabetic Eye exam: December 2024 Last Podiatry Visit: Does not see a Road [employer] Most Recent HgA1C: 7.5% 02/23/2025 Random Glucose: 106 mg/dL Accompanied by: Self / Same As Patient Allergies Seasonal Allergies Allergy (Mild, Verified 03/23/25 16:04) runny nose HPI Comments Details: This is a 44-year-old female with a past medical history of hyperlipidemia, type 2 diabetes, GERD and obesity presenting for diabetic management. She was diagnosed with gestational diabetes in 2011. She then developed prediabetes and says she was diagnosed with Type II DM about 4 years ago. Insurance denied CGM because she does not take insulin. She saw the hospice educator. Her 14 day average glucose is 149. Hemoglobin A1c 7.5% 02/23/2025. Current medication regimen: Metformin ER 1000 mg twice daily, Mounjaro 5 mg weekly. Nausea on Mounjaro resolved. Past medication: Trulicity discontinued due to it being unavailable and GI side effects on the increased dosage. Compliance issues: seeing therapist to help with goal setting. History of PTSD. She is having some issues in her relationship. Hypoglycemia symptoms: none Hyperglycemia symptoms: none Eye exam: Up-to-date and no retinopathy or macular edema per patient. Microvascular complications: She had microalbuminuria x1 which resolved on repeat labs. Macrovascular complications: none Hyperlipidemia: treated with atorvastatin 10 mg. ROS: Constitutional: No unexplained weight loss, fever, chills, fatigue or night sweats. Eyes: No vision changes Respiratory: No shortness of breath Cardiovascular: No chest pain Neurologic: No numbness, tingling, dizziness, headache or weakness Endocrine: No cold or heat intolerance. No polyuria or polydipsia. Physical exam: Constitutional: Alert, in no distress. Neck: Supple, Full range of motion. No lymphadenopathy. No palpable thyroid masses. Respiratory: Clear to auscultation. Cardiovascular: S1 S2 regular. No murmurs Psychiatric: Normal mood and affect [facility] Medical History Diabetes mellitus Internal derangement of right knee Patellofemoral arthritis of right knee Right elbow tendonitis Irritable bowel syndrome (IBS) HPV in female Hypomagnesemia HPV (human papilloma virus) infection Elevated blood pressure reading Obesity (BMI 30-39.9) GERD without esophagitis Pure hypercholesterolemia Obesity (BMI 35.0-39.9 without comorbidity) Allergic rhinitis Calcaneal spur of left foot Hirsutism Plantar fasciitis of left foot Chronic constipation Chest pain, atypical GERD (gastroesophageal reflux disease) Surgical History Hx of knee surgery Hx of colonoscopy H/O endoscopy [place] teeth removed History of esophagogastroduodenoscopy (EGD) (~10/2019) H/O section Family History Father No problems noted. 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 Cognitive needs: No Hearing needs: No Vision needs: Yes Female Reproductive History Menstrual Age of Menarche: 9 Physical Exam Vital Signs: Last Vital Signs Pulse 99 03/23/25 16:00 BP 122/82 03/23/25 16:00 Pulse Ox 97 03/23/25 16:00 Oxygen Delivery Method Room Air 03/23/25 16:00 BMI result Body Mass Index 27.1 Results Reviewed Results Reviewed: Laboratory Last Values Glucose (Clinic) 106 mg/dL (60-115) 03/23/25 16:07 Laboratory Tests 09/08/24 11/12/24 11/12/24 11:00 13:31 15:42 Plt Count 253 Creatinine 0.93 Estimated GFR > 60 Hgb A1c (Clinic) 7 H AST 17 ALT 18 Urine Creatinine 332.21 Urine Microalbumin 72.0 Microalb/Creat Ratio 21.6 Assessment & Plan Assessment & Plan (1) Type 2 diabetes mellitus without complications: Code(s): E11.9 - Type 2 diabetes mellitus without complications Category: Medical Qualifiers: Diabetes mellitus watermaster insulin use: without watermaster use Qualified Code(s): E11.9 - Type 2 diabetes mellitus without complications Plan: In summary this is a 44-year-old female with suboptimally controlled type 2 diabetes. She defers medication changes today. Blood sugars are improving. She is losing weight. She will continue Mounjaro 5 mg weekly. Continue metformin extended release a 1000 mg twice daily. Reviewed lifestyle modifications with the patient. She has met with a dietitian and hospice educator. Complications of type 2 diabetes reviewed with the patient. If you experience low blood sugar, treat this by eating a chewable fruit candy like skittles or jelly beans (about 8 pieces), 4 ounces (1/2 cup) of fruit juice (not diet), 1 tablespoon of honey or 4 glucose tablets. If your blood sugar is under 55, take double the amount of one of the above. Recheck your blood sugar in 15 minutes. She has glucose tablets at home. Plan She will follow up in May after having lab work done including A1c for type 2 diabetes. Medications: Refilled metformin ER 1,000 mg (2 x 500 mg) PO BID 360 tabs 1RF tirzepatide (Mounjaro) 5 mg (0.5 mL) subcut QWEEK 2 mL 3RF Coding Level of Care Code Est Pt Level 4 (68968) Complex EM visit Add On G2211 Diagnoses Type 2 diabetes mellitus without complication, without long-term current use of insulin E11.9 Diabetes mellitus watermaster insulin use: without watermaster use
[2025-03-23 16:11] LABS: Glucose, Whole Blood 106 mg/dL (60-115)
== END 2025-03-23 16:45 | disposition home or self-care (01) ==
LOC: HO.ENCR 16:00
PROVIDERS: PCP Internal Medicine; Visit Provider Physician Assistant Medical
DX: E11.9 Type 2 diabetes mellitus without complications (principal)

== ENCOUNTER → 2025-03-23 15:59 | Outpatient (BNVA) | payer OTHER, SELFPAY | PROVIDERS: PCP Internal Medicine; Visit Provider Physician Assistant Medical | DX: E11.9 Type 2 diabetes mellitus without complications (principal) | CPT/HCPCS: 82947; 99212 ==

== ENCOUNTER 2025-03-25 08:51 | Outpatient (AMB) | payer OTHER, SELFPAY ==
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
[2025-03-25 08:57] VITALS: BP 116/80; PULSE 97; BMI 26.7
== END 2025-03-25 09:35 | disposition home or self-care (01) ==
LOC: HO.HGI 08:52
PROVIDERS: PCP Internal Medicine; Visit Provider Internal Medicine Gastroenterology
DX: K59.09 Other constipation (principal); K21.9 Gastro-esophageal reflux disease without esophagitis; K58.1 Irritable bowel syndrome with constipation; R10.32 Left lower quadrant pain
CPT/HCPCS: 99214

== ENCOUNTER → 2025-03-25 08:51 | Outpatient (BNVA) | payer OTHER, SELFPAY | PROVIDERS: PCP Internal Medicine; Visit Provider Internal Medicine Gastroenterology | DX: K21.9 Gastro-esophageal reflux disease without esophagitis (principal); K59.09 Other constipation; R10.32 Left lower quadrant pain; K58.1 Irritable bowel syndrome with constipation | CPT/HCPCS: 99212 ==

== ENCOUNTER 2025-05-29 10:05 | Outpatient (REF) | payer OTHER, SELFPAY ==
[2025-05-29 10:26] LABS: MANUAL DIFF FLAG NO
[2025-05-29 10:53] LABS: Hematocrit 36.2 % (37.0-47.0); Hemoglobin 12.3 g/dl (12.0-16.0); Imm Gran Abs Auto 0.04 X10*3/uL (0.00-0.03); Imm Gran Pct Auto 0.4 % (0.0-0.4); Lymphocytes Absolute Auto 2.7 X10*3/uL (1.2-4.9); Mean Corpuscular HGB Conc 34.0 g/dl (31.0-35.0); Mean Corpuscular Hemoglobin 31.3 pg (27.0-33.0); Mean Corpuscular Volume 92.1 fL (80.0-98.0); NRBC Abs Auto 0.000 X10*3/uL (0.0-0.012); NRBC Pct Auto 0.0 /100WBC (0.0-0.2); Platelet Count 270 X10*3/uL (160-400); Red Blood Count 3.93 X10*6/uL (4.20-5.50); White Blood Count 10.1 X10*3/uL (4.8-10.8)
[2025-05-29 11:03] LABS: Hemoglobin A1C 130.3801 umol/L; Total Hemoglobin (HGBA1C) 3242.3471 umol/L
[2025-05-29 12:01] LABS: Appearance Urine Cloudy; Glucose Urine UA Negative (Negative); PH 5.5 (5.0-9.0); Specific Gravity - Urine >= 1.030 (1.005-1.025); UMIC TRIGGER UACC YES
[2025-05-29 12:07] LABS: Alanine Aminotransferase 6 U/L (0-31); Albumin Level 4.4 g/dL (3.5-5.0); Alkaline Phosphatase 65 U/L (39-117); Anion Gap 16 (12-20); Aspartate Amino Transferase 15 U/L (5-31); Blood Urea Nitrogen 17 mg/dL (9-16); Calcium 9.2 mg/dL (8.4-10.2); Carbon Dioxide 24 mmol/L (22-29); Chloride 104 mmol/L (96-108); Cholesterol 179 mg/dL (<200); Estimated Glomerular Filt Rate > 60; HDL Cholesterol 56 mg/dL (>40); Potassium 3.8 mmol/L (3.3-5.1); Sodium 140 mmol/L (135-145); Total Protein 7.0 g/dL (6.5-8.0); Triglycerides 101 mg/dL (<150)
[2025-05-29 12:27] LABS: Microalbum/Creatinine Ratio Ur 10.0 ug/mg cr (<30)
[2025-05-29 12:48] LABS: Magnesium 1.1 mg/dL (1.6-2.6)
== END 2025-05-29 10:06 | disposition home or self-care (01) ==
LOC: HO.LAB 10:05
PROVIDERS: PCP Internal Medicine; Visit Provider Internal Medicine
DX: E11.9 Type 2 diabetes mellitus without complications (principal); E83.42 Hypomagnesemia; E78.00 Pure hypercholesterolemia, unspecified; D64.9 Anemia, unspecified
CPT/HCPCS: 36415; 80053; 80061; 81001; 81003; 82043; 82306; 82570; 83036; 83735; 84443; 85025

== ENCOUNTER 2025-06-01 11:00 | Outpatient (AMB) | payer OTHER, SELFPAY ==
[2025-06-01 11:02] VITALS: BP 136/82; PULSE 94; O2SAT 100; BMI 27.1
--- NOTE | 2025-06-01 11:02 | A.OFFVIS_ITS ---
Vital Signs 06/01/25 11:02 Height 5 ft Weight 138 lb 14.259 oz BMI 27.1 BP 136/82 Blood Pressure Location Rt brachial Position Sitting Pulse 94 Pulse Source Pulse Oximeter Pulse Oximetry (%) 100 Oxygen Delivery Method Room Air Intake Visit Reasons: Type II Diabetes Intake Note: Patient present today to follow up on Type 2 Diabetes Mellitus. Last Diabetic Eye exam: December 2024 Last Podiatry Visit: Does not see a Product Technician Random Glucose: 85 mg/dL Most Recent HgA1C: 5.8% 05/29/2025 Toolsmith Required: No Accompanied by: Self / Same As Patient Allergies Seasonal Allergies Allergy (Mild, Verified 06/01/25 11:03) runny nose Medication List - Last Reconciled 06/01/25 by OLIVER Lucero albuterol sulfate 90 mcg/actuation 2 puffs inhalation Q6H PRN 30 days albuterol sulfate 2.5 mg continuous nebulization QID PRN atorvastatin 10 mg PO BEDTIME 90 days blood sugar diagnostic (FreeStyle Lite Strips) Use to check blood glucose up to 3 x a day As directed blood-glucose meter (FreeStyle Lite Meter kit) test once daily blood-glucose sensor ([employer] G7 Sensor device) apply new sensor every 10 days as directed blood-glucose,turret press operator,cont (Dexcom G7 Inspector Subassembly) As directed cholecalciferol (vitamin D3) 50 mcg PO DAILY 90 days diclofenac sodium 1% (Voltaren Arthritis Pain) 2 grams topical BID dicyclomine 20 mg PO TID 30 days famotidine 40 mg (2 x 20 mg) PO BEDTIME gabapentin 300 mg PO BID 30 days glucose (Dex4 Glucose Quick Dissolve) 16 grams (4 x 4 gram) PO Q15M PRN ibuprofen 600 mg PO Q8H PRN ketorolac 10 mg PO Q6H PRN lancets (FreeStyle Lancets) As directed- daily lidocaine 5% leave on most painful area for up to 12 hrs topically daily; 30 days linaclotide (Linzess) 145 mcg PO QAM 30 days loperamide (Imodium A-D) 2 mg PO Q6H PRN magnesium oxide 400 mg PO BID metformin ER 1,000 mg (2 x 500 mg) PO BID metoclopramide HCl (Reglan) 10 mg PO Q6H PRN nebulizer and compressor As directed omeprazole 40 mg PO DAILY ondansetron 4 mg PO Q8H PRN 10 days polyethylene glycol 3350 (Miralax) 17 grams PO DAILY sennosides-docusate sodium 8.6-50 mg (Senna Plus) 2 tab-caps (2 x 8.6-50 mg) PO BEDTIME 60 days tirzepatide (Mounjaro) 5 mg (0.5 mL) subcut QWEEK tramadol 50 mg PO BID PRN 15 days HPI Comments Details: This is a 44-year-old female with a past medical history of hyperlipidemia, type 2 diabetes, GERD and obesity presenting for diabetic management. She was diagnosed with gestational diabetes in 2011. She then developed prediabetes and says she was diagnosed with Type II DM about 4 years ago. Insurance denied CGM because she does not take insulin. She saw the chemical educator. Hemoglobin A1c 5.8% 05/29/2025. Current medication regimen: Metformin ER 1000 mg twice daily, Mounjaro 5 mg weekly. Past medication: Trulicity discontinued due to it being unavailable and GI side effects on the increased dosage. Compliance issues: seeing therapist to help with goal setting. History of PTSD. Her ex-girlfriend unexpectedly recently. Hypoglycemia symptoms: none Hyperglycemia symptoms: none Eye exam: Up-to-date and no retinopathy or macular edema per patient. Microvascular complications: She had microalbuminuria x1 which resolved on repeat labs. Macrovascular complications: none Hyperlipidemia: treated with atorvastatin 10 mg. LDL is 103 with a goal of less than 100. ROS: Constitutional: No unexplained weight loss, fever, chills, fatigue or night sweats. Eyes: No vision changes Respiratory: No shortness of breath Cardiovascular: No chest pain Neurologic: No numbness, tingling, dizziness, headache or weakness Endocrine: No cold or heat intolerance. No polyuria or polydipsia. Physical exam: Constitutional: Alert, in no distress. Neck: Supple, Full range of motion. No lymphadenopathy. No palpable thyroid masses. Respiratory: Clear to auscultation. Cardiovascular: S1 S2 regular. No murmurs Psychiatric: Normal mood and affect [facility] Medical History Diabetes mellitus Internal derangement of right knee Patellofemoral arthritis of right knee Right elbow tendonitis Irritable bowel syndrome (IBS) HPV in female Hypomagnesemia HPV (human papilloma virus) infection Elevated blood pressure reading Obesity (BMI 30-39.9) GERD without esophagitis Pure hypercholesterolemia Obesity (BMI 35.0-39.9 without comorbidity) Allergic rhinitis Calcaneal spur of left foot Hirsutism Plantar fasciitis of left foot Chronic constipation Chest pain, atypical GERD (gastroesophageal reflux disease) Surgical History Hx of knee surgery Hx of colonoscopy H/O endoscopy [place] teeth removed History of esophagogastroduodenoscopy (EGD) (~10/2019) H/O section Family History Father No problems noted. 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 Cognitive needs: No Hearing needs: No Vision needs: Yes Female Reproductive History Menstrual Age of Menarche: 9 Physical Exam Vital Signs: Last Vital Signs Pulse 94 06/01/25 11:02 BP 136/82 06/01/25 11:02 Pulse Ox 100 06/01/25 11:02 Oxygen Delivery Method Room Air 06/01/25 11:02 BMI result Body Mass Index 27.1 Results Reviewed Results Reviewed: Laboratory Last Values Glucose (Clinic) 85 mg/dL (60-115) 06/01/25 11:08 Laboratory Tests 05/29/25 05/29/25 10:20 10:25 Creatinine 0.85 Estimated GFR > 60 Hemoglobin A1c % 5.8 AST 15 ALT 6 Triglycerides 101 Cholesterol 179 LDL Cholesterol, Calc 103 H HDL Cholesterol 56 25-OH Vitamin D Total 30.7 TSH 0.77 Urine Creatinine 528.26 Urine Microalbumin 53.0 Microalb/Creat Ratio 10.0 Assessment & Plan Assessment & Plan (1) Type 2 diabetes mellitus without complications: Code(s): E11.9 - Type 2 diabetes mellitus without complications Category: Medical Qualifiers: Diabetes mellitus termite renewal inspector insulin use: without termite renewal inspector use Qualified Code(s): E11.9 - Type 2 diabetes mellitus without complications Plan: In summary this is a 44-year-old female with controlled type 2 diabetes. We discussed decreasing metformin to 750 mg twice daily, but she denies low sugars, and she wants to stay on her current dose. Continue Mounjaro 5 mg weekly. If she develops hypoglycemia she will call the office for the new prescription. Reviewed lifestyle modifications with the patient. She has met with a dietitian and chemical educator. Complications of type 2 diabetes reviewed with the patient. If you experience low blood sugar, treat this by eating a chewable fruit candy like skittles or jelly beans (about 8 pieces), 4 ounces (1/2 cup) of fruit juice (not diet), 1 tablespoon of honey or 4 glucose tablets. If your blood sugar is under 50, take double the amount of one of the above. Recheck your blood sugar in 15 minutes. She has glucose tablets at home. Plan Follow up in 3 months. Coding Level of Care Code Est Pt Level 4 (26541) Complex EM visit Add On G2211 Diagnoses Type 2 diabetes mellitus without complication, without long-term current use of insulin E11.9 Diabetes mellitus chcf insulin use: without termite renewal inspector use
[2025-06-01 11:12] LABS: Glucose, Whole Blood 85 mg/dL (60-115)
== END 2025-06-01 11:46 | disposition home or self-care (01) ==
PROVIDERS: PCP Internal Medicine; Visit Provider Physician Assistant Medical
DX: E11.9 Type 2 diabetes mellitus without complications (principal)

== ENCOUNTER → 2025-06-01 11:00 | Outpatient (BNVA) | payer OTHER, SELFPAY | PROVIDERS: PCP Internal Medicine; Visit Provider Physician Assistant Medical | DX: E11.9 Type 2 diabetes mellitus without complications (principal) | CPT/HCPCS: 82947; 99212 ==

== ENCOUNTER 2025-08-30 09:58 | Outpatient (REF) | payer OTHER, SELFPAY ==
[2025-08-30 11:08] LABS: Anion Gap 12 (12-20); Blood Urea Nitrogen 16 mg/dL (9-16); Calcium 9.1 mg/dL (8.4-10.2); Carbon Dioxide 24 mmol/L (22-29); Chloride 109 mmol/L (96-108); Cholesterol 176 mg/dL (<200); Estimated Glomerular Filt Rate > 60; HDL Cholesterol 65 mg/dL (>40); Potassium 4.1 mmol/L (3.3-5.1); Sodium 141 mmol/L (135-145); Triglycerides 88 mg/dL (<150)
== END 2025-08-30 09:59 | disposition home or self-care (01) ==
LOC: HO.LAB 09:58
PROVIDERS: PCP Internal Medicine; Visit Provider Physician Assistant Medical
DX: E11.65 Type 2 diabetes mellitus with hyperglycemia (principal); E11.69 Type 2 diabetes mellitus with other specified complication; E78.5 Hyperlipidemia, unspecified
CPT/HCPCS: 36415; 80048; 80061; 83036

== ENCOUNTER 2025-08-31 11:12 | Outpatient (AMB) | payer OTHER, SELFPAY ==
[2025-08-31 11:16] VITALS: BP 122/76; PULSE 90; O2SAT 100; BMI 31.0
--- NOTE | 2025-08-31 11:16 | A.OFFVIS_ITS ---
Vital Signs 08/31/25 11:16 Height 5 ft Weight 158 lb 11.725 oz BMI 31.0 BP 122/76 Blood Pressure Location Lt brachial Position Sitting Pulse 90 Pulse Source Pulse Oximeter Pulse Oximetry (%) 100 Oxygen Delivery Method Room Air Intake Visit Reasons: Type II Diabetes Intake Note: Patient present today to follow up on Type 2 Diabetes Mellitus. Last Diabetic Eye exam: December 2024 Last Podiatry Visit: Does not see a Operations Dispatcher Random Glucose: 274 mg/dL Most Recent HgA1C: 7.9% 08/30/2025 Curb Machine Operator Required: No Accompanied by: Self / Same As Patient Allergies Seasonal Allergies Allergy (Mild, Verified 08/31/25 11:21) runny nose HPI Comments Details: This is a 44-year-old female with a past medical history of hyperlipidemia, type 2 diabetes, GERD and obesity presenting for diabetic management. She was diagnosed with gestational diabetes in 2011. She then developed prediabetes and says she was diagnosed with Type II DM about 4 years ago. Insurance denied CGM because she does not take insulin. She saw the clinical systems educator. POC 274. She ate a donut before coming here. 30 day average 192 14 day average 177 BG mid 140s-lower 200s. Hemoglobin A1c 7.9% up from 5.8%. The patient's insurance stopped covering Mounjaro so she was recently started on Jardiance 10 mg daily. She started it just over a week ago. She is taking metformin extended release a 1000 mg twice a day. She is starting to see her blood sugars improved. Past medication: Trulicity discontinued due to it being unavailable and GI side effects on the increased dosage. Mounjaro discontinued due to insurance declining coverage. Compliance issues: seeing therapist to help with goal setting. History of PTSD. Hypoglycemia symptoms: none Hyperglycemia symptoms: none Eye exam: Up-to-date and no retinopathy or macular edema per patient. Microvascular complications: She had microalbuminuria x1 which resolved on repeat labs. Macrovascular complications: none Hyperlipidemia: treated with atorvastatin 10 mg. LDL is at goal of less than 100. ROS: Constitutional: No unexplained weight loss, fever, chills, fatigue or night sweats. Eyes: No vision changes Respiratory: No shortness of breath Cardiovascular: No chest pain Neurologic: No numbness, tingling, dizziness, headache or weakness Endocrine: No cold or heat intolerance. No polyuria or polydipsia. Physical exam: Constitutional: Alert, in no distress. Neck: Supple, Full range of motion. No lymphadenopathy. No palpable thyroid masses. Respiratory: Clear to auscultation. Cardiovascular: S1 S2 regular. No murmurs Psychiatric: Normal mood and affect Feet: Warm and well perfused. No clubbing, cyanosis or edema. Intact DP pulses. Normal sensation to monofilament. Intact vibratory sensation. [facility] Medical History Diabetes mellitus Internal derangement of right knee Patellofemoral arthritis of right knee Right elbow tendonitis Irritable bowel syndrome (IBS) HPV in female Hypomagnesemia HPV (human papilloma virus) infection Elevated blood pressure reading Obesity (BMI 30-39.9) GERD without esophagitis Pure hypercholesterolemia Obesity (BMI 35.0-39.9 without comorbidity) Allergic rhinitis Calcaneal spur of left foot Hirsutism Plantar fasciitis of left foot Chronic constipation Chest pain, atypical GERD (gastroesophageal reflux disease) Surgical History Hx of knee surgery Hx of colonoscopy H/O endoscopy [place] teeth removed History of esophagogastroduodenoscopy (EGD) (~10/2019) H/O section Family History Father No problems noted. Mother Hypertension Edema Lymphedema Sister Crohn's disease Maternal Grandfather Alzheimers disease Parkinson disease Social History Household Members: Family and Children Both parents involved: Yes Housing: House Are you a primary long term acute care registered nurse to a significant other at home: No Do you presently have visiting nurse or other home services: No Alcohol intake: current Alcohol intake frequency: holidays/special occasions only Patient Tobacco Use Status: Never used Tobacco e-Cigarette/Vaping Use: Never Used Second Hand Smoke Exposure: Yes service: No Current occupational status: employed 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 Cognitive needs: No Hearing needs: No Vision needs: Yes Female Reproductive History Menstrual Age of Menarche: 9 Physical Exam Vital Signs: Last Vital Signs Pulse 90 08/31/25 11:16 BP 122/76 08/31/25 11:16 Pulse Ox 100 08/31/25 11:16 Oxygen Delivery Method Room Air 08/31/25 11:16 BMI result Body Mass Index 31.0 Results Reviewed Results Reviewed: Laboratory Last Values Glucose (Clinic) 274 mg/dL (60-115) H 08/31/25 11:24 Laboratory Tests 05/29/25 08/30/25 10:20 10:01 Creatinine 0.92 Estimated GFR > 60 Triglycerides 88 Cholesterol 176 LDL Cholesterol, Calc 94 HDL Cholesterol 65 Urine Creatinine 528.26 Urine Microalbumin 53.0 Microalb/Creat Ratio 10.0 Assessment & Plan Assessment & Plan (1) Type 2 diabetes mellitus without complications: Code(s): E11.9 - Type 2 diabetes mellitus without complications Category: Medical Plan: In summary this is a 44-year-old female with type 2 diabetes which is now uncontrolled after her insurance stopped covering Essencero. She had to try other oral agents before they will approve GLP 1. Continue metformin a 1000 mg twice daily. Continue Jardiance 10 mg daily. Reassess dosing in 4-6 weeks. Reviewed lifestyle modifications with the patient. She has met with a dietitian and clinical systems educator. Complications of type 2 diabetes reviewed with the patient. If you experience low blood sugar, treat this by eating a chewable fruit candy like skittles or jelly beans (about 8 pieces), 4 ounces (1/2 cup) of fruit juice (not diet), 1 tablespoon of honey or 4 glucose tablets. If your blood sugar is under 50, take double the amount of one of the above. Recheck your blood sugar in 15 minutes. She has glucose tablets at home. (2) Pure hypercholesterolemia: Code(s): E78.00 - Pure hypercholesterolemia, unspecified Category: Medical Plan: LDL at goal. Recommended Mediterranean diet. Continue atorvastatin 10 mg daily. Plan Follow up in 3 months. Coding Level of Care Code Est Pt Level 4 (48108) Add On Problem Visit Only Diagnoses Type 2 diabetes mellitus without complications E11.9 Pure hypercholesterolemia E78.00
[2025-08-31 11:27] LABS: Glucose, Whole Blood 274 mg/dL (60-115)
== END 2025-08-31 11:53 | disposition home or self-care (01) ==
PROVIDERS: PCP Internal Medicine; Visit Provider Physician Assistant Medical
DX: E11.9 Type 2 diabetes mellitus without complications (principal); E78.00 Pure hypercholesterolemia, unspecified

== ENCOUNTER → 2025-08-31 11:12 | Outpatient (BNVA) | payer OTHER, SELFPAY | PROVIDERS: PCP Internal Medicine; Visit Provider Physician Assistant Medical | DX: E11.9 Type 2 diabetes mellitus without complications (principal); E78.00 Pure hypercholesterolemia, unspecified; Z79.84 Long term (current) use of oral hypoglycemic drugs; Z79.899 Other long term (current) drug therapy | CPT/HCPCS: 82947; 99212 ==